=== PATIENT | male | born 1940 | race Caucasian/White ===

== ENCOUNTER 2024-09-25 10:48 | Emergency (ER) | payer OTHER, SELFPAY ==
--- NOTE | ~2024-09-25 | XR_ITS ---
CHEST RADIOGRAPH CLINICAL HISTORY: cough, CONGESTION, BODY ACHY . COMPARISON: None available TECHNIQUE: Single portable view of the chest. FINDINGS The cardiomediastinal silhouette is unremarkable. Coarse interstitial lung markings are identified bilaterally, suggesting interstitial lung disease. The lungs are otherwise clear. IMPRESSION: Findings suggesting interstitial lung disease, without focal infiltrate or effusion. Reviewed, dictated and finalized at location A. URE CAPITALIST IMPRESSION: Findings suggesting interstitial lung disease, without focal infiltrate or effu lianna.
[2024-09-25 10:55] VITALS: BP 132/76; PULSE 81; RESP 18; TEMP 37.3; O2SAT 97
--- NOTE | 2024-09-25 11:36 | ED.GENADULT ---
HPI - General Adult General Chief complaint: Upper Respiratory Infection Stated complaint: congestion Time Seen by Provider: 09/25/24 10:50 History of Present Illness HPI narrative: [age] year old male presenting to the emergency department for evaluation for cough and congestion. this been ongoing for the approximately last 3-4 days. Patient denies any current complaint is not appear to be any significant distress. Patient denies any sick contacts. Patient does have a history of smoking but quit many years ago. Patient denies any fevers. Related Data Allergies Allergy/AdvReac Type Severity Reaction Status Date / Time No Known Allergies Allergy Verified 09/25/24 10:58 Review of Systems Review of Systems: All systems reviewed & are unremarkable except as noted in HPI and below PMFSH Family History Family History (Updated 09/18/15 @ 14:00 by DOCTOR UNKNOWN) Mother Family history of heart disease in male family member before age 55 Patient's mother is Father Patient's father is Social History Social History Smoking status: Former smoker Alcohol intake: current Exam Narrative: APPEARANCE: Well appearing, no pain, no distress, well-nourished. HEAD: normocephalic, atraumatic. EYES: PERRLA/EOMI, conjunctivae clear. NOSE: Normal no drainage EARS:TMS clear with good light reflex. THROAT: Pharynx clear, no exudate. NECK: Supple. No adenopathy, no masses. RESPIRATORY: Airway patent, respirations nonlabored. Clear to auscultation bilaterally, no rales, rhonchi, wheezing. CARDIOVASCULAR: Regular rate and rhythm without murmurs rubs or gallops. ABDOMINAL: Soft, nontender, nondistended, normal bowel sounds MUSCULOSKELETAL: Moves all extremities. Strength/ROM intact, No edema, No calf tenderness. NEURO: Alert. Cranial nerves II through XII intact. Grossly intact SKIN: Warm, dry. Normal Color Course Vital Signs Vital signs: Vital Signs Temperature 99.2 F 09/25/24 10:55 Pulse Rate 81 09/25/24 10:55 Respiratory Rate 18 09/25/24 10:55 Blood Pressure 132/76 09/25/24 10:55 Pulse Oximetry 97 09/25/24 10:55 Oxygen Delivery Room Air 09/25/24 10:55 Temperature 98 F 09/25/24 12:22 Pulse Rate 71 09/25/24 12:22 Respiratory Rate 18 09/25/24 12:22 Blood Pressure 142/67 H 09/25/24 12:22 Pulse Oximetry 92 09/25/24 12:22 Oxygen Delivery Room Air 09/25/24 11:03 Medical Decision Making MDM Narrative Medical decision making narrative: [age] old male presenting to the emergency department for evaluation for cough and congestion over the last to 3 days. Patient had a chest x-ray showing no acute cardiopulmonary abnormality. Patient was negative for influenza and RSV but did test positive for COVID. Patient was provided albuterol inhaler and Tessalon Perles for symptom control. Patient was updated results of the workup was encouraged close follow-up with primary care physician. Patient family were also educated on reasons to return to the emergency department. Differential Diagnosis Differential Diagnosis: Influenza, COVID, RSV, pneumonia, ACS Vital Signs Vital Signs: Vital Signs Temperature 99.2 F 09/25/24 10:55 Pulse Rate 81 09/25/24 10:55 Respiratory Rate 18 09/25/24 10:55 Blood Pressure 132/76 09/25/24 10:55 Pulse Oximetry 97 09/25/24 10:55 Oxygen Delivery Room Air 09/25/24 10:55 Temperature 98 F 09/25/24 12:22 Pulse Rate 71 09/25/24 12:22 Respiratory Rate 18 09/25/24 12:22 Blood Pressure 142/67 H 09/25/24 12:22 Pulse Oximetry 92 09/25/24 12:22 Oxygen Delivery Room Air 09/25/24 11:03 Lab Data Lab results reviewed: Yes I reviewed the patient's lab results. Labs: Lab Results 09/25/24 Range/Units 11:04 Influenza A (RT-PCR) Negative (Negative) Influenza B (RT-PCR) Negative (Negative) RSV (RT-PCR) Negative (Negative) SARS-CoV-2 RNA (RT-PCR) Positive A (Negative) Imaging Data Radiologist's impression: Impressions Chest X-Ray 09/25/24 11:30 IMPRESSION: Findings suggesting interstitial lung disease, without focal infiltrate or effusion. Discharge Plan Discharge Clinical Impression: COVID Patient Disposition: Home, Self-Care Condition: Stable Instructions: Antibiotic Form, COVID-19 (Coronavirus Disease 2019) (ED) Additional Instructions: You did test positive for COVID. Albuterol inhaler for cough and shortness of breath. Tessalon Perles for cough. Have close follow-up with your primary care physician. Patient Language: Hungarian Prescriptions: New albuterol sulfate 90 mcg/actuation HFA aerosol inhaler 1 inh inhalation Q4H PRN (Reason: shortness of breath or wheezing) Qty: 6.7 0RF benzonatate 100 mg capsule 100 mg PO TID PRN (Reason: cough) Qty: 14 0RF Follow-up/Referrals: Abner,Cali Gonzales MD [Primary Care Provider] -
[2024-09-25 11:46] LABS: Influenza A QL RT-PCR Negative (Negative); Influenza B QL RT-PCR Negative (Negative); RSV RNA, RT-PCR Negative (Negative); SARS-CoV-2 RNA PCR Positive (Negative)
[2024-09-25 12:22] VITALS: BP 142/67; PULSE 71; RESP 18; TEMP 36.6; O2SAT 92
--- OUTSIDE RECORDS SUMMARY | 2024-10-02 05:30 | XMS_ITS | Encounter Summary ---
Author Name [facility] [facility] [place] [facility] [place] [facility] [place] Address [address] [place] [address] Care Team Providers Care Lumber Trimmer Name Role Phone KALINA RAHMAN Primary Care Provider Unavailabl e Insurance Providers: All historical and current Section Date Range: From patient's date of to the date document was created. This section includes the names of all active insurance providers for the patient. Insurance Provider Type of Coverage Plan Name Start of Policy Coverage End of Policy Coverage Group Number Member ID Insurance Provider's Telephone Number Policy Gonsalez's Name Patient's Relationship to Policy Gonsalez MEDICARE (WNR) MEDICARE (M) PART B Apr 01, 2008 PART B [id number] SHARRI TORRES PATIENT MEDICARE (WNR) MEDICARE (M) PART A Apr 01, 2005 PART A [id number] SHARRI TORRES PATIENT Selected Encounter This section includes the information on record at [place] for the Encounter. Date/Time Encounter Type Encounter Description Reason Pro vider Source Jan 11, 2024 03:29 PM Outpatient Encounter TELEPHONE/ANCILLARY IHE Encounter Template Text not used by [place] Plan of Treatment: Future Appointments (+ 6 months) and Future Tests (+/- 45 days) The Plan of Treatment section includes future care activities for the patient from all [place] [facility]. This section includes future appointments and future orders which are active, pending or scheduled. Future Appointments This section includes appointments that were scheduled to occur 6 months from the date of the Encounter, up to a maximum of 20 appointments. The data comes from all [facility] facilities. Appointment Date/Time Appointment Type Appointme nt Facility Name February 09, 2024 10:30 AM AMBULATORY - MEDICINE [facility] May 13, 2024 09:00 AM AMBULATORY - MEDICINE [facility] Social History: Smoking Status (Most current) and Tobacco Use (All prior to encounter date) This section includes the most current, and the historical, smoking and tobacco- related health factors from the [place] facility where the Encounter took place. Current Smoking Status This section includes the most current smoking, or tobacco-related health factor, from the [place] facility where the Encounter took place. Date/Time Current Smoking Status Comment Domingo brannon Jul 27, 2009 11:32 AM QUIT TOBACCO >7 YEARS AGO [facility] Tobacco Use History This section includes a history of the smoking, or tobacco-related health factors, that were collected on or before the date of the Encounter. The data comes from the [place] facility where the Encounter took place. Date/Time Smoking Status/Tobacco Use Comment Lesley pierce Oct 18, 2006 01:13 PM QUIT TOBACCO >12 M O & <7 YRS AGO [facility] Jul 12, 2006 01:22 PM CURRENT NON-TOBACC O USER-HX OF USE [facility] Jul 12, 2006 01:22 PM TOBACCO TERMINATION STAGE [facility] Dec 21, 2005 01:25 PM CURRENT NON-TOBACC O USER-HX OF USE [facility] Dec 21, 2005 01:25 PM TOBACCO TERMINATION STAGE [facility] Jun 14, 2005 10:36 AM CURRENT NON-TOBACC O USER-HX OF USE [facility] Jun 14, 2005 10:36 AM TOBACCO TERMINATION STAGE [facility] Jan 21, 2005 08:41 AM CURRENT NON-TOBACC O USER-HX OF USE [facility] Jan 21, 2005 08:41 AM LIFETIME NON-TOBACCO USER [facility] Jan 21, 2005 08:41 AM TOBACCO TERMINATION STAGE [facility] Advance Directives: All historical and current Section Date Range: From patient's date of to the date document was created. This section includes ALL of a patient's completed or amended [place] Advance and Rescinded Directives. The entries below indicate that a directive exists for the patient, but an actual copy is not included with this document. The data comes from all [place] facilities. Date Advance Directives Provider Source Nov 25, 2022 ADVANCE DIRECTIVE CELINE GOINS [facility] Encounter Notes: All associated encounter notes This section contains the clinical notes associated to the Encounter. Date/Time Encounter Note(s) Provider Source Jan 11, 2024 03:29 PM CAREGIVER CERTIFIC ATE: LOCAL TITLE: CSP TELEPHONE NOTE STANDARD TITLE: CAREGIVER CERTIFICATE DATE OF NOTE: JAN 11, 2024@15:29 ENTRY DATE: JAN 11, 2024@15:29:22 AUTHOR: MERLIN MCNEAL EXP COSIGNER: URGENCY: STATUS: COMPLETED CSP SW attempted to reach the 's CG (Varsha, ) by phone after she requested a call back through the [facility] office. Call went to [employer], general message with [facility] contact information provided. [facility] SW will attempt to reach out again at a later time. /tashia/ MCKAYLA Menon, ABRASIVE WHEEL MOLDER Clinical Record Center Coordinator Signed: 01/11/2024 15:30 MERLIN MCNEAL [facility]
--- OUTSIDE RECORDS SUMMARY | 2024-10-02 05:30 | XMS_ITS | Encounter Summary ---
Author Name [facility] [place] [facility] [place] [facility] [place] Address [address] [place] [address] Care Team Providers Care Laboratory Monitor Name Role Phone KALINA RAHMAN Primary Care [...] PART B Apr 01, 2008 PART B [id number] 91A SHARRI TORRES PATIENT MEDICARE (WNR) MEDICARE (M) PART A Apr 01, 2005 PART A [id number] 91A SHARRI TORRES PATIENT Selected Encounter This section includes the information on record at [place] for the Encounter. Date/Time Encounter Type Encounter Description Reason Provider Source Sep 27, 2023 11:50 AM HC PRO PHONE CALL 5-10 MIN TELEPHONE/ERROL ENCARNACION ICD-10-CM G30.9 Alzheimer's disease, unspecified MERLIN MCNEAL [facility] Encounter Template Text not used by [place] Assessments - Encounter Diagnoses This section includes the primary and secondary diagnoses documented for the Encounter. Date/Time Primary/Secondary Diagnosis Diagnosis Name Provider Source Sep 27, 2023 11:50 AM PRIMARY Alzheimer's disease, unspecified MERLIN MCNEAL [facility] Sep 27, 2023 11:50 AM SECONDARY Dem in oth dis classd elswhr,unsp sev,w/o beh/psych/mood/an x MERLIN MCNEAL [facility] Plan of Treatment: Future Appointments (+ 6 months) and Future Tests (+/- 45 days) The Plan of Treatment section includes future care activities for the patient from all [place] [facility]. This section includes future appointments and future orders which are active, pending or scheduled. Future Appointments This section includes appointments that were scheduled to occur 6 months from the date of the Encounter, up to a maximum of 20 appointments. The data comes from all [place] treatment facilities. Appointment Date/Time Appointment Type Appointme nt Facility Name February 09, 2024 10:30 AM AMBULATORY - MEDICINE [facility] Social History: Smoking Status (Most current) and Tobacco Use (All prior to encounter date) This section includes the most current, and the historical, smoking and tobacco- related health factors from the [place] facility where the Encounter took place. Current Smoking Status This section includes the most current smoking, or tobacco-related health factor, from the [place] facility where the Encounter took place. Date/Time Current Smoking Status Comment Domingo brannon Jul 27, 2009 11:32 AM QUIT TOBACCO >7 YEARS AGO [facility] Tobacco Use History This section includes a history of the smoking, or tobacco-related health factors, that were collected on or before the date of the Encounter. The data comes from the [place] facility where the Encounter took place. Date/Time Smoking Status/Tobacco Use Comment Lesley pierce Oct 18, 2006 01:13 PM QUIT TOBACCO >12 M O & <7 YRS AGO [facility] Jul 12, 2006 01:22 PM CURRENT NON-TOBACC O USER-HX OF USE [facility] Jul 12, 2006 01:22 PM TOBACCO TERMINATION STAGE [facility] Dec 21, 2005 01:25 PM CURRENT NON-TOBACC O USER-HX OF USE [facility] Dec 21, 2005 01:25 PM TOBACCO TERMINATION STAGE [facility] Jun 14, 2005 10:36 AM CURRENT NON-TOBACC O USER-HX OF USE [facility] Jun 14, 2005 10:36 AM TOBACCO TERMINATION STAGE [facility] Jan 21, 2005 08:41 AM CURRENT NON-TOBACC O USER-HX OF USE [facility] Jan 21, 2005 08:41 AM LIFETIME NON-TOBACCO USER [facility] Jan 21, 2005 08:41 AM TOBACCO TERMINATION STAGE [facility] Advance Directives: All historical and current Section Date Range: From patient's date of to the date document was created. This section includes ALL of a patient's completed or amended [place] Advance and Rescinded Directives. The entries below indicate that a directive exists for the patient, but an actual copy is not included with this document. The data comes from all [place] facilities. Date Advance Directives Provider Source Nov 25, 2022 ADVANCE DIRECTIVE CELINE GOINS [facility] Encounter Notes: All associated encounter notes This section contains the clinical notes associated to the Encounter. Date/Time Encounter Note(s) Provider Source Sep 27, 2023 11:50 AM CONSULT: LOCAL TITLE: CAREGIVER SUPPORT CONSULT STANDARD TITLE: CONSULT DATE OF NOTE: SEP 27, 2023@11:50 ENTRY DATE: SEP 27, 2023@12:44:38 AUTHOR: MERLIN MCNEAL COSIGNER: URGENCY: STATUS: COMPLETED Name of Caregiver: Varsha Relationship of Caregiver to the : The caregiver is the 's spouse. Caregiver Contact number: Time spent on phone: 9 mins Total time spent: 20 mins Reason(s) for Referral: Caregiver assistance with navigating VA services Caregiver community resources Services/Education Offered: Navigating [place] healthcare and services Information provided [facility] Program of General Caregiver Support Services Information provided Assessment and Plan: GISSEL RENEE called the CG per consult. She was agreeable to the call, denied any immediate needs, and endorsed having a short time to speak. GISSEL RENEE provided a brief overview of local and national CSP resources for caregivers. Provided information and education related to resources available for caregivers of enrolled veterans through the [facility] and offered to send [facility] fact sheet, menu of services, and monthly newsletter for review by mail or e-mail. At this time the CG is interested in receiving the information and speaking with GISSEL RENEE the following week. She reports that she is trying to contact PACT or needed providers to discuss opting out of 's sleep study. GISSEL RENEE provided her with assistance navigating VA contacts and also provided information regarding [employer] and its messaging tool. CG expressed graditude. CG prefers e-mail and resources were sent to [email or web address]. GISSEL RENEE will remain available for CG support as needed. GISSEL RENEE addressed all questions and CG's stated needs during this call. CG was invited to call back with additional questions, support, or assistance navigating the [place] health care system. /tashia/ MCKAYLA Menon, GAME ROOM ATTENDANT Clinical Teacher Assistant Signed: 09/27/2023 12:49 MERLIN MCNEAL [facility]
--- OUTSIDE RECORDS SUMMARY | 2024-10-02 05:30 | XMS_ITS | Encounter Summary ---
Author Name [facility] [place] [facility] [place] [facility] [place] Address [address] [place] [address] Care Team Providers Care Hotel Or Motel Receptionist Name Role Phone KALINA RAHMAN Primary Care [...] PART B Apr 01, 2008 PART B [id number] [phone] SHARRI TORRES PATIENT MEDICARE (WNR) MEDICARE (M) PART A Apr 01, 2005 PART A [id number] SHARRI TORRES PATIENT Selected Encounter This section includes the information on record at [place] for the Encounter. Date/Time Encounter Type Encounter Description Reason Pro vider Source Nov 02, 2023 12:02 PM Outpatient Encounter TELEPHONE/ANCILLARY IHE Encounter Template Text not used by [place] Plan of Treatment: Future Appointments (+ 6 months) and Future Tests (+/- 45 days) The Plan of Treatment section includes future care activities for the patient from all [place] [facility]. This section includes future appointments and future orders which are active, pending or scheduled. Future Appointments This section includes appointments that were scheduled to occur 6 months from the date of the Encounter, up to a maximum of 20 appointments. The data comes from all [place] treatment facilities. Appointment Date/Time Appointment Type Appointme nt Facility Name February 09, 2024 10:30 AM AMBULATORY - MEDICINE [facility] Social History: Smoking Status (Most current) and Tobacco Use (All prior to encounter date) This section includes the most current, and the historical, smoking and tobacco- related health factors from the [place] facility where the Encounter took place. Current Smoking Status This section includes the most current smoking, or tobacco-related health factor, from the [place] facility where the Encounter took place. Date/Time Current Smoking Status Comment Domingo brannon Jul 27, 2009 11:32 AM QUIT TOBACCO >7 YEARS AGO [facility] Tobacco Use History This section includes a history of the smoking, or tobacco-related health factors, that were collected on or before the date of the Encounter. The data comes from the [place] facility where the Encounter took place. Date/Time Smoking Status/Tobacco Use Comment Lesley pierce Oct 18, 2006 01:13 PM QUIT TOBACCO >12 M O & <7 YRS AGO [facility] Jul 12, 2006 01:22 PM CURRENT NON-TOBACC O USER-HX OF USE [facility] Jul 12, 2006 01:22 PM TOBACCO TERMINATION STAGE [facility] Dec 21, 2005 01:25 PM CURRENT NON-TOBACC O USER-HX OF USE [facility] Dec 21, 2005 01:25 PM TOBACCO TERMINATION STAGE [facility] Jun 14, 2005 10:36 AM CURRENT NON-TOBACC O USER-HX OF USE [facility] Jun 14, 2005 10:36 AM TOBACCO TERMINATION STAGE [facility] Jan 21, 2005 08:41 AM CURRENT NON-TOBACC O USER-HX OF USE [facility] Jan 21, 2005 08:41 AM LIFETIME NON-TOBACCO USER [facility] Jan 21, 2005 08:41 AM TOBACCO TERMINATION STAGE [facility] Advance Directives: All historical and current Section Date Range: From patient's date of to the date document was created. This section includes ALL of a patient's completed or amended [place] Advance and Rescinded Directives. The entries below indicate that a directive exists for the patient, but an actual copy is not included with this document. The data comes from all [place] facilities. Date Advance Directives Provider Source Nov 25, 2022 ADVANCE DIRECTIVE CELINE GOINS [facility] Encounter Notes: All associated encounter notes This section contains the clinical notes associated to the Encounter. Date/Time Encounter Note(s) Provider Source Nov 02, 2023 12:02 PM CAREGIVER CERTIFIC ATE: LOCAL TITLE: CSP TELEPHONE NOTE STANDARD TITLE: CAREGIVER CERTIFICATE DATE OF NOTE: NOV 02, 2023@12:02 ENTRY DATE: NOV 02, 2023@12:02:58 AUTHOR: MERLIN MCNEAL EXP COSIGNER: URGENCY: STATUS: COMPLETED CSP SW attempted to reach the [place] CG (Varsha) by phone for scheduled enrollment to [facility]. CG answered and reports that her grandson made a surprise visit to the house and she is open to contact next week. CSP SW in agreement and wished her a happy visit with family. GISSEL SW will attempt to reach out again at a later time. /tashia/ MCKAYLA Menon, CUSTOMER LOGISTICS MANAGER Clinical Rn Icu Signed: 11/02/2023 12:04 MERLIN MCNEAL [facility]
--- OUTSIDE RECORDS SUMMARY | 2024-10-02 05:30 | XMS_ITS | Encounter Summary ---
Author Name [facility] [facility] [place] [facility] [place] Address [address] [place] [address] Care Team Providers Care Windows Security Analyst Name Role Phone KALINA RAHMAN Primary Care [...] PART B Apr 01, 2008 PART B [id number] SHARRI TORRES PATIENT MEDICARE (WNR) MEDICARE (M) PART A Apr 01, 2005 PART A [id number] SHARRI TORRES PATIENT Selected Encounter This section includes the information on record at [place] for the Encounter. Date/Time Encounter Type Encounter Description Reason Pro vider Source Nov 29, 2023 03:28 PM Outpatient Encounter TELEPHONE/ANCILLARY IHE Encounter Template Text not used by [place] Plan of Treatment: Future Appointments (+ 6 months) and Future Tests (+/- 45 days) The Plan of Treatment section includes future care activities for the [facility] [place] [facility] This section includes future appointments and future orders which are active, pending or scheduled. Future Appointments This section includes appointments that were scheduled to occur 6 months from the date of the Encounter, up to a maximum of 20 appointments. The data comes from all [place] treatment facilities. Appointment Date/Time Appointment Type Appointme nt Facility Name February 09, 2024 10:30 AM AMBULATORY - MEDICINE [facility] May 13, 2024 09:00 AM AMBULATORY - MEDICINE [facility] Social History: Smoking Status (Most current) and Tobacco Use (All prior to encounter date) This section includes the most current, and the historical, smoking and tobacco- related health factors from the [place] facility where the Encounter took place. Current Smoking Status This section includes the most current smoking, or tobacco-related health factor, from the [place] facility where the Encounter took place. Date/Time Current Smoking Status Comment Domingo brannon Jul 27, 2009 11:32 AM QUIT TOBACCO >7 YEARS AGO [facility] Tobacco Use History This section includes a history of the smoking, or tobacco-related health factors, that were collected on or before the date of the Encounter. The data comes from the [place] facility where the Encounter took place. Date/Time Smoking Status/Tobacco Use Comment Lesley pierce Oct 18, 2006 01:13 PM QUIT TOBACCO >12 M O & <7 YRS AGO [facility] Jul 12, 2006 01:22 PM CURRENT NON-TOBACC O USER-HX OF USE [facility] Jul 12, 2006 01:22 PM TOBACCO TERMINATION STAGE [facility] Dec 21, 2005 01:25 PM CURRENT NON-TOBACC O USER-HX OF USE [facility] Dec 21, 2005 01:25 PM TOBACCO TERMINATION STAGE [facility] Jun 14, 2005 10:36 AM CURRENT NON-TOBACC O USER-HX OF USE [facility] Jun 14, 2005 10:36 AM TOBACCO TERMINATION STAGE [facility] Jan 21, 2005 08:41 AM CURRENT NON-TOBACC O USER-HX OF USE [facility] Jan 21, 2005 08:41 AM LIFETIME NON-TOBACCO USER [facility] Jan 21, 2005 08:41 AM TOBACCO TERMINATION STAGE [facility] Advance Directives: All historical and current Section Date Range: From patient's date of to the date document was created. This section includes ALL of a patient's completed or amended [place] Advance and Rescinded Directives. The entries below indicate that a directive exists for the patient, but an actual copy is not included with this document. The data comes from all [place] facilities. Date Advance Directives Provider Source Nov 25, [address] [facility] Encounter Notes: All associated encounter notes This section contains the clinical notes associated to the Encounter. Date/Time Encounter Note(s) Provider Source Nov 29, 2023 03:28 PM CAREGIVER CERTIFIC ATE: LOCAL TITLE: CSP TELEPHONE NOTE STANDARD TITLE: CAREGIVER CERTIFICATE DATE OF NOTE: NOV 29, 2023@15:28 ENTRY DATE: NOV 29, 2023@15:29:02 AUTHOR: MERLIN MCNEAL EXP COSIGNER: URGENCY: STATUS: COMPLETED CSP SW attempted to reach the 's CG (Varsha, ) by phone, call went to [facility], general message with CSP contact information provided. CSP SW will await a call from the CG at her discretion. /tashia/ MCKAYLA Menon, DIRECTOR INFORMATICS Clinical Director Clinical Information Services Signed: 11/29/2023 15:30 MERLIN MCNEAL [facility]
--- OUTSIDE RECORDS SUMMARY | 2024-10-02 05:30 | XMS_ITS | Encounter Summary ---
Author Name [facility] [place] [facility] [place] Address [address] [place] [address] Care Team Providers Care Fitness Professional Name Role Phone KALINA RAHMAN Primary Care [...] PART B Apr 01, 2008 PART B [id number] SHARRI TORRES PATIENT MEDICARE (WNR) MEDICARE (M) PART A Apr 01, 2005 PART A [id number] [phone] SHARRI TORRES PATIENT Selected Encounter This section includes the information on record at [place] for the Encounter. Date/Time Encounter Type Encounter Description Reason Provider Source Oct 13, 2023 10:50 AM HC PRO PHONE CALL 21-30 MIN TELEPHONE/ERROL ENCARNACION ICD-10-CM G30.9 Alzheimer's disease, unspecified MERLIN MCNEAL [facility] Encounter Template Text not used by [place] Assessments - Encounter Diagnoses This section includes the primary and secondary diagnoses documented for the Encounter. Date/Time Primary/Secondary Diagnosis Diagnosis Name Provider Source Oct 13, 2023 10:50 AM PRIMARY Alzheimer's disease, unspecified JEANINE MCNEALIA Naveen [facility] Oct 13, 2023 10:50 AM SECONDARY Dem in oth dis classd elswhr,unsp sev,w/o beh/psych/mood/an x ELIZABETMERLIN M [facility] Oct 13, 2023 10:50 AM SECONDARY Dem in other dis classd elswhr, mild, w/o beh/psych/mood/an x [facility] Plan of Treatment: Future Appointments (+ 6 months) and Future Tests (+/- 45 days) The Plan of Treatment section includes future care activities for the patient from all [place] treatmentfacilities. This section includes future appointments and future orders which are active, pending or scheduled. Future Appointments This section includes appointments that were scheduled to occur 6 months from the date of the Encounter, up to a maximum of 20 appointments. The data comes from all [place] treatment facilities. Appointment Date/Time Appointment Type Appointme nt Facility Name February 09, 2024 10:30 AM AMBULATORY - MEDICINE [facility] Social History: Smoking Status (Most current) and Tobacco Use (All prior to encounter date) This section includes the most current, and the historical, smoking and tobacco- related health factors from the [place] facility where the Encounter took place. Current Smoking Status This section includes the most current smoking, or tobacco-related health factor, from the [place] facility where the Encounter took place. Date/Time Current Smoking Status Comment Domingo brannon Jul 27, 2009 11:32 AM QUIT TOBACCO >7 YEARS AGO [facility] Tobacco Use History This section includes a history of the smoking, or tobacco-related health factors, that were collected on or before the date of the Encounter. The data comes from the [place] facility where the Encounter took place. Date/Time Smoking Status/Tobacco Use Comment Lesley acelisa Oct 18, 2006 01:13 PM QUIT TOBACCO >12 M O & <7 YRS AGO [facility] Jul 12, 2006 01:22 PM CURRENT NON-TOBACC O USER-HX OF USE [facility] Jul 12, 2006 01:22 PM TOBACCO TERMINATION STAGE [facility] Dec 21, 2005 01:25 PM CURRENT NON-TOBACC O USER-HX OF USE [facility] Dec 21, 2005 01:25 PM TOBACCO TERMINATION STAGE [facility] Jun 14, 2005 10:36 AM CURRENT NON-TOBACC O USER-HX OF USE [facility] Jun 14, 2005 10:36 AM TOBACCO TERMINATION STAGE [facility] Jan 21, 2005 08:41 AM CURRENT NON-TOBACC O USER-HX OF USE [facility] Jan 21, 2005 08:41 AM LIFETIME NON-TOBACCO USER [facility] Jan 21, 2005 08:41 AM TOBACCO TERMINATION STAGE [facility] Advance Directives: All historical and current Section Date Range: From patient's date of to the date document was created. This section includes ALL of a patient's completed or amended [place] Advance and Rescinded Directives. The entries below indicate that a directive exists for the patient, but an actual copy is not included with this document. The data comes from all [place] facilities. Date Advance Directives Provider Source Nov 25, 2022 ADVANCE DIRECTIVE CELINE GOINS [facility] Encounter Notes: All associated encounter notes This section contains the clinical notes associated to the Encounter. Date/Time Encounter Note(s) Provider Source Oct 13, 2023 10:50 AM CAREGIVER CERTIFIC ATE: LOCAL TITLE: [facility] TELEPHONE NOTE STANDARD TITLE: CAREGIVER CERTIFICATE DATE OF NOTE: OCT 13, 2023@10:50 ENTRY DATE: OCT 13, 2023@11:40:36 AUTHOR: MERLIN MCNEAL COSIGNER: URGENCY: STATUS: COMPLETED CAREGIVER SUPPORT TELEPHONE NOTE DATE OF TELEPHONE CONTACT: 10/13/2023 Time spent on phone: 51 min Total time spent: 65 min PURPOSE OF CONTACT: CG called back to the [facility] office DIAGNOSIS: See medical record CAREGIVER INVOLVED IN CARE: YES, per cg report. No PHI shared with CG during this call. CALL OUTCOME: completed with CG/DPOA RESOURCES PROVIDED: Caregiver Support resources discussed and provided via call and e-mail Barriers to Care identified by CG: No barriers identified AD/DPOAHC: On file, spouse designated as DPOA Concern related to Abuse, Neglect, or Exploitation? None reported SUMMARY: CG called back to CSP office following an outreach call and VM. CG denied any immdiate needs at this time and was grateful for the outreach. She reports that currently she is trying to learn more about sleeping habits for those with dementia. She reports that the slept more than her prior to his diagnosis and that in the past months she has noted that he has slept more than his usual. CG is seeking resources to help educate her about Sxs of dementia, including peer support groups. GISSEL RENEE and CG discussed both dementia support group through local [facility] as well as Alzheimer's Association. CG also spoke about difficulty of planning for care needs ahead. The CG reports that she is uncertain about moving to be closer to her daughter and is being thoughtful about the 's socialization so as to prevent isolation. GISSEL RENEE first provided active listening to the CG's preferences, concerns, and hopes. GISSEL RENEE later worked with the CG to discuss strategies such as problem solving through making a list as well as incoporating her children in the discussion as they have voiced willingness to help. CG and GISSEL RENEE reveiewed some scenrios for speaking with her children as well as discussed some of the initial pros and cons that she will write on her list. CG expressed graditude for the call. Due to timing, it did not seem appropriate for GISSEL RENEE to enroll her at this time to [facility]. CG is interested in enrolling in the weeks to come and also requests to be included in the invitation to [facility]'s dementia support group. GISSEL RENEE to call CG next week to schedule an enrollment date/time and add her to the support group list. FOLLOW UP PLAN: GISSEL RENEE will remain available for CG support as needed. GISSEL RENEE addressed all questions and CG's stated needs during this call. CG was invited to call back with additional questions, support, or assistance navigating the [place] health care system. /tashia/ MCKAYLA Menon, SAMMI Clinical Jacker Signed: 10/13/2023 15:09 MERLIN MCNEAL [facility]
--- OUTSIDE RECORDS SUMMARY | 2024-10-02 05:30 | XMS_ITS | Encounter Summary ---
Author Name [facility] [place] Address [address] [place] [address] Care Team Providers Care Floor Scrubber Name Role Phone KALINA RAHMAN Primary Care [...] PART B Apr 01, 2008 PART B [id number] [phone] SHARRI TORRES PATIENT MEDICARE (WNR) MEDICARE (M) PART A Apr 01, 2005 PART A [id number] SHARRI TORRES PATIENT Selected Encounter This section includes the information on record at [place] for the Encounter. Date/Time Encounter Type Encounter Description Reason Provider Source Oct 24, 2023 02:15 PM HC PRO PHONE CALL 5-10 MIN TELEPHONE/ERROL ENCARNACION ICD-10-CM G30.9 Alzheimer's disease, unspecified MERLIN MCNEAL [facility] Encounter Template Text not used by [place] Assessments - Encounter Diagnoses This section includes the primary and secondary diagnoses documented for the Encounter. Date/Time Primary/Secondary Diagnosis Diagnosis Name Provider Source Oct 24, 2023 02:15 PM PRIMARY Alzheimer's disease, unspecified MERLIN MCNEAL [facility] Oct 24, 2023 02:15 PM SECONDARY Dem in oth dis classd elswhr,unsp sev,w/o beh/psych/mood/an x MERLIN MCNEAL [facility] Plan of Treatment: Future Appointments (+ 6 months) and Future Tests (+/- 45 days) The Plan of Treatment section includes future care activities for the [facility] This section includes future appointments and future orders which are active, pending or scheduled. Future Appointments This section includes appointments that were scheduled to occur 6 months from the date of the Encounter, up to a maximum of 20 appointments. The data comes from all [place] treatment facilities. Appointment Date/Time Appointment Type Appointme nt Facility Name February 09, 2024 10:30 AM AMBULATORY - MEDICINE [facility] Social History: Smoking Status (Most current) and Tobacco Use (All prior to encounter date) This section includes the most current, and the historical, smoking and tobacco- related health factors from the [place] facility where the Encounter took place. Current Smoking Status This section includes the most current smoking, or tobacco-related health factor, from the [place] facility where the Encounter took place. Date/Time Current Smoking Status Comment Domingo brannon Jul 27, 2009 11:32 AM QUIT TOBACCO >7 YEARS AGO [facility] Tobacco Use History This section includes a history of the smoking, or tobacco-related health factors, that were collected on or before the date of the Encounter. The data comes from the [place] facility where the Encounter took place. Date/Time Smoking Status/Tobacco Use Comment Lesley pierce Oct 18, 2006 01:13 PM QUIT TOBACCO >12 M O & <7 YRS AGO [facility] Jul 12, 2006 01:22 PM CURRENT NON-TOBACC O USER-HX OF USE [facility] Jul 12, 2006 01:22 PM TOBACCO TERMINATION STAGE [facility] Dec 21, 2005 01:25 PM CURRENT NON-TOBACC O USER-HX OF USE [facility] Dec 21, 2005 01:25 PM TOBACCO TERMINATION STAGE [facility] Jun 14, 2005 10:36 AM CURRENT NON-TOBACC O USER-HX OF USE [facility] Jun 14, 2005 10:36 AM TOBACCO TERMINATION STAGE [facility] Jan 21, 2005 08:41 AM CURRENT NON-TOBACC O USER-HX OF USE [facility] Jan 21, 2005 08:41 AM LIFETIME NON-TOBACCO USER [facility] Jan 21, 2005 08:41 AM TOBACCO TERMINATION STAGE [facility] Advance Directives: All historical and current Section Date Range: From patient's date of to the date document was created. This section includes ALL of a patient's completed or amended [place] Advance and Rescinded Directives. The entries below indicate that a directive exists for the patient, but an actual copy is not included with this document. The data comes from all [place] facilities. Date Advance Directives Provider Source Nov 25, 2022 ADVANCE DIRECTIVE CELINE GOINS [facility] Encounter Notes: All associated encounter notes This section contains the clinical notes associated to the Encounter. Date/Time Encounter Note(s) Provider Source Oct 24, 2023 02:15 PM CAREGIVER CERTIFIC ATE: LOCAL TITLE: CSP TELEPHONE NOTE STANDARD TITLE: CAREGIVER CERTIFICATE DATE OF NOTE: OCT 24, 2023@14:15 ENTRY DATE: OCT 24, 2023@14:29:30 AUTHOR: MERLIN MCNEAL COSIGNER: URGENCY: STATUS: COMPLETED CAREGIVER SUPPORT TELEPHONE NOTE DATE OF TELEPHONE CONTACT: 10/24/2023 Time spent on phone: 7 min Total time spent: 15 min PURPOSE OF CONTACT: [facility] called CG for follow up DIAGNOSIS: See medical record CAREGIVER INVOLVED IN CARE: YES, per cg report. No PHI shared with CG during this call. CALL OUTCOME: completed with CG/DPOA (Varsha Nelson, ) RESOURCES PROVIDED: Caregiver Support resources discussed and provided via call Barriers to Care identified by CG: No barriers identified AD/DPOAHC: On file, spouse designated as DPOA Concern related to Abuse, Neglect, or Exploitation? None reported SUMMARY: GISSEL RENEE called the CG for follow up and to offer time to schedule enrollment. CG was agreeable to the call and reports that things have been mostly unchanged in past two weeks. CG's daughter to visit on 11/03. CG wants to participate in full assessment for [employer] enrollment and scheduled for phone enrollment with GISSEL RENEE on 11/02/23 at 12pm. FOLLOW UP PLAN: GISSEL RENEE will remain available for CG support as needed. CSP SW addressed all questions and CG's stated needs during this call. CG was invited to call back with additional questions, support, or assistance navigating the [place] health care system. /tashia/ MCKAYLA Menon, PRE SALES SYSTEMS ENGINEER Clinical Card Placer Signed: 10/24/2023 14:40 MERLIN MCNEAL [facility]
--- OUTSIDE RECORDS SUMMARY | 2024-10-02 05:30 | XMS_ITS | Continuity of Care Document ---
Author Name [facility] Organization [facility] Care Team Providers Care Commercial Drafter Name Role Phone [facility] Unavailable Unavailable Problems Combined list of problems from Department of Defense and [facility] Affairs facilities. It does not include entries that were removed or entered in error. Problem Status Onset Date Problem Type Date of Resolution Comments Source Alcohol abuse Active Condition [facility] Alzheimer's disease Active Condition [facility] Dementia Active Condition [facility] Gastroesophageal reflux disease without esophagitis Active Condition [facility] Gastroesophageal Reflux Disorder * (ICD-9-CM 530.81) Active Condition [facility] Hearing Loss, Sensorineural, Unspecified Active Condition [facility] HTN * (ICD-9-CM 401.9) Active Condition [facility] Hypercholesterolemia * (ICD-9-CM 272.0) Active Condition [facility] Hyperlipidemia Active Condition [facility] Hypertension Active Condition [facility] Impacted cerumen of bilateral ears Active Condition [facility] Impaired FASTING Glucose (ICD-9-CM 790.21) Active Condition [facility] Inguinal hernia Active Condition [facility] URI (ICD-9-CM 465.9) Active Condition [facility] Diagnosis: ICD-10-CM G30.9 Alzheimer's disease, unspecified Active Diagnosis [facility] Diagnosis: ICD-10-CM Z71.9 Counseling, unspecified Active Diagnosis [facility] Diagnosis: ICD-10-CM G47.30 Sleep apnea, unspecified Active Diagnosis [facility] Diagnosis: ICD-10-CM F02.A0 Dem in other dis classd elswhr, mild, w/o beh/psych/mood/anx Active Diagnosis [facility] Diagnosis: ICD-10-CM G30.1 Alzheimer's disease with late onset Active Diagnosis [facility] Diagnosis: ICD-10-CM R41.9 Unsp symptoms and signs w cognitive functions and awareness Active Diagnosis [facility] Diagnosis: ICD-10-CM R53.83 Other fatigue Active Diagnosis [facility] Diagnosis: ICD-10-CM I10 Essential (primary) hypertension Active Diagnosis [facility] Diagnosis: ICD-10-CM Z60.0 Problems of adjustment to life-cycle transitions Active Diagnosis [facility] Medications Combined list of outpatient medications from Department of Defense and Veterans Affairs facilities.Medications provided include 1) outpatient medications from the last 15 months, and 2) patient-reported medications. Medication Details Route Status Patient Instructions Prescription Expires Prescription Number Last Dispense Date Ordering Provider Order Date Order Qty Source DONEPEZIL HCL 10MG TAB TAKE ONE TABLET BY MOUTH AT BEDTIME ORAL ACTIVE RAHMAN,BRADEN AM M 2022 [facility] ERAN Bhardwaj LISINOPRIL 20MG TAB TAKE 1.5 TABLETS BY MOUTH ONCE A DAY ORAL ACTIVE Slick CARCAMO 2021 [facility] ERAN Bhardwaj MEMANTINE HCL 10MG TAB TAKE ONE TABLET BY MOUTH TWICE A DAY ORAL ACTIVE RAHMAN,BRADEN AM M 2022 [facility] ERAN Bhardwaj MULTIVITAMI NS CAP/TAB TAKE ONE TABLET BY MOUTH ONCE A DAY ORAL ACTIVE Slick CARCAMO 2021 [facility] ERAN Bhardwaj SIMVASTATIN 40MG TAB TAKE ONE-HALF TABLET BY MOUTH EVERY EVENING ORAL ACTIVE Slick CARCAMO 2021 [facility] ERAN Bhardwaj Immunizations Combined list of available immunizations from the Department of Defense and Veterans Affairs facilities. Immunization Series Date Given Administered By Site Reaction Lot Number CVX Code Drug Blueprint Trimmer Status Comments Source INFLUENZA, UNSPECIFIED FORMULATION 2022 88 complet ed [facility] GOLDISIO N RSV, BIVALENT, PROTEIN SUBUNIT RSVPREF, DILUENT RECONSTITUTED , 0.5 ML, PF 2022 305 complet ed [facility] DIVISIO N TDAP 2022 АЛЕКСАНДР MARTINEZ EN LEFT DELTO ID [id number] [address] [facility] DIVISIO N COVID-19 (MODERNA), MRNA, LNP-S, BIVALENT, PF, 50 MCG/0.5 ML OR 25MCG/0.25 ML DOSE 1 2022 229 complet ed [facility] DIVISIO N INFLUENZA, UNSPECIFIED FORMULATION 2021 [facility] MRNA, LNP-S, PF, 30 MCG/0.3 ML DOSE 3 2020 208 complet ed [facility] DIVISIO N INFLUENZA, HIGH-DOSE, QUADRIVALENT 1 2020 197 complet ed [facility] DIVISIO N COVID-19 (PFIZER), MRNA, LNP-S, PF, 30 MCG/0.3 ML DOSE 2 2020 208 complet ed PFR; [id number]; 1 [facility] DIVISIO N COVID-19 (PFIZER), MRNA, LNP-S, PF, 30 MCG/0.3 ML DOSE 1 2020 208 complet ed PFR; [id number]; 1 [facility] DIVISIO N INFLUENZA, RECOMBINANT, QUADRIVALENT, INJECTABLE, PRESERVATIVE FREE 2019 185 complet ed [facility] DIVISIO N ZOSTER RECOMBINANT 1 2018 187 complet ed [facility] DIVISIO N ZOSTER RECOMBINANT 1 2017 187 complet ed [facility] DIVISIO N INFLUENZA, INJECTABLE, QUADRIVALENT, PRESERVATIVE FREE 2016 150 complet ed [facility] DIVISIO N PNEUMOCOCCAL CONJUGATE PCV 13 2014 133 complet ed [facility] DIVISIO N INFLUENZA, UNSPECIFIED FORMULATION 2014 88 complet ed [facility] DIVISIO N TDAP 2013 115 complet ed [facility] DIVISIO N ZOSTER LIVE 2012 121 complet ed [facility] DIVISIO N INFLUENZA, UNSPECIFIED FORMULATION 2012 88 complet ed [facility] DIVISIO N INFLUENZA, UNSPECIFIED FORMULATION 2011 88 complet ed [facility] DIVISIO N INFLUENZA, UNSPECIFIED FORMULATION 2010 88 complet ed [facility] DIVISIO N INFLUENZA, UNSPECIFIED FORMULATION 2009 88 complet ed [facility] DIVISIO N INFLUENZA, UNSPECIFIED FORMULATION 2008 88 complet ed [facility] DIVISIO N INFLUENZA, UNSPECIFIED FORMULATION 2007 88 complet ed [facility] DIVISIO N INFLUENZA, UNSPECIFIED FORMULATION 2006 88 complet ed per VM [facility] DIVISIO N INFLUENZA, UNSPECIFIED FORMULATION 2006 88 complet ed [facility] DIVISIO N INFLUENZA, UNSPECIFIED FORMULATION 2004 88 complet ed [facility] DIVISIO N PNEUMOCOCCAL, UNSPECIFIED FORMULATION 2004 109 complet ed [facility] DIV[facility]IO N TD(ADULT) UNSPECIFIED FORMULATION 2004 139 complet ed [facility] DIVISIO N Results Combined list of recent chemistry, hematology and other laboratory results from Department of Defense and Veterans Affairs, ranging from 15 months to all on record, depending upon the facility. Order Name Results Value Reference Range Date Interpretation Specimen Comments Source TSH (MA-PB) THYROTROPIN [UNITS/VOLU ME] IN SERUM OR PLASMA 3.281 u[IU]/ mL 0.470 - 5.000 05/13 Specimen Type: SERUM No comment entered. Ordering Provider: MARISA RAHMAN Report Released Date/Time: May 10, 2024 07:20 PM Reporting Lab: [facility] [id number] Performing Lab: [facility] [id number] DIVISION HGA1C HEMOGLOBIN A1C/HEMOGLO BIN.TOTAL IN BLOOD 5.8 4.0 - 6.0 05/13 Specimen Type: BLOOD No comment entered. Ordering Provider: MARISA RAHMAN Report Released Date/Time: May 10, 2024 07:20 PM Reporting Lab: [facility] [place] [address] Performing Lab: [facility] DIVISION B12 COBALAMIN (VITAMIN B12) [MASS/VOLUM E] IN SERUM OR PLASMA 474 pg/mL 213 - 816 05/13 Specimen Type: SERUM No comment entered. Ordering Provider: MARISA RAHMAN Report Released Date/Time: May 10, 2024 07:20 PM Reporting Lab: [facility] [place] [address] Performing Lab: [facility] DIVISION COMPREHENS [place] METABOLIC PANEL CREATININE [MASS/VOLUM E] IN SERUM OR PLASMA 1.20 mg/dL 0.70 - 1.30 05/13 Specimen Type: PLASMA Comment: No hemolysis noted. Ordering Provider: MARISA RAHMAN Report Released Date/Time: May 10, 2024 07:20 PM Reporting Lab: [facility] [place] [address] Performing Lab: [facility] DIVISION COMPREHENS [place] METABOLIC PANEL UREA NITROGEN [MASS/VOLUM E] IN SERUM OR PLASMA 13.7 mg/dL 9.0 - 25.0 05/13 Specimen Type: PLASMA Comment: No hemolysis noted. Ordering Provider: MARISA RAHMAN Report Released Date/Time: May 10, 2024 07:20 PM Reporting Lab: [facility] [place] [phone] Performing Lab: [facility] DIVISION COMPREHENS [place] METABOLIC PANEL GLUCOSE [MASS/VOLUM E] IN SERUM OR PLASMA 102 mg/dL 72 - 99 05/13 H Specimen Type: PLASMA Comment: No hemolysis noted. Ordering Provider: MARISA RAHMAN Report Released Date/Time: May 10, 2024 07:20 PM Reporting Lab: [facility] [place] [address] Performing Lab: [facility] DIVISION COMPREHENS [place] METABOLIC PANEL SODIUM [MOLES/VOLU ME] IN SERUM OR PLASMA 142 meq/L 136 - 145 05/13 Specimen Type: PLASMA Comment: No hemolysis noted. Ordering Provider: MARISA RAHMAN Report Released Date/Time: May 10, 2024 07:20 PM Reporting Lab: [facility] [place] [address] Performing Lab: [facility] DIVISION COMPREHENS [place] METABOLIC PANEL POTASSIUM [MOLES/VOLU ME] IN SERUM OR PLASMA 4.2 meq/L 3.5 - 5.0 05/13 Specimen Type: PLASMA Comment: No hemolysis noted. Ordering Provider: MARISA RAHMAN Report Released Date/Time: May 10, 2024 07:20 PM Reporting Lab: [facility] [place] [address] Performing Lab: [facility] DIVISION COMPREHENS [place] METABOLIC PANEL CHLORIDE [MOLES/VOLU ME] IN SERUM OR PLASMA 110 meq/L 98 - 107 05/13 H Specimen Type: PLASMA Comment: No hemolysis noted. Ordering Provider: MARISA RAHMAN Report Released Date/Time: May 10, 2024 07:20 PM Reporting Lab: [facility] [place] [address] Performing Lab: [facility] DIVISION COMPREHENS [place] METABOLIC PANEL CARBON DIOXIDE, TOTAL [MOLES/VOLU ME] IN SERUM OR PLASMA 22 meq/L 22 - 31 05/13 Specimen Type: PLASMA Comment: No hemolysis noted. Ordering Provider: MARISA RAHMAN Report Released Date/Time: May 10, 2024 07:20 PM Reporting Lab: [facility] [place] [address] Performing Lab: [facility] DIVISION COMPREHENS [place] METABOLIC PANEL CALCIUM [MASS/VOLUM E] IN SERUM OR PLASMA 9.1 mg/dL 8.4 - 10.4 05/13 Specimen Type: PLASMA Comment: No hemolysis noted. Ordering Provider: MARISA RAHMAN Report Released Date/Time: May 10, 2024 07:20 PM Reporting Lab: [facility] [place] [address] Performing Lab: [facility] DIVISION COMPREHENS [place] METABOLIC PANEL PROTEIN [MASS/VOLUM E] IN SERUM OR PLASMA 6.8 g/dL 6.0 - 8.6 05/13 Specimen Type: PLASMA Comment: No hemolysis noted. Ordering Provider: MARISA RAHMAN Report Released Date/Time: May 10, 2024 07:20 PM Reporting Lab: [facility] [place] [address] Performing Lab: [facility] DIVISION COMPREHENS [place] METABOLIC PANEL ALBUMIN [MASS/VOLUM E] IN SERUM OR PLASMA 4.0 g/dL 3.4 - 5.0 05/13 Specimen Type: PLASMA Comment: No hemolysis noted. Ordering Provider: MARISA RAHMAN Report Released Date/Time: May 10, 2024 07:20 PM Reporting Lab: [facility] [place] [address] Performing Lab: [facility] DIVISION COMPREHENS [place] METABOLIC PANEL BILIRUBIN.T OTAL [MASS/VOLUM E] IN SERUM OR PLASMA 0.9 mg/dL 0.2 - 1.2 05/13 Specimen Type: PLASMA Comment: No hemolysis noted. Ordering Provider: MARISA RAHMAN Report Released Date/Time: May 10, 2024 07:20 PM Reporting Lab: [facility] [place] [address] Performing Lab: [facility] DIVISION COMPREHENS [place] METABOLIC PANEL ALKALINE PHOSPHATASE [ENZYMATIC ACTIVITY/VO LUME] IN SERUM OR PLASMA 56 U/L 40 - 150 05/13 Specimen Type: PLASMA Comment: No hemolysis noted. Ordering Provider: MARISA RAHMAN Report Released Date/Time: May 10, 2024 07:20 PM Reporting Lab: [facility] [place] [address] Performing Lab: [facility] DIVISION COMPREHENS [place] METABOLIC PANEL ASPARTATE AMINOTRANSF ERASE [ENZYMATIC ACTIVITY/VO LUME] IN SERUM OR PLASMA 37 U/L 5 - 34 05/13 H Specimen Type: PLASMA Comment: No hemolysis noted. Ordering Provider: MARISA RAHMAN Report Released Date/Time: May 10, 2024 07:20 PM Reporting Lab: [facility] [place] [address] Performing Lab: [facility] DIVISION COMPREHENS [place] METABOLIC PANEL ALANINE AMINOTRANSF ERASE [ENZYMATIC ACTIVITY/VO LUME] IN SERUM OR PLASMA 33 U/L 8 - 40 05/13 Specimen Type: PLASMA Comment: No hemolysis noted. Ordering Provider: MARISA RAHMAN Report Released Date/Time: May 10, 2024 07:20 PM Reporting Lab: [facility] [place] [address] Performing Lab: [facility] COMPREHENS [place] METABOLIC PANEL GLOMERULAR FILTRATION RATE/1.73 SQ M.PREDICTED [VOLUME RATE/AREA] IN SERUM, PLASMA OR BLOOD BY CREATININE- BASED FORMULA (CKD-EPI 2020) 59.63 60 05/13 Specimen Type: PLASMA Comment: No hemolysis noted. Ordering Provider: MARISA RAHMAN Report Released Date/Time: May 10, 2024 07:20 PM Reporting Lab: [facility] [place] [address] Performing Lab: [facility] LIPID PANEL (STL) CHOLESTEROL [MASS/VOLUM E] IN SERUM OR PLASMA 156 mg/dL 0 - 200 05/13 Specimen Type: PLASMA Comment: No hemolysis noted. Ordering Provider: MARISA RAHMAN Report Released Date/Time: May 10, 2024 07:20 PM Reporting Lab: [facility] [place] [address] Performing Lab: [facility] LIPID PANEL (STL) TRIGLYCERID E [MASS/VOLUM E] IN SERUM OR PLASMA 112 mg/dL 0 - 150 05/13 Specimen Type: PLASMA Comment: No hemolysis noted. Ordering Provider: MARISA RAHMAN Report Released Date/Time: May 10, 2024 07:20 PM Reporting Lab: [facility] [place] [address] Performing Lab: [facility] DIVISION LIPID PANEL (STL) CHOLESTEROL IN LDL [MASS/VOLUM E] IN SERUM OR PLASMA BY CALCULATION 91 mg/dL 05/13 Specimen Type: PLASMA Comment: No hemolysis noted. Ordering Provider: MARISA RAHMAN Report Released Date/Time: May 10, 2024 07:20 PM Reporting Lab: [facility] [place] [address] Performing Lab: [facility] LIPID PANEL (STL) CHOLESTEROL IN HDL [MASS/VOLUM E] IN SERUM OR PLASMA 43 mg/dL 40 05/13 Specimen Type: PLASMA Comment: No hemolysis noted. Ordering Provider: MARISA RAHMAN Report Released Date/Time: May 10, 2024 07:20 PM Reporting Lab: [facility] [place] [address] Performing Lab: [facility] DIVISION VITAMIN D, 25-HYDROXY 25-HYDROXYV ITAMIN D3 [MASS/VOLUM E] IN SERUM OR PLASMA 31.1 ng/mL 30 - 96 05/13 Specimen Type: SERUM No comment entered. Ordering Provider: MARISA RAHMAN Report Released Date/Time: May 10, 2024 07:20 PM Reporting Lab: [facility] [place] [address] Performing Lab: [facility] DIVISION CBC LEUKOCYTES [#/VOLUME] IN BLOOD BY AUTOMATED COUNT 6.3 10*3/u L 3.6 - 11.2 05/13 Specimen Type: BLOOD No comment entered. Ordering Provider: MARISA RAHMAN Report Released Date/Time: May 10, 2024 07:20 PM Reporting Lab: [facility] [place] [address] Performing Lab: [facility] CBC ERYTHROCYTE S [#/VOLUME] IN BLOOD BY AUTOMATED COUNT 4.72 10*6/u L 4.10 - 5.70 05/13 Specimen Type: BLOOD No comment entered. Ordering Provider: MARISA RAHMAN Report Released Date/Time: May 10, 2024 07:20 PM Reporting Lab: [facility] [place] [address] Performing Lab: [facility] CBC HEMOGLOBIN [MASS/VOLUM E] IN BLOOD 15.5 g/dL 13.1 - 16.8 05/13 Specimen Type: BLOOD No comment entered. Ordering Provider: MARISA RAHMAN Report Released Date/Time: May 10, 2024 07:20 PM Reporting Lab: [facility] [place] [address] Performing Lab: [facility] DIVISION CBC HEMATOCRIT [VOLUME FRACTION] OF BLOOD 44.8 38.2 - 48.4 05/13 Specimen Type: BLOOD No comment entered. Ordering Provider: MARISA RAHMAN Report Released Date/Time: May 10, 2024 07:20 PM Reporting Lab: [facility] [place] [address] Performing Lab: [facility] CBC MCV [ENTITIC VOLUME] BY AUTOMATED COUNT 94.9 fL 80.0 - 100.0 05/13 Specimen Type: BLOOD No comment entered. Ordering Provider: MARISA RAHMAN Report Released Date/Time: May 10, 2024 07:20 PM Reporting Lab: [facility] [place] [address] Performing Lab: [facility] DIVISION CBC MCH [ENTITIC MASS] BY AUTOMATED COUNT 32.8 pg 27.0 - 34.0 05/13 Specimen Type: BLOOD No comment entered. Ordering Provider: MARISA RAHMAN Report Released Date/Time: May 10, 2024 07:20 PM Reporting Lab: [facility] [place] [address] Performing Lab: [facility] DIVISION CBC MCHC [MASS/VOLUM E] BY AUTOMATED COUNT 34.6 g/dL 33.0 - 36.0 05/13 Specimen Type: BLOOD No comment entered. Ordering Provider: MARISA RAHMAN Report Released Date/Time: May 10, 2024 07:20 PM Reporting Lab: [facility] [place] [address] Performing Lab: [facility] DIVISION CBC PLATELETS [#/VOLUME] IN BLOOD BY AUTOMATED COUNT 146 10*3/u L 150 - 400 05/13 L Specimen Type: BLOOD No comment entered. Ordering Provider: MARISA RAHMAN Report Released Date/Time: May 10, 2024 07:20 PM Reporting Lab: [facility] [place] [address] Performing Lab: [facility] DIVISION CBC PLATELET MEAN VOLUME [ENTITIC VOLUME] IN BLOOD BY AUTOMATED COUNT 10.2 fL 7.5 - 11.2 05/13 Specimen Type: BLOOD No comment entered. Ordering Provider: MARISA RAHMAN Report Released Date/Time: May 10, 2024 07:20 PM Reporting Lab: [facility] [place] [address] Performing Lab: [facility] DIVISION CBC ERYTHROCYTE DISTRIBUTIO N WIDTH [RATIO] BY AUTOMATED COUNT 12.9 11.8 - 15.1 05/13 Specimen Type: BLOOD No comment entered. Ordering Provider: MARISA RAHMAN Report Released Date/Time: May 10, 2024 07:20 PM Reporting Lab: [facility] [place] [address] Performing Lab: [facility] DIVISION CBC LYMPHOCYTES /100 LEUKOCYTES IN BLOOD BY AUTOMATED COUNT 21 05/13 Specimen Type: BLOOD No comment entered. Ordering Provider: MARISA RAHMAN Report Released Date/Time: May 10, 2024 07:20 PM Reporting Lab: [facility] [place] [address] Performing Lab: [facility] DIVISION CBC MONOCYTES/1 00 LEUKOCYTES IN BLOOD BY AUTOMATED COUNT 9 05/13 Specimen Type: BLOOD No comment entered. Ordering Provider: MARISA RAHMAN Report Released Date/Time: May 10, 2024 07:20 PM Reporting Lab: [facility] [place] [address] Performing Lab: [facility] DIVISION CBC NEUTROPHILS /100 LEUKOCYTES IN BLOOD BY AUTOMATED COUNT 64 05/13 Specimen Type: BLOOD No comment entered. Ordering Provider: MARISA RAHMAN Report Released Date/Time: May 10, 2024 07:20 PM Reporting Lab: [facility] [place] [address] Performing Lab: [facility] DIVISION CBC EOSINOPHILS /100 LEUKOCYTES IN BLOOD BY AUTOMATED COUNT 5 05/13 Specimen Type: BLOOD No comment entered. Ordering Provider: MARISA RAHMAN Report Released Date/Time: May 10, 2024 07:20 PM Reporting Lab: [facility] [place] [address] Performing Lab: [facility] DIVISION CBC BASOPHILS/1 00 LEUKOCYTES IN BLOOD BY AUTOMATED COUNT 1 05/13 Specimen Type: BLOOD No comment entered. Ordering Provider: MARISA RAHMAN Report Released Date/Time: May 10, 2024 07:20 PM Reporting Lab: [facility] [place] [address] Performing Lab: [facility] DIVISION CBC LYMPHOCYTES [#/VOLUME] IN BLOOD BY AUTOMATED COUNT 1.30 10*3/u L 0.77 - 4.50 05/13 Specimen Type: BLOOD No comment entered. Ordering Provider: MARISA RAHMAN Report Released Date/Time: May 10, 2024 07:20 PM Reporting Lab: [facility] [place] [address] Performing Lab: [facility] DIVISION CBC MONOCYTES [#/VOLUME] IN BLOOD BY AUTOMATED COUNT 0.56 10*3/u L 0.19 - 0.80 05/13 Specimen Type: BLOOD No comment entered. Ordering Provider: MARISA RAHMAN Report Released Date/Time: May 10, 2024 07:20 PM Reporting Lab: [facility] [place] [address] Performing Lab: [facility] DIVISION CBC NEUTROPHILS [#/VOLUME] IN BLOOD BY AUTOMATED COUNT 4.07 10*3/u L 2.10 - 8.00 05/13 Specimen Type: BLOOD No comment entered. Ordering Provider: MARISA RAHMAN Report Released Date/Time: May 10, 2024 07:20 PM Reporting Lab: [facility] [place] [address] Performing Lab: [facility] DIVISION CBC EOSINOPHILS [#/VOLUME] IN BLOOD BY AUTOMATED COUNT 0.34 10*3/u L 0.00 - 0.60 05/13 Specimen Type: BLOOD No comment entered. Ordering Provider: MARISA RAHMAN Report Released Date/Time: May 10, 2024 07:20 PM Reporting Lab: [facility] [place] [address] Performing Lab: [facility] DIVISION CBC BASOPHILS [#/VOLUME] IN BLOOD BY AUTOMATED COUNT 0.04 10*3/u L 0.00 - 0.20 05/13 Specimen Type: BLOOD No comment entered. Ordering Provider: MARISA RAHMAN Report Released Date/Time: May 10, 2024 07:20 PM Reporting Lab: [facility] [place] [address] Performing Lab: [facility] [address] DIVISION FOLATE (STL-MA) FOLATE [MASS/VOLUM E] IN SERUM OR PLASMA 18.6 ng/mL 7 - 20 06/23 Specimen Type: SERUM No comment entered. Ordering Provider: MARISA RAHMAN Report Released Date/Time: Jun 23, 2023 08:32 AM Reporting Lab: [facility] [place] [address] Performing Lab: [facility] LIPID PANEL (STL) CHOLESTEROL [MASS/VOLUM E] IN SERUM OR PLASMA 193 mg/dL 0 - 200 06/23 Specimen Type: PLASMA Comment: No hemolysis noted. Ordering Provider: MARISA RAHMAN Report Released Date/Time: Jun 23, 2023 08:32 AM Reporting Lab: [facility] [place] [address] Performing Lab: [facility] LIPID PANEL (STL) TRIGLYCERID E [MASS/VOLUM E] IN SERUM OR PLASMA 116 mg/dL 0 - 150 06/23 Specimen Type: PLASMA Comment: No hemolysis noted. Ordering Provider: MARISA RAHMAN Report Released Date/Time: Jun 23, 2023 08:32 AM Reporting Lab: [facility] [place] [id number] Performing Lab: [facility] LIPID PANEL (STL) CHOLESTEROL IN LDL [MASS/VOLUM E] IN SERUM OR PLASMA BY CALCULATION 127 mg/dL 06/23 Specimen Type: PLASMA Comment: No hemolysis noted. Ordering Provider: MARISA RAHMAN Report Released Date/Time: Jun 23, 2023 08:32 AM Reporting Lab: [facility] [place] [address] Performing Lab: [facility] [id number] DIVISION LIPID PANEL (STL) CHOLESTEROL IN HDL [MASS/VOLUM E] IN SERUM OR PLASMA 43 mg/dL 40 06/23 Specimen Type: PLASMA Comment: No hemolysis noted. Ordering Provider: MARISA RAHMAN Report Released Date/Time: Jun 23, 2023 08:32 AM Reporting Lab: [facility] [place] [address] Performing Lab: [facility] DIVISION COMPREHENS [place] METABOLIC PANEL CREATININE [MASS/VOLUM E] IN SERUM OR PLASMA 1.23 mg/dL 0.70 - 1.30 06/23 Specimen Type: PLASMA Comment: No hemolysis noted. Ordering Provider: MARISA RAHMAN Report Released Date/Time: Jun 23, 2023 08:32 AM Reporting Lab: [facility] [place] [address] Performing Lab: [facility] COMPREHENS [place] METABOLIC PANEL UREA NITROGEN [MASS/VOLUM E] IN SERUM OR PLASMA 12.4 mg/dL 9.0 - 25.0 06/23 Specimen Type: PLASMA Comment: No hemolysis noted. Ordering Provider: MARISA RAHMAN Report Released Date/Time: Jun 23, 2023 08:32 AM Reporting Lab: [facility] [place] [address] Performing Lab: [facility] DIVISION COMPREHENS [place] METABOLIC PANEL GLUCOSE [MASS/VOLUM E] IN SERUM OR PLASMA 96 mg/dL 72 - 99 06/23 Specimen Type: PLASMA Comment: No hemolysis noted. Ordering Provider: MARISA RAHMAN Report Released Date/Time: Jun 23, 2023 08:32 AM Reporting Lab: [facility] [address] Performing Lab: [facility] [id number] DIVISION COMPREHENS [place] METABOLIC PANEL SODIUM [MOLES/VOLU ME] IN SERUM OR PLASMA 143 meq/L 136 - 145 06/23 Specimen Type: PLASMA Comment: No hemolysis noted. Ordering Provider: MARISA RAHMAN Report Released Date/Time: Jun 23, 2023 08:32 AM Reporting Lab: [facility] [place] [address] Performing Lab: [facility] DIVISION COMPREHENS [place] METABOLIC PANEL POTASSIUM [MOLES/VOLU ME] IN SERUM OR PLASMA 4.8 meq/L 3.5 - 5.0 06/23 Specimen Type: PLASMA Comment: No hemolysis noted. Ordering Provider: MARISA RAHMAN Report Released Date/Time: Jun 23, 2023 08:32 AM Reporting Lab: [facility] [place] [address] Performing Lab: [facility] [id number] DIVISION COMPREHENS [place] METABOLIC PANEL CHLORIDE [MOLES/VOLU ME] IN SERUM OR PLASMA 106 meq/L 98 - 107 06/23 Specimen Type: PLASMA Comment: No hemolysis noted. Ordering Provider: MARISA RAHMAN Report Released Date/Time: Jun 23, 2023 08:32 AM Reporting Lab: [facility] [place] [address] Performing Lab: [facility] [id number] DIVISION COMPREHENS [place] METABOLIC PANEL CARBON DIOXIDE, TOTAL [MOLES/VOLU ME] IN SERUM OR PLASMA 25 meq/L 22 - 31 06/23 Specimen Type: PLASMA Comment: No hemolysis noted. Ordering Provider: MARISA RAHMAN Report Released Date/Time: Jun 23, 2023 08:32 AM Reporting Lab: [facility] [place] [address] Performing Lab: [facility] DIVISION COMPREHENS [place] METABOLIC PANEL CALCIUM [MASS/VOLUM E] IN SERUM OR PLASMA 9.5 mg/dL 8.4 - 10.4 06/23 Specimen Type: PLASMA Comment: No hemolysis noted. Ordering Provider: MARISA RAHMAN Report Released Date/Time: Jun 23, 2023 08:32 AM Reporting Lab: [facility] [place] [address] Performing Lab: [facility] DIVISION COMPREHENS [place] METABOLIC PANEL PROTEIN [MASS/VOLUM E] IN SERUM OR PLASMA 7.0 g/dL 6.0 - 8.6 06/23 Specimen Type: PLASMA Comment: No hemolysis noted. Ordering Provider: MARISA RAHMAN Report Released Date/Time: Jun 23, 2023 08:32 AM Reporting Lab: [facility] [place] [address] Performing Lab: [facility] DIVISION COMPREHENS [place] METABOLIC PANEL ALBUMIN [MASS/VOLUM E] IN SERUM OR PLASMA 4.1 g/dL 3.4 - 5.0 06/23 Specimen Type: PLASMA Comment: No hemolysis noted. Ordering Provider: MARISA RAHMAN Report Released Date/Time: Jun 23, 2023 08:32 AM Reporting Lab: [facility] [place] [address] Performing Lab: [facility] DIVISION COMPREHENS [place] METABOLIC PANEL BILIRUBIN.T OTAL [MASS/VOLUM E] IN SERUM OR PLASMA 0.9 mg/dL 0.2 - 1.2 06/23 Specimen Type: PLASMA Comment: No hemolysis noted. Ordering Provider: MARISA RAHMAN Report Released Date/Time: Jun 23, 2023 08:32 AM Reporting Lab: [facility] [place] [address] Performing Lab: [facility] DIVISION COMPREHENS [place] METABOLIC PANEL ALKALINE PHOSPHATASE [ENZYMATIC ACTIVITY/VO LUME] IN SERUM OR PLASMA 63 U/L 40 - 150 06/23 Specimen Type: PLASMA Comment: No hemolysis noted. Ordering Provider: MARISA RAHMAN Report Released Date/Time: Jun 23, 2023 08:32 AM Reporting Lab: [facility] [place] [address] Performing Lab: [facility] DIVISION COMPREHENS [place] METABOLIC PANEL ASPARTATE AMINOTRANSF ERASE [ENZYMATIC ACTIVITY/VO LUME] IN SERUM OR PLASMA 29 U/L 5 - 34 06/23 Specimen Type: PLASMA Comment: No hemolysis noted. Ordering Provider: MARISA RAHMAN Report Released Date/Time: Jun 23, 2023 08:32 AM Reporting Lab: [facility] [place] [address] Performing Lab: [facility] DIVISION COMPREHENS [place] METABOLIC PANEL ALANINE AMINOTRANSF ERASE [ENZYMATIC ACTIVITY/VO LUME] IN SERUM OR PLASMA 30 U/L 8 - 40 06/23 Specimen Type: PLASMA Comment: No hemolysis noted. Ordering Provider: MARISA RAHMAN Report Released Date/Time: Jun 23, 2023 08:32 AM Reporting Lab: [facility] [phone] Performing Lab: [facility] [phone] [facility] COMPREHENS [place] METABOLIC PANEL GLOMERULAR FILTRATION RATE/1.73 SQ M.PREDICTED [VOLUME RATE/AREA] IN SERUM, PLASMA OR BLOOD BY CREATININE- BASED FORMULA (CKD-EPI 2020) 58.25 60 06/23 Specimen Type: PLASMA Comment: No hemolysis noted. Ordering Provider: MARISA RAHMAN Report Released Date/Time: Jun 23, 2023 08:32 AM Reporting Lab: [facility] [address] Performing Lab: [facility] [id number] [place] [address] Vital Signs Combined list of inpatient and outpatient Vital Signs from Department of Defense and Veterans Affairs, ranging from 12 months to all on record, depending upon the facility. Vital Sign Value Date Comments Source SYSTOLIC BLOOD PRESSURE 131 05/13/2024 09:18:44 [facility] DIASTOLIC BLOOD PRESSURE 78 05/13/2024 09:18:44 [facility] PULSE OXIMETRY 98 05/13/2024 09:18:44 [facility] WEIGHT 166.9 05/13/2024 09:18:44 [facility] BMI 26kg/m2 05/13/2024 09:18:44 [facility] PAIN 0 05/13/2024 09:18:44 [facility] HEIGHT 67 05/13/2024 09:18:44 [facility] TEMPERATURE 98 05/13/2024 09:18:44 [facility] PULSE 54 05/13/2024 09:18:[address] [facility] RESPIRATION 18 05/13/2024 09:18:44 [facility] Encounters Combined list of: 1) Encounters from Department of Veterans Affairs facilities going back up to thelast 18 months. 2) Encounters from the Department of Defense facilities going back up to 280 months. Location Location Details Encounter Type Encounter Number Reason For Visit Attending Provider ADM Date DC Date Status Disposition Source [facility] Outpatient Encounter [id number] 04/[address] 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
SALONI REID 05/24 [facility] OFFICE O/P EST MOD 30-39 MIN [id number] Diagnos is: ICD-10- CM I10 Essenti al (primar y) hyperte nsion<b r/> PAU SLADE 05/24 [facility] Outpatient Encounter [id number] 05/[address] [facility] Outpatient Encounter [id number] Aaron MARTINEZ 06/21 [facility] OFF/OP CONSLTJ NEW/EST HI 55 [id number] Diagnos is: ICD-10- CM F02.A0 Dem in other dis classd elswhr, mild, w/o beh/psy ch/mood /anx
MARISA RAHMAN 06/23 [facility] Outpatient Encounter [id number] 06/26 [facility] N [facility] Outpatient Encounter [id number] Taylor HULL A 06/26 [facility] N [facility] Outpatient Encounter [id number] 08/02 [facility] N [facility] Outpatient Encounter [id number] 08/02 [facility] Outpatient Encounter [id number] Taylor VILLELA M 08/07 [facility] Outpatient Encounter [id number] 08/[address] [facility] Outpatient Encounter [id number] Diagnos is: ICD-10- CM R53.83 Other fatigue
Taylor PATTERSON ONSTANCE D 08/07 [facility] PSYTX W PT 30 MINUTES [id number] Diagnos is: ICD-10- CM R41.9 Unsp symptom s and signs w cogniti ve functio ns and awarene ss
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
MARISA RAHMAN Naveen 09/04 [facility] Outpatient Encounter [id number] Diagnos is: ICD-10- CM G47.30 Sleep apnea, unspeci fied
GERALDO NICK M 09/[address] [facility] HC PRO PHONE CALL 5-10 MIN [id number] Diagnos is: ICD-10- CM G30.9 Alzheim er's disease , unspeci fied
QUYNH MCNEAL M 09/[address] [facility] Outpatient Encounter [id number] 10/[address] [facility] HC PRO PHONE CALL 21-30 MIN [id number] Diagnos is: ICD-10- CM G30.9 Alzheim er's disease , unspeci fied
QUYNH MCNEAL M 10/[address] [facility] HC PRO PHONE CALL 5-10 MIN [id number] Diagnos is: ICD-10- CM G30.9 Alzheim er's disease , unspeci fied
ELIZABETQUYNH TREVINO M 10/24 [facility] Outpatient Encounter [id number] 11/02 [facility] Out[facility] Encounter [id number] 11/[address] [facility] Outpatient Encounter [id number] 01/[address] [facility] HC PRO PHONE CALL 11-20 MIN [id number] Diagnos is: ICD-10- CM G30.9 Alzheim er's disease , unspeci fied
ELIZABET,QUYNH Hodge 01/[address] [facility] Outpatient Encounter [id number] 01/[address] [facility] HC PRO PHONE CALL 21-30 MIN [id number] Diagnos is: ICD-10- CM G30.9 Alzheim er's disease , unspeci fied
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
Demar GOINS 02/08 [facility] Outpatient Encounter [id number] Aaron MARTINEZ 05/07 [facility] OFFICE O/P EST MOD 30 MIN [id number] Diagnos is: ICD-10- CM G30.9 Alzheim er's disease , unspeci fied
MARISA RAHMAN 05/13 [facility] Social History Combined list of available smoking, tobacco, and other social history from Department of Defense and Veterans Affairs facilities. Social History Type Response Date Comment Sour e Tobacco smoking status NHIS VA-TOBACCO FORMER USER 05/07/2024 [facility] History of tobacco use VA-TOBACCO QUIT 1 5 YRS OR MORE 05/07/2024 [facility] History of tobacco use VA-TOBACCO FORMER USER 11/25/2022 [facility] History of tobacco use VA-TOBACCO FORMER USER 10/14/2020 [facility] History of tobacco use VA-TOBACCO QUIT 1 5 YRS OR MORE 04/29/2019 [facility] History of tobacco use QUIT TOBACCO >7 Y EARS AGO 05/01/2018 [facility] History of tobacco use QUIT TOBACCO >7 Y EARS AGO 08/07/2017 [facility] History of tobacco use QUIT TOBACCO >7 Y EARS AGO 01/10/2017 [facility] History of tobacco use QUIT TOBACCO >7 Y EARS AGO 09/07/2015 [facility] History of tobacco use QUIT TOBACCO >7 Y EARS AGO 07/28/2014 [facility] History of tobacco use QUIT TOBACCO >7 Y EARS AGO 07/16/2013 [facility] History of tobacco use QUIT TOBACCO >7 Y EARS AGO 07/27/2009 [facility] History of tobacco use QUIT TOBACCO >12 MO and <7 YRS AGO 10/18/2006 [facility] History of tobacco use CURRENT NON-TOBAC CO USER-HX OF USE 07/12/2006 [facility] History of tobacco use CURRENT NON-TOBAC CO USER-HX OF USE 12/21/2005 [facility] History of tobacco use CURRENT NON-TOBAC CO USER-HX OF USE 06/14/2005 [facility] 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 Additional future care activities may be listed in the Assessment and Plan section. Date/Time Care Activity Care Activity Detail Facili ty 11/13/2024 AMBULATORY - MEDICINE AMBULATORY - MEDICI [facility] Advance Directives List of completed, amended, or rescinded Advance Directives on record at Department of [facility] Affairs facilities. An actual copy of the Directive is not included. Date Advance Directive Provider Source 11/25/2022 ADVANCE DIRECTIVE CELINE GOINS [facility]
--- OUTSIDE RECORDS SUMMARY | 2024-10-02 05:30 | XMS_ITS | Encounter Summary ---
Author Name [facility] [place] [facility] [place] Address [address] [place] [address] Care Team Providers Care Photography Teacher Name Role Phone KALINA RAHMAN Primary Care [...] PART B Apr 01, 2008 PART B [id number] SHARRI TORRES PATIENT MEDICARE (WNR) MEDICARE (M) PART A Apr 01, 2005 PART A [id number] [id number] SHARRI TORRES PATIENT Selected Encounter This section includes the information on record at [place] for the Encounter. Date/Time Encounter Type Encounter Description Reason Pro vider Source Oct 13, 2023 10:15 AM Outpatient Encounter TELEPHONE/ANCILLARY IHE Encounter Template Text not used by [place] Plan of Treatment: Future Appointments (+ 6 months) and Future Tests (+/- 45 days) The Plan of Treatment section includes future care activities for the patient from all [place] [facility] This section includes future appointments and future orders which are active, pending or scheduled. Future Appointments This section includes appointments that were scheduled to occur 6 months from the date of the Encounter, up to a maximum of 20 appointments. The data comes from all [place] treatment facilities. Appointment Date/Time Appointment Type Appointme nt Facility Name February 09, 2024 10:30 AM AMBULATORY - MEDICINE [facility] Social History: Smoking Status (Most current) and Tobacco Use (All prior to encounter date) This section includes the most current, and the historical, smoking and tobacco- related health factors from the [place] facility where the Encounter took place. Current Smoking Status This section includes the most current smoking, or tobacco-related health factor, from the [place] facility where the Encounter took place. Date/Time Current Smoking Status Comment Domingo brannon Jul 27, 2009 11:32 AM QUIT TOBACCO >7 YEARS AGO [facility] Tobacco Use History This section includes a history of the smoking, or tobacco-related health factors, that were collected on or before the date of the Encounter. The data comes from the [place] facility where the Encounter took place. Date/Time Smoking Status/Tobacco Use Comment Lesley pierce Oct 18, 2006 01:13 PM QUIT TOBACCO >12 M O & <7 YRS AGO [facility] Jul 12, 2006 01:22 PM CURRENT NON-TOBACC O USER-HX OF USE [facility] Jul 12, 2006 01:22 PM TOBACCO TERMINATION STAGE [facility] Dec 21, 2005 01:25 PM CURRENT NON-TOBACC O USER-HX OF USE [facility] Dec 21, 2005 01:25 PM TOBACCO TERMINATION STAGE [facility] Jun 14, 2005 10:36 AM CURRENT NON-TOBACC O USER-HX OF USE [facility] Jun 14, 2005 10:36 AM TOBACCO TERMINATION STAGE [facility] Jan 21, 2005 08:41 AM CURRENT NON-TOBACC O USER-HX OF USE [facility] Jan 21, 2005 08:41 AM LIFETIME NON-TOBACCO USER [facility] Jan 21, 2005 08:41 AM TOBACCO TERMINATION STAGE [facility] Advance Directives: All historical and current Section Date Range: From patient's date of to the date document was created. This section includes ALL of a patient's completed or amended [place] Advance and Rescinded Directives. The entries below indicate that a directive exists for the patient, but an actual copy is not included with this document. The data comes from all [place] facilities. Date Advance Directives Provider Source Nov 25, 2022 ADVANCE DIRECTIVE CELINE GOINS [facility] Encounter Notes: All associated encounter notes This section contains the clinical notes associated to the Encounter. Date/Time Encounter Note(s) Provider Source Oct 13, 2023 10:15 AM CAREGIVER CERTIFIC ATE: LOCAL TITLE: CSP TELEPHONE NOTE STANDARD TITLE: CAREGIVER CERTIFICATE DATE OF NOTE: OCT 13, 2023@10:15 ENTRY DATE: OCT 13, 2023@10:15:58 AUTHOR: MERLIN MCNEAL EXP COSIGNER: URGENCY: STATUS: COMPLETED CSP SW attempted to reach the [place]'s CG (Varsha, spouse, ) by phone, call went to [employer] message with CSP contact information provided. CSP SW will remain available for CG support as needed. CG was invited via to call back with additional questions, support, or assistance navigating the [place] health care system. /tashia/ MCKAYLA Menon, WORM FARMER Clinical Belting And Webbing Inspector Signed: 10/13/2023 10:17 MERLIN MCNEAL [facility]
--- OUTSIDE RECORDS SUMMARY | 2024-10-02 05:31 | XMS_ITS | Encounter Summary ---
Author Organization [facility] Healthcare Address [address] [place] [address] Care Team Providers Care Promotional Demonstrator Name Role Phone Cali Levine MD Primary Care Provider Reason for Visit * Reason Onset Date Comments Medical Question/Miscellaneous 04/29/2024 Encounter Details Date Type Department Care Team (Late st Contact Info) Description 04/29/2024 Telephone [facility] Family Medicine at [address] [place] [address] Cali Levine MD [facility] [address] [address] Medical Question/Miscellaneous Social History Tobacco Use Types Packs/Day Years Used Date Smoking Tobacco: Never Smokeless Tobacco: Never Alcohol Use Standard Drinks/Week Comments Yes 0 (1 standard drink = 0.6 oz pur e alcohol) AUDIT-C Answer Date Recorded Q1: How often do you have a drink containing alc ohol? 2-3 times a week 11/26/2020 Q2: How many drinks containi ng alcohol do you have on a typical day when you are drinking? 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 Varsha notified. * Telephone Encounter - Odette Chow MA - 05/02/2024 10:15 AM CDT Call Back Caller???s Concern: Patient's will be in [place] today and would like to filler picker the letter. She stressed the importance and time sensitivity. Please call Varsha when the letter is completed. Does message need to be routed? Yes-Action Needed * Telephone Encounter - Maki Mello - 04/29/2024 10:52 AM CDT Medical Question/Miscellaneous Caller???s Concern: Patient had an apt on 04/22/24 and they spoke to provider about a letter needingto [facility]. (This is mentioned in provider office notes). Patient's spouse Varsha was calling in for an update on that letter and to see when it will be ready for her to pick it up. Does message need to be routed? Yes-Action Needed documented in this encounter Plan of Treatment Not on file documented as of this encounter Visit Diagnoses Not on filedocumented in this encounter Care Teams Promotional Demonstrator Relationship Specialty Start Date End Date Cali Levine MD PCP - General Family Medicine 08/24/22 documented as of this encounter
--- OUTSIDE RECORDS SUMMARY | 2024-10-02 05:31 | XMS_ITS | Encounter Summary ---
Author Organization [facility] Healthcare Address [address] [place] [address] Care Team Providers Care Senior Cost Accountant Name Role Phone Cali Levine MD Primary Care Provider [phone] Reason for Visit * Reason Comments Hyperlipidemia 6 mo f/u Encounter Details Date Type Department Care Team (Late st Contact Info) Description 04/22/2024 3:30 PM CDT Office Visit [facility] Family Medicine at [address] [place] [address] Cali Levine MD [address] [place] [id number] Essential hypertension (Primary Dx); Mixed hyperlipidemia; Dementia without behavioral disturbance (HCC); Abnormal TSH Social History Tobacco Use Types Packs/Day Years Used Date Smoking Tobacco: Never Smokeless Tobacco: Never Tobacco Cessation:Counseling Given: Not Answered Alcohol Use Standard Drinks/Week Comments Yes 0 [...] on file 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 Gender Identity Not on file Sexual Orientation Not on file documented as of this encounter Last Filed Vital Signs Vital Sign Reading Time Taken Comments Blood Pressure 122/66 04/22/2024 3:44 PM CDT Pulse 56 04/22/2024 3:44 PM CDT Temperature 36.8 ??C (98.3 ??F) 04/22/2024 3:44 PM CD T Respiratory Rate - - Oxygen Saturation 97% 04/22/2024 3:44 PM CDT Inhaled Oxygen Concentration - - Weight 76.4 kg (168 lb 8 oz) 04/22/2024 3:44 PM CDT Height 170.2 cm (5' 7 ) 04/22/2024 3:44 PM CDT Body Mass Index 26.39 04/22/2024 3:44 PM CDT documented in this encounter Progress Notes * aCli Levine MD - 04/22/2024 3:30 PM CDT Images from the original note were not included. Subjective/Objective Patient ID: Morgan Philippe is a 84 y.o. male. Chief Complaint Hyperlipidemia (6 mo f/u) 84-year-old male. He is taking his meds. His weight is stable. A memory not the best. His meds. Good appetite though. Hyperlipidemia Pertinent negatives include no chest pain or shortness of breath. Review of Systems Constitutional: Positive for fatigue. Negative for fever. Respiratory: Negative for cough and shortness of breath. Cardiovascular: Negative for chest pain and leg swelling. Gastrointestinal: Negative for abdominal pain and nausea. Musculoskeletal: Positive for arthralgias and back pain. Negative for neck pain. Neurological: Negative for seizures and headaches. Psychiatric/Behavioral: Negative for confusion. The patient is not nervous/anxious. No results found for this or any previous visit (from the past 336 hour(s)). Vitals BP 122/66 (BP Location: Left arm, Patient Position: Sitting) Pulse 56 Temp 36.8 ??C (98.3 ??F) (Oral) Ht 170.2 cm (5' 7 ) Wt 76.4 kg (168 lb 8 oz) SpO2 97% BMI 26.39 kg/m?? Physical Exam Constitutional: Appearance: He is well-developed. Cardiovascular: Rate and Rhythm: Normal rate and regular rhythm. Heart sounds: Normal heart sounds. Pulmonary: Effort: Pulmonary effort is normal. Breath sounds: Normal breath sounds. Abdominal: General: Bowel sounds are normal. Palpations: Abdomen is soft. Skin: General: Skin is warm and dry. Neurological: Mental Status: He is alert and oriented to person, place, and time. Psychiatric: Speech: Speech normal. Assessment/Plan Diagnoses and all orders for this visit: Essential hypertension (I10) (Primary) - labs up-to-date. Blood pressure controlled. Mixed hyperlipidemia (E78.2) - currently on a statin. CBC Chem 12 lipid profile. Dementia without behavioral disturbance - TSH was slightly off. Repeat TSH. MRI in . B12 was normal. - on meds continue present management. Slowly progressing but is otherwise stable - he is awake alert returns 3. Answers questions appropriately Patient and want a letter possible Agent orange exposure and hypertension. [facility] Blood pressure diagnosed at a younger age. With a regular diet and normal weight Return in about 6 months (around 10/23/2024), or if symptoms worsen or fail to improve. Cali Levine MD Orders Placed This Encounter CBC with auto differential Standing Status: Future Number of Occurrences: 1 Standing Expiration Date: 04/22/2025 Comprehensive metabolic panel Standing Status: Future Number of Occurrences: 1 Standing Expiration Date: 04/22/2025 Lipid panel Standing Status: Future Number of Occurrences: 1 Standing Expiration Date: 04/22/2025 Order Specific Question: Has the patient been fasting for 8 hours or more? Answer: Yes Thyroid Function [place] Standing Status: Future Number of Occurrences: 1 Standing Expiration Date: 04/22/2025 documented in this encounter Plan of Treatment Not on file documented as of this encounter Procedures Procedure Name Priority Date/Time Associated Diagnosis Comments THYROXINE (T4) FREE, DIRECT, S Routine 05/10/2024 10:25 AM CDT THYROID PEROXIDASE (TPO) AB Routine 05/10/2024 10:25 AM CDT THYROID FUNCTION CASCADE Routine 05/10/2024 10:25 AM CDT Abnormal TSH CBC WITH AUTO DIFFERENTIAL Routine 05/10/2024 10:25 AM CDT Essential hypertension LIPID PANEL Routine 05/10/2024 10:25 AM CDT Essential hypertension Mixed hyperlipidemia COMPREHENSIVE METABOLIC PANEL Routine 05/10/2024 10:25 AM CDT Essential hypertension documented in this encounter Results * Thyroid Peroxidase (TPO) Ab (05/10/2024 10:25 AM CDT) Thyroperoxidase ab <9 0 - 34 IU/mL [facility] - 01 Thyroid peroxidase (TPO) Ab, comment Comment [facility] - 01 Comment: An elevation of TSH and a normal FT4 in the absence of anti-thyroid peroxidase antibody are suggestive of Subclinical Hypothyroidism. Similar values have also been associated with Non-Thyroidal Illness in severely ill patients. 05/10/2024 10:2 5 AM CDT 05/10/2024 Narrative [facility] - 05/11/2024 3:35 AM CDT Performed at: ??[address] [facility] ??[id number] Heel Slicker: Colt Nath PhD, Phone: ??[phone] us Cali Levine MD LAB BLOOD ORDERABLES Final Re sult [facility] - 01 * Thyroxine (T4) Free, Direct, S (05/10/2024 10:25 AM CDT) Pathologist [facility] Free T4 1.05 0.82 - 1.77 ng/dL [facility] - 01 05/10/2024 10:2 5 AM CDT 05/10/2024 Narrative [facility] - 05/11/2024 3:35 AM CDT Performed at: ??[address] [place] ??[id number] Heel Slicker: Colt Nath PhD, Phone: ??[phone] Cali Levine MD LAB BLOOD ORDERABLES Final Re sult Performing Organization Address [facility] de Phone Number [facility] - 01 * (ABNORMAL) Thyroid Function [place] (05/10/2024 10:25 AM CDT) TSH 4.870(H) 0.450 - 4.500 uIU/mL [facility] - 01 Blood 05/10/2024 10:2 5 AM CDT 05/10/2024 Narrative [facility] - 05/11/2024 3:35 AM CDT Performed at: ??01 - [facility] ??[id number] Heel Slicker: Colt Nath PhD, Phone: ??[phone] us Cali Levine MD LAB BLOOD ORDERABLES Final Re sult Performing Organization Address [facility] Phone Number [facility] - 01 * Lipid panel (05/10/2024 10:25 AM CDT) Cholesterol 150 100 - 199 mg/dL [facility] - 01 Triglycerides 119 0 - 149 mg/dL [facility] - 01 HDL Cholesterol 45 >39 mg/dL [facility] - 01 VLDL 21 5 - 40 mg/dL [facility] - 01 LDL, calculated 84 0 - 99 mg/dL [facility] - 01 Blood 05/10/2024 10:2 5 AM CDT 05/10/2024 Narrative [facility] - 05/11/2024 1:07 AM CDT Performed at: ??01 - [facility] ??[id number] Heel Slicker: Colt Nath PhD, Phone: ??[phone] Cali Levine MD LAB BLOOD ORDERABLES Final Re sult Performing Organization Address [facility]/State/ZIP Co de Phone Number [facility] - * (ABNORMAL) Comprehensive metabolic panel (05/10/2024 10:25 AM CDT) Glucose 93 70 - 99 mg/dL [facility] - 01 BUN 14 8 - 27 mg/dL [facility] - 01 Creatinine, Serum 1.21 0.76 - 1.27 mg/dL [facility] - 01 eGFR 59(L) >59 mL/min/1.73 [facility] - 01 BUN/creat ratio 12 10 - 24 [facility] - 01 Sodium 140 134 - 144 mmol/L [facility] - 01 Potassium, sr 4.3 3.5 - 5.2 mmol/L [facility] - 01 Chloride 105 96 - 106 mmol/L [facility] - 01 CO2 22 20 - 29 mmol/L [facility] - 01 Calcium 8.7 8.6 - 10.2 mg/dL [facility] - 01 Protein, sr 6.3 6.0 - 8.5 g/dL [facility] - 01 Albumin 3.9 3.7 - 4.7 g/dL [facility] - 01 Globulin, Total 2.4 1.5 - 4.5 g/dL [facility] - 01 Bilirubin, Total 1.0 0.0 - 1.2 mg/dL [facility] - 01 Alk phos 64 44 - 121 IU/L [facility] - 01 AST 39 0 - 40 IU/L [facility] - 01 ALT 33 0 - 44 IU/L [facility] - 01 Blood 05/10/2024 10:2 5 AM CDT 05/10/2024 Narrative [facility] - 05/11/2024 1:07 AM CDT Performed at: ??01 - [facility] [address] ??[id number] Heel Slicker: Colt Nath PhD, Phone: ??[phone] us Cali Levine MD LAB BLOOD ORDERABLES Final Re sult [facility] - * (ABNORMAL) CBC with auto differential (05/10/2024 10:25 AM CDT) WBC 6.5 3.4 - 10.8 x10E3/uL [facility] - 01 RBC 4.56 4.14 - 5.80 x10E6/uL [facility] - 01 Hgb 15.2 13.0 - 17.7 g/dL [facility] - 01 Hct 45.1 37.5 - 51.0 % [facility] - 01 MCV 99(H) 79 - 97 fL [facility] - 01 MCH 33.3(H) 26.6 - 33.0 pg [facility] - 01 MCHC 33.7 31.5 - 35.7 g/dL [facility] - 01 Rdw 12.6 11.6 - 15.4 % [facility] - 01 Platelets 144(L) 150 - 450 x10E3/uL [facility] - 01 Neutrophils pct 71 Not Estab. % [facility] - 01 Lymphs pct 16 Not Estab. % [facility] - 01 Monocytes pct 8 Not Estab. % [facility] - 01 Eosinophils pct 4 Not Estab. % [facility] - 01 Basophil pct 1 Not Estab. % [facility] - 01 Neutrophil abs 4.6 1.4 - 7.0 x10E3/uL [facility] - 01 Lymphs (Absolute) 1.0 0.7 - 3.1 x10E3/uL [facility] - 01 Monocyte abs 0.5 0.1 - 0.9 x10E3/uL [facility] - 01 Eosinophils, abs 0.3 0.0 - 0.4 x10E3/uL [facility] - 01 Basophils, abs 0.0 0.0 - 0.2 x10E3/uL [facility] - 01 Immature Granulocytes 0 Not Estab. % [facility] - 01 Immature Grans (Abs) 0.0 0.0 - 0.1 x10E3/uL [facility] - 01 Blood 05/10/2024 10:2 5 AM CDT 05/10/2024 Narrative [facility] - 05/11/2024 12:07 AM CDT Performed at: ??01 - [facility] [address] ??[id number] Heel Slicker: Colt Nath PhD, Phone: ??[phone] us Cali Levine MD LAB BLOOD ORDERABLES Final Re sult [facility] - 01 documented in this encounter Visit Diagnoses Diagnosis Essential hypertension- Primary Unspecified essential hypertension Mixed hyperlipidemia Dementia without behavioral disturbance (HCC) Abnormal TSH documented in this encounter Care Teams Senior Cost Accountant Relationship Specialty Start Date End Date Cali Levine MD PCP - General Family Medicine 08/24/22 documented as of this encounter
--- OUTSIDE RECORDS SUMMARY | 2024-10-02 05:31 | XMS_ITS | Encounter Summary ---
Author Name [facility] Organization [facility] [place] Address [address] [place] [address] Care Team Providers Care Poker Machine Attendant Name Role Phone KALINA RAHMAN Primary Care [...] PART B Apr 01, 2008 PART B [id number] [phone] SHARRI TORRES PATIENT MEDICARE (WNR) MEDICARE (M) PART A Apr 01, 2005 PART A [id number] [phone] SHARRI TORRES PATIENT Selected Encounter This section includes the information on record at [place] for the Encounter. Date/Time Encounter Type Encounter Description Reason Provider Source February 09, 2024 10:30 AM HC PRO PHONE CALL 5-10 MIN TELEPHONE PRIMARY CARE ICD-10-CM Z71.9 Counseling, unspecified CELINE GOINS [facility] Encounter Template Text not used by [place] Assessments - Encounter Diagnoses This section includes the primary and secondary diagnoses documented for the Encounter. Date/Time Primary/Secondary Diagnosis Diagnosis Name Provider Source February 09, 2024 10:30 AM PRIMARY Counseling, unspecified CELINE GOINS [facility] Plan of Treatment: Future Appointments (+ 6 months) and Future Tests (+/- 45 days) The Plan of Treatment section includes future care activities for the patient [facility] [place] [facility] This section includes future appointments and future orders which are active, pending or scheduled. Future Appointments This section includes appointments that were scheduled to occur 6 months from the date of the Encounter, up to a maximum of 20 appointments. The data comes from all [place] treatment facilities. Appointment Date/Time Appointment Type Appointme nt Facility Name May 13, 2024 09:00 AM AMBULATORY - MEDICINE [facility] Social History: Smoking Status (Most current) and Tobacco Use (All prior to encounter date) This section includes the most current, and the historical, smoking and tobacco- related health factors from the [place] facility where the Encounter took place. Current Smoking Status This section includes the most current smoking, or tobacco-related health factor, from the [place] facility where the Encounter took place. Date/Time Current Smoking Status Comment Domingo brannon Nov 25, 2022 11:30 AM VA-TOBACCO FORMER USER [facility] Tobacco Use History This section includes a history of the smoking, or tobacco-related health factors, that were collected on or before the date of the Encounter. The data comes from the [place] facility where the Encounter took place. Date/Time Smoking Status/Tobacco Use Comment Lesley pierce Nov 25, 2022 11:30 AM VA-TOBACCO QUIT 15 YRS OR MORE [facility] Oct 14, 2020 01:00 PM VA-TOBACCO FORMER USER [facility] Oct 14, 2020 01:00 PM VA-TOBACCO QUIT 15 YRS OR MORE [facility] Apr 29, 2019 10:11 AM VA-TOBACCO FORMER USER [facility] Apr 29, 2019 10:11 AM VA-TOBACCO QUIT 15 YRS OR MORE [facility] May 01, 2018 11:23 AM QUIT TOBACCO >7 YEARS AGO [facility] Aug 07, 2017 10:42 AM QUIT TOBACCO >7 YEARS AGO [facility] Jan 10, 2017 02:02 PM QUIT TOBACCO >7 YEARS AGO [facility] Sep 07, 2015 10:07 AM QUIT TOBACCO >7 YEARS AGO [facility] Jul 28, 2014 02:56 PM QUIT TOBACCO >7 YEARS AGO [facility] Jul 16, 2013 01:32 PM QUIT TOBACCO >7 YEARS AGO [facility] Advance Directives: All historical and current Section Date Range: From patient's date of to the date document was created. This section includes ALL of a patient's completed or amended [place] Advance and Rescinded Directives. The entries below indicate that a directive exists for the patient, but an actual copy is not included with this document. The data comes from all [place] facilities. Date Advance Directives Provider Source Nov 25, 2022 ADVANCE DIRECTIVE CELINE GOINS [facility] Encounter Notes: All associated encounter notes This section contains the clinical notes associated to the Encounter. Date/Time Encounter Note(s) Provider Source February 09, 2024 02:31 PM SOCIAL WORK TELEPH ONE ENCOUNTER NOTE: LOCAL TITLE: TELEPHONE CONTACT [facility] STANDARD TITLE: SOCIAL WORK TELEPHONE ENCOUNTER NOTE DATE OF NOTE: FEBRUARY 09, 2024@14:31 ENTRY DATE: FEBRUARY 09, 2024@14:31:57 AUTHOR: CELINE GOINS EXP COSIGNER: URGENCY: STATUS: COMPLETED SHARRI NELSON Problem: VÍCTOR received call from and his Varsha who are inquiring about 's DD214. reports she needs a copy of the form and during a move, they have misplaced it. Intervention: VÍCTOR sent TEAMS message to Pension Agent who reviewed [place] files and confirmed we do not have a DD214 on file. [place] has been advised to contact the [employer] either online or by calling . [place]'s reports a new form to request the DD214 has been mailed to her and she will send in request that way. Neither or voice any other needs or questions at this time. Resolution: SW will remain available to assist as needed. Phone Duration: 8 minutes /tashia/ Celine Goins LCSW LCSW FAST FOOD SALES ASSISTANT Environmental Programs Specialist Signed: 02/09/2024 14:39 CELINE GOINS [facility]
--- OUTSIDE RECORDS SUMMARY | 2024-10-02 05:31 | XMS_ITS | Clinical Summary ---
Author Organization [facility] Address [address] [place] [address] Care Team Providers Care Stem Shaper Name Role Phone Cali Levine MD Primary Care Provider [phone] Allergies No known active allergies Medications multivitamin capsule Take 1 capsule by mouth daily Active lisinopriL (PRINIVIL,ZESTRI L) 30 mg tablet TAKE 1 TABLET BY MOUTH EVERY DAY 100 tablet 1 04/29/2024 Active donepeziL (ARICEPT) 10 mg tablet TAKE 1 TABLET BY MOUTH EVERY DAY AT NIGHT 100 tablet 1 04/29/2024 Active simvastatin (ZOCOR) 20 mg tablet TAKE 1 TABLET BY MOUTH EVERY DAY AT NIGHT 90 tablet 1 05/27/2024 Active memantine (NAMENDA) 10 mg tabletIndication s:Alzheimer's disease, unspecified (HCC) TAKE 1 TABLET BY MOUTH TWICE A DAY 180 tablet 08/26/2024 Active Active Problems Problem Noted Date Diagnosed Date Alzheimer's disease with late onset (CODE) 07/06 Medicare annual wellness visit, subsequent 11/26 Essential hypertension 11/12/2020 Gastroesophageal reflux disease without esophagi tis 11/12/2020 Mixed hyperlipidemia 11/12/2020 Non-recurrent unilateral ing uinal hernia without obstruction or gangrene 11/12/2020 Resolved Problems Problem Noted Date Diagnosed Date Resolved Date Cough 09/01/2021 11/08/2023 Memory loss 08/04/2021 11/08/2023 Family history of Alzheimer's disease 08/04/2021 11/08/2023 Encounters Date Type Department Care Team Description 09/25/2024 Orders Only [facility] Health Information Management [address] [place] [phone] Cali Levine MD from Last 3 Months Immunizations Name Administration Dates Next Due Influenza, Quadrivalent, Hig h Dose, Preservative Free, Intrr 07/06/2022,08/04/2021 Influenza, Quadrivalent, Rec ombinant, Egg Free, Preservative Free, Intramuscular 07/14/2020 Influenza, Quadrivalent, Spl it, Preservative Free, Intramuscular 08/07/2017 Influenza, Trivalent, High D ose, Split, Preservative Free, Intramuscular 08/28/2016,09/14/2015 Influenza, Unspecified 08/02/2023,2021,09/01/2015,07/08,07/17/2012,08/02/2011,09/28/2010 ,07/27/2009,07/02/2008,07/02/2007,10/02,08/17/2005 Moderna Sars-cov-2 Bivalent Vaccine 50 Mcg/0.5 mL (12+ YRS)-Blue/Cole 11/30/2022 Pfizer SARS-CoV-2 Monovalent Vaccination (12+ Yrs) PURPLE 09/01/2021,11/09/2020,10/19/2020 Pneumococcal Conjugate PCV 13 08/28/2016, 015 Pneumococcal, Unspecified 06/14/2005 RSV, Bivalent, Protein Subun it Rsvpref, Diluent (Abrysvo) 08/02/2023 Td, Unspecified 01/21/2005 Tdap 06/23/2023,10/02/2013 ZOSTER LIVE 08/14/2013 ZOSTER Recombinant 04/30/2019,05/04/2018 Family History Relation Name Status Comments Father Mother Social History Tobacco Use Types Packs/Day Years [...] Frequency of Binge Drinking Not on file 02/2 01/2021 PHQ-2 Answer Date Recorded PHQ-2 Total Score (If total score is 3 or more points, staff should administer the PHQ-9) 0 11/08/2023 Personal Safety Answer Date Recorded Getting School Help Needed Not on file 09/29 Sex and Gender Information Value Date Recorded Sex Assigned at Not on file 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 Gender Identity Not on file Sexual Orientation Not on file Obstetrics History Last Filed Vital Signs Vital Sign Reading Time Taken Comments Blood Pressure 122/66 04/22/2024 3:44 PM CDT Pulse 56 04/22/2024 3:44 PM CDT Temperature 36.8 ??C (98.3 ??F) 04/22/2024 3:44 PM CD T Respiratory Rate 16 01/05/2023 12:58 PM CDT Oxygen Saturation 97% 04/22/2024 3:44 PM CDT Inhaled Oxygen Concentration - - Weight 76.4 kg (168 lb 8 oz) 04/22/2024 3:44 PM CDT Height 170.2 cm (5' 7 ) 04/22/2024 3:44 PM CDT Body Mass Index 26.39 04/22/2024 3:44 PM CDT Plan of Treatment Health Maintenance Due Date Last Done Comments Hepatitis B Screening 1958 Pneumococcal vaccine 65+ (2 of 2 - PPSV23 or PCV20) 08/28/2017 08/28/2016, 09/07/2015, 06/14/2005 Covid-19 Vaccine ( - 2023-2 5 season) 2024 11/30/2022, 09/01/2021, 11/09/2020, Additional history exists Influenza Vaccine (#1) 2024 , 07/06/2022, 07/02/2022, Additional history exists Depression Screening 11/08/2024 11/08/2023, 01/05/2023, 07/06/2022, Additional history exists Fall Risk Assessment 11/08/2024 11/08/2023, 07/06/2022, 02/24/2022, Additional history exists Well Visit 65+ 11/08/2024 11/08/2023, 01/05/2023 DTaP/Tdap/Td Vaccine (3 - Td or Tdap) 06/23/2033 06/23/2023, 10/02/2013, 01/21/2005 Zoster Vaccine Completed 04/30/2019, 11/2017, 08/14/2013 Procedures Procedure Name Priority Date/Time Associated Diagnosis Comments SCAN - RADIOLOGY/IMAGING 09/25/2024 from Last 3 Months Results * SCAN - RADIOLOGY/IMAGING (09/25/2024) Anatomical Region Laterality Modality Other us Cali Levine MD Final Result from Last 3 Months Insurance [facility] Member Subscriber Plan / Payer (Ef fective 2011-Present) Name:Morgan Philippe Relation to Subscriber:Self Name:Morgan Philippe Payer ID:[id number] (NAIC) Type:MEDICARE RISK OTHER Address: [place] [id number] Care Teams Stem Shaper Relationship Specialty Start Date End Date Cali Levine MD PCP - General Family Medicine 08/24/22
--- OUTSIDE RECORDS SUMMARY | 2024-10-02 05:31 | XMS_ITS | Encounter Summary ---
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 Gender Identity Not on file Sexual Orientation Not on file documented as of this encounter Plan of Treatment Not on file documented as of this encounter Procedures Procedure Name Priority Date/Time Associated Diagnosis Comments SCAN - LABS 11/23/2023 documented in this encounter Results * SCAN - LABS (11/23/2023) us Cali Levine MD Final Result documented in this encounter Visit Diagnoses Not on filedocumented in this encounter Care Teams Splicing Machine Operator Automatic Relationship Specialty Start Date End Date Cali Levine MD PCP - General Family Medicine 08/24/22 documented as of this encounter
--- OUTSIDE RECORDS SUMMARY | 2024-10-02 05:31 | XMS_ITS | Encounter Summary ---
Author Name [facility] Address [address] [place] [address] Care Team Providers Care Field Aide Name Role Phone KALINA RAHMAN Primary Care [...] PART B Apr 01, 2008 PART B [id number] SHARRI TORRES PATIENT MEDICARE (WNR) MEDICARE (M) PART A Apr 01, 2005 PART A [id number] [phone] [id number] SHARRI TORRES PATIENT Selected Encounter This section includes the information on record at [place] for the Encounter. Date/Time Encounter Type Encounter Description Reason Pro vider Source Jan 12, 2024 10:25 AM Outpatient Encounter TELEPHONE/ANCILLARY IHE Encounter Template Text not used by [place] Plan of Treatment: Future Appointments (+ 6 months) and Future Tests (+/- 45 days) The Plan of Treatment section includes future care activities for the patient from all [place] [facility] This section includes future appointments and future orders which are active, pending or scheduled. Future Appointments This section includes appointments that were scheduled to occur 6 months from the date of the Encounter, up to a maximum of 20 appointments. The data comes from all [facility] facilities. Appointment Date/Time Appointment Type Appointme nt Facility Name February 09, 2024 10:30 AM AMBULATORY - MEDICINE [facility] May 13, 2024 09:00 AM AMBULATORY - MEDICINE [facility] Social History: Smoking Status (Most current) and [...] 11:32 AM QUIT TOBACCO >7 YEARS AGO [facility] Tobacco Use History This section includes a history of the smoking, or tobacco-related health factors, that were collected on or before the date of the Encounter. The data comes from the [place] facility where the Encounter took place. Date/Time Smoking Status/Tobacco Use Comment Lesley pierce Oct 18, 2006 01:13 PM QUIT TOBACCO >12 M O & <7 YRS AGO [facility] Jul 12, 2006 01:22 PM CURRENT NON-TOBACC O USER-HX OF USE [facility] Jul 12, 2006 01:22 PM TOBACCO TERMINATION STAGE [facility] Dec 21, 2005 01:25 PM CURRENT NON-TOBACC O USER-HX OF USE [facility] Dec 21, 2005 01:25 PM TOBACCO TERMINATION STAGE [facility] Jun 14, 2005 10:36 AM CURRENT NON-TOBACC O USER-HX OF USE [facility] Jun 14, 2005 10:36 AM TOBACCO TERMINATION STAGE [facility] Jan 21, 2005 08:41 AM CURRENT NON-TOBACC O USER-HX OF USE [facility] Jan 21, 2005 08:41 AM LIFETIME NON-TOBACCO USER [facility] Jan 21, 2005 08:41 AM TOBACCO TERMINATION STAGE [facility] Advance Directives: All historical and current [...] Nov 25, 2022 ADVANCE DIRECTIVE CELINE GOINS [facility] Encounter Notes: All associated encounter notes This section contains the clinical notes associated to the Encounter. Date/Time Encounter Note(s) Provider Source Jan 12, 2024 10:25 AM CAREGIVER CERTIFIC ATE: LOCAL TITLE: CSP TELEPHONE NOTE STANDARD TITLE: CAREGIVER CERTIFICATE DATE OF NOTE: JAN 12, 2024@10:25 ENTRY DATE: JAN 24, 2024@13:20:52 AUTHOR: MERLIN MCNEAL COSIGNER: URGENCY: STATUS: COMPLETED CAREGIVER SUPPORT TELEPHONE NOTE DATE OF TELEPHONE CONTACT: 01/12/2024 Time spent on phone: 19 min Total time spent: 30 min PURPOSE OF CONTACT: CG called back to [facility] DIAGNOSIS: See medical record CAREGIVER INVOLVED IN CARE: YES, per cg report. No PHI shared with CG during this call. CALL OUTCOME: completed with CG (Varsha, spouse, ) RESOURCES PROVIDED: Caregiver Support resources discussed and provided via call Barriers to Care identified by CG: No barriers identified AD/DPOAHC: On file (Ana) Concern related to Abuse, Neglect, or Exploitation? None reported SUMMARY: CG called [facility] for further assistance navigating how to obtain records for the in order that they may access benefits. CG had previously attempted to obtain them and called necessary parties, but it unable to access the website to submit the request. GISSEL RENEE was able to put the request in online without any PHI with the CG. Per webchristopher, they will be emailing her next steps and contacting her directly for information specific to the so as to fulfill the request. FOLLOW UP PLAN: GISSEL RENEE will remain available for CG support as needed. CSP SW addressed all questions and CG's stated needs during this call. CG was invited to call back with additional questions, support, or assistance navigating the [place] health care system. /tashia/ MCKAYLA Menon, CREAM BUYER Clinical Squilgeer Signed: 01/24/2024 13:24 MERLIN MCNEAL [facility]
--- OUTSIDE RECORDS SUMMARY | 2024-10-02 05:31 | XMS_ITS | Referral Summary ---
Author Organization [facility] Address [address] [place] [address] Care Team Providers Care Backhoe Operator Name Role Phone Cali Levine MD Primary Care Provider Encounters Date Type Department Care Team Description 09/25/2024 Orders Only [facility] Health Information Management [address] [place] [id number] Cali Levine MD from Last 3 Months Allergies No known active allergies Medications multivitamin [...] Family history of Alzheimer's disease 08/04/2021 11/08/2023 Immunizations Name Administration Dates Next Due Influenza, [...] 06/23/2023,10/02/2013 ZOSTER LIVE 08/14/2013 ZOSTER Recombinant 04/30/2019,05/04/2018 Social History Tobacco Use Types Packs/Day Years [...] on file 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 Gender Identity Not on file Sexual Orientation Not on file Last Filed Vital Signs Vital Sign Reading [...] 04/22/2024 3:44 PM CDT Plan of Treatment Not on file Procedures Procedure Name Priority Date/Time Associated Diagnosis Comments SCAN - RADIOLOGY/IMAGING 09/25/2024 from Last 3 Months Results * SCAN - RADIOLOGY/IMAGING (09/25/2024) Anatomical Region Laterality Modality Other Cali Levine MD Final Result from Last 3 Months Insurance [facility] Member Subscriber Plan / Payer (Ef fective 2011-Present) Name:Morgan Philippe Relation to Subscriber:Self Name:Morgan Philippe Payer ID:[id number] (NAIC) Type:MEDICARE RISK OTHER Address: [place] [id number] [facility] Care Teams Backhoe Operator Relationship Specialty Start Date End Date Cali Levine MD PCP - General Family Medicine 08/24/22
--- OUTSIDE RECORDS SUMMARY | 2024-10-02 05:31 | XMS_ITS | Encounter Summary ---
Author Name [facility] Organization [facility] Address [address] [place] [address] Care Team Providers Care Engagement Engineer Name Role Phone KALINA RAHMAN Primary Care [...] PART B Apr 01, 2008 PART B [id number] [phone] SHARRI TORRES PATIENT MEDICARE (WNR) MEDICARE (M) PART A Apr 01, 2005 PART A [id number] SHARRI TORRES PATIENT Selected Encounter This section includes the information on record at [place] for the Encounter. Date/Time Encounter Type Encounter Description Reason Provider Source May 13, 2024 09:00 AM OFFICE O/P EST MOD 30 MIN GERIPACT ICD-10-CM G30.9 Alzheimer's disease, unspecified KALINA RAHMAN IHE Encounter Template Text not used by [place] Assessments - Encounter Diagnoses This section includes the primary and secondary diagnoses documented for the Encounter. Date/Time Primary/Secondary Diagnosis Diagnosis Name Provider Source May 13, 2024 12:51 PM PRIMARY Alzheimer's disease, unspecified LACEYKALINA M [facility] May 13, 2024 12:51 PM SECONDARY Dem in oth dis classd elswhr,unsp sev,w/o beh/psych/mood/anx RAHMANKALINA WRIGHT [facility] May 13, 2024 12:51 PM SECONDARY Essential (primary) hypertension KALINA RAHMAN [facility] May 13, 2024 12:51 PM SECONDARY Gastro-esophageal reflux disease without esophagitis KALINA RAHMAN Naveen [facility] May 13, 2024 12:51 PM SECONDARY Mixed hyperlipidemia KALINA RAHMAN [facility] Plan of Treatment: Future Appointments (+ 6 months) and Future Tests (+/- 45 days) The Plan of Treatment section includes future care activities for the patient [facility] This section includes future appointments and future orders which are active, pending or scheduled. Future Appointments This section includes appointments that were scheduled to occur 6 months from the date of the Encounter, up to a maximum of 20 appointments. The data comes from all [place] treatment facilities. Appointment Date/Time Appointment Type Appointme nt Facility Name Nov 13, 2024 09:00 AM AMBULATORY - MEDICINE [facility] Lab Results: +/- 30 days of the encounter This section includes the Chemistry and Hematology Lab Results on record with [place] for the patient. Radiology Reports and Pathology Reports are provided separately, in subsequent sections. Lab Results This section contains the Chemistry/Hematology Results that were resulted 30 days before or 30 daysafter the date of the Encounter. Date/Time Source Result Type Result - Unit Interpretation Reference Range Comment May 13, 2024 10:57 AM [facility] HGA1C Specimen Type: BLOOD No comment entered. Ordering Provider: KALINA RAHMAN Report Released Date/Time: May 10, 2024 07:20 PM Reporting Lab: [facility] [id number] Performing Lab: [facility] [address] HGA1C 5.8 4.0-6.0 May 13, 2024 10:57 AM [facility] TSH (MA-PB) Specimen Type: SERUM No comment entered. Ordering Provider: KALINA RAHMAN Report Released Date/Time: May 10, 2024 07:20 PM Reporting Lab: [facility] [address] Performing Lab: [facility] [place] [phone] TSH 3.281 u[IU]/mL 0.470-5.000 May 13, 2024 10:57 AM [facility] B12 Specimen Type: SERUM No comment entered. Ordering Provider: KALINA RAHMAN Report Released Date/Time: May 10, 2024 07:20 PM Reporting Lab: [facility] [address] Performing Lab: [facility] [place] [phone] B12 474 pg/mL 213-816 May 13, 2024 10:57 AM [facility] COMPREHENSIVE METABOLIC PANEL Specimen Type: PLASMA Comment: No hemolysis noted. Ordering Provider: KALINA RAHMAN Report Released Date/Time: May 10, 2024 07:20 PM Reporting Lab: [facility] [address] Performing Lab: [facility] [address] CREATININE 1.20 mg/dL 0.70-1.30 UREA NITROGEN 13.7 mg/dL 9.0-25.0 GLUCOSE 102 mg/dL H 72-99 SODIUM 142 meq/L 136-145 POTASSIUM 4.2 meq/L 3.5-5.0 CHLORIDE 110 meq/L H 98-107 CARBON DIOXIDE 22 meq/L 22-31 CALCIUM 9.1 mg/dL 8.4-10.4 PROTEIN 6.8 g/dL 6.0-8.6 ALBUMIN 4.0 g/dL 3.4-5.0 TOTAL BILIRUBIN 0.9 mg/dL 0.2-1.2 ALKALINE PHOSPHATASE 56 U/L 40-150 AST/SGOT 37 U/L H 5-34 ALT/SGPT 33 U/L 8-40 EGFR (CKD-EPI 2020) 59.63 >60 May 13, 2024 10:57 AM [facility] LIPID PANEL (STL) Specimen Type: PLASMA Comment: No hemolysis noted. Ordering Provider: KALINA RAHMAN Report Released Date/Time: May 10, 2024 07:20 PM Reporting Lab: [facility] [place] [address] Performing Lab: [facility] [place] [address] CHOLESTEROL 156 mg/dL 0-200 TRIGLYCERIDE 112 mg/dL 0-150 CALCULATED LDL 91 mg/dL See Interp HDL(New) 43 mg/dL > 40 May 13, 2024 10:57 AM [facility] VITAMIN D, 25-HYDROXY Specimen Type: SERUM No comment entered. Ordering Provider: KALINA RAHMAN Report Released Date/Time: May 10, 2024 07:20 PM Reporting Lab: [facility] [place] [address] Performing Lab: [facility] [place] [address] VITAMIN D, 25-HYDROXY 31.1 ng/mL 30-96 May 13, 2024 10:57 AM [facility] CBC Specimen Type: BLOOD No comment entered. Ordering Provider: KALINA RAHMAN Report Released Date/Time: May 10, 2024 07:20 PM Reporting Lab: [facility] [place] [address] Performing Lab: [facility] [place] [address] WBC 6.3 10*3/uL 3.6-11.2 RBC 4.72 10*6/uL 4.10-5.70 HGB 15.5 g/dL 13.1-16.8 HCT 44.8 38.2-48.4 MCV 94.9 fL 80.0-100.0 MCH 32.8 pg 27.0-34.0 MCHC 34.6 g/dL 33.0-36.0 PLT 146 10*3/uL L 150-400 MPV 10.2 fL 7.5-11.2 RDW 12.9 11.8-15.1 LYMPHOCYTES, AUTO % 21 MONOCYTES, AUTO % 9 NEUTROPHILS, AUTO % 64 EOSINOPHILS, AUTO % 5 BASOPHILS, AUTO % 1 LYMPHOCYTES, ABSOLUTE 1.30 10*3/uL 0.77-4.50 MONOCYTES, ABSOLUTE 0.56 10*3/uL 0.19-0.80 NEUTROPHILS, ABSOLUTE 4.07 10*3/uL 2.10-8.00 EOSINOPHILS, ABSOLUTE 0.34 10*3/uL 0.00-0.60 BASOPHILS, ABSOLUTE 0.04 10*3/uL 0.00-0.20 Vital Signs: All taken on the encounter date This section contains inpatient and outpatient Vital Signs collected on the date of the Encounter. Date/Time Temperature Pulse Blood Pressure Respiratory Rate SP02 Pain Height Weight Body Mass Index Source May 13, 2024 09:18 AM 129/76 [facility] May 13, 2024 09:18 AM 98 54 131/78 18 98 0 67 166.9 26 [facility] Social History: Smoking Status (Most current) and Tobacco Use (All prior to encounter date) This section includes the most current, and the historical, smoking and tobacco- related health factors from the [place] facility where the Encounter took place. Current Smoking Status This section includes the most current smoking, or tobacco-related health factor, from the [place] facility where the Encounter took place. Date/Time Current Smoking Status Comment Domingo brannon Nov 25, 2022 11:30 AM VA-TOBACCO FORMER USER [facility] Tobacco Use History This section includes a history of the smoking, or tobacco-related health factors, that were collected on or before the date of the Encounter. The data comes from the [place] facility where the Encounter took place. Date/Time Smoking Status/Tobacco Use Comment F acility Nov 25, 2022 11:30 AM VA-TOBACCO QUIT 15 YRS OR MORE [facility] Oct 14, 2020 01:00 PM VA-TOBACCO FORMER USER [facility] Oct 14, 2020 01:00 PM VA-TOBACCO QUIT 15 YRS OR MORE [facility] Apr 29, 2019 10:11 AM VA-TOBACCO FORMER USER [facility] Apr 29, 2019 10:11 AM VA-TOBACCO QUIT 15 YRS OR MORE [facility] May 01, 2018 11:23 AM QUIT TOBACCO >7 YEARS AGO [facility] Aug 07, 2017 10:42 AM QUIT TOBACCO >7 YEARS AGO [facility] Jan 10, 2017 02:02 PM QUIT TOBACCO >7 YEARS AGO [facility] Sep 07, 2015 10:07 AM QUIT TOBACCO >7 YEARS AGO [facility] Jul 28, 2014 02:56 PM QUIT TOBACCO >7 YEARS AGO [facility] Jul 16, 2013 01:32 PM QUIT TOBACCO >7 YEARS AGO [facility] Advance Directives: All historical and current Section Date Range: From patient's date of to the date document was created. This section includes ALL of a patient's completed or amended [place] Advance and Rescinded Directives. The entries below indicate that a directive exists for the patient, but an actual copy is not included with this document. The data comes from all [place] facilities. Date Advance Directives Provider Source Nov 25, 2022 ADVANCE DIRECTIVE BRISEIDACELINE ADAMS [facility] Encounter Notes: All associated encounter notes This section contains the clinical notes associated to the Encounter. Date/Time Encounter Note(s) Provider Source May 13, 2024 02:45 PM LETTERS: LOCAL TITLE: TEST RESULT GERIATRIC LETTER [facility] STANDARD TITLE: LETTERS DATE OF NOTE: MAY 13, 2024@14:45 ENTRY DATE: MAY 13, 2024@14:45:39 AUTHOR: KALINA RAHMAN COSIGNER: URGENCY: STATUS: COMPLETED [facility] [address] [place] [address] MAY 13, 2024 SHARRI NELSON [address] [place], [place] [address] Dear Brandie Sharri Gravesbrenda, I would like to update you on your recent test results from your last geriatric clinic visit. LIPID PROFILE - High cholesterol and triglycerides (lipids) are risk factors for heart disease. Your cholesterol should fall between 140 and 200, and your triglycerides levels should be less than or equal to 150. HDL is the good cholesterol and should ideally be greater than 40. LDL is the bad cholesterol and optimal levels should be less than 100 (near optimal is between 100 and 129). TRIGLYCERIDE 112 mg/dL 05/13/2024 10:57 CHOLESTEROL 156 mg/dL 05/13/2024 10:57 HDL(New) 43 mg/dL 05/13/2024 10:57 CALCULATED LDL 91 mg/dL 05/13/2024 10:57 These readings are within normal limits. HEMOGLOBIN A1C - Gives us information about your diabetes (sugar or glucose) control over the past 3 months. Your target is to keep your A1C below 6 %. HGA1C 5.8 % 05/13/2024 10:57 These readings are within normal limits. CBC - A complete blood count (CBC) gives important information about the kinds and numbers of cells in the blood, especially red blood cells, white blood cells, and platelets. HGB 15.5 g/dL 05/13/2024 10:57 HEMATOCRIT 44.8 % (05/13/24 10:57) PLT 146 L 10*3/uL 05/13/2024 10:57 WHITE BLOOD COUNT 6.3 10*3/uL (05/13/24 10:57) These readings are within normal limits. B12 - Helps maintain healthy nerve cells, red blood cells, and is also needed to make DNA. B12 474 pg/mL 05/13/2024 10:57 These readings are within normal limits. CHEM 7 - This is important information about the current status of your kidneys, liver, and electrolyte and acid/base balance as well as of your blood sugar and blood proteins. SODIUM 142 mEq/L 05/13/2024 10:57 POTASSIUM 4.2 mEq/L 05/13/2024 10:57 CHLORIDE 110 H mEq/L 05/13/2024 10:57 UREA NITROGEN 13.7 mg/dL 05/13/2024 10:57 CREATININE 1.20 mg/dL 05/13/2024 10:57 CALCIUM 9.1 mg/dL 05/13/2024 10:57 CARBON DIOXIDE 22 mEq/L 05/13/2024 10:57 GLUCOSE 102 H mg/dL 05/13/2024 10:57 EGFR (CKD-EPI 2020) 59.63 05/13/2024 10:57 The results are similar to previous values and not a clinical concern. LIVER FUNCTION PANEL - These are tests for liver function: PROTEIN 6.8 g/dL 05/13/2024 10:57 ALBUMIN 4.0 g/dL 05/13/2024 10:57 TOTAL BILIRUBIN 0.9 mg/dL 05/13/2024 10:57 ALKALINE PHOSPHATASE 56 U/L 05/13/2024 10:57 AST/SGOT 37 H U/L 05/13/2024 10:57 ALT/SGPT 33 U/L 05/13/2024 10:57 The results are similar to previous values and not a clinical concern. TSH - Thyroid-stimulating hormone (also known as TSH or thyrotropin) is a peptide hormone synthesized and secreted by thyrotrope cells in the anterior pituitary gland, which regulates the endocrine function of the thyroid gland. TSH 3.281 uIU/mL 05/13/2024 10:57 These readings are within normal limits. VITAMIN D - Helps promote the proper utilization of calcium and phosphorus, thereby producing proper bone maintenance. VITAMIN D, 25-HYDROXY 31.1 ng/mL 05/13/2024 10:57 These readings are within normal limits. PLAN Please continue your treatment as we discussed during your visit. If you have any questions please call your showcase trimmer. I look forward to seeing you at your next clinic appointment. Thank you for choosing the [facility] for your healthcare. FUTURE APPOINTMENTS: 11/13/2024 09:00 [facility] TM 13 PCP Sincerely, KALINA RAHMAN MD CHIEF GERIATRICS, PRIMARY CARE SHARRI NELSON KALINA RAHMAN [facility] May 13, 2024 09:36 AM GERIATRIC MEDICINE NOTE: LOCAL TITLE: GERIATRIC PACT CLINIC [facility] STANDARD TITLE: GERIATRIC MEDICINE NOTE DATE OF NOTE: MAY 13, 2024@09:36 ENTRY DATE: MAY 13, 2024@09:36:13 AUTHOR: KALINA RAHMAN EXP COSIGNER: URGENCY: STATUS: COMPLETED Type of Evaluation: Geriatric Follow-up Date of Visit: 05/13/24 09:00 Patient's SSN:[id number] SHARRI NELSON is a 84 year old WHITE MALE. : Apr 84 y.o. with hx of HTN, HLD, hearing loss, GERD, alcohol abuse and cognitive impairement who was last seen on 09/04/24 presents with for follow up. Majority of the information was obtained from the . Pt. was referred to [facility] for sleep study. states that his sleeping is not a problem and he does not snore so she asked for the consult to be cancelled. Per pt's memory is getting worse. She thinks that memory medications have helped though. He forgets recent conversations, will ask same question again and again. Sometimes pt. gets angry if tries to help with things like medications. She does manage his medications. states that he picks his own clothes to wear but wishes that he would let her because he does not pick the right clothes. She states that his pants do not fit and are falling down because he has lost weight. He has loose bowels, goes 2-3 x day. He sometimes has incontinence, last week was last episode. He has trouble with remote. states that pt. continues to drive short distances like to [email or web address] but never drives alone. She is always with him. does not think that he can safetly drive alone however also does not want him to go through regional driver's rehab evaluation and states he does not need to drive, he can stop driving if you think he should stop. Pt. often falls asleep during the day and sleep st from 11:30pm to 7-8 am in the morning. Pt. states that he gupta not have a problem sleeping. is wondering if he should start taking boost to help gain more energy because he often says he does not feel like he has the energy to do things around the house. states that she tries to play games with him to keep him occupied. He does not socialize much since close frind passed. Pt. denies low mood or depression and states that life is good. There have been no recentED visits hospitalizations or falls. would like to speak with GeriPACT SW regarding resources to help Ord. PHQ2: negative AD8: 05/09 Frail Elderly: MOMIN: BRONWYN:02/06 No falls +occasional fecal incontinence. No urinary incontinence Adherence to Medications & Managed by: helps manage meds GERIATRIC REVIEW OF SYSTEMS: Change in weight:lost 3 lbs since September Appetite:good Dysphagia (specify with or without CVA):no Dentition:upper dentures, 4 fillings Sleep:7-8 hrs Vision:wears glasses, has appointment in Dec Hearing:poor, would like to see audiology Wounds/Ulcers:no Peripheral neuropathy (specify with or without DM):no Constipation:no Incontinence:yes, bowel occasionally Nocturia:no Fear of falling:no Assistive devices:no Recent Hospitalizations:no Recent ER Visits:no PMH: 1) HTN * (ICD-9-CM 401.9) 2) Hypercholesterolemia * (ICD-9-CM 272.0) 3) URI (ICD-9-CM 465.9) 4) Hearing Loss, Sensorineural, Unspecified 5) Gastroesophageal Reflux Disorder * (ICD-9-CM 530.81) 6) Impaired FASTING Glucose (ICD-9-CM 790.21) 7) Hypertension 8) Hyperlipidemia 9) Gastroesophageal reflux disease without esophagitis 10) Alcohol abuse 11) Impacted cerumen of bilateral ears 12) Inguinal hernia 13) Dementia 14) Alzheimer's disease OUTPATIENT MEDICATION RECONCILIATION: Review of the essential medication list for review at the time of this encounter included: Remote and local facility patient allergies, and active and pending prescriptions dispensed from this [place] (local) and dispensed from another VA or DoD facility (remote) as well as local inpatient and clinic medication, locally documented non-VA medications and local prescriptions that have or been discontinued in the past 90 days. With the exception of Allergies, if a category is not listed below, it means there were no relevant medications for the patient. The medication list was reviewed with the patient/caregiver: Yes Active Outpatient Medications (including Supplies): Active Non-VA Medications Status 1) Non-VA DONEPEZIL HCL 10MG TAB 10MG BY MOUTH AT ACTIVE BEDTIME 2) Non-VA FAMOTIDINE 40MG TAB 40MG BY MOUTH ONCE A DAY ACTIVE 3) Non-VA LISINOPRIL 20MG TAB 30MG BY MOUTH ONCE A DAY ACTIVE 4) Non-VA MEMANTINE HCL 10MG TAB 10MG BY MOUTH TWICE A ACTIVE DAY 5) Non-VA MULTIVITAMIN CAP/TAB 1 TABLET BY MOUTH ONCE A ACTIVE DAY 6) Non-VA OMEPRAZOLE 20MG EC CAP 20MG BY MOUTH EVERY ACTIVE MORNING BEFORE A MEAL 7) Non-VA SIMVASTATIN 40MG TAB 20MG BY MOUTH EVERY ACTIVE EVENING Medication List was provided to the patient/caregiver at the end of the visit. ALLERGIES/ADR: Patient has answered NKA VITALS: BP: 129/76 (05/13/2024 09:18) Pulse: 54 (05/13/2024 09:18) Temp: 98 F [36.7 C] (05/13/2024 09:18) RR: 18 (05/13/2024 09:18) Pain: 0 (05/13/2024 09:18) Weight: Measurement DT WEIGHT LB(KG)[BMI] 05/13/2024 09:18 166.9(75.70)[26] 09/04/2023 09:06 169.8(77.02)[27] 06/23/2023 11:31 168.2(76.29)[26] Height: 67 in [170.2 cm] (05/13/2024 09:18) GEN: Well appearing WM in NAD HEENT: NC, AT, wearing eye glasses PULM: CTAB, no crackles or wheezes CAR: RRR S1 S2, no murmur ABD: obese NT/ND EXT: no CCE NEURO: Alert & Ox2(not oriented to month), non-focal, no tremors Mobility/Gait: able to complete chair stand without assistance, steady gait with normal speed without an assistive device LABS: CREATININE 1.23 mg/dL 06/23/2023 14:03 GLUCOSE 96 mg/dL 06/23/2023 14:03 SODIUM 143 mEq/L 06/23/2023 14:03 POTASSIUM 4.8 mEq/L 06/23/2023 14:03 CHLORIDE 106 mEq/L (06/23/23 14:03) CARBON DIOXIDE 25 mEq/L 06/23/2023 14:03 CALCIUM 9.5 mg/dL (06/23/23 14:03) PROTEIN 7.0 g/dL 06/23/2023 14:03 ALBUMIN 4.1 g/dL 06/23/2023 14:03 TOTAL BILIRUBIN 0.9 mg/dL 06/23/2023 14:03 ALKALINE PHOSPHATASE 63 U/L 06/23/2023 14:03 AST/SGOT 29 U/L 06/23/2023 14:03 ALT/SGPT 30 U/L 06/23/2023 14:03 WBC 6.3 10*3/uL (06/23/23 14:03) RBC 4.44 10*6/uL (06/23/23 14:03) HCT 42.3 % (06/23/23 14:03) MCV 95.3 fL (06/23/23 14:03) HGB 14.7 g/dL 06/23/2023 14:03 Collection DT Specimen Test Name Result Units Ref Range 11/25/2022 13:43 BLOOD HGA1C 5.9 % 4.0 - 6.0 PLT 142 L 10*3/uL 06/23/2023 14:03 CHOLESTEROL 193 mg/dL 06/23/2023 14:03 HDL: 43 mg/dL (06/23/23 14:03) LDL: 127 mg/dL 06/23/2023 14:03 Trigs: 116 mg/dL (06/23/23 14:03) VITAMIN D, 25-HYDROXY 33.8 ng/mL 06/23/2023 14:03 B12 380 pg/mL 06/23/2023 14:03 FOLATE (STL-MA) 18.6 ng/mL 06/23/2023 14:03 TSH 3.748 uIU/mL 06/23/2023 14:03 ASSESSMENT AND PLAN: Alzheimer's Dementia: per memory is getting worse with forgetting recent conversations and asking the kayla questions again and again. - continue to abstain from alcohol(only occasionally drinks beer) - continue Donepezil and Memantine - connected with caregiver support program - recommended that pt. stop driving since does not feel that he is safe driving alone ( not interested in regional driver's rehab evaluation) - would like to speak with GeriPACT SW regarding resources such as [employer], GLUE LINE OPERATOR and respite care HTN: BP today 128/74 - continue lisinopril HLD: last LDL 127 06/23/23 - increase simvastatin to 40 mg daily GERD: denies reflux symptoms - no longer taking Famotidine 40 mg daily - no longer taking omperazole PRN PREVENTION & HEALTH MAINTENANCE: - is not sure if pt. should get COVID or flu vaccines - updated labs today - referral to GeriPACT SW regarding resources through [place] Age Friendly 4M's WHAT MATTERS:to stay independent, stay home, with an established goal of living as long as possible to spend time with spouse and family. What Matters was addressed at this visit. MEDICATION: reconciled. No longer taking omeprazole or famotidine Medications were addressed at this visit. MENTATION : PHQ 2 - negative Depression was addressed at this visit. MENTATION : known gradual decline in memory due to Alzheimer's Dementia was addressed at this visit. MOBILITY : see above -------- Mobility was addressed at this visit. Life Sustaining Treatment Orders RTC: 6 months /tashia/ KALINA RAHMAN MD CHIEF GERIATRICS, PRIMARY CARE Signed: 05/13/2024 12:51 Receipt Acknowledged By: 05/24/2024 19:22 /tashia/ NATANAEL VALDERRAMA, INSPECTOR PAPER PRODUCTS, CLOTH HANDLER Clinical Map Mounter, KALINA DAS [facility] May 13, 2024 09:20 AM NURSING NOTE: LOCAL TITLE: V15 PACT FACE TO FACE NOTE STL STANDARD TITLE: NURSING NOTE DATE OF NOTE: MAY 13, 2024@09:20 ENTRY DATE: MAY 13, 2024@09:20:28 AUTHOR: EVERARDO MARTINEZ COSIGNER: URGENCY: STATUS: COMPLETED Provider Visit:Dr Rahman Patient Identifiers : Full Name Date of Reason for visit: Established Follow-Up Mode of Arrival: Ambulatory Allergy Review: Patient has answered NKA Allergy list reviewed and remains current. Recent Vital Signs: Temperature: 98 F [36.7 C] (05/13/2024 09:18) Pulse: 54 (05/13/2024 09:18) Respiration: 18 (05/13/2024 09:18) B/P: 129/76 (05/13/2024 09:18) Pain: 0 (05/13/2024 09:18) Wt: 166.9 lb [75.70 kg] (05/13/2024 09:18) Ht: 67 in [170.2 cm] (05/13/2024 09:18) BMI: 26.2 POX: 98% (05/13/2024 09:18) Would you like to discuss any personal problem, family problem, alcohol use, drug use, or a mental or emotional illness? No Contact provided Primary Care phone number and encouraged to call if any questions or concerns. Review that after hours nurse line [phone] and emergency room are available 24/04 for patient use. Contact verbalized good understanding. Suicide Screen: C-SSRS Screening [place]-Suicide Severity Rating Scale (C-SSRS Screener) 1. Over the past month, have you wished you were or wished you could go to sleep and not wake up? No 2. Over the past month, have you had any actual thoughts of killing yourself? No 3. Over the past month, have you been thinking about how you might do this? Response not required due to responses to other questions. 4. Over the past month, have you had these thoughts and had some intention of acting on them? Response not required due to responses to other questions. 5. Over the past month, have you started to work out or worked out the details of how to kill yourself? Response not required due to responses to other questions. 6. If yes, at any time in the past month did you intend to carry out this plan? Response not required due to responses to other questions. 7. In your lifetime, have you ever done anything, started to do anything, or prepared to do anything to end your life (for example, collected pills, obtained a gun, gave away valuables, went to the roof but didn't jump)? No 8. If YES, was this within the past 3 months? Response not required due to responses to other questions. Depression Screening: Perform PHQ-2 A PHQ-2 screen was performed. The score was 0 which is a negative screen for depression. Over the past two weeks, how often have you been bothered by the following problems? 1. Little interest or pleasure in doing things Not at all 2. Feeling down, depressed, or hopeless Not at all Frail/Elderly Screen: ADL Screen - Momin Index of [place] in Activities of Daily Living Bathing: (2 Points) Receives assistance in bathing only one part of the body (such as back or leg) Dressing: (3 Points) Gets clothes and gets completely dressed without assistance. Toileting: (3 Points) Goes to toilet room , cleans self, and arranges clothes without assistance (may use object for support such as cane, walker, or wheelchair, and may manage own night bedpan or commode, emptying same next morning) Transferring: (3 Points) Moves in and out of bed and in and out of chair without assistance (may be using object for support, such as cane or walker) Continence: (2 Points) Has occasional accidents or urination or bowels Feeding: (3 Points) Feeds self without assistance Total Score: 16 Points 18 = High (patient independent) 6 = Low (patient very dependent) IADL Screen - [place] Instrumental Activities of Daily Living Scale Ability to use telephone: (1 point) Operates Telephone on own initiative; looks up and dials numbers. Shopping: (0 points) Needs to be accompanied on any shopping trip. Food preparation: (1 point) Plans, prepares, and serves adequate meals independently. Housekeeping: (1 point) Performs light daily tasks such as dishwashing, bed making. Laundry: (1 point) Launders small items, rinses socks, stockings, etc. Mode of transportation: (1 point) Travels on public transportation when assisted or accompanied by another. Responsibility for own medications: (0 points) Is not capable of dispensing own medication. Ability to handle finances: (0 points) Incapable of handling money. Total score: 5 points 8 = High function, independent 0 = Low function, dependent Falls Screen: No falls within the past 12 months. Incontinence Screen: No incontinence. /es/ JOSE Joseph Licensed Practical Nurse Signed: 05/13/2024 09:29 Receipt Acknowledged By: 05/13/2024 12:12 /tashia/ KALINA RAHMAN MD CHIEF GERIATRICS, PRIMARY CARE EVERARDO MARTINEZ [facility]
--- OUTSIDE RECORDS SUMMARY | 2024-10-02 05:31 | XMS_ITS | Encounter Summary ---
Author Name [facility] Organization [facility] [place] Address [address] [place] [address] Care Team Providers Care Sap Business Analyst Name Role Phone KALINA RAHMAN Primary [...] PART B Apr 01, 2008 PART B [id number] [phone] SHARRI TORRES PATIENT MEDICARE (WNR) MEDICARE (M) PART A Apr 01, 2005 PART A [id number] [phone] SHARRI TORRES PATIENT Selected Encounter This section includes the information on record at OR for the Encounter. Date/Time Encounter Type Encounter Description Reason Provider Source Jan 24, 2024 01:25 PM HC PRO PHONE CALL 21-30 MIN TELEPHONE/ERROL ENCARNACION ICD-10-CM G30.9 Alzheimer's disease, unspecified MERLIN MCNEAL [facility] Encounter Template Text not used by [place] Assessments - Encounter Diagnoses This section includes the primary and secondary diagnoses documented for the Encounter. Date/Time Primary/Secondary Diagnosis Diagnosis Name Provider Source Jan 24, 2024 01:25 PM PRIMARY Alzheimer's disease, unspecified MERLIN MCNEAL [facility] Jan 24, 2024 01:25 PM SECONDARY Dem in oth dis classd elswhr,unsp sev,w/o beh/psych/mood/an x MERLIN MCNEAL [facility] Plan of Treatment: Future Appointments (+ 6 months) and Future Tests (+/- 45 days) The Plan of Treatment section includes future care activities for the [facility] [place] [facility] This section includes future appointments and future orders which are active, pending or scheduled. Future Appointments This section includes appointments that were scheduled to occur 6 months from the date of the Encounter, up to a maximum of 20 appointments. The data comes from all [place] treatment facilities. Appointment Date/Time Appointment Type Appointme nt Facility Name February 09, 2024 10:30 AM AMBULATORY - MEDICINE [facility] May 13, 2024 09:00 AM AMBULATORY - MEDICINE [facility] Social History: Smoking Status (Most current) and Tobacco Use (All prior to encounter date) This section includes the most current, and the historical, smoking and tobacco- related health factors from the [place] facility where the Encounter took place. Current Smoking Status This section includes the most current smoking, or tobacco-related health factor, from the [place] facility where the Encounter took place. Date/Time Current Smoking Status Comment Domingo brannon Jul 27, 2009 11:32 AM QUIT TOBACCO >7 YEARS AGO [facility] Tobacco Use History This section includes a history of the smoking, or tobacco-related health factors, that were collected on or before the date of the Encounter. The data comes from the [place] facility where the Encounter took place. Date/Time Smoking Status/Tobacco Use Comment Lesley pierce Oct 18, 2006 01:13 PM QUIT TOBACCO >12 M O & <7 YRS AGO [facility] Jul 12, 2006 01:22 PM CURRENT NON-TOBACC O USER-HX OF USE [facility] Jul 12, 2006 01:22 PM TOBACCO TERMINATION STAGE [facility] Dec 21, 2005 01:25 PM CURRENT NON-TOBACC O USER-HX OF USE [facility] Dec 21, 2005 01:25 PM TOBACCO TERMINATION STAGE [facility] Jun 14, 2005 10:36 AM CURRENT NON-TOBACC O USER-HX OF USE [facility] Jun 14, 2005 10:36 AM TOBACCO TERMINATION STAGE [facility] Jan 21, 2005 08:41 AM CURRENT NON-TOBACC O USER-HX OF USE [facility] Jan 21, 2005 08:41 AM LIFETIME NON-TOBACCO USER [facility] Jan 21, 2005 08:41 AM TOBACCO TERMINATION STAGE [facility] Advance Directives: All historical and current Section Date Range: From patient's date of to the date document was created. This section includes ALL of a patient's completed or amended [place] Advance and Rescinded Directives. The entries below indicate that a directive exists for the patient, but an actual copy is not included with this document. The data comes from all [place] facilities. Date Advance Directives Provider Source Nov 25, 2022 ADVANCE DIRECTIVE CELINE GOINS [facility] Encounter Notes: All associated encounter notes This section contains the clinical notes associated to the Encounter. Date/Time Encounter Note(s) Provider Source Jan 24, 2024 01:25 PM CAREGIVER CERTIFIC ATE: LOCAL TITLE: CSP TELEPHONE NOTE STANDARD TITLE: CAREGIVER CERTIFICATE DATE OF NOTE: JAN 24, 2024@13:25 ENTRY DATE: JAN 24, 2024@13:47:57 AUTHOR: MERLIN MCNEAL COSIGNER: URGENCY: STATUS: COMPLETED CAREGIVER SUPPORT TELEPHONE NOTE DATE OF TELEPHONE CONTACT: 01/24/2024 Time spent on phone: 24 min Total time spent: 40 min PURPOSE OF CONTACT: [facility] called the CG for follow up and guage interest in further [facility] offerings DIAGNOSIS: See medical record CAREGIVER INVOLVED IN CARE: YES, per cg report. No PHI shared with CG during this call. CALL OUTCOME: completed with CG (Varsha, spouse, ) RESOURCES PROVIDED: Caregiver Support resources discussed and provided via call Barriers to Care identified by CG: No barriers identified AD/DPOAHC: On file (Varsha) Concern related to Abuse, Neglect, or Exploitation? None reported SUMMARY: GISSEL RENEE called the CG for follow up and to guage interest in further [employer] offerings. CG was agreeable to the call and denied any immediate needs. She requested assistance as she attempted to follow up on the electronic records request. GISSEL RENEE offered support and navigation assistance as CG attempted to open the records from her home computer. It appeared as if the records system could not find the request status and the CG voiced that she will call the customer service number listed. CG reports that things have gotten worse with the 's memory. She states that while he is physically able to complete some tasks he is not able to remember or attend to them as needed. She reports that she now showers with the so as to ensure he is clean and attending to needed hygiene. CG expressed wish to talk on a later call about her self-care. She wants to complete some tasks such as obtaining the records and then shift focus to her needs. GISSEL RENEE expressed GISSEL's willingness to support her through offered services and encouraged her to call as needed. CG is also open to a call from GISSEL for future enrollment. FOLLOW UP PLAN: GISSEL RENEE will remain available for CG support as needed. GISSEL RENEE addressed all questions and CG's stated needs during this call. CG was invited to call back with additional questions, support, or assistance navigating the [place] health care system. /tashia/ MCKAYLA Menon, MERCHANDISE DELIVERER Clinical Biofuels Operations Manager Signed: 01/24/2024 13:55 MERLIN MCNEAL [facility]
--- OUTSIDE RECORDS SUMMARY | 2024-10-02 05:31 | XMS_ITS | Encounter Summary ---
Author Name [facility] [place] Organization [facility] [place] Address [address] [place] [address] Care Team Providers Care Research Intern Name Role Phone KALINA RAHMAN Primary Care [...] PART B Apr 01, 2008 PART B [id number] [phone] SHARRI TORRES PATIENT MEDICARE (WNR) MEDICARE (M) PART A Apr 01, 2005 PART A [id number] [phone] SHARRI TORRES PATIENT Selected Encounter This section includes the information on record at [place] for the Encounter. Date/Time Encounter Type Encounter Description Reason Provider Source May 07, 2024 10:55 AM Outpatient Encounter TELEPHONE/GERIATRIC S MARTINEZ,EVERARDO IHE Encounter Template Text not used by [facility] Plan of Treatment: Future Appointments (+ 6 months) and Future Tests (+/- 45 days) The Plan of Treatment section includes future care activities for the patient [facility] [place] [facility]. This section includes future appointments and future orders which are active, pending or scheduled. Future Appointments This section includes appointments that were scheduled to occur 6 months from the date of the Encounter, up to a maximum of 20 appointments. The data comes from all [place] treatment facilities. Appointment Date/Time Appointment Type Appointme nt Facility Name May 13, 2024 09:00 AM AMBULATORY - MEDICINE [facility] Lab Results: +/- 30 days of the encounter This section includes the Chemistry and Hematology Lab Results on record with [place] for the patient. Radiology Reports and Pathology Reports are provided separately, in subsequent sections. Lab Results This section contains the Chemistry/Hematology Results that were resulted 30 days before or 30 daysafter the date of the Encounter. Date/Time Source Result Type Result - Unit Interpretation Reference Range Comment May 13, 2024 10:57 AM [facility] TSH (MA-PB) Specimen Type: SERUM No comment entered. Ordering Provider: KALINA RAHMAN Report Released Date/Time: May 10, 2024 07:20 PM Reporting Lab: [facility] [address] [place] [address] Performing Lab: [facility] [address] [place] [address] TSH 3.281 u[IU]/mL 0.470-5.000 May 13, 2024 10:57 AM [facility] HGA1C Specimen Type: BLOOD No comment entered. Ordering Provider: KALINA RAHMAN Report Released Date/Time: May 10, 2024 07:20 PM Reporting Lab: [facility] [address] [place] [address] Performing Lab: [facility] [address] [place] [address] HGA1C 5.8 4.0-6.0 May 13, 2024 10:57 AM [facility] B12 Specimen Type: SERUM No comment entered. Ordering Provider: KALINA RAHMAN Report Released Date/Time: May 10, 2024 07:20 PM Reporting Lab: [facility] [facility] [id number] Performing Lab: [facility] [address] [place] [phone] B12 474 pg/mL 213-816 May 13, 2024 10:57 AM [facility] COMPREHENSIVE METABOLIC PANEL Specimen Type: PLASMA Comment: No hemolysis noted. Ordering Provider: KALINA RAHMAN Report Released Date/Time: May 10, 2024 07:20 PM Reporting Lab: [facility] [address] Performing Lab: [facility] [address] [place] [phone] CREATININE 1.20 mg/dL 0.70-1.30 UREA NITROGEN 13.7 [...] 59.63 >60 May 13, 2024 10:57 AM [facility] LIPID PANEL (STL) Specimen Type: PLASMA Comment: No hemolysis noted. Ordering Provider: KALINA RAHMAN Report Released Date/Time: May 10, 2024 07:20 PM Reporting Lab: [facility] [phone] Performing Lab: [facility] [facility] [phone] CHOLESTEROL 156 mg/dL 0-200 TRIGLYCERIDE 112 mg/dL 0-150 CALCULATED LDL 91 mg/dL See Interp HDL(New) 43 mg/dL > 40 May 13, 2024 10:57 AM [facility] VITAMIN D, 25-HYDROXY Specimen Type: SERUM No comment entered. Ordering Provider: KALINA RAHMAN Report Released Date/Time: May 10, 2024 07:20 PM Reporting Lab: [facility] [phone] Performing Lab: [facility] [address] [facility] [address] VITAMIN D, 25-HYDROXY 31.1 ng/mL 30-96 May 13, 2024 10:57 AM [facility] CBC Specimen Type: BLOOD No comment entered. Ordering Provider: KALINA RAHMAN Report Released Date/Time: May 10, 2024 07:20 PM Reporting Lab: [facility] [phone] Performing Lab: [facility] [facility] [phone] WBC 6.3 10*3/uL 3.6-11.2 RBC 4.72 10*6/uL [...] 10*3/uL 0.00-0.60 BASOPHILS, ABSOLUTE 0.04 10*3/uL 0.00-0.20 Social History: Smoking Status (Most current) and Tobacco Use (All prior to encounter date) This section includes the most current, and the historical, smoking and tobacco- related health factors from the [place] facility where the Encounter took place. Current Smoking Status This section includes the most current smoking, or tobacco-related health factor, from the [place] facility where the Encounter took place. Date/Time Current Smoking Status Comment Domingo ity May 07, 2024 10:55 AM VA-TOBACCO FORMER USER [facility] Tobacco Use History This section includes a history of the smoking, or tobacco-related health factors, that were collected on or before the date of the Encounter. The data comes from the [place] facility where the Encounter took place. Date/Time Smoking Status/Tobacco Use Comment Lesley kari May 07, 2024 10:55 AM [place]-TOBACCO QUIT 15 YRS OR MORE [facility] Jul 27, 2009 11:32 AM QUIT TOBACCO >7 YEARS AGO [facility] Oct 18, 2006 01:13 PM QUIT TOBACCO >12 M O & <7 YRS AGO [facility] Jul 12, 2006 01:22 PM CURRENT NON-TOBACC O USER-HX OF USE [facility] Jul 12, 2006 01:22 PM TOBACCO TERMINATION STAGE [facility] Dec 21, 2005 01:25 PM CURRENT NON-TOBACC O USER-HX OF USE [facility] Dec 21, 2005 01:25 PM TOBACCO TERMINATION STAGE [facility] Jun 14, 2005 10:36 AM CURRENT NON-TOBACC O USER-HX OF USE [facility] Jun 14, 2005 10:36 AM TOBACCO TERMINATION STAGE [facility] Jan 21, 2005 08:41 AM CURRENT NON-TOBACC O USER-HX OF USE [facility] Jan 21, 2005 08:41 AM LIFETIME NON-TOBACCO USER [facility] Jan 21, 2005 08:41 AM TOBACCO TERMINATION STAGE [facility] Advance Directives: All historical and current Section Date Range: From patient's date of to the date document was created. This section includes ALL of a patient's completed or amended [place] Advance and Rescinded Directives. The entries below indicate that a directive exists for the patient, but an actual copy is not included with this document. The data comes from all [place] facilities. Date Advance Directives Provider Source Nov 25, 2022 ADVANCE DIRECTIVE CELINE GOINS [facility] Encounter Notes: All associated encounter notes This section contains the clinical notes associated to the Encounter. Date/Time Encounter Note(s) Provider Source May 07, 2024 10:55 AM NURSING NOTE: LOCAL TITLE: V15 PACT [facility]PH[facility] STAND[facility] TITLE: NURSING NOTE DATE OF NOTE: MAY 07, 2024@10:55 ENTRY DATE: MAY 07, 2024@10:55:39 AUTHOR: EVERARDO MARTINEZ COSIGNER: URGENCY: STATUS: COMPLETED Patient/Other contacted: Patient Patient Identifiers : Full Name Date of Appointment Reminder: Outbound call to patient to remind of upcoming: Provider in-person with DR RAHMAN Appointment is scheduled for: May@09:00 Appointment type: In-person, instructed to: Write down any questions you may have to discuss with your provider at your appointment. Bring any forms or non-VA records if needed. Arrive 15 mins early to check-in allowing time for traffic and parking. Clinical reminders: Applicable nurse reminders due at the time of this encounter will be completed at the end of note. Encouraged to contact PC Team with questions/concerns or if need to reschedule/cancel appointment. Provided/reviewed the nurse advice line (ext [phone]) for medical needs after hours. Contact understanding verified by teach back: Yes Total time spent on phone: 5 MIN Alcohol Use Screen (AUDIT-C): Alcohol Screen: SCREEN FOR ALCOHOL (AUDIT-C) An alcohol screening test (AUDIT-C) was negative (score=1). 1. How often did you have a drink containing alcohol in the past year? Consider a drink to be a 12 ounce can or bottle of regular beer, 8 ounces of malt liquor, a 5 ounce glass of table wine, or a 1.5 ounce shot of liquor (like scotch, gin, or vodka). Monthly or less 2. How many drinks containing alcohol did you have on a typical day when you were drinking in the past year? One or two drinks 3. How often did you have six or more drinks on one occasion in the past year? Never Homelessness/Food Insecurity Screen: In the past 2 months, have you been living in stable housing that you own, rent, or stay in as part of a household? Yes - Living in stable housing. Are you worried or concerned that in the next 2 months you may NOT have stable housing that you own, rent, or stay in as part of a household? No - Not worried about housing near future [facility] [place] reports the following: Within the past 12 months, you worried whether your food would run out before you got money to buy more. Never true Within the past 12 months, the food you bought just didn't last and you didn't have money to get more. Never true Tobacco Use Screening: The patient is a former tobacco user. The patient quit fifteen or more years ago. /es/ JOSE Joseph Licensed Practical Nurse Signed: 05/07/2024 11:04 EVERARDO MARTINEZ [facility]
--- OUTSIDE RECORDS SUMMARY | 2024-10-02 05:31 | XMS_ITS | Encounter Summary ---
Author Name [facility] Organization [facility] Address [address] [place] [address] Care Team Providers Care Hammer Setter Name Role Phone KALINA RAHMAN Primary Care [...] PART B Apr 01, 2008 PART B [id number] SHARRI TORRES PATIENT MEDICARE (WNR) MEDICARE (M) PART A Apr 01, 2005 PART A [id number] SHARRI TORRES PATIENT Selected Encounter This section includes the information on record at NH for the Encounter. Date/Time Encounter Type Encounter Description Reason Provider Source Jan 11, 2024 03:45 PM HC PRO PHONE CALL 11-20 MIN TELEPHONE/ERROL ENCARNACION ICD-10-CM G30.9 Alzheimer's disease, unspecified MERLIN MCNEAL [facility] Encounter Template Text not used by NH Assessments - Encounter Diagnoses This section includes the primary and secondary diagnoses documented for the Encounter. Date/Time Primary/Secondary Diagnosis Diagnosis Name Provider Source Jan 11, 2024 03:45 PM PRIMARY Alzheimer's disease, unspecified MERLIN MCNEAL [facility] Jan 11, 2024 03:45 PM SECONDARY Dem in oth dis classd elswhr,unsp sev,w/o beh/psych/mood/an x MERLIN MCNEAL [facility] Plan of Treatment: Future Appointments (+ 6 months) and Future Tests (+/- 45 days) The Plan of Treatment section includes [facility] the [facility] This section includes future appointments and future orders which are active, pending or scheduled. Future Appointments This section includes appointments that were scheduled to occur 6 months from the date of the Encounter, up to a maximum of 20 appointments. The data comes from all [place] treatment facilities. Appointment Date/Time Appointment Type Appointme nt Facility Name February 09, 2024 10:30 AM AMBULATORY - MEDICINE [facility] May 13, 2024 09:00 AM AMBULATORY - MEDICINE [facility] Social History: Smoking Status (Most current) and Tobacco Use (All prior to encounter date) This section includes the most current, and the historical, smoking and tobacco- related health factors from the [place] facility where the Encounter took place. Current Smoking Status This section includes the most current smoking, or tobacco-related health factor, from the [place] facility where the Encounter took place. Date/Time Current Smoking Status Comment Domingo brannon Jul 27, 2009 11:32 AM QUIT TOBACCO >7 YEARS AGO [facility] Tobacco Use History This section includes a history of the smoking, or tobacco-related health factors, that were collected on or before the date of the Encounter. The data comes from the [place] facility where the Encounter took place. Date/Time Smoking Status/Tobacco Use Comment Lesley pierce Oct 18, 2006 01:13 PM QUIT TOBACCO >12 M O & <7 YRS AGO [facility] Jul 12, 2006 01:22 PM CURRENT NON-TOBACC O USER-HX OF USE [facility] Jul 12, 2006 01:22 PM TOBACCO TERMINATION STAGE [facility] Dec 21, 2005 01:25 PM CURRENT NON-TOBACC O USER-HX OF USE [facility] Dec 21, 2005 01:25 PM TOBACCO TERMINATION STAGE [facility] Jun 14, 2005 10:36 AM CURRENT NON-TOBACC O USER-HX OF USE [facility] Jun 14, 2005 10:36 AM TOBACCO TERMINATION STAGE [facility] Jan 21, 2005 08:41 AM CURRENT NON-TOBACC O USER-HX OF USE [facility] Jan 21, 2005 08:41 AM LIFETIME NON-TOBACCO USER [facility] Jan 21, 2005 08:41 AM TOBACCO TERMINATION STAGE [facility] Advance Directives: All historical and current Section Date Range: From patient's date of to the date document was created. This section includes ALL of a patient's completed or amended [place] Advance and Rescinded Directives. The entries below indicate that a directive exists for the patient, but an actual copy is not included with this document. The data comes from all [place] facilities. Date Advance Directives Provider Source Nov 25, 2022 ADVANCE DIRECTIVE CELINE GOINS [facility] Encounter Notes: All associated encounter notes This section contains the clinical notes associated to the Encounter. Date/Time Encounter Note(s) Provider Source Jan 11, 2024 03:45 PM CAREGIVER CERTIFIC ATE: LOCAL TITLE: [facility] TELEPHONE NOTE STANDARD TITLE: CAREGIVER CERTIFICATE DATE OF NOTE: JAN 11, 2024@15:45 ENTRY DATE: JAN 11, 2024@16:04:23 AUTHOR: MERLIN MCNEAL COSIGNER: URGENCY: STATUS: COMPLETED CAREGIVER SUPPORT TELEPHONE NOTE DATE OF TELEPHONE CONTACT: 01/11/2024 Time spent on phone: 15 min Total time spent: 25 min PURPOSE OF CONTACT: CG (Varsha) called back to the [facility] DIAGNOSIS: See medical record CAREGIVER INVOLVED IN CARE: YES, per cg report. No PHI shared with CG during this call. CALL OUTCOME: completed with CG RESOURCES PROVIDED: Caregiver Support resources discussed and provided via call Barriers to Care identified by CG: No barriers identified AD/DPOAHC: On file Concern related to Abuse, Neglect, or Exploitation? None reported SUMMARY: GISSEL VÍCTOR received a call back from the CG. She denied any immediate needs at this time. She reports that she enjoyed time with her family this past month as her daughter is visiting the area more frequently. She states that she is also working to obtain benefits for the but needs record in order to do so. She is working with a VSO and has called to obtain the records. She endorsed need of support as she does not have access to a computer to complete the paperwork for the records. She requested assistance from the GISSEL RENEE. GISSEL RENEE and CG discussed options and resources for CG to complete paperwork. CG should be receiving an email with directions of submitting the request. CG to call GISSEL RENEE when email is received so GISSEL RENEE may help to direct her. At that time, GISSEL RENEE will assess for other needs and resources to assist the CG with records request. CG in agreement with the plan and to call GISSEL RENEE. FOLLOW UP PLAN: GISSEL RENEE will remain available for CG support as needed. GISSEL RENEE addressed all questions and CG's stated needs during this call. CG was invited to call back with additional questions, support, or assistance navigating the [place] health care system. /tashia/ MCKAYLA Menon, MILIEU MANAGER Clinical Automatic Riveting Machine Operator Signed: 01/12/2024 09:38 MERLIN MCNEAL [facility]
--- OUTSIDE RECORDS SUMMARY | 2024-10-02 05:32 | XMS_ITS | Encounter Summary ---
Author Organization [facility] Address [address] [facility] [address] [place] [address] Care Team Providers Care Blind Cleaner Name Role Phone Cali Levine MD Primary Care Provider [phone] Reason for Visit * Reason Onset Date Comments questions 03/02/2022 Encounter Details Date Type Department Care Team ([facility] st Contact Info) Description 03/02/2022 Telephone [facility] Primary Care at [address] [address] Cali Levine MD [facility] [address] questions Social History Tobacco Use Types Packs/Day Years [...] points, staff should administer the PHQ-9) 0 02/24/2022 Sex and Gender Information Value Date Recorded Sex Assigned at Not on file 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 * Telephone Encounter - Nanette Munson MA - 03/08/2022 5:20 PM CDT LMOM for pt to call office. * Telephone Encounter - Cali Levine MD - 03/07/2022 1:52 PM CDT Notes states namenda 10 BID * Telephone Encounter - Pepe Burdick - 03/07/2022 12:06 PM CDT Pt called back and has several different things she would like to talk about. There is a medication that he was supposed to be taking along with the donezepal. Insurance is telling her the cost of the medication would be $75.00. She is very confused on what this medication will cost as she hasbeen several different quotes. She wants a call back on this medication. She is stating the insurance company is rejecting the medication. Please call back at [phone] * Telephone Encounter - Cali Levine MD - 03/02/2022 6:51 PM CDT Find out what wants * Telephone Encounter - Pepe Burdick - 03/02/2022 11:44 AM CDT Pt Varsha called and has some questions. She iwould like for Dr. Levine to call her if possible. Thank you documented in this encounter Plan of Treatment Not on file documented as of this encounter Visit Diagnoses Not on filedocumented in this encounter Care Teams Blind Cleaner Relationship Specialty Start Date End Date Cali Levine MD PCP - General Family Medicine 08/02/21 08/23/22 documented as of this encounter
--- OUTSIDE RECORDS SUMMARY | 2024-10-02 05:32 | XMS_ITS | Encounter Summary ---
Author Organization [facility] Address [address] [address] Care Team Providers Care Dietary Director Name Role Phone Cali Levine MD Primary Care Provider [phone] Reason for Visit * Reason Comments 6 mo f/u Encounter Details Date Type Department Care Team (Late st Contact Info) Description 01/05/2023 1:00 PM CDT Office Visit [facility] Primary Care at [address] [address] Cali Levine MD [address] [facility] [address] [address] Other general medical examination for administrative purposes (Primary Dx); Essential hypertension; Gastroesophageal reflux disease without esophagitis; Mixed hyperlipidemia; Alzheimer's disease, unspecified (HCC); Urinary frequency; Fatigue, unspecified type Social History Tobacco Use Types Packs/Day Years [...] points, staff should administer the PHQ-9) 0 01/05/2023 Sex and Gender Information Value Date Recorded Sex Assigned at Not on file 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 Gender Identity Not on file Sexual Orientation Not on file documented as of this encounter Last Filed Vital Signs Vital Sign Reading Time Taken Comments Blood Pressure 138/80 01/05/2023 12:58 PM CDT Pulse 66 01/05/2023 12:58 PM CDT Temperature - - Respiratory Rate 16 01/05/2023 12:5 8 PM CDT Oxygen Saturation 97% 01/05/2023 12: 58 PM CDT Inhaled Oxygen Concentration - - Weight 79.8 kg (175 lb 14.4 oz) 023 12:58 PM CDT Height 170.2 cm (5' 7 ) 01/05/2023 12:5 8 PM CDT Body Mass Index 27.55 01/05/2023 12:58 PM CDT documented in this encounter Progress Notes * Cali Levine MD - 01/05/2023 1:00 PM CDT Images from the original note were not included. MEDICARE/[facility] ANNUAL WELLNESS VISIT Patient Name: Morgan Philippe Date Of : 1940 Date Of Service: @Metabar@ Medicare Health Risk Assessment HPI: 82-year-old male. [facility] well[facility] Otherwise active. Weight stable on meds. ROS Review of Systems Constitutional: Negative for chills and fever. Eyes: Negative for blurred vision and double vision. Respiratory: Negative for cough and shortness of breath. Cardiovascular: Negative for chest pain and leg swelling. Gastrointestinal: Negative for nausea and vomiting. Genitourinary: Negative for frequency and urgency. Musculoskeletal: Positive for joint pain. Negative for back pain. Neurological: Negative for weakness and headaches. Psychiatric/Behavioral: Negative for depression. The patient is not nervous/anxious. Problem List, Past Medical and Surgical History: Patient Active Problem List Diagnosis Essential hypertension Gastroesophageal reflux disease without esophagitis Mixed hyperlipidemia Non-recurrent unilateral inguinal hernia without obstruction or gangrene Medicare annual wellness visit, subsequent Memory loss Family history of Alzheimer's disease Cough Alzheimer's disease, unspecified (HCC) History reviewed. No pertinent past medical history. History reviewed. No pertinent surgical history. Family History: History reviewed. Pos for HTN Social History: Social History Socioeconomic History Marital status: Not on file Spouse name: Not on file Number of children: Not on file Years of education: Not on file Highest education level: Not on file Occupational History Not on file Tobacco Use Smoking status: Never Smoker Smokeless tobacco: Never Used Substance and Sexual Activity Alcohol use: Yes Drug use: Never Sexual activity: Not on file Other Topics Concern Not on file Social History Narrative Not on file Social Determinants of Health Financial Resource Strain: Difficulty of Paying Living Expenses: Food Insecurity: Worried About Running Out of Food in the Last Year: Ran Out of Food in the Last Year: Transportation Needs: Lack of Transportation (Medical): Lack of Transportation (Non-Medical): Physical Activity: Days of Exercise per Week: Minutes of Exercise per Session: Stress: Feeling of Stress : Social Connections: Frequency of Communication with Friends and Family: Frequency of Social Gatherings with Friends and Family: Attends Christian Services: Active Member of Clubs or Organizations: Attends Club or Organization Meetings: Marital Status: Intimate Partner Violence: Fear of Current or Ex-Partner: Emotionally Abused: Physically Abused: Sexually Abused: Allergies: No Known Allergies Medications: Current Outpatient Medications: donepeziL (ARICEPT) 10 mg tablet, Take 1 tablet (10 mg total) by mouth nightly, Disp: 90 tablet, Rfl: 4 lisinopriL (PRINIVIL,ZESTRIL) 30 mg tablet, TAKE 1 TABLET BY MOUTH EVERY DAY, Disp: 90 tablet, Rfl:1 memantine (NAMENDA TITRATION PACK) tablet pack, USE DIRECTED FOR FIRST MONTH., Disp: 49 each, Rfl: 0 memantine (NAMENDA) 10 mg tablet, Take 1 tablet (10 mg total) by mouth 2 (two) times a day, Disp: 180 tablet, Rfl: 4 multivitamin capsule, Take 1 capsule by mouth daily, Disp: , Rfl: omeprazole (PriLOSEC) 20 mg capsule, TAKE 1 CAPSULE BY MOUTH EVERY DAY, Disp: 90 capsule, Rfl: 1 simvastatin (ZOCOR) 40 mg tablet, TAKE 1/2 TABLET BY MOUTH NIGHTLY, Disp: 45 tablet, Rfl: 5 Depression Screen: PHQ Screening Over the last 2 weeks, how often have you been bothered by any of the following problems? Little Interest or Pleasure in Doing Things: Not at all Feeling Down, Depressed, or Hopeless: Not at all PHQ-2 Total Score (If total score is 3 or more points, staff should administer the PHQ-9): 0 Over the past 2 weeks, how often have you been bothered by any of the following problems? Little Interest or Pleasure in Doing Things: Not at all Feeling Down, Depressed, or Hopeless: Not at all PHQ-2 Total Score (If total score is 3 or more points, staff should administer the PHQ-9): 0 Vitals: Vitals BP 138/80 (BP Location: Right arm, Patient Position: Sitting) Pulse 66 Resp 16 Ht 170.2 cm (5' 7 ) Wt 79.8 kg (175 lb 14.4 oz) SpO2 97% BMI 27.55 kg/m?? Body mass index is 27.55 kg/m??. Hearing and Vision Screening: Age-related hearing changes. Sees the eye doctor. Exam: Physical Exam Constitutional: Appearance: He is well-developed. [...] place, and time. Psychiatric: Speech: Speech normal. Care Team Providers: Patient Care Team: Cali Levine MD as PCP - General (Family Medicine) Primary Pharmacy/DME suppliers: [facility] [place] [address] [address] [facility] [id number] Detection of Cognitive Impairment: The patient does not have cognitive impairment based on direct observation, discussion with patientor family, or review of medical records. Health Maintenance: Health Maintenance Topics with due status: Overdue Topic Date Due DTaP/Tdap/Td Vaccine Never done Zoster Vaccines Never done Pneumococcal vaccine 65+ 08/28/2017 Covid-19 Vaccine 10/27/2021 Health Maintenance Topics with due status: Not Due Topic Last Completion Date Fall Risk Assessment 07/06/2022 Depression Screening-PHQ 01/05/2023 Well Visit 65+ 01/05/2023 Health Maintenance Topics with due status: Completed Topic Last Completion Date Influenza Vaccine 07/06/2022 Counseling and Referral of Preventative Services: Lifestyle Recommendations Increase Physical Activity, Stop Using Tobacco, Reduce Weight and ImproveDiet Advanced Directive Durable Power of Graphics Artist: Discussed Today Living Will: Discussed Today Assessment and Plan: Diagnoses and all orders for this visit: Medicare annual wellness visit Colonoscopy UTD Labs done 2022 PSA/ no more Habits neg Mood fine Essential hypertension Low salt diet CPM Gastroesophageal reflux disease without esophagitis Cont PPI Mixed hyperlipidemia CPM, labs [facility] Frequency/ Fatigue - see orders Alzheimers disease - cont meds Patient here for annual Medicare wellness visit and for review of complete medical problem list. All the elements of the plan were completed as outlined by CMS. A copy of the prevention plan was given to the patient. I reviewed Medicare Wellness Questionnaire (other physicians involved in care, depression screen, advanced directives), cognitive/memory, and functional assessment. I reviewed and updated the complete problem list, medication list, family history, and immunization records with the patient. I provided preventive counseling and early detection interventions to the patient through summary of today's office visit. Cali Levine MD Orders Placed This Encounter Urinalysis reflex to microscopic and culture Urine, clean voided Standing Status: Future Standing Expiration Date: 01/06/2024 TSH reflex to free T4 Standing Status: Future Standing Expiration Date: 01/06/2024 Vitamin B12 Standing Status: Future Standing Expiration Date: 01/06/2024 documented in this encounter Miscellaneous Notes * Addendum Note - Alissa Warren - 01/05/2023 1:00 PM CDTAddended by: ALISSA WARREN on: 01/05/2023 02:03 PM Modules accepted: Orders documented in this encounter Plan of Treatment Not on file documented as of this encounter Results * Urinalysis reflex to microscopic and culture Urine, clean voided (01/05/2023 1:39 PM CDT) Color, ur Yellow Yellow [facility] Clarity, ur Clear Clear [facility] Specific gravity, ur 1.012 1.003 - 1.030 [facility] pH, urine 6.0 [facility] Protein, ur ql Negative Negative [facility] Glucose, ur ql Negative Negative [facility] Ketones, ur Negative Negative [facility] Bilirubin, ur Negative Negative [facility] Blood, ur Negative Negative [facility] Urobilinogen, ur <2.0 <2.0 mg/dL [facility] Nitrite, ur Negative Negative [facility] Leukocyte esterase, ur Negative Negative [facility] UA reflex comment Reflex conditions for microscopic UA and culture not met. [facility] Urine, clean voided 01/05/2023 1:39 PM CDT 01/05/2023 7:57 PM CDT Narrative CERNER CH - 01/05/2023 8:16 PM CDT ?? Urine pH is affected by diet, medications, systemic acid-base disturbances, and renal tubular function. ??pH may affect urinary stone formation. ??For example, urine pH below 6.0 may help reduce the tendency for calcium phosphate stones and pH greater than 6.0 may reduce the tendency for uric acid stone formation. Source: [facility] [employer]. Last revised 10-12-2017 Cali Levine MD LAB MICROBIOLOGY - GENERAL OR DERABLES Final Result Performing Organization Address [facility] Co de Phone Number CLEMENTE BRADY [address] [place] [address] * (ABNORMAL) TSH reflex to free T4 (01/05/2023 1:39 PM CDT) Pathologist [facility] TSH 5.85(H) 0.30 - 4.20 mcIUnit/mL [facility] Blood 01/05/2023 1:39 PM CDT 01/05/2023 7:57 PM CDT Cali Levine MD LAB BLOOD ORDERABLES Final Re sult Performing Organization Address [facility] Co de Phone Number CLEMENTE BRADY [address] Department [place] [address] * Vitamin B12 (01/05/2023 1:39 PM CDT) Vitamin B12 444 230 - 1,250 pg/mL [facility] Blood 01/05/2023 1:39 PM CDT 01/05/2023 7:57 PM CDT us Cali Levine MD LAB BLOOD ORDERABLES Final Re sult CLEMENTE BRADY [address] Department [place] [address] documented in this encounter Visit Diagnoses Diagnosis Other general medical examination for administrative purposes- Primary Essential hypertension Unspecified essential hypertension Gastroesophageal reflux disease without esophagitis Esophageal reflux Mixed hyperlipidemia Alzheimer's disease, unspecified (HCC) Urinary frequency Fatigue, unspecified type Urinary frequency Fatigue, unspecified type documented in this encounter Care Teams Dietary Director Relationship Specialty Start Date End Date Cali Levine MD PCP - General Family Medicine 08/24/22 documented as of this encounter
--- OUTSIDE RECORDS SUMMARY | 2024-10-02 05:32 | XMS_ITS | Encounter Summary ---
Author Organization [facility] Address [address] [facility] [address] [place] [address] Care Team Providers Care Assistant Secretary Name Role Phone Cali Levine MD Primary Care Provider [phone] Reason for Visit * Reason Onset Date Comments Referral Request 04/24/2023 Encounter Details Date Type Department Care Team (Late st Contact Info) Description 04/24/2023 Telephone [facility] Family Medicine [address] [facility] [address] [place] [address] Cali Levine MD [address] [place] [address] Referral Request Social History Tobacco Use Types Packs/Day Years [...] on file 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 That is something the patient has to do on their own. Patient understood. * Telephone Encounter - Valeria Crockett - 04/24/2023 3:14 PM CDT Referral Provider Name (if patient is seeing a nurse practitioner or physician teachers assistant, list the CHIP UNLOADER/PA, but also their collaborating doctor): Dr Lexie Echevarria MD Specialty: Family Medicine Address: [address] [place] [address], Zip: [place] [address] Diagnosis Code/Symptom/Reason Patient is being seen: Establish Care Date of Appointment: 04/27 NPI#: [id number] Tax ID#: Is insurance in chart up to date? Yes Caller???s Callback #: Catina burch/Silvana @ [phone] Additional Comments: Caller w.Patient on the 3-way calling to request a Referral to establish care with a new provider. Referral needed because patient new PCP will not take effect until May 02 so patient needs a referral from current PCP Does message need to be routed? Yes-Action Needed documented in this encounter Plan of Treatment Not on file documented as of this encounter Visit Diagnoses Not on filedocumented in this encounter Care Teams Assistant Secretary Relationship Specialty Start Date End Date Cali Levine MD PCP - General Family Medicine 08/24/22 documented as of this encounter
--- OUTSIDE RECORDS SUMMARY | 2024-10-02 05:32 | XMS_ITS | Encounter Summary ---
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 Gender Identity Not on file Sexual Orientation Not on file documented as of this encounter Plan of Treatment Not on file documented as of this encounter Procedures Procedure Name Priority Date/Time Associated Diagnosis Comments EGFR Routine 08/06/2021 9:40 AM CDT Essential hypertension Mixed hyperlipidemia DIFFERENTIAL AUTO Routine 08/06/2021 9:4 0 AM CDT Essential hypertension Mixed hyperlipidemia CBC WITH AUTO DIFFERENTIAL Routine 08/06/2021 9:40 AM CDT Essential hypertension Mixed hyperlipidemia LIPID PANEL Routine 08/06/2021 9:40 AM CDT Essential hypertension Mixed hyperlipidemia COMPREHENSIVE METABOLIC PANEL Routine 08/06/2021 9:40 AM CDT Essential hypertension Mixed hyperlipidemia documented in this encounter Results * eGFR (08/06/2021 9:40 AM CDT) [facility] Signature eGFR 68 mL/min/1.7 3 m2 [facility] Comment: Interpretive Data Reference Interval Normal ?>/= 90 mL/min/1.73m2 Mildly decreased* ? 60 - 89 mL/min/1.73m2 Mildly to moderately decreased ?45 - 59 mL/min/1.73m2 Moderately to severely decreased ??30 - 44 mL/min/1.73m2 Severely decreased ?15 - 29 mL/min/1.73m2 Kidney Failure ?< 15 ??mL/min/1.73m2 *Relative to young adult level Estimated glomerular filtration rate is determined by the CKD-EPI equation recommended by the National Kidney Foundation (KDIGO 2012 Clinical Practice Guideline for the Evaluation and Management of Chronic Kidney Disease. Kidney Intnl Suppl Oct 2012;3:1). The CKD-EPI equation should not be used for patients with unstable renal function and has not been validated in children and those over 70. Current interpretive data was last reviewed 2020 Blood 08/06/2021 9:40 AM CDT 08/06/2021 2:36 PM CDT us Cali Levine MD LAB BLOOD ORDERABLES Final Re sult [facility] [address] [place] [address] * Differential, auto (08/06/2021 9:40 AM CDT) Neutrophil abs 4.4 1.7 - 6.5 K/cumm [facility] Imm gran abs 0.0 0.0 - 0.1 K/cumm [facility] Lymphocyte abs 0.9 0.8 - 3.3 K/cumm [facility] Monocyte abs 0.7 0.2 - 0.8 K/cumm [facility] Eosinophil abs 0.3 0.0 - 0.5 K/cumm [facility] Basophil abs 0.0 0.0 - 0.1 K/cumm [facility] Neutrophil pct 70.1 % [facility] Comment: Interpretive Data Percent cell count reference ranges are not reported, since discordance with absolute values may lead to misinterpretation of CBC data. Current Interpretive Data was last revised on 2018. Imm gran pct 0.3 % [facility] Comment: Interpretive Data Percent cell count reference ranges are not reported, since discordance with absolute values may lead to misinterpretation of CBC data. Current Interpretive Data was last revised on 2018. Lymphocyte pct 14.5 % [facility] Comment: Interpretive Data Percent cell count reference ranges are not reported, since discordance with absolute values may lead to misinterpretation of CBC data. Current Interpretive Data was last revised on 2018. Monocyte pct 10.7 % [facility] Comment: Interpretive Data Percent cell count reference ranges are not reported, since discordance with absolute values may lead to misinterpretation of CBC data. Current Interpretive Data was last revised on 2018. Eosinophil pct 4.1 % [facility] Comment: Interpretive Data Percent cell count reference ranges are not reported, since discordance with absolute values may lead to misinterpretation of CBC data. Current Interpretive Data was last revised on 2018. Basophil pct 0.3 % [facility] Comment: Interpretive Data Percent cell count reference ranges are not reported, since discordance with absolute values may lead to misinterpretation of CBC data. Current Interpretive Data was last revised on 2018. Blood 08/06/2021 9:40 AM CDT 08/06/2021 2:25 PM CDT Cali Levine MD LAB BLOOD ORDERABLES Final Re sult Performing Organization Address City/[facility] Co de Phone Number [facility] [address] Department of [employer] [place], [place] [id number] * CBC with auto differential (08/06/2021 9:40 AM CDT) WBC 6.3 3.8 - 9.9 K/cumm [facility] Hgb 15.6 13.0 - 17.5 g/dL [facility] Hct 45.4 38.9 - 50.3 % [facility] Plt 167 150 - 400 K/cumm [facility] MPV 10.6 9.1 - 12.3 fL [facility] RBC 4.71 4.30 - 5.80 M/cumm [facility] MCV 96.4 81.3 - 96.4 fL [facility] MCH 33.1 27.1 - 33.3 pg [facility] MCHC 34.4 32.3 - 35.7 g/dL [facility] RDW CV 12.6 11.1 - 14.9 % [facility] RDW SD 45.1 35.7 - 48.1 fL [facility] NRBC abs 0.00 0.00 - 0.01 K/cumm [facility] Blood 08/06/2021 9:40 AM CDT 08/06/2021 2:25 PM CDT Cali Levine MD LAB BLOOD ORDERABLES Final Re sult Performing Organization Address City/[facility]/ZIP Co de Phone Number [facility] [address] Department [place] [address] * Comprehensive metabolic panel (08/06/2021 9:40 AM CDT) Sodium 138 135 - 145 mmol/L [facility] Potassium, pl 4.6 3.3 - 4.9 mmol/L [facility] Chloride 102 97 - 110 mmol/L [facility] CO2 25 22 - 32 mmol/L [facility] Anion gap 11 2 - 15 mmol/L [facility] BUN 12 8 - 25 mg/dL [facility] Creatinine 1.03 0.80 - 1.30 mg/dL [facility] Glucose 123 70 - 199 mg/dL [facility] Comment: Interpretive Data Fasting glucose >/= 126 mg/dl is diagnostic for diabetes. ?? Fasting is defined as no caloric intake for at least 8 hours. Fasting glucose between 100 mg/dl to 125 mg/dl is diagnostic of prediabetes. In a patient with classic symptoms of hyperglycemia or hyperglycemic crisis, a random glucose >/= 200 mg/dl is diagnostic for diabetes. In the absence of unequivocal hyperglycemia, results should be confirmed by repeat testing. The classification and Diagnosis of Diabetes Diabetes Care 2017;40 (Suppl. 1):S11. Current interpretive data was last revised 2017. Calcium 9.4 8.5 - 10.3 mg/dL [facility] Bilirubin, total 0.9 0.1 - 1.2 mg/dL [facility] Protein, pl 7.0 6.5 - 8.5 g/dL [facility] Albumin 4.3 3.5 - 5.0 g/dL [facility] Alk phos 58 40 - 130 Units/L [facility] ALT 34 7 - 55 Units/L [facility] AST 36 10 - 50 Units/L [facility] Blood 08/06/2021 9:40 AM CDT 08/06/2021 2:25 PM CDT us Cali Levine MD LAB BLOOD ORDERABLES Final Re sult [facility] [address] Department [place] [address] * Lipid panel (08/06/2021 9:40 AM CDT) [facility] Cholesterol 180 30 - 199 mg/dL [facility] Comment: Interpretive Data Ages < or = 19 years ??Acceptable: ? <170 mg/dL ??Borderline high: ??170-199 mg/dL ??High: ? >or= 200 mg/dL Ages > or = 20 years ??Desirable: ?<200 mg/dL ??Borderline high: ??200-239 mg/dL ??High: ? >or= 240 mg/dL Literature References: 1. Expert Panel on Integrated Guidelines for Cardiovascular Health and Risk Reduction in Children and Adolescents. Pediatrics 2011;128:S213 2. NCEP Expert Panel. Circulation 2004;110:227 Current Interpretive Data was last revised on 2018. Triglycerides 102 <=149 mg/dL [facility] Comment: Interpretive Data Ages < or = 9 years ??Acceptable: ? <75 mg/dL ??Borderline high: ??75-99 mg/dL ??High: ? >or= 100 mg/dL Ages 10 to 20 years ??Acceptable: ? <90 mg/dL ??Borderline high: ??90-129 mg/dL ??High: ? >or= 130 mg/dL Ages > or = 20 years ??Desirable: ?<150 mg/dL ??Borderline high: ??150-199 mg/dL ??High: ? 200-499 mg/dL ?Very high: ?? >or= 499 mg/dL Literature References: 1. Expert Panel on Integrated Guidelines for Cardiovascular Health and Risk Reduction in Children and Adolescents. Pediatrics 2011;128:S213 2. NCEP Expert Panel. Circulation 2004;110:227 Current Interpretive Data was last revised on 2018. HDL 55 >=40 mg/dL [facility] Comment: Interpretive Data Ages < or = 19 years ??Acceptable: ? >45 mg/dL ??Borderline low: ?? 40-45 mg/dL ??Low: ? <40 mg/dL Ages > or = 20 years ??Desirable: ?>or= 60 mg/dL ??Low: ? <40 mg/dL Literature References: 1. Expert Panel on Integrated Guidelines for Cardiovascular Health and Risk Reduction in Children and Adolescents. Pediatrics 2011;128:S213 2. NCEP Expert Panel. Circulation 2004;110:227 Current Interpretive Data was last revised on 2018. LDL, calculated 105 <=129 mg/dL [facility] Comment: Interpretive Data Ages < or = 19 years ??Acceptable: ? <110 mg/dL ??Borderline high: ??110-129 mg/dL ??High: ?>or= 130 mg/dL Ages > or = 20 years ??Optimal: ? <100 mg/dL ??Near optimal: ?100-129 mg/dL ??Borderline high: ?? 130-159 mg/dL ??High: ?>160 mg/dL Literature References: 1. Expert Panel on Integrated Guidelines for Cardiovascular Health and Risk Reduction in Children and Adolescents. Pediatrics 2011;128:S213 2. NCEP Expert Panel. Circulation 2004;110:227 Current Interpretive Data was last revised on 2018. Non-HDL Cholesterol 125 mg/dL [facility] Comment: Interpretive Data Ages < or = 19 years ??Acceptable: ?<120 mg/dL ??Borderline high: ??120-144 mg/dL ??High: ?>145 mg/dL Ages > or = 20 years ??When triglycerides are >200 mg/dL, Non-HDL cholesterol is a secondary target of ? therapy with treatment goals that are 30 mg/dL greater than the LDL cholesterol target. ? Literature References: 1. Expert Panel on Integrated Guidelines for Cardiovascular Health and Risk Reduction in Children and Adolescents. Pediatrics 2011;128:S213 2. NCEP Expert Panel. Circulation 2004;110:227 Current Interpretive Data was last revised on 2018. Chol/HDL ratio 3 [facility] Blood 08/06/2021 9:40 AM CDT 08/06/2021 2:25 PM CDT us Cali Levine MD LAB BLOOD ORDERABLES Final Re sult [facility] [address] Department [place] [address] documented in this encounter Visit Diagnoses Diagnosis Essential hypertension Unspecified essential hypertension Mixed hyperlipidemia documented in this encounter Care Teams Advertising Job Titles Relationship Specialty Start Date End Date Cali Levine MD PCP - General Family Medicine 08/02/21 08/23/22 documented as of this encounter
--- OUTSIDE RECORDS SUMMARY | 2024-10-02 05:32 | XMS_ITS | Encounter Summary ---
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
--- OUTSIDE RECORDS SUMMARY | 2024-10-02 05:32 | XMS_ITS | Encounter Summary ---
Author Organization [facility] Address [address] [place] [address] Care Team Providers Care Belt Sander Name Role Phone Cali Levine MD Primary Care Provider [phone] Encounter Details Date Type Department Care Team (Late st Contact Info) Description 09/13/2019 Telephone [facility] Accountable Care Organization [address] [place] [address] Vilma Hinojosa, RN [address] [facility] [address] [address] Social History Tobacco Use Types Packs/Day Years Used Date Smoking Tobacco: Never Assessed Sex and Gender Information Value Date Recorded Sex Assigned at Not on file 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 LONNIE Cornell; Cali Levine MD; Jacque Alvarenga MA; Yesenia Perez; Vilma Hinojosa RN 18 minutes ago (11:07 AM) Please send new pt package as needed to pt- thank you- Vilma Hinojosa RN, BSN [facility] Patient Relations Representative for High Risk [phone] Routing comment TION ECONOMIST * Telephone Encounter - Vilma Hinojosa RN - 09/13/2019 11:04 AM TAXATION ECONOMIST [facility] - pt called me and has never established care- I had called him- states gets care at [facility]- denies any issues except BP med and Chol med- will see Dr. Levine 10/03/2019- verified address- lives w/- Vilma Hinojosa RN, BSN [facility] Patient Relations Representative for High Risk [phone] TION ECONOMIST documented in this encounter Plan of Treatment Not on file documented as of this encounter Visit Diagnoses Not on filedocumented in this encounter Care Teams Belt Sander Relationship Specialty Start Date End Date Cali Levine MD PCP - General Family Medicine 08/07/19 04/11/21 documented as of this encounter
--- OUTSIDE RECORDS SUMMARY | 2024-10-02 05:32 | XMS_ITS | Encounter Summary ---
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 49 each 04/05/2022 10/30/2023 memantine (NAMENDA) 10 mg tabletIndication s:Moderate to Severe Alzheimer's Type Dementia Take 1 tablet (10 mg total) by mouth 2 (two) times a day 180 tablet 4 04/25/2022 07/26/2023 omeprazole (PriLOSEC) 20 mg capsule TAKE 1 CAPSULE BY MOUTH EVERY DAY 90 capsule 1 10/03/2022 04/05/2023 simvastatin (ZOCOR) 40 mg tablet TAKE 1/2 TABLET BY MOUTH NIGHTLY 45 tablet 5 08/10/2022 11/27/2023 documented as of this encounter Discharge Disposition Disposition Code Departure Means Destination Discharge to home or self care documented in this encounter Plan of Treatment Not on file documented as of this encounter Procedures Procedure Name Priority Date/Time Associated Diagnosis Comments THYROID FUNCTION CASCADE Routine 01/05/2023 1:39 PM CDT Fatigue, unspecified type URINALYSIS AND REFLEX TO MICROSCOPIC AND CULTURE Routine 01/05/2023 1:39 PM CDT Urinary frequency T4, FREE Routine 01/05/2023 1:39 PM CDT Fatigue, unspecified type VITAMIN B12 Routine 01/05/2023 1:39 PM CDT Fatigue, unspecified type documented in this encounter Results * T4, free (01/05/2023 1:39 PM CDT) Free T4 1.06 0.90 - 1.70 ng/dL [facility] Blood 01/05/2023 1:39 PM CDT 01/05/2023 8:05 PM CDT us Cali Levine MD LAB BLOOD ORDERABLES Final Re sult [facility] [address] [facility] [employer] [place] [address] * Vitamin B12 (01/05/2023 1:39 PM CDT) Pathologist [facility] Vitamin B12 444 230 - 1,250 pg/mL [facility] Blood 01/05/2023 1:39 PM CDT 01/05/2023 7:57 PM CDT Cali Levine MD LAB BLOOD ORDERABLES Final Re sult Performing Organization Address [facility] de Phone Number [facility] [address] [place] [address] * (ABNORMAL) TSH reflex to free T4 (01/05/2023 1:39 PM CDT) Pathologist [facility] TSH 5.85(H) 0.30 - 4.20 mcIUnit/mL [facility] Blood 01/05/2023 1:39 PM CDT 01/05/2023 7:57 PM CDT Cali Levine MD LAB BLOOD ORDERABLES Final Re sult Performing Organization Address [facility] de Phone Number [facility] [address] [facility] [place] [address] * Urinalysis reflex to microscopic and culture Urine, clean voided (01/05/2023 1:39 PM CDT) Pathologist [facility] Color, ur Yellow Yellow [facility] Clarity, [...] microscopic UA and culture not met. [facility] Urine, clean voided 01/05/2023 1:39 PM CDT 01/05/2023 7:57 PM CDT Narrative [facility] - 01/05/2023 8:16 PM CDT ?? Urine pH is affected by diet, medications, systemic acid-base disturbances, and renal tubular function. ??pH may affect urinary stone formation. ??For example, urine pH below 6.0 may help reduce the tendency for calcium phosphate stones and pH greater than 6.0 may reduce the tendency for uric acid stone formation. Source: [employer]. Last revised 10-12-2017 us Cali Levine MD LAB MICROBIOLOGY - GENERAL OR DERABLES Final Result [facility] [address] Department [place] [address] documented in this encounter Visit Diagnoses Diagnosis Urinary frequency Fatigue, unspecified type documented in this encounter Care Teams Car Escort Relationship Specialty Start Date End Date Cali Levine MD PCP - General Family Medicine 08/24/22 documented as of this encounter
--- OUTSIDE RECORDS SUMMARY | 2024-10-02 05:32 | XMS_ITS | Encounter Summary ---
Author Organization [facility] Address [address] [facility] [address] [place] [address] Care Team Providers Care Shovel Operator Name Role Phone Cali Levine MD Primary Care Provider [phone] Reason for Referral * MRI/CAT/PET Scan (Routine) - Closed Specialty Diagnoses / Procedures Referred By Contac t Referred To Contact Radiology Diagnoses Memory loss Family history of Alzheimer's disease Procedures MRI Brain WO Contrast Cali Levine MD Phone: tel: fax: [address] [address] Referral ID Status Reason Start Date Expiration Date Visits Re quested Visits Authorized [id number] Closed 08/09/2021 11/07/2021 1 1 Reason for Visit * Reason Comments Follow-up pt is here for a isrrael ck up for med refill. Memory Loss Pt is c/o issus with memory Encounter Details Date Type Department Care Team (Late st Contact Info) Description 08/04/2021 3:15 PM CDT Office Visit [facility] Primary Care at [address] [address] Cali Levine MD [facility] [address] [place] [id number] Essential hypertension (Primary Dx); Mixed hyperlipidemia; Gastroesophageal reflux disease without esophagitis; Memory loss; Family history of Alzheimer's disease Social History Tobacco Use Types Packs/Day Years [...] on file 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 Gender Identity Not on file Sexual Orientation Not on file documented as of this encounter Last Filed Vital Signs Vital Sign Reading Time Taken Comments Blood Pressure 132/72 08/04/2021 3:27 PM CDT Pulse 69 08/04/2021 3:27 PM CDT Temperature 36.9 ??C (98.4 ??F) 08/04/2021 3:27 PM CD T Respiratory Rate - - Oxygen Saturation 98% 08/04/2021 3:27 PM CDT Inhaled Oxygen Concentration - - Weight 79.5 kg (175 lb 4.8 oz) 08/04/2021 3:27 P M CDT Height 170.2 cm (5' 7 ) 08/04/2021 3:27 PM CDT Body Mass Index 27.46 08/04/2021 3:27 PM CDT documented in this encounter Ordered Prescriptions Prescription Sig Dispense Quantity Refills Last Filled Start Date End Date donepeziL (ARICEPT) 5 mg tablet Take 1 tablet (5 mg total) by mouth nightly 30 tablet 5 08/04/2021 documented in this encounter Progress Notes * Cali Levine MD - 08/04/2021 3:15 PM CDT Images from the original note were not included. Subjective/Objective Patient ID: Morgan Philippe is a 81 y.o. male. Chief Complaint Follow-up (pt is here for a check up for med refill. ) and Memory Loss (Pt is c/o issus with memory) 71 YO male Dad with alzheimers Having some memory issues. Repeating of conversations, worsening Loosing stuff Weight stable Current Outpatient Medications Medication Sig Dispense Refill ??? lansoprazole (PREVACID) 30 mg capsule Take 30 mg by mouth daily ??? lisinopriL (PRINIVIL,ZESTRIL) 30 mg tablet Take 1 tablet (30 mg total) by mouth daily 90 tablet1 ??? multivitamin capsule Take 1 capsule by mouth daily ??? omeprazole (PriLOSEC) 20 mg capsule TAKE 1 CAPSULE BY MOUTH EVERY DAY 90 capsule 0 ??? simvastatin (ZOCOR) 40 mg tablet TAKE 1/2 TABLET BY MOUTH NIGHTLY 15 tablet 0 No current facility-administered medications for this visit. Review of Systems Constitutional: Positive for fatigue. Negative for fever. Respiratory: Negative for cough and shortness of breath. Cardiovascular: Negative for chest pain and leg swelling. Gastrointestinal: Negative for abdominal pain and nausea. Musculoskeletal: Negative for back pain and neck pain. Neurological: Negative for seizures and headaches. Psychiatric/Behavioral: Positive for decreased concentration. Negative for confusion. The patient is not nervous/anxious. No results found for this or any previous visit (from the past 336 hour(s)). Vitals BP 132/72 (BP Location: Right arm, Patient Position: Sitting) Pulse 69 Temp 36.9 ??C (98.4 ??F) (Oral) Ht 170.2 cm (5' 7 ) Wt 79.5 kg (175 lb 4.8 oz) SpO2 98% BMI 27.46 kg/m?? Physical Exam Constitutional: Appearance: He is [...] this visit: Essential hypertension (I10) (Primary) - Lipid panel; Future - Comprehensive metabolic panel; Future - CBC with auto differential; Future - he is due for screening labs. Refill in meds Mixed hyperlipidemia (E78.2) - Lipid panel; Future - Comprehensive metabolic panel; Future - CBC with auto differential; Future - statin - labs , see orders Gastroesophageal reflux disease without esophagitis (K21.9) - cont PPI Memory loss (R41.3) - MRI head - Aricept 5 daily the 10 daily - MMSE 27 Family history of Alzheimer's disease (Z82.0) - see above I spent a total of 40 Face to Face minutes of which more than 50% of the time was spent in counseling and coordination of care. This time included: as above Other orders - Flu Vaccine Quad High Dose PF 65Y+ IM - Fluzone High Dose Quad Cali Levine MD Orders Placed This Encounter ??? MRI Brain WO Contrast Standing Status: Future Standing Expiration Date: 08/04/2022 Order Specific Question: Is patient claustrophobic? Answer: No Order Specific Question: Is patient able to lie flat for at least one hour? Answer: Yes Order Specific Question: Where should this order be performed? Answer: [facility] [[id number]] Order Specific Question: Does the patient have a programmable shunt? Answer: No ??? Flu Vaccine Quad High Dose PF 65Y+ IM - Fluzone High Dose Quad ??? Lipid panel Standing Status: Future Standing Expiration Date: 08/04/2022 ??? Comprehensive metabolic panel Standing Status: Future Standing Expiration Date: 08/04/2022 ??? CBC with auto differential Standing Status: Future Standing Expiration Date: 08/04/2022 ??? Vitamin B12 Standing Status: Future Standing Expiration Date: 08/04/2022 ??? TSH reflex to free T4 Standing Status: Future Standing Expiration Date: 08/04/2022 documented in this encounter Miscellaneous Notes * Addendum Note - Mitchell Munson MA - 08/04/2021 3:15 PM CDTAddended by: MITCHELL MUNSON on: 08/04/2021 04:25 PM Modules accepted: Orders documented in this encounter Plan of Treatment Not on file documented as of this encounter Results * MRI Brain WO Contrast (08/20/2021 12:06 PM DRY CELL BATTERY ASSEMBLER) Anatomical Region Laterality Modality Head and Neck N/A Magnetic Resonan ce 08/20/2021 12:5 1 PM DRY CELL BATTERY ASSEMBLER Narrative 08/20/2021 1:03 PM DRY CELL BATTERY ASSEMBLER EXAM DESCRIPTION: ?? MRI BRAIN WO CONTRAST REASON FOR STUDY: ?? Memory Loss ?? Short term memory loss x 1 year, gradually worsening ?? TECHNIQUE: Multiplanar imaging includes non-contrasted T1, T2, FLAIR, and diffusion with ADC map sequences. Additional sequence(s) sensitive to blood products. Images stored on PACS. ? COMPARISON: ?? None available. FINDINGS: No diffusion restriction to suggest acute/recent infarction. There is no parenchymal susceptibility signal to indicate blood degradation products. Diffuse prominence of the ventricles and sulci in keeping with parenchymal volume loss. ??No hydrocephalus. ??The basilar cisterns are maintained. ?? Partially empty configuration to the sella. The subcortical and periventricular white matter T2/FLAIR hyperintense foci in the bilateral cerebral hemispheres are nonspecific but compatible with mild chronic microvascular ischemic type change in a patient of this age. ??Similar signal alteration is seen in the vonnie. Bilateral globes are symmetric. ??Imaged paranasal sinuses are predominantly clear. ??Trace T2 hyperintense fluid signal in the mastoid air cells. IMPRESSION: ?? 1. ?? No acute/recent infarction, intracranial hemorrhage or midline shift. 2. ?? Parenchymal volume loss, chronic microvascular ischemic type white-matter changes and additional findings as described. THIS IS AN ELECTRONICALLY VERIFIED FINAL REPORT 08/20/2021 1:03 PM - Electronically signed by ??Owen MONTEZ D: ??08/20/2021 1:03 PM T: Report ID: [id number] Reading Location: ??[id number] Procedure Note Owen Mckinney, DO - 08/20/2021 EXAM DESCRIPTION: MRI BRAIN WO CONTRAST REASON FOR STUDY: Memory Loss Short term memory loss x 1 year, gradually worsening TECHNIQUE: Multiplanar imaging includes non-contrasted T1, T2, FLAIR, and diffusion with ADC map sequences. Additional sequence(s) sensitive toblood products. Images stored on PACS. COMPARISON: None available. FINDINGS: No diffusion restriction to suggest acute/recent infarction. There is no parenchymal susceptibility signal to indicate blooddegradation products. Diffuse prominence of the ventricles and sulci in keeping with parenchymal volume loss. No hydrocephalus. The basilar cisterns are maintained. Partially empty configuration to the sella. The subcortical and periventricular white matter T2/FLAIR hyperintensefoci in the bilateral cerebral hemispheres are nonspecific but compatible withmild chronic microvascular ischemic type change in a patient of this age.Similar signal alteration is seen in the vonnie. Bilateral globes are symmetric. Imaged paranasal sinuses arepredominantly clear. Trace T2 hyperintense fluid signal in the mastoid air cells. IMPRESSION: 1. No acute/recent infarction, intracranial hemorrhage or midline shift. 2. Parenchymal volume loss, chronic microvascular ischemic typewhite-matter changes and additional findings as described. THIS IS AN ELECTRONICALLY VERIFIED FINAL REPORT 08/20/2021 1:03 PM - Electronically signed by Owen MONTEZ T: Report ID: [id number] Reading Location: [place] [address] [place] Cali Levine MD IMG MRI PROCEDURES Final Resu lt * CBC with auto differential (08/06/2021 9:40 [...] LAB BLOOD ORDERABLES Final Re sult [facility] [address] [address] Department [place] [address] * Comprehensive metabolic panel (08/06/2021 9:40 AM CDT) Pathologist [facility] Sodium 138 135 - 145 mmol/L CERNER [...] LAB BLOOD ORDERABLES Final Re sult [facility] [address] [facility] Department [place] [address] * Lipid panel (08/06/2021 9:40 AM CDT) Cholesterol 180 30 - 199 mg/dL [facility] BRADY Comment: Interpretive Data Ages [...] revised on 2018. Chol/HDL ratio 3 [facility] CAITLYN Blood 08/06/2021 9:40 AM CDT 08/06/2021 2:25 PM CDT us Cali Levine MD LAB BLOOD ORDERABLES Final Re sult [facility] [address] [address] Department [place] [address] documented in this encounter Visit Diagnoses Diagnosis Essential hypertension- Primary Unspecified essential hypertension Mixed hyperlipidemia Gastroesophageal reflux disease without esophagitis Esophageal reflux Memory loss Family history of Alzheimer's disease Family history of other condition Memory loss Family history of Alzheimer's disease Family history of other condition documented in this encounter Historical Medications * This list may reflect changes made after this encounter. lansoprazole (PREVACID) 30 mg capsule Take 30 mg by mouth daily 08/09/2021 added in this encounter Orders Immunization/Injection Count Last Ordered Date First Ordered Date FLU VACCINE HIGH DOSE QUAD P F 65Y+ IM - FLUZONE HIGH DOS 1 08/04/2021 documented in this encounter Care Teams Shovel Operator Relationship Specialty Start Date End Date Cali Levine MD PCP - General Family Medicine 08/02/21 08/23/22 documented as of this encounter
--- OUTSIDE RECORDS SUMMARY | 2024-10-02 05:32 | XMS_ITS | Encounter Summary ---
Author Organization [facility] Address [address] [facility] [address] [place] [address] Care Team Providers Care Traveling Operator Name Role Phone Cali Levine MD Primary Care Provider [phone] Reason for Visit * Reason Onset Date Comments lisinopril dosage 12/08/2020 Encounter Details Date Type Department Care Team (Late st Contact Info) Description 12/08/[address] 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 Does pt takes 1 or 1.5 tablets daily. Left message for patient to call office. GHT MANAGER documented in this encounter Plan of Treatment Not on file documented as of this encounter Visit Diagnoses Not on filedocumented in this encounter Care Teams Traveling Operator Relationship Specialty Start Date End Date Cali Levine MD PCP - General Family Medicine 08/07/19 04/11/21 documented as of this encounter
--- OUTSIDE RECORDS SUMMARY | 2024-10-02 05:32 | XMS_ITS | Encounter Summary ---
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 Only providers have access. * Telephone Encounter - Lilly Washington MA - 02/04/2022 11:30 AM CDT I have no Idea what to do with this, can you help me :) * Telephone Encounter - Cali Levine MD - 02/01/2022 4:47 PM CDT Yesw needs antibodies and molnupiravir * Telephone Encounter - Lilly Washington MA - 02/01/2022 12:41 PM CDT Please advise * Telephone Encounter - Kendra Floyd - 02/01/2022 9:35 AM CDT Pt's called in states pt is having a cough, fatigue, body aches. Pt took 2 at home tests and tested positive on both of them. Pt's wants to know if he is eligible for the infusion. Please call patient back at [phone] or [phone].. Thank You. documented in this encounter Plan of Treatment Not on file documented as of this encounter Visit Diagnoses Not on filedocumented in this encounter Care Teams Wood Miller Relationship Specialty Start Date End Date Cali Levine MD PCP - General Family Medicine 08/02/21 08/23/22 documented as of this encounter
--- OUTSIDE RECORDS SUMMARY | 2024-10-02 05:32 | XMS_ITS | Encounter Summary ---
Author Organization [facility] Address [address] [facility] [address] [place] [address] Care Team Providers Care Irrigation System Operator Name Role Phone Cali Levine MD Primary Care Provider [phone] Reason for Visit * Reason Onset Date Comments Test Results 08/10/2021 labs Encounter Details Date Type Department Care Team ([facility] st Contact Info) Description 08/10/2021 Telephone [facility] Primary Care at [address] [address] Cali Levine MD [address] [facility] [address] [address] Test Results (labs) Social History Tobacco Use Types Packs/Day Years [...] on file 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 LATION THERAPY TEACHER * Telephone Encounter - Cali Levine MD - 08/14/2021 8:04 PM CST Should have had a TSH RPR sed rate and vitamin-D LATION THERAPY TEACHER * Telephone Encounter - Nanette Munson MA - 08/13/2021 3:17 PM CST I called pt's . She said when pt was in they thought you said you were going to order blood work for his memory loss and an MRI. He is schedule for his MRI for Monday. He had the CMP, CBC, lipid done. Were these just for routine labs or were these for his memory loss? Is there any labs you would like him to have done specifically for his memory loss? LATION THERAPY TEACHER * Telephone Encounter - Pepe Burdick - 08/13/2021 11:34 AM CST Patient Varsha called and would like a call back to discuss lab work and the other test that is being done. Please call her at [phone] LATION THERAPY TEACHER * Telephone Encounter - Nanette Munson MA - 08/10/2021 5:06 PM CST Pt notified LATION THERAPY TEACHER * Telephone Encounter - Nanette Munson MA - 08/10/2021 5:06 PM CST ----- Message from Cali Levine MD sent at 08/09/2021 5:48 PM INHALATION THERAPY TEACHER ----- Labs look great continue present management LATION THERAPY TEACHER documented in this encounter Plan of Treatment Not on file documented as of this encounter Visit Diagnoses Not on filedocumented in this encounter Care Teams Irrigation System Operator Relationship Specialty Start Date End Date Cali Levine MD PCP - General Family Medicine 08/02/21 08/23/22 documented as of this encounter
--- OUTSIDE RECORDS SUMMARY | 2024-10-02 05:32 | XMS_ITS | Encounter Summary ---
Author Organization [facility] Address [address] [place] [address] Care Team Providers Care Homogenizer Operator Name Role Phone Cali Levine MD Primary Care Provider [phone] Reason for Referral * MRI/CAT/PET Scan (Routine) - Closed Specialty Diagnoses / Procedures Referred By Chitra kendall Referred To Contact Radiology Diagnoses Memory loss Family history of Alzheimer's disease Procedures MRI Brain WO Contrast Cali Levine MD Phone: tel: fax: [address] [address] Referral ID Status Reason Start Date Expiration Date Visits Re quested Visits Authorized [id number] Closed 08/09/2021 11/07/2021 1 1 GE OVER Reason for Visit * MRI/CAT/PET Scan (Routine) - Closed Specialty Diagnoses / Procedures Referred By Chitra kendall Referred To Contact Radiology Diagnoses Memory loss Family history of Alzheimer's disease Procedures MRI Brain WO Contrast Cali Levine MD Phone: tel: fax: [address] [address] Referral ID Status Reason Start Date Expiration Date Visits Re quested Visits Authorized [id number] Closed 08/09/2021 11/07/2021 1 1 Encounter Details Date Type Department Care Team (Latest Contact Info) Description 08/20/2021 11:10 AM CHANGE OVER - 08/20/2021 11:59 PM CHANGE OVER Hospital Encounter [facility] MRI [address] [place] [address] Memory loss; Family history of Alzheimer's disease Discharge Disposition: Discharge to home or self [...] on file Legal Sex Male 9:23 AM CHANGE OVER Gender Identity Not on file Sexual Orientation Not on file documented as of this encounter Medications at Time of Discharge multivitamin capsule Take 1 capsule by mouth daily donepeziL (ARICEPT) 5 mg tablet Take 1 tablet (5 mg total) by mouth nightly 30 tablet 5 08/04/2021 09/01/2021 lisinopriL (PRINIVIL,ZESTRIL ) 30 mg tablet TAKE 1 TABLET BY MOUTH EVERY DAY 90 tablet 08/05/2021 12/09/2021 omeprazole (PriLOSEC) 20 mg capsule TAKE 1 CAPSULE BY MOUTH EVERY DAY 90 capsule 1 08/09/2021 01/14/2022 simvastatin (ZOCOR) 40 mg tablet TAKE 1/2 TABLET BY MOUTH NIGHTLY 15 tablet 5 08/09/2021 02/08/2022 documented as of this encounter Discharge Disposition Disposition Code Departure Means Destination Discharge to home or self care documented in this encounter Plan of Treatment Not on file documented as of this encounter Procedures Procedure Name Priority Date/Time Associated Diagnosis Comments MRI BRAIN WO CONTRAST Schedule Routine, Read Routine (OP Routine) 08/20/2021 12:06 PM CHANGE OVER Memory loss Family history of Alzheimer's disease documented in this encounter Results * MRI Brain WO Contrast (08/20/2021 12:06 PM CHANGE OVER) Anatomical Region Laterality Modality Head and Neck N/A Magnetic Resonan ce 08/20/2021 12:5 1 PM CHANGE OVER Narrative 08/20/2021 1:03 PM CHANGE OVER EXAM DESCRIPTION: ?? MRI BRAIN WO CONTRAST [...] D: ??08/20/2021 1:03 PM T: Report ID: [id number] Reading Location: ??[id number] Procedure Note Owen Mckinney, DO - 08/20/2021 [...] signed by Owen MONTEZ T: Report ID: [id number] Reading Location: [id number] [place] Cali Levine MD IMG MRI PROCEDURES Final Resu lt documented in this encounter Visit Diagnoses Diagnosis Memory loss Family history of Alzheimer's disease Family history of other condition documented in this encounter Care Teams Homogenizer Operator Relationship Specialty Start Date End Date Cali Levine MD PCP - General Family Medicine 08/02/21 08/23/22 documented as of this encounter
--- OUTSIDE RECORDS SUMMARY | 2024-10-02 05:32 | XMS_ITS | Encounter Summary ---
Author Organization [facility] Address [address] [facility] [address] [place] [address] Care Team Providers Care Cash Grain Grower Name Role Phone Cali Levine MD Primary Care Provider Encounter Details Date Type Department Care Team (Late st Contact Info) Description 10/27/2021 Telephone [facility] Primary Care at [address] [address] Cali Levine MD [address] [facility] [address] [phone] Social History Tobacco Use Types Packs/Day Years [...] points, staff should administer the PHQ-9) 0 09/01/2021 Sex and Gender Information Value Date Recorded Sex Assigned at Not on file Legal Sex Male 9:23 AM RNP Gender Identity Not on file Sexual Orientation Not on file documented as of this encounter Ordered Prescriptions Prescription Sig Dispense Quantity Refills Last Filled Start Date End Date donepeziL (ARICEPT) 5 mg tablet Take 1 tablet (5 mg total) by mouth nightly 30 tablet 2 10/27/2021 documented in this encounter Miscellaneous Notes * Telephone Encounter - Mitchell Munson MA - 10/28/2021 10:49 AM CST Called pt & notified script sent to [facility] yesterday * Addendum Note - Mitchell Munson MA - 10/27/2021 5:23 PM CSTAddended by: MITCHELL MUNSON on: 10/27/2021 05:23 PM Modules accepted: Orders * Telephone Encounter - Chrissy Rosario - 10/27/2021 10:21 AM CST Patient's Ivy called stating that patient was placed on Donepezil 5mg and then immediately placed on 10mg without taking the 5mg. Ivy states that the patient started the Donepezil 10 mg and was having nightmares. She reports the patient stopped the 10 mg and went to the 5mg and has had no problems. He also is seeing benefit from the 5mg. She would a new script sent to [facility] [place]. documented in this encounter Plan of Treatment Not on file documented as of this encounter Visit Diagnoses Not on filedocumented in this encounter Discontinued Medications Medication Sig Discontinue Reason Start Date End Da te donepeziL (ARICEPT) 10 mg tablet Take 1 tablet (10 mg total) by mouth nightly 09/01/2021 10/27/2021 donepeziL (ARICEPT) 5 mg tablet Take 1 tablet (5 mg total) by mouth nightly 09/01/2021 10/27/2021 documented as of this encounter Care Teams Cash Grain Grower Relationship Specialty Start Date End Date Cali Levine MD PCP - General Family Medicine 08/02/21 08/23/22 documented as of this encounter
--- OUTSIDE RECORDS SUMMARY | 2024-10-02 05:32 | XMS_ITS | Encounter Summary ---
Author Organization [facility] Address [address] [facility] [address] [place] [address] Care Team Providers Care A/C Tech Name Role Phone Cali Levine MD Primary Care Provider Reason for Visit * Reason Onset Date Comments Prior Auth 02/25/2022 Memantine titrat ion pack Encounter Details Date Type Department Care Team ([facility] st Contact Info) Description 02/25/2022 Telephone [facility] Primary Care at [address] [phone] Cali Levine MD [address] [facility] [address] [address] Prior Auth (Memantine titration pack) Social History Tobacco Use Types Packs/Day Years [...] on file 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 I told her the PA has been approved and medication should be called in. * Telephone Encounter - Nanette Munson MA - 03/04/2022 4:10 PM CDT Received approval for PA. Info scanned in to media. * Telephone Encounter - Nanette Munson MA - 02/25/2022 11:39 AM CDT Received pa requet for pt's memantine titration pack. Submitted request via covermymeds. Waiting for response. documented in this encounter Plan of Treatment Not on file documented as of this encounter Visit Diagnoses Not on filedocumented in this encounter Care Teams A/C Tech Relationship Specialty Start Date End Date Cali Levine MD PCP - General Family Medicine 08/02/21 08/23/22 documented as of this encounter
--- OUTSIDE RECORDS SUMMARY | 2024-10-02 05:32 | XMS_ITS | Encounter Summary ---
Author Organization [facility] Address [address] [place] [address] Care Team Providers Care Superintendent Meter Tests Name Role Phone Cali Levine MD Primary Care Provider [phone] Reason for Visit * Reason Comments Medicare Wellness Fatigue Encounter Details Date Type Department Care Team (Late st Contact Info) Description 11/08/2023 1:45 PM ROUTER OPERATOR Office Visit 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); Fatigue, unspecified type Social History Tobacco Use [...] on file Legal Sex Male 9:23 AM ROUTER OPERATOR Gender Identity Not on file Sexual Orientation Not on file documented as of this encounter Last Filed Vital Signs Vital Sign Reading Time Taken Comments Blood Pressure 136/72 11/08/2023 1:55 PM ROUTER OPERATOR Pulse 55 11/08/2023 1:55 PM ROUTER OPERATOR Temperature 36.3 ??C (97.3 ??F) 11/08/2023 1:55 PM CS T Respiratory Rate - - Oxygen Saturation 94% 11/08/2023 1:55 PM ROUTER OPERATOR Inhaled Oxygen Concentration - - Weight 77.7 kg (171 lb 3.2 oz) 11/08/2023 1:55 P M ROUTER OPERATOR Height 170.2 cm (5' 7 ) 11/08/2023 1:55 PM ROUTER OPERATOR Body Mass Index 26.81 11/08/2023 1:55 PM ROUTER OPERATOR documented in this encounter Progress Notes * Cali Levine MD - 11/08/2023 1:45 PM CST Images from the original note were not included. Morgan Philippe is a 83 y.o. year old White Non- male here an for Annual Wellness Visit. Medicare Health Risk Assessment Basic Information In general, would you say your health is: Good Do you have an advance directive, such as a living will or durable power of united [place] attorney?: Yes Do you have to strain or struggle to hear/understand conversations?: No Over the last 2 weeks, how often have you been bothered by any of the following problems? Little Interest or Pleasure in Doing Things: Not at all Feeling Down, Depressed, or Hopeless: Not at all PHQ-2 Total Score (If total score is 3 or more points, staff should administer the PHQ-9): 0 In the past year, patient experienced: One or more falls in the last year: No Do you feel unsteady when standing or walking?: Yes Do you worry about falling?: No Safety Do you have a working smoke detector in your home?: Yes Does your home have throw rugs, poor lighting, or a slippery bath tub/shower?: No Do you always fasten your seatbelt when you are in a vehicle?: Yes What is your typical mode of transportation: Car Physical Activity How many days a week do you usually exercise?: 1-3 days per week How intense is your typical exercise?: Light (like stretching or slow walking) Nutrition How would you rate your appetite?: Good How would you describe the condition of your mouth and teeth/dentures?: Fair On a typical day, how many servings of fruits and vegetables do you eat?: 3 On a typical day, how many servings of high fiber/whole-grain foods do you eat?: 3 On a typical day, how many servings of high fat/fried foods do you eat?: 0 Have you experienced any of the following problems currently or recently? Eating: No Grooming: No Bathing: No Walking: No Using the toilet: No Memory problems: (!) Yes Difficulty speaking: No Dressing: No Balance: No Pain: No Sexual Health: No Fatigue: (!) Yes Have you experienced any of the following problems currently or recently? Laundry and/or housekeeping: No Handling money: No Shopping: No Using the Phone: No Food preparation: No Transportation: No Taking and/or getting your own medications: No Do you use prescription drugs that are not prescribed for you?: No Do you struggle with any of the following: depression, stress, anger, loneliness or social isolation?: No Based on my observation of the patient, review of Health Risk Assessment (HRA) and other records, this is my assessment and recommendation regarding fall risk, hearing impairment, home safety, ADLs, or any other issues identified in the HRA: Problem List, Past Medical and Surgical History: Patient Active Problem List Diagnosis Essential hypertension Gastroesophageal reflux disease without esophagitis Mixed hyperlipidemia Non-recurrent unilateral inguinal hernia without obstruction or gangrene Medicare annual wellness visit, subsequent 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 No pertinent past medical history. History reviewed. No pertinent surgical history. Family History: History reviewed. No pertinent family history. Social History: Social History Tobacco Use Smoking status: Never Smokeless tobacco: Never Substance and Sexual Activity Drug use: Never Sexual activity: None Alcohol Use: Unknown (11/26/2020) AUDIT-C Frequency of Alcohol Consumption: 2-3 times a week Average Number of Drinks: 1 or 2 Frequency of Binge Drinking: Not on file Allergies: No Known Allergies Medications: Current Outpatient Medications: donepeziL (ARICEPT) 10 mg tablet, Take 1 tablet (10 mg total) by mouth nightly, Disp: 90 tablet, Rfl: 0 lisinopriL (PRINIVIL,ZESTRIL) 30 mg tablet, Take 1 tablet (30 mg total) by mouth daily, Disp: 90 tablet, Rfl: 0 memantine (NAMENDA) 10 mg tablet, TAKE 1 TABLET BY MOUTH TWICE A DAY, Disp: 60 tablet, Rfl: 0 multivitamin capsule, Take 1 capsule by mouth daily, Disp: , Rfl: simvastatin (ZOCOR) 40 mg tablet, TAKE 1/2 TABLET BY MOUTH NIGHTLY (Patient taking differently: Take 1 tablet (40 mg total) by mouth nightly), Disp: 45 tablet, Rfl: 5 Depression Screen: PHQ Screening Over the past 2 weeks, how often have you been bothered by any of the following problems? Little Interest or Pleasure in Doing Things: Not at all Feeling Down, Depressed, or Hopeless: Not at all PHQ-2 Total Score (If total score is 3 or more points, staff should administer the PHQ-9): 0 Vitals: Vitals BP 136/72 (BP Location: Left arm, Patient Position: Sitting) Pulse 55 Temp 36.3 ??C (97.3 ??F) (Temporal) Ht 170.2 cm (5' 7 ) Wt 77.7 kg (171 lb 3.2 oz) SpO2 94% BMI 26.81 kg/m?? Body mass index is 26.81 kg/m??. Exam: Physical Exam Care Team Providers: Patient Care Team: Cali Levine MD as PCP - General (Family Medicine) Primary Pharmacy/DME suppliers: [facility]/pharmacy #[id number] [place] [address] - [address] [place] [address] [address] [facility] [id number] Detection of Cognitive Impairment: The patient does have cognitive impairment based on direct observation, discussion with patient or family, or review of medical records. Health Maintenance: Health Maintenance Topics with due status: Overdue Topic Date Due Pneumococcal vaccine 65+ 08/28/2017 Covid-19 Vaccine 06/02/2023 Health Maintenance Topics with due status: Not Due Topic Last Completion Date Well Visit 65+ 01/05/2023 DTaP/Tdap/Td Vaccine 06/23/2023 Fall Risk Assessment 11/08/2023 Depression Screening-PHQ 11/08/2023 Health Maintenance Topics with due status: Completed Topic Last Completion Date Zoster Vaccine 04/30/2019 Influenza Vaccine 08/02/2023 Counseling and Referral of Preventative Services: Lifestyle Recommendations Increase Physical Activity and Improve Diet Advanced Directive Durable Power of Electric Tripper Machine Operator: Discussed Today: Living Will: Discussed Today: Assessment and Plan: Diagnoses and all orders for this visit: Medicare annual wellness visit, subsequent (Primary) - completed Essential hypertension - cont meds Gastroesophageal reflux disease without esophagitis - cont meds Mixed hyperlipidemia - cont meds 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 He is currently on Aricept and Namenda. [facility] Had [facility] memory test showing about 17. They discussed the IV meds. Some concern with risk of swelling and bleeding Dietary changes to include no white food bread pasta potatoes rice. No obvious sweets. No fructose corn syrup. No aspartame so. No box food canned food processed food fried food fast food restaurant foods junk food. To no beef or pork and no dairy Orders Placed This Encounter CBC with auto differential Standing Status: Future Number of Occurrences: 1 Standing Expiration Date: 11/08/2024 Comprehensive metabolic panel Standing Status: Future Number of Occurrences: 1 Standing Expiration Date: 11/08/2024 Lipid panel Standing Status: Future Number of Occurrences: 1 Standing Expiration Date: 11/08/2024 Thyroid Function [place] Standing Status: Future Number of Occurrences: 1 Standing Expiration Date: 11/08/2024 Vitamin B12 Standing Status: Future Number of Occurrences: 1 Standing Expiration Date: 11/08/2024 Patient here for annual Medicare wellness visit [...] early detection interventions to the patient through health maintenance update and summary of today's office visit. Cali Levine MD ER OPERATOR documented in this encounter Plan of Treatment Not on file documented as of this encounter Procedures Procedure Name Priority Date/Time Associated Diagnosis Comments THYROXINE (T4) FREE, DIRECT, S Routine 11/23/2023 8:40 AM ROUTER OPERATOR THYROID PEROXIDASE (TPO) AB Routine 11/23/2023 8:40 AM ROUTER OPERATOR THYROID FUNCTION CASCADE Routine 11/23/2023 8:40 AM ROUTER OPERATOR Fatigue, unspecified type CBC WITH AUTO DIFFERENTIAL Routine 11/23/2023 8:40 AM ROUTER OPERATOR Essential hypertension VITAMIN B12 Routine 11/23/2023 8:40 AM ROUTER OPERATOR Fatigue, unspecified type LIPID PANEL Routine 11/23/2023 8:40 AM ROUTER OPERATOR Mixed hyperlipidemia COMPREHENSIVE METABOLIC PANEL Routine 11/23/2023 8:40 AM ROUTER OPERATOR Essential hypertension documented in this encounter Results * Thyroid Peroxidase (TPO) Ab (11/23/2023 8:40 AM ROUTER OPERATOR) Thyroperoxidase ab 14 0 - 34 IU/mL [facility] - 01 Thyroid peroxidase (TPO) Ab, comment Comment [facility] - 01 Comment: An elevation of TSH and a normal FT4 in the absence of anti-thyroid peroxidase antibody are suggestive of Subclinical Hypothyroidism. Similar values have also been associated with Non-Thyroidal Illness in severely ill patients. 11/23/2023 8:40 AM ROUTER OPERATOR 11/23/2023 Narrative [facility] - 11/25/2023 7:36 AM ROUTER OPERATOR Performed at: ??01 - [facility] [address], [place], [place] ??[id number] Recovery Agent: Colt Nath PhD, Phone: ??[phone] us Cali Levine MD LAB BLOOD ORDERABLES Final Re sult [facility] - 01 * Thyroxine (T4) Free, Direct, S (11/23/2023 8:40 AM ROUTER OPERATOR) Free T4 1.02 0.82 - 1.77 ng/dL [facility] - 01 11/23/2023 8:40 AM ROUTER OPERATOR 11/23/2023 Narrative [facility] - 11/25/2023 7:36 AM ROUTER OPERATOR Performed at: ??01 - [facility] ??[id number] Recovery Agent: Colt Nath PhD, Phone: ??[phone] us Cali Levine MD LAB BLOOD ORDERABLES Final Re sult Performing Organization Address [facility] Co de Phone Number [facility] - * Vitamin B12 (11/23/2023 8:40 AM ROUTER OPERATOR) Pathologist [facility] Vitamin B12 418 232 - 1,245 pg/mL [facility] - 01 Blood 11/23/2023 8:40 AM ROUTER OPERATOR 11/23/2023 Narrative [facility] - 11/25/2023 7:36 AM ROUTER OPERATOR Performed at: ??01 - [facility] ??[id number] Recovery Agent: Colt Nath PhD, Phone: ??[phone] us Cali Levine MD LAB BLOOD ORDERABLES Final Re sult Performing Organization Address [facility] Co de Phone Number [facility] - * (ABNORMAL) Thyroid Function [place] (11/23/2023 8:40 AM ROUTER OPERATOR) TSH 5.060(H) 0.450 - 4.500 uIU/mL [facility] - 01 Blood 11/23/2023 8:40 AM ROUTER OPERATOR 11/23/2023 Narrative [facility] - 11/25/2023 7:36 AM ROUTER OPERATOR Performed at: ??01 - [facility] ??[id number] Recovery Agent: Colt Nath PhD, Phone: ??[phone] us Cali Levine MD LAB BLOOD ORDERABLES Final Re sult Performing Organization Address [facility] de Phone Number [facility] * Lipid panel (11/23/2023 8:40 AM ROUTER OPERATOR) Cholesterol 147 100 - 199 mg/dL [facility] - 01 Triglycerides 107 0 - 149 mg/dL [facility] - 01 HDL Cholesterol 46 >39 mg/dL [facility] - 01 VLDL 20 5 - 40 mg/dL [facility] - 01 LDL, calculated 81 0 - 99 mg/dL [facility] - 01 Blood 11/23/2023 8:40 AM ROUTER OPERATOR 11/23/2023 Narrative [facility] - 11/25/2023 7:36 AM ROUTER OPERATOR Performed at: ??01 - [facility] ??[id number] Recovery Agent: Colt Nath PhD, Phone: ??[phone] us Cali Levine MD LAB BLOOD ORDERABLES Final Re sult Performing Organization Address [facility] de Phone Number [facility] * (ABNORMAL) Comprehensive metabolic panel (11/23/2023 8:40 AM ROUTER OPERATOR) Glucose 101(H) 70 - 99 mg/dL [facility] - 01 BUN 18 8 - 27 mg/dL [facility] - 01 Comment:Verified by repeat analysis Creatinine, Serum 1.24 0.76 - 1.27 mg/dL [facility] - 01 eGFR 58(L) >59 mL/min/1.7 3 [facility] - 01 BUN/creat ratio 15 10 - 24 [facility] - 01 Sodium 142 134 - 144 mmol/L [facility] - 01 Potassium, sr 4.2 3.5 - 5.2 mmol/L [facility] - 01 Chloride 107(H) 96 - 106 mmol/L [facility] - 01 CO2 21 20 - 29 mmol/L [facility] - 01 Calcium 9.0 8.6 - 10.2 mg/dL [facility] - 01 Protein, sr 6.7 6.0 - 8.5 g/dL [facility] - 01 Albumin 4.3 3.7 - 4.7 g/dL [facility] - 01 Globulin, Total 2.4 1.5 - 4.5 g/dL [facility] - 01 A/G Ratio 1.8 1.2 - 2.2 [facility] - 01 Bilirubin, Total 0.7 0.0 - 1.2 mg/dL [facility] - 01 Alk phos 70 44 - 121 IU/L [facility] - 01 AST 34 0 - 40 IU/L [facility] - 01 ALT 35 0 - 44 IU/L [facility] - 01 Blood 11/23/2023 8:40 AM ROUTER OPERATOR 11/23/2023 Narrative [facility] - 11/25/2023 7:36 AM ROUTER OPERATOR Performed at: ?? - [facility] [address] ??[id number] Recovery Agent: Colt Nath PhD, Phone: ??[phone] us Cali Levine MD LAB BLOOD ORDERABLES Final Re sult [facility] - 01 * CBC with auto differential (11/23/2023 8:40 AM ROUTER OPERATOR) WBC 6.1 3.4 - 10.8 x10E3/uL [facility] - 01 RBC 4.82 4.14 - 5.80 x10E6/uL [facility] - 01 Hgb 15.5 13.0 - 17.7 g/dL [facility] - 01 Hct 46.3 37.5 - 51.0 % [facility] - 01 MCV 96 79 - 97 fL [facility] - 01 MCH 32.2 26.6 - 33.0 pg [facility] - 01 MCHC 33.5 31.5 - 35.7 g/dL [facility] - 01 Rdw 12.4 11.6 - 15.4 % [facility] - 01 Platelets 164 150 - 450 x10E3/uL [facility] - 01 Neutrophils pct 58 Not Estab. % [facility] - 01 Lymphs pct 28 Not Estab. % [facility] - 01 Monocytes pct 9 Not Estab. % [facility] - 01 Eosinophils pct 4 Not Estab. % [facility] - 01 Basophil pct 1 Not Estab. % [facility] - 01 Neutrophil abs 3.5 1.4 - 7.0 x10E3/uL [facility] - 01 Lymphs (Absolute) 1.7 0.7 - 3.1 x10E3/uL [facility] - 01 Monocyte abs 0.5 0.1 - 0.9 x10E3/uL [facility] - 01 Eosinophils, abs 0.2 0.0 - 0.4 x10E3/uL [facility] - 01 Basophils, abs 0.1 0.0 - 0.2 x10E3/uL [facility] - 01 Immature Granulocytes 0 Not Estab. % [facility] - 01 Immature Grans (Abs) 0.0 0.0 - 0.1 x10E3/uL [facility] - 01 Blood 11/23/2023 8:40 AM ROUTER OPERATOR 11/23/2023 Narrative [facility] - 11/24/2023 4:12 PM ROUTER OPERATOR Performed at: ??01 - [facility] [address] ??[id number] Recovery Agent: Colt Nath PhD, Phone: ??[phone] us Cali Levine MD LAB BLOOD ORDERABLES Final Re sult [facility] - 01 documented in this encounter Visit Diagnoses Diagnosis Medicare annual wellness visit, subsequent- Primary Essential hypertension Unspecified essential hypertension Gastroesophageal reflux disease without esophagitis Esophageal reflux Mixed hyperlipidemia 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
--- OUTSIDE RECORDS SUMMARY | 2024-10-02 05:32 | XMS_ITS | Encounter Summary ---
Author Organization [facility] Address [address] [facility] [address] [place] [address] Care Team Providers [employer] Lawyer Name Role Phone Cali Levine MD Primary Care Provider [phone] Reason for Visit * Reason Comments Follow-up pt is here to f/u on labs and MRI. Encounter Details Date Type Department Care Team (Late st Contact Info) Description 09/01/2021 11:15 AM SET UP INSPECTOR Office Visit [facility] Primary Care at [address] [phone] Cali Levine MD [address] [facility] [address] [address] Memory loss (Primary Dx); Family history of Alzheimer's disease; Cough Social History Tobacco Use Types Packs/Day Years [...] on file Legal Sex Male 9:23 AM SET UP INSPECTOR Gender Identity Not on file Sexual Orientation Not on file documented as of this encounter Last Filed Vital Signs Vital Sign Reading Time Taken Comments Blood Pressure 124/74 09/01/2021 11:29 AM SET UP INSPECTOR Pulse 78 09/01/2021 11:29 AM SET UP INSPECTOR Temperature 37 ??C (98.6 ??F) 09/01/2021 11:29 AM SET UP INSPECTOR Respiratory Rate - - Oxygen Saturation 98% 09/01/2021 11:29 AM SET UP INSPECTOR Inhaled Oxygen Concentration - - Weight 80.9 kg (178 lb 6.4 oz) 09/01/2021 11:29 AM SET UP INSPECTOR Height 170.2 cm (5' 7 ) 09/01/2021 11:29 AM SET UP INSPECTOR Body Mass Index 27.94 09/01/2021 11:29 AM SET UP INSPECTOR documented in this encounter Ordered Prescriptions Prescription Sig Dispense Quantity Refills Last Filled Start Date End Date methylPREDNISolone (MEDROL DOSEPACK) 4 mg Dosepack Take as directed on package. 21 tablet 09/01/2021 1 donepeziL (ARICEPT) 10 mg tablet Take 1 tablet (10 mg total) by mouth nightly 30 tablet 5 09/01/2021 2 donepeziL (ARICEPT) 5 mg tablet Take 1 tablet (5 mg total) by mouth nightly 30 tablet 09/01/2021 2 documented in this encounter Progress Notes * Cali Levine MD - 09/01/2021 11:15 AM CST Images from the original note were not included. Subjective/Objective Patient ID: Morgan Philippe is a 81 y.o. male. Chief Complaint Follow-up (pt is here to f/u on labs and MRI. ) Memory loss, short term Labs neg, MRI neg URI/ cough/ 5 days/ no fever/ good po Current Outpatient Medications Medication Sig Dispense Refill ??? lisinopriL (PRINIVIL,ZESTRIL) 30 mg tablet TAKE 1 TABLET BY MOUTH EVERY DAY 90 tablet 0 ??? multivitamin capsule Take 1 capsule by mouth daily ??? omeprazole (PriLOSEC) 20 mg capsule TAKE 1 CAPSULE BY MOUTH EVERY DAY 90 capsule 1 ??? simvastatin (ZOCOR) 40 mg tablet TAKE 1/2 TABLET BY MOUTH NIGHTLY 15 tablet 5 ??? donepeziL (ARICEPT) 10 mg tablet Take 1 tablet (10 mg total) by mouth nightly 30 tablet 5 ??? donepeziL (ARICEPT) 5 mg tablet Take 1 tablet (5 mg total) by mouth nightly 30 tablet 0 ??? methylPREDNISolone (MEDROL DOSEPACK) 4 mg Dosepack Take as directed on package. 21 tablet 0 No current facility-administered medications for this visit. Review of Systems Constitutional: Negative for fatigue and fever. HENT: Positive for postnasal drip, sinus pressure and sinus pain. Respiratory: Positive for cough. Negative for shortness of breath. Cardiovascular: Negative for chest pain and leg swelling. Gastrointestinal: Negative for abdominal pain and nausea. Musculoskeletal: Negative for back pain and neck pain. Neurological: Negative for seizures and headaches. Psychiatric/Behavioral: Negative for confusion. The patient is not nervous/anxious. No results found for this or any previous visit (from the past 336 hour(s)). Vitals BP 124/74 (BP Location: Left arm, Patient Position: Sitting) Pulse 78 Temp 37 ??C (98.6 ??F) (Oral) Ht 170.2 cm (5' 7 ) Wt 80.9 kg (178 lb 6.4 oz) SpO2 98% BMI 27.94 kg/m?? Physical Exam Constitutional: Appearance: He is [...] Diagnoses and all orders for this visit: Memory loss (R41.3) (Primary) - MRI negative. Some volume loss. 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 Labsunremarkable. Including CBC Chem 12 and lipid profile - Aricept 5 mg daily for 30 days then 10 mg daily Family history of Alzheimer's disease (Z82.0) - meds as stated above Cough (R05.9) - probable viral. Medrol Dosepak. - vaccinated - no other sx Other orders - donepeziL (ARICEPT) 5 mg tablet; Take 1 tablet (5 mg total) by mouth nightly - donepeziL (ARICEPT) 10 mg tablet; Take 1 tablet (10 mg total) by mouth nightly Cali Levine MD Orders Placed This Encounter ??? donepeziL (ARICEPT) 5 mg tablet Sig: Take 1 tablet (5 mg total) by mouth nightly Dispense: 30 tablet Refill: 0 ??? donepeziL (ARICEPT) 10 mg tablet Sig: Take 1 tablet (10 mg total) by mouth nightly Dispense: 30 tablet Refill: 5 ??? methylPREDNISolone (MEDROL DOSEPACK) 4 mg Dosepack Sig: Take as directed on package. Dispense: 21 tablet Refill: 0 UP INSPECTOR documented in this encounter Plan of Treatment Not on file documented as of this encounter Visit Diagnoses Diagnosis Memory loss- Primary Family history of Alzheimer's disease Family history of other condition Cough documented in this encounter Discontinued Medications Medication Sig Discontinue Reason Start Date End Da te donepeziL (ARICEPT) 5 mg tablet Take 1 tablet (5 mg total) by mouth nightly Reorder 08/04/2021 09/01/2021 documented as of this encounter Care Teams Corporation Lawyer Relationship Specialty Start Date End Date Cali Levine MD PCP - General Family Medicine 08/02/21 08/23/22 documented as of this encounter
--- OUTSIDE RECORDS SUMMARY | 2024-10-02 05:32 | XMS_ITS | Encounter Summary ---
Author Organization [facility] Address [address] [facility] [address] [place] [address] Care Team Providers Care Fly Frame Tender Name Role Phone Cali Levine MD Primary Care Provider Cali Levine MD Primary Care Provider [phone] Encounter Details Date Type Department Care Team (Late st Contact Info) Description 08/13/2021 Telephone [facility] Primary Care at [address] [address] Lilly Pantoja Social History Tobacco Use Types Packs/Day Years [...] points, staff should administer the PHQ-9) 0 07/06/2022 Sex and Gender Information Value Date Recorded Sex Assigned at Not on file Legal Sex Male 9:23 AM ECHO TECHNICIAN Gender Identity Not on file Sexual Orientation Not on file documented as of this encounter Miscellaneous Notes * Telephone Encounter - Lilly Pantoja - 08/13/2021 1:48 PM CST TECHNICIAN documented in this encounter Plan of Treatment Not on file documented as of this encounter Visit Diagnoses Not on filedocumented in this encounter Care Teams Fly Frame Tender Relationship Specialty Start Date End Date Cali Levine MD PCP - General Family Medicine 08/02/21 08/23/22 Cali Levine MD PCP - General Family Medicine 08/24/22 documented as of this encounter
--- OUTSIDE RECORDS SUMMARY | 2024-10-02 05:32 | XMS_ITS | Encounter Summary ---
Author Organization [facility] Address [address] [facility] [address] [place] [address] Care Team Providers Care Production Superintendent Name Role Phone Cali Levine MD Primary Care Provider [phone] Encounter Details Date Type Department Care Team (Late st Contact Info) Description 08/06/2021 10:[address] [facility] Outpatient Lab at [address] [address] Essential hypertension; Family history of Alzheimer's disease; Gastroesophageal reflux disease without esophagitis; Memory loss; Mixed hyperlipidemia Social History Tobacco Use Types [...] on file Legal Sex Male 9:23 AM ZIPPER LINING FOLDER Gender Identity Not on file Sexual Orientation Not on file documented as of this encounter Plan of Treatment Not on file documented as of this encounter Visit Diagnoses Diagnosis Essential hypertension Unspecified essential hypertension Family history of Alzheimer's disease Family history of other condition Gastroesophageal reflux disease without esophagitis Esophageal reflux Memory loss Mixed hyperlipidemia documented in this encounter Care Teams Production Superintendent Relationship Specialty Start Date End Date Cali Levine MD PCP - General Family Medicine 08/02/21 08/23/22 documented as of this encounter
--- OUTSIDE RECORDS SUMMARY | 2024-10-02 05:32 | XMS_ITS | Encounter Summary ---
Author Organization [facility] Address [address] [facility] [address] [place] [address] Care Team Providers Care Wood Casket Maker Name Role Phone Cali Levine MD Primary Care Provider Reason for Visit * Reason Comments Establish Care Hernia nodule in left side of groin Encounter Details Date Type Department Care Team (Late st Contact Info) Description 11/12/2020 10:45 AM INTAKE CLINICIAN Office Visit [facility] [address] [facility] [address] [place] [address] Cali Levine MD [address] [place] [address] [address] [place] [address] Essential hypertension (Primary Dx); Gastroesophageal reflux disease without esophagitis; Mixed hyperlipidemia; Non-recurrent unilateral inguinal hernia without obstruction or gangrene Social History Tobacco Use Types Packs/Day Years Used Date Smoking Tobacco: Never Smokeless Tobacco: Never Alcohol Use Standard Drinks/Week Comments Yes 0 (1 standard drink = 0.6 oz pur e alcohol) PHQ-2 Answer Date Recorded PHQ-2 Total Score (If total score is 3 or more points, staff should administer the PHQ-9) 0 11/12/2020 Sex and Gender Information Value Date Recorded Sex Assigned at Not on file Legal Sex Male 9:23 AM INTAKE CLINICIAN Gender Identity Not on file Sexual Orientation Not on file documented as of this encounter Last Filed Vital Signs Vital Sign Reading Time Taken Comments Blood Pressure 132/78 11/12/2020 11:14 AM INTAKE CLINICIAN Pulse 73 11/12/2020 11:14 AM INTAKE CLINICIAN Temperature 36.5 ??C (97.7 ??F) 11/12/2020 11:[address] Respiratory Rate 18 11/12/2020 11:14 AM INTAKE CLINICIAN Oxygen Saturation 98% 11/12/2020 11:14 AM INTAKE CLINICIAN Inhaled Oxygen Concentration - - Weight 79.1 kg (174 lb 6.4 oz) 11/12/2020 11:14 AM INTAKE CLINICIAN Height 170.2 cm (5' 7 ) 11/12/2020 11:14 AM INTAKE CLINICIAN Body Mass Index 27.31 11/12/2020 11:14 AM INTAKE CLINICIAN documented in this encounter Progress Notes * Cali Levine MD - 11/12/2020 10:45 AM CST Images from the original note were not included. Subjective/Objective Patient ID: Morgan Philippe is a 80 y.o. male. Chief Complaint Establish Care and Hernia (nodule in left side of groin) 80-year-old male. Currently [facility] well[facility] His hypertension is been controlled takes this is DEJA-inhibitor. Has hyperlipidemia as well. Takes statin. Does labs yearly for that. Otherwiseactive weight stable. Does not smoke Has seen GI. Has had an EGD and colonoscopy PSA yearly Allergies as of 11/12/2020 ??? (No Known Allergies) Outpatient Encounter Medications as of 11/12/2020 Medication Sig Dispense Refill ??? lisinopriL (PRINIVIL,ZESTRIL) 20 mg tablet Take 20 mg by mouth daily Take 1.5 tablets daily ??? multivitamin capsule Take 1 capsule by mouth daily ??? omeprazole (PriLOSEC) 20 mg capsule Take 20 mg by mouth daily ??? simvastatin (ZOCOR) 40 mg tablet Take 20 mg by mouth nightly No facility-administered encounter medications on file as of 11/12/2020. History reviewed. No pertinent past medical history. History reviewed. No pertinent surgical history. History reviewed. No pertinent family history. Social History Socioeconomic History ??? Marital status: None Spouse name: None ??? Number of children: None ??? Years of education: None ??? Highest education level: None Occupational History ??? None Social Needs ??? Financial resource strain: None ??? Food insecurity Worry: None Inability: None ??? Transportation needs Medical: None Non-medical: None Tobacco Use ??? Smoking status: Never Smoker ??? Smokeless tobacco: Never Used Substance and Sexual Activity ??? Alcohol use: Yes ??? Drug use: Never ??? Sexual activity: None Lifestyle ??? Physical activity Days per week: None Minutes per session: None ??? Stress: None Relationships ??? Social connections Talks on phone: None Gets together: None Attends church service: None Active member of club or organization: None Attends meetings of clubs or organizations: None Relationship status: None ??? Intimate partner violence Fear of current or ex partner: None Emotionally abused: None Physically abused: None Forced sexual activity: None Other Topics Concern ??? None Social History Narrative ??? None Review of Systems Constitutional: Negative for fatigue and fever. Respiratory: Negative for cough and shortness of breath. Cardiovascular: Negative for chest pain and leg swelling. Gastrointestinal: Negative for abdominal pain and nausea. Musculoskeletal: Negative for back pain and neck pain. Neurological: Negative for seizures and headaches. Psychiatric/Behavioral: Negative for confusion. The patient is not nervous/anxious. Vitals: 11/12/20 1114 BP: 132/78 BP Location: Right arm Patient Position: Sitting Pulse: 73 Resp: 18 Temp: 36.5 ??C (97.7 ??F) TempSrc: Transdermal SpO2: 98% Weight: 79.1 kg (174 lb 6.4 oz) Height: 170.2 cm (5' 7 ) Physical Exam Constitutional: Appearance: He is well-developed. [...] place, and time. Psychiatric: Speech: Speech normal. Exam performed clothed ing hernia left, small PHQ Screening Over the last 2 weeks, [...] Down, Depressed, or Hopeless: Not at all No exam data present Assessment/Plan Diagnoses and all orders for this visit: Essential hypertension (Primary) Comments: cont Lisinopril 20 mg diet exercise Gastroesophageal reflux disease without esophagitis Comments: diet exercise, Omepraziole 20 mg Mixed hyperlipidemia Comments: cont statins/ simvastatin 40 mg CPM, labs yearly Non-recurrent unilateral inguinal hernia without obstruction or gangrene Comments: follow to Gen surg / referral No orders of the defined types were placed in this encounter. Specific topics reviewed: drugs, ETOH, and tobacco, importance of regular dental care, importance of regular exercise, importance of varied diet, limit TV, media violence, minimize junk food and seatbelts. Cali Levine MD KE CLINICIAN documented in this encounter Plan of Treatment Not on file documented as of this encounter Visit Diagnoses Diagnosis Essential hypertension- Primary Unspecified essential hypertension Gastroesophageal reflux disease without esophagitis Esophageal reflux Mixed hyperlipidemia Non-recurrent unilateral inguinal hernia without obstruction or gangrene documented in this encounter Historical Medications * This list may reflect changes made after this encounter. multivitamin capsule Take 1 capsule by mouth daily lisinopriL (PRINIVIL,ZESTRIL ) 20 mg tablet Take 20 mg by mouth daily Take 1.5 tablets daily 12/04/2020 omeprazole (PriLOSEC) 20 mg capsule Take 20 mg by mouth daily 12/04/2020 simvastatin (ZOCOR) 40 mg tablet Take 20 mg by mouth nightly 12/04/2020 added in this encounter Care Teams Wood Casket Maker Relationship Specialty Start Date End Date Cali Levine MD PCP - General Family Medicine 08/07/19 04/11/21 documented as of this encounter
--- OUTSIDE RECORDS SUMMARY | 2024-10-02 05:32 | XMS_ITS | Encounter Summary ---
Author Organization [facility] Address [address] [facility] [address] [place] [address] Care Team Providers Care Plating Technician Name Role Phone Cali Levine MD Primary Care Provider [phone] Cali Levine MD Primary Care Provider [phone] Encounter Details Date Type Department Care Team (Late st Contact Info) Description 08/02/[address] [facility] Primary Care at [address] [address] Lilly Pantoja Social History Tobacco [...] on file Legal Sex Male 9:23 AM PCMH SPECIALIST Gender Identity Not on file Sexual Orientation Not on file documented as of this encounter Plan of Treatment Not on file documented as of this encounter Visit Diagnoses Not on filedocumented in this encounter Care Teams Plating Technician Relationship Specialty Start Date End Date Cali Levine MD PCP - General Family Medicine 08/02/21 08/23/22 Cali Levine MD PCP - General Family Medicine 08/24/22 documented as of this encounter
--- OUTSIDE RECORDS SUMMARY | 2024-10-02 05:32 | XMS_ITS | Encounter Summary ---
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
--- OUTSIDE RECORDS SUMMARY | 2024-10-02 05:32 | XMS_ITS | Encounter Summary ---
Author Organization [facility] Address [address] [facility] [address] [place] [address] Care Team Providers Care Show Host Or Hostess Name Role Phone Cali Levine MD Primary Care Provider [phone] Reason for Visit * Reason Comments Follow-up FU no concerns today Encounter Details Date Type Department Care Team (Late st Contact Info) Description 07/06/2022 1:15 PM CDT Office Visit [facility] Primary Care at [address] [address] Cali Levine MD [address] 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 Gender Identity Not on file Sexual Orientation Not on file documented as of this encounter Last Filed Vital Signs Vital Sign Reading Time Taken Comments Blood Pressure 124/70 07/06/2022 1:19 PM CDT Pulse 69 07/06/2022 1:19 PM CDT Temperature 36.6 ??C (97.9 ??F) 07/06/2022 1:19 PM CD T Respiratory Rate 18 07/06/2022 1:19 PM CDT Oxygen Saturation 99% 07/06/2022 1:19 PM CDT Inhaled Oxygen Concentration - - Weight 79.8 kg (176 lb) 07/06/2022 1:19 PM CDT Height 170.2 cm (5' 7 ) 07/06/2022 1:19 PM CDT Body Mass Index 27.57 07/06/2022 1:19 PM CDT documented in this encounter Ordered Prescriptions Prescription Sig Dispense Quantity Refills Last Filled Start Date End Date donepeziL (ARICEPT) 10 mg tablet Take 1 tablet (10 mg total) by mouth nightly 90 tablet 4 07/06/2022 4 documented in this encounter Progress Notes * Cali Levine MD - 07/06/2022 1:15 PM CDT Images from the original note were not included. Subjective/Objective Patient ID: Morgan Philippe is a 82 y.o. male. Chief Complaint Follow-up (FU no concerns today) 82-year-old male. He doing pretty good. He is active. Good appetite. Weight stable. Does not smoke.Memory is possibly worse. On Namenda and Aricept Current Outpatient Medications Medication Sig Dispense Refill donepeziL (ARICEPT) 5 mg tablet TAKE 1 TABLET BY MOUTH EVERY DAY AT NIGHT 90 tablet 0 lisinopriL (PRINIVIL,ZESTRIL) 30 mg tablet TAKE 1 TABLET BY MOUTH EVERY DAY 90 tablet 0 memantine (NAMENDA TITRATION PACK) tablet pack USE DIRECTED FOR FIRST MONTH. 49 each 0 multivitamin capsule Take 1 capsule by mouth daily omeprazole (PriLOSEC) 20 mg capsule TAKE 1 CAPSULE BY MOUTH EVERY DAY 90 capsule 0 simvastatin (ZOCOR) 40 mg tablet TAKE 1/2 TABLET BY MOUTH NIGHTLY 45 tablet 1 memantine (NAMENDA) 10 mg tablet Take 1 tablet (10 mg total) by mouth 2 (two) times a day 180 tablet 4 No current facility-administered medications for this visit. [...] (from the past 336 hour(s)). Vitals BP 124/70 (BP Location: Left arm, Patient Position: Sitting) Pulse 69 Temp 36.6 ??C (97.9 ??F) Resp 18 Ht 170.2 cm (5' 7 ) Wt 79.8 kg (176 lb) SpO2 99% BMI 27.57 kg/m?? Physical Exam Constitutional: Appearance: He is [...] Diagnoses and all orders for this visit: Mixed hyperlipidemia (E78.2) (Primary) - Lipid panel; Future - Comprehensive metabolic panel; Future - CBC with auto differential; Future - his last cholesterol done in August of 2021. LDL 105. Repeat CBC Chem 12 lipid profile . Essential hypertension (I10) - Lipid panel; Future - Comprehensive metabolic panel; Future - CBC with auto differential; Future - blood pressure controlled. Labs as stated above. Continue present management Gastroesophageal reflux disease without esophagitis (K21.9) - PPI diet, exercise Memory loss (R41.3) ALzheimers - namenda - aricept - CPM Other orders - Flu Vaccine Quad High Dose PF 65Y+ IM - Fluzone High Dose Quad Cali Levine MD Orders Placed This Encounter Flu Vaccine Quad High Dose PF 65Y+ IM - Fluzone High Dose Quad documented in this encounter Plan of Treatment Not on file documented as of this encounter Visit Diagnoses Diagnosis Mixed hyperlipidemia- Primary Essential hypertension Unspecified essential hypertension Gastroesophageal reflux disease without esophagitis Esophageal reflux Memory loss Alzheimer's disease, unspecified (HCC) documented in this encounter Discontinued Medications Medication Sig Discontinue Reason Start Date End Da te donepeziL (ARICEPT) 5 mg tablet TAKE 1 TABLET BY MOUTH EVERY DAY AT NIGHT Alternate therapy 04/18/2022 07/06/2022 documented as of this encounter Orders Immunization/Injection Count Last Ordered Date First Ordered Date FLU VACCINE HIGH DOSE QUAD P F 65Y+ IM - FLUZONE HIGH DOS 1 07/06/2022 documented in this encounter Care Teams Show Host Or Hostess Relationship Specialty Start Date End Date Cali Levine MD PCP - General Family Medicine 08/02/21 08/23/22 documented as of this encounter
--- OUTSIDE RECORDS SUMMARY | 2024-10-02 05:32 | XMS_ITS | Encounter Summary ---
Author Organization [facility] Address [address] [facility] [address] [place] [address] Care Team Providers Care Tractor Drill Operator Name Role Phone Cali Levine MD Primary Care Provider [phone] Reason for Visit * Reason Comments Follow-up Pt is here for a 3 m o check up. 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 AUDITOR Gender Identity Not on file Sexual Orientation Not on file documented as of this encounter Last Filed Vital Signs Vital Sign Reading Time Taken Comments Blood Pressure 126/80 02/24/2022 11:24 AM CDT Pulse 69 02/24/2022 11:24 AM CDT Temperature 36.8 ??C (98.3 ??F) 02/24/2022 11:24 AM C DT Respiratory Rate - - Oxygen Saturation 98% 02/24/2022 11:24 AM CDT Inhaled Oxygen Concentration - - Weight 79.1 kg (174 lb 4.8 oz) 02/24/2022 11:24 AM CDT Height 170.2 cm (5' 7 ) 02/24/2022 11:24 AM CDT Body Mass Index 27.3 02/24/2022 11:24 AM CDT documented in this encounter Ordered Prescriptions Prescription Sig Dispense Quantity Refills Last Filled Start Date End Date memantine (NAMENDA TITRATION PACK) tablet pack Use as directed for first month. 49 tablet 02/24/2022 documented in this encounter Progress Notes * Cali Levine MD - 02/24/2022 11:00 AM CDT Images from the original note were not included. Subjective/Objective Patient ID: Morgan Philippe is a 81 y.o. male. Chief Complaint Follow-up (Pt is here for a 3 mo check up. ) 81-year-old male. He did Aricept 10. Possible some side effect. Is on Aricept at 5. Thought had did help his memory. Current Outpatient Medications Medication Sig Dispense Refill ??? donepeziL (ARICEPT) 5 mg tablet TAKE 1 TABLET BY MOUTH EVERY DAY AT NIGHT 90 tablet 0 ??? lisinopriL (PRINIVIL,ZESTRIL) 30 mg tablet TAKE 1 TABLET BY MOUTH EVERY DAY 90 tablet 0 ??? multivitamin capsule Take 1 capsule by mouth daily ??? omeprazole (PriLOSEC) 20 mg capsule TAKE 1 CAPSULE BY MOUTH EVERY DAY 90 capsule 0 ??? simvastatin (ZOCOR) 40 mg tablet TAKE 1/2 TABLET BY MOUTH NIGHTLY 45 tablet 1 ??? memantine (NAMENDA TITRATION PACK) tablet pack Use as directed for first month. 49 tablet 0 No current facility-administered medications for this visit. Review of Systems Constitutional: Negative for fatigue and fever. Respiratory: Negative for cough and shortness of breath. Cardiovascular: Negative for chest pain and leg swelling. Gastrointestinal: Negative for abdominal pain and nausea. Musculoskeletal: Negative for back pain and neck pain. Neurological: Negative for seizures and headaches. Psychiatric/Behavioral: Positive for confusion. The patient is not nervous/anxious. No results found for this or any previous visit (from the past 336 hour(s)). Vitals BP 126/80 (BP Location: Right arm, Patient Position: Sitting) Pulse 69 Temp 36.8 ??C (98.3 ??F) (Oral) Ht 170.2 cm (5' 7 ) Wt 79.1 kg (174 lb 4.8 oz) SpO2 98% BMI 27.30 kg/m?? Physical Exam Constitutional: Appearance: He is [...] - CBC with auto differential; Future - CPM Mixed hyperlipidemia (E78.2) - Lipid panel; Future - Comprehensive metabolic panel; Future - CBC with auto differential; Future - CPM Memory loss (R41.3) - Aricept 5 mg daily. And add Namenda 10 mg b.i.d.. - follow - se reviewed - labs reviewed Chronic problem , not at goal, drug treatment Other orders - TSH reflex to free T4; Future Cali Levine MD Orders Placed This Encounter ??? memantine (NAMENDA TITRATION PACK) tablet pack Sig: Use as directed for first month. Dispense: 49 tablet Refill: 0 documented in this encounter Plan of Treatment Not on file documented as of this encounter Visit Diagnoses Diagnosis Essential hypertension- Primary Unspecified essential hypertension Mixed hyperlipidemia Memory loss documented in this encounter Care Teams Tractor Drill Operator Relationship Specialty Start Date End Date Cali Levine MD PCP - General Family Medicine 08/02/21 08/23/22 documented as of this encounter
--- OUTSIDE RECORDS SUMMARY | 2024-10-02 06:04 | XMS_ITS | Continuity of Care Document ---
Author Name [facility] Organization [facility] Care Team Providers Care Keg Inspector Name Role Phone [facility] Unavailable Unavailable Problems Combined list of problems from Department of Defense and [facility] Affairs facilities. It does not include entries that were removed or entered in error. Problem Status Onset Date Problem Type Date of Resolution Comments Source Alcohol abuse Active Condition [facility] Alzheimer's disease Active Condition [facility] Dementia Active Condition [facility] Gastroesophageal reflux disease without esophagitis Active Condition [facility] Gastroesophageal Reflux Disorder * (ICD-9-CM 530.81) Active Condition [facility] Hearing Loss, Sensorineural, Unspecified Active Condition [facility] HTN * (ICD-9-CM 401.9) Active Condition [facility] Hypercholesterolemia * (ICD-9-CM 272.0) Active Condition [facility] Hyperlipidemia Active Condition [facility] Hypertension Active Condition [facility] Impacted cerumen of bilateral ears Active Condition [facility] Impaired FASTING Glucose (ICD-9-CM 790.21) Active Condition [facility] Inguinal hernia Active Condition [facility] URI (ICD-9-CM 465.9) Active Condition [facility] Diagnosis: ICD-10-CM G30.9 Alzheimer's disease, unspecified Active Diagnosis [facility] Diagnosis: ICD-10-CM Z71.9 Counseling, unspecified Active Diagnosis [facility] Diagnosis: ICD-10-CM G47.30 Sleep apnea, unspecified Active Diagnosis [facility] Diagnosis: ICD-10-CM F02.A0 Dem in other dis classd elswhr, mild, w/o beh/psych/mood/anx Active Diagnosis [facility] Diagnosis: ICD-10-CM G30.1 Alzheimer's disease with late onset Active Diagnosis [facility] Diagnosis: ICD-10-CM R41.9 Unsp symptoms and signs w cognitive functions and awareness Active Diagnosis [facility] Diagnosis: ICD-10-CM R53.83 Other fatigue Active Diagnosis [facility] Diagnosis: ICD-10-CM I10 Essential (primary) hypertension Active Diagnosis [facility] Diagnosis: ICD-10-CM Z60.0 Problems of adjustment to life-cycle transitions Active Diagnosis [facility] Medications Combined list of outpatient medications from [...] BEDTIME ORAL ACTIVE RAHMAN,BRADEN AM M 2022 [facility] LISINOPRIL 20MG TAB TAKE 1.5 TABLETS BY MOUTH ONCE A DAY ORAL ACTIVE Slick CARCAMO 2021 [facility] B[facility] MEMANTINE HCL 10MG TAB TAKE ONE TABLET BY MOUTH TWICE A DAY ORAL ACTIVE RAHMAN,BRADEN AM M 2022 [facility] MULTIVITAMI NS CAP/TAB TAKE ONE TABLET BY MOUTH ONCE A DAY ORAL ACTIVE Slick CARCAMO 2021 [facility] Bahrdwaj SIMVASTATIN 40MG TAB TAKE ONE-HALF TABLET BY MOUTH EVERY EVENING ORAL ACTIVE Slick CARCAMO 2021 [facility] Immunizations Combined list of available immunizations from the Department of Defense and Veterans Affairs facilities. Immunization Series Date Given Administered By Site Reaction Lot Number CVX Code Drug Mechanical Design Technician Status Comments Source INFLUENZA, UNSPECIFIED FORMULATION 2022 88 complet ed [facility] GOLDISIO N RSV, BIVALENT, PROTEIN SUBUNIT RSVPREF, DILUENT RECONSTITUTED , 0.5 ML, PF 2022 305 complet ed [facility] DIV[facility] N TDAP 2022 АЛЕКСАНДР MARTINEZ EN LEFT DELTO ID [id number] 115 complet [facility] N COVID-19 (MODERNA), MRNA, LNP-S, BIVALENT, PF, 50 MCG/0.5 ML OR 25MCG/0.25 ML DOSE 1 2022 229 complet ed [facility] N INFLUENZA, UNSPECIFIED FORMULATION 2021 88 [facility] ([facility]), MRNA, LNP-S, PF, 30 MCG/0.3 ML DOSE 3 2020 208 complet ed [facility] INFLUENZA, HIGH-DOSE, QUADRIVALENT 1 2020 197 complet ed [facility] COVID-19 (PFIZER), MRNA, LNP-S, PF, 30 MCG/0.3 ML DOSE 2 2020 208 complet ed PFR; [id number]; 1 [facility] COVID-19 (PFIZER), MRNA, LNP-S, PF, 30 MCG/0.3 ML DOSE 1 2020 208 complet ed PFR; [id number]; 1 [facility] INFLUENZA, RECOMBINANT, QUADRIVALENT, INJECTABLE, PRESERVATIVE FREE 2019 185 complet ed [facility] DIV[facility]IO N ZOSTER RECOMBINANT 1 2018 187 complet ed [facility] N ZOSTER RECOMBINANT 1 2017 187 complet ed [facility] INFLUENZA, INJECTABLE, QUADRIVALENT, PRESERVATIVE FREE 2016 150 complet ed [facility] PNEUMOCOCCAL CONJUGATE PCV 13 2014 133 complet ed [facility] INFLUENZA, UNSPECIFIED FORMULATION 2014 88 complet ed [facility] N TDAP 2013 115 complet ed [facility] DIV[facility] N ZOSTER LIVE 2012 121 complet ed [facility] N INFLUENZA, UNSPECIFIED FORMULATION 2012 88 complet ed [facility] N INFLUENZA, UNSPECIFIED FORMULATION 2011 88 complet ed [facility] INFLUENZA, UNSPECIFIED FORMULATION 2010 88 complet ed [facility] INFLUENZA, UNSPECIFIED FORMULATION 2009 88 complet ed [facility] INFLUENZA, UNSPECIFIED FORMULATION 2008 88 complet ed [facility] N INFLUENZA, UNSPECIFIED FORMULATION 2007 88 complet ed [facility] INFLUENZA, UNSPECIFIED FORMULATION 2006 88 complet ed per VM [facility] INFLUENZA, UNSPECIFIED FORMULATION 2006 88 complet ed [facility] N INFLUENZA, UNSPECIFIED FORMULATION 2004 88 complet ed [facility] PNEUMOCOCCAL, UNSPECIFIED FORMULATION 2004 109 complet ed [facility] TD(ADULT) UNSPECIFIED FORMULATION 2004 139 complet ed [facility] Results Combined list of recent chemistry, hematology and other laboratory results from Department of Defense and Veterans Affairs, ranging from 15 months to all on record, depending upon the facility. Order Name Results Value Reference Range Date Interpretation Specimen Comments Source B12 COBALAMIN (VITAMIN B12) [MASS/VOLUM E] IN SERUM OR PLASMA 474 pg/mL 213 - 816 05/13 Specimen Type: SERUM No comment entered. Ordering Provider: MARISA RAHMAN Report Released Date/Time: May 10, 2024 07:20 PM Reporting Lab: [facility] [address] Performing Lab: [facility] [id number] CBC LEUKOCYTES [#/VOLUME] IN BLOOD BY AUTOMATED COUNT 6.3 10*3/u L 3.6 - 11.2 05/13 Specimen Type: BLOOD No comment entered. Ordering Provider: MARISA RAHMAN Report Released Date/Time: May 10, 2024 07:20 PM Reporting Lab: [facility] [place] [address] Performing Lab: [facility] CBC ERYTHROCYTE S [#/VOLUME] IN BLOOD BY AUTOMATED COUNT 4.72 10*6/u L 4.10 - 5.70 05/13 Specimen Type: BLOOD No comment entered. Ordering Provider: MARISA RAHMAN Report Released Date/Time: May 10, 2024 07:20 PM Reporting Lab: [facility] [place] [address] Performing Lab: [facility] CBC HEMOGLOBIN [MASS/VOLUM E] IN BLOOD 15.5 g/dL 13.1 - 16.8 05/13 Specimen Type: BLOOD No comment entered. Ordering Provider: MARISA RAHMAN Report Released Date/Time: May 10, 2024 07:20 PM Reporting Lab: [facility] [place] [address] Performing Lab: [facility] DIVISION CBC HEMATOCRIT [VOLUME FRACTION] OF BLOOD 44.8 38.2 - 48.4 05/13 Specimen Type: BLOOD No comment entered. Ordering Provider: MARISA RAHMAN Report Released Date/Time: May 10, 2024 07:20 PM Reporting Lab: [facility] [place] [address] Performing Lab: [facility] [address] [facility] CBC MCV [ENTITIC VOLUME] BY AUTOMATED COUNT 94.9 fL 80.0 - 100.0 05/13 Specimen Type: BLOOD No comment entered. Ordering Provider: MARISA RAHMAN Report Released Date/Time: May 10, 2024 07:20 PM Reporting Lab: [facility] [place] [address] Performing Lab: [facility] DIVISION CBC MCH [ENTITIC MASS] BY AUTOMATED COUNT 32.8 pg 27.0 - 34.0 05/13 Specimen Type: BLOOD No comment entered. Ordering Provider: MARISA RAHMAN Report Released Date/Time: May 10, 2024 07:20 PM Reporting Lab: [facility] [place] [address] Performing Lab: [facility] DIVISION CBC MCHC [MASS/VOLUM E] BY AUTOMATED COUNT 34.6 g/dL 33.0 - 36.0 05/13 Specimen Type: BLOOD No comment entered. Ordering Provider: MARISA RAHMAN Report Released Date/Time: May 10, 2024 07:20 PM Reporting Lab: [facility] [place] [address] Performing Lab: [facility] DIVISION CBC PLATELETS [#/VOLUME] IN BLOOD BY AUTOMATED COUNT 146 10*3/u L 150 - 400 05/13 L Specimen Type: BLOOD No comment entered. Ordering Provider: MARISA RAHMAN Report Released Date/Time: May 10, 2024 07:20 PM Reporting Lab: [facility] [place] [address] Performing Lab: [facility] [address] [facility] CBC PLATELET MEAN VOLUME [ENTITIC VOLUME] IN BLOOD BY AUTOMATED COUNT 10.2 fL 7.5 - 11.2 05/13 Specimen Type: BLOOD No comment entered. Ordering Provider: MARISA RAHMAN Report Released Date/Time: May 10, 2024 07:20 PM Reporting Lab: [facility] [address] Performing Lab: [facility] [phone] DIVISION CBC ERYTHROCYTE DISTRIBUTIO N WIDTH [RATIO] BY AUTOMATED COUNT 12.9 11.8 - 15.1 05/13 Specimen Type: BLOOD No comment entered. Ordering Provider: MARISA RAHMAN Report Released Date/Time: May 10, 2024 07:20 PM Reporting Lab: [facility] [address] Performing Lab: [facility] [phone] DIVISION CBC LYMPHOCYTES /100 LEUKOCYTES IN BLOOD BY AUTOMATED COUNT 21 05/13 Specimen Type: BLOOD No comment entered. Ordering Provider: MARISA RAHMAN Report Released Date/Time: May 10, 2024 07:20 PM Reporting Lab: [facility] [address] Performing Lab: [facility] [phone] [place] [address] DIVISION CBC MONOCYTES/1 00 LEUKOCYTES IN BLOOD BY AUTOMATED COUNT 9 05/13 Specimen Type: BLOOD No comment entered. Ordering Provider: MARISA RAHMAN Report Released Date/Time: May 10, 2024 07:20 PM Reporting Lab: [facility] [address] Performing Lab: [facility] [phone] DIVISION CBC NEUTROPHILS /100 LEUKOCYTES IN BLOOD BY AUTOMATED COUNT 64 05/13 Specimen Type: BLOOD No comment entered. Ordering Provider: MARISA RAHMAN Report Released Date/Time: May 10, 2024 07:20 PM Reporting Lab: [facility] [place] [address] Performing Lab: [facility] DIVISION CBC EOSINOPHILS /100 LEUKOCYTES IN BLOOD BY AUTOMATED COUNT 5 05/13 Specimen Type: BLOOD No comment entered. Ordering Provider: MARISA RAHMAN Report Released Date/Time: May 10, 2024 07:20 PM Reporting Lab: [facility] [place] [address] Performing Lab: [facility] DIVISION CBC BASOPHILS/1 00 LEUKOCYTES IN BLOOD BY AUTOMATED COUNT 1 05/13 Specimen Type: BLOOD No comment entered. Ordering Provider: MARISA RAHMAN Report Released Date/Time: May 10, 2024 07:20 PM Reporting Lab: [facility] [place] [address] Performing Lab: [facility] DIVISION CBC LYMPHOCYTES [#/VOLUME] IN BLOOD BY AUTOMATED COUNT 1.30 10*3/u L 0.77 - 4.50 05/13 Specimen Type: BLOOD No comment entered. Ordering Provider: MARISA RAHMAN Report Released Date/Time: May 10, 2024 07:20 PM Reporting Lab: [facility] [place] [address] Performing Lab: [facility] DIVISION CBC MONOCYTES [#/VOLUME] IN BLOOD BY AUTOMATED COUNT 0.56 10*3/u L 0.19 - 0.80 05/13 Specimen Type: BLOOD No comment entered. Ordering Provider: MARISA RAHMAN Report Released Date/Time: May 10, 2024 07:20 PM Reporting Lab: [facility] [place] [address] Performing Lab: [facility] DIVISION CBC NEUTROPHILS [#/VOLUME] IN BLOOD BY AUTOMATED COUNT 4.07 10*3/u L 2.10 - 8.00 05/13 Specimen Type: BLOOD No comment entered. Ordering Provider: MARISA RAHMAN Report Released Date/Time: May 10, 2024 07:20 PM Reporting Lab: [facility] [place] [address] Performing Lab: [facility] DIVISION CBC EOSINOPHILS [#/VOLUME] IN BLOOD BY AUTOMATED COUNT 0.34 10*3/u L 0.00 - 0.60 05/13 Specimen Type: BLOOD No comment entered. Ordering Provider: MARISA RAHMAN Report Released Date/Time: May 10, 2024 07:20 PM Reporting Lab: [facility] [place] [address] Performing Lab: [facility] DIVISION CBC BASOPHILS [#/VOLUME] IN BLOOD BY AUTOMATED COUNT 0.04 10*3/u L 0.00 - 0.20 05/13 Specimen Type: BLOOD No comment entered. Ordering Provider: MARISA RAHMAN Report Released Date/Time: May 10, 2024 07:20 PM Reporting Lab: [facility] [place] [address] Performing Lab: [facility] [phone] DIVISION COMPREHENS KALYAN METABOLIC PANEL CREATININE [MASS/VOLUM E] IN SERUM OR PLASMA 1.20 mg/dL 0.70 - 1.30 05/13 Specimen Type: PLASMA Comment: No hemolysis noted. Ordering Provider: MARISA RAHMAN Report Released Date/Time: May 10, 2024 07:20 PM Reporting Lab: [facility] [place] [address] Performing Lab: [facility] COMPREHENS [place] METABOLIC PANEL UREA NITROGEN [MASS/VOLUM E] IN SERUM OR PLASMA 13.7 mg/dL 9.0 - 25.0 05/13 Specimen Type: PLASMA Comment: No hemolysis noted. Ordering Provider: MARISA RAHMAN Report Released Date/Time: May 10, 2024 07:20 PM Reporting Lab: [facility] [place] [address] Performing Lab: [facility] COMPREHENS [place] METABOLIC PANEL GLUCOSE [MASS/VOLUM E] IN SERUM OR PLASMA 102 mg/dL 72 - 99 05/13 H Specimen Type: PLASMA Comment: No hemolysis noted. Ordering Provider: MARISA RAHMAN Report Released Date/Time: May 10, 2024 07:20 PM Reporting Lab: [facility] [place] [address] Performing Lab: [facility] DIVISION COMPREHENS [place] METABOLIC PANEL SODIUM [MOLES/VOLU ME] IN SERUM OR PLASMA 142 meq/L 136 - 145 05/13 Specimen Type: PLASMA Comment: No hemolysis noted. Ordering Provider: MARISA RAHMAN Report Released Date/Time: May 10, 2024 07:20 PM Reporting Lab: [facility] [place] [address] Performing Lab: [facility] DIVISION COMPREHENS [place] METABOLIC PANEL POTASSIUM [MOLES/VOLU ME] IN SERUM OR PLASMA 4.2 meq/L 3.5 - 5.0 05/13 Specimen Type: PLASMA Comment: No hemolysis noted. Ordering Provider: MARISA RAHMAN Report Released Date/Time: May 10, 2024 07:20 PM Reporting Lab: [facility] [place] [address] Performing Lab: [facility] DIVISION COMPREHENS [place] METABOLIC PANEL CHLORIDE [MOLES/VOLU ME] IN SERUM OR PLASMA 110 meq/L 98 - 107 05/13 H Specimen Type: PLASMA Comment: No hemolysis noted. Ordering Provider: MARISA RAHMAN Report Released Date/Time: May 10, 2024 07:20 PM Reporting Lab: [facility] [place] [address] Performing Lab: [facility] DIVISION COMPREHENS [place] METABOLIC PANEL CARBON DIOXIDE, TOTAL [MOLES/VOLU ME] IN SERUM OR PLASMA 22 meq/L 22 - 31 05/13 Specimen Type: PLASMA Comment: No hemolysis noted. Ordering Provider: MARISA RAHMAN Report Released Date/Time: May 10, 2024 07:20 PM Reporting Lab: [facility] [place] [address] Performing Lab: [facility] DIVISION COMPREHENS [place] METABOLIC PANEL CALCIUM [MASS/VOLUM E] IN SERUM OR PLASMA 9.1 mg/dL 8.4 - 10.4 05/13 Specimen Type: PLASMA Comment: No hemolysis noted. Ordering Provider: MARISA RAHMAN Report Released Date/Time: May 10, 2024 07:20 PM Reporting Lab: [facility] [place] [address] Performing Lab: [facility] DIVISION COMPREHENS [place] METABOLIC PANEL PROTEIN [MASS/VOLUM E] IN SERUM OR PLASMA 6.8 g/dL 6.0 - 8.6 05/13 Specimen Type: PLASMA Comment: No hemolysis noted. Ordering Provider: MARISA RAHMAN Report Released Date/Time: May 10, 2024 07:20 PM Reporting Lab: [facility] [place] [address] Performing Lab: [facility] DIVISION COMPREHENS [place] METABOLIC PANEL ALBUMIN [MASS/VOLUM E] IN SERUM OR PLASMA 4.0 g/dL 3.4 - 5.0 05/13 Specimen Type: PLASMA Comment: No hemolysis noted. Ordering Provider: MARISA RAHMAN Report Released Date/Time: May 10, 2024 07:20 PM Reporting Lab: [facility] [place] [address] Performing Lab: [facility] DIVISION COMPREHENS [place] METABOLIC PANEL BILIRUBIN.T OTAL [MASS/VOLUM E] IN SERUM OR PLASMA 0.9 mg/dL 0.2 - 1.2 05/13 Specimen Type: PLASMA Comment: No hemolysis noted. Ordering Provider: MARISA RAHMAN Report Released Date/Time: May 10, 2024 07:20 PM Reporting Lab: [facility] [place] [address] Performing Lab: [facility] [place] [phone] [facility] COMPREHENS KALYAN METABOLIC PANEL ALKALINE PHOSPHATASE [ENZYMATIC ACTIVITY/VO LUME] IN SERUM OR PLASMA 56 U/L 40 - 150 05/13 Specimen Type: PLASMA Comment: No hemolysis noted. Ordering Provider: MARISA RAHMAN Report Released Date/Time: May 10, 2024 07:20 PM Reporting Lab: [facility] [place] [address] Performing Lab: [facility] DIVISION COMPREHENS [place] METABOLIC PANEL ASPARTATE AMINOTRANSF ERASE [ENZYMATIC ACTIVITY/VO LUME] IN SERUM OR PLASMA 37 U/L 5 - 34 05/13 H Specimen Type: PLASMA Comment: No hemolysis noted. Ordering Provider: MARISA RAHMAN Report Released Date/Time: May 10, 2024 07:20 PM Reporting Lab: [facility] [place] [address] Performing Lab: [facility] DIVISION COMPREHENS [place] METABOLIC PANEL ALANINE AMINOTRANSF ERASE [ENZYMATIC ACTIVITY/VO LUME] IN SERUM OR PLASMA 33 U/L 8 - 40 05/13 Specimen Type: PLASMA Comment: No hemolysis noted. Ordering Provider: MARISA RAHMAN Report Released Date/Time: May 10, 2024 07:20 PM Reporting Lab: [facility] [place] [address] Performing Lab: [facility] COMPREHENS [place] METABOLIC PANEL GLOMERULAR FILTRATION RATE/1.73 SQ M.PREDICTED [VOLUME RATE/AREA] IN SERUM, PLASMA OR BLOOD BY CREATININE- BASED FORMULA (CKD-EPI 2020) 59.63 60 05/13 Specimen Type: PLASMA Comment: No hemolysis noted. Ordering Provider: MARISA RAHMAN Report Released Date/Time: May 10, 2024 07:20 PM Reporting Lab: [facility] [place] [address] Performing Lab: [facility] DIVISION HGA1C HEMOGLOBIN A1C/HEMOGLO BIN.TOTAL IN BLOOD 5.8 4.0 - 6.0 05/13 Specimen Type: BLOOD No comment entered. Ordering Provider: MARISA RAHMAN Report Released Date/Time: May 10, 2024 07:20 PM Reporting Lab: [facility] [place] [address] Performing Lab: [facility] DIVISION LIPID PANEL (STL) CHOLESTEROL [MASS/VOLUM E] IN SERUM OR PLASMA 156 mg/dL 0 - 200 05/13 Specimen Type: PLASMA Comment: No hemolysis noted. Ordering Provider: MARISA RAHMAN Report Released Date/Time: May 10, 2024 07:20 PM Reporting Lab: [facility] [place] [address] Performing Lab: [facility] DIVISION LIPID PANEL (STL) TRIGLYCERID E [MASS/VOLUM E] IN SERUM OR PLASMA 112 mg/dL 0 - 150 05/13 Specimen Type: PLASMA Comment: No hemolysis noted. Ordering Provider: MARISA RAHMAN Report Released Date/Time: May 10, 2024 07:20 PM Reporting Lab: [facility] [place] [address] Performing Lab: [facility] DIVISION LIPID PANEL (STL) CHOLESTEROL IN LDL [MASS/VOLUM E] IN SERUM OR PLASMA BY CALCULATION 91 mg/dL 08/12 /2024 Specimen Type: PLASMA Comment: No hemolysis noted. Ordering Provider: MARISA RAHMAN Report Released Date/Time: May 10, 2024 07:20 PM Reporting Lab: [facility] [place] [address] Performing Lab: [facility] DIVISION LIPID PANEL (STL) CHOLESTEROL IN HDL [MASS/VOLUM E] IN SERUM OR PLASMA 43 mg/dL 40 05/13 Specimen Type: PLASMA Comment: No hemolysis noted. Ordering Provider: MARISA RAHMAN Report Released Date/Time: May 10, 2024 07:20 PM Reporting Lab: [facility] [place] [address] Performing Lab: [facility] DIVISION TSH (MA-PB) THYROTROPIN [UNITS/VOLU ME] IN SERUM OR PLASMA 3.281 u[IU]/ mL 0.470 - 5.000 05/13 Specimen Type: SERUM No comment entered. Ordering Provider: MARISA RAHMAN Report Released Date/Time: May 10, 2024 07:20 PM Reporting Lab: [facility] [place] [address] Performing Lab: [facility] DIVISION VITAMIN D, 25-HYDROXY 25-HYDROXYV ITAMIN D3 [MASS/VOLUM E] IN SERUM OR PLASMA 31.1 ng/mL 30 - 96 05/13 Specimen Type: SERUM No comment entered. Ordering Provider: MARISA RAHMAN Report Released Date/Time: May 10, 2024 07:20 PM Reporting Lab: [facility] [place] [address] Performing Lab: [facility] [address] DIVISION COMPREHENS [place] METABOLIC PANEL CREATININE [MASS/VOLUM E] IN SERUM OR PLASMA 1.23 mg/dL 0.70 - 1.30 06/23 Specimen Type: PLASMA Comment: No hemolysis noted. Ordering Provider: MARISA RAHMAN Report Released Date/Time: Jun 23, 2023 08:32 AM Reporting Lab: [facility] [place] [address] Performing Lab: [facility] COMPREHENS [place] METABOLIC PANEL UREA NITROGEN [MASS/VOLUM E] IN SERUM OR PLASMA 12.4 mg/dL 9.0 - 25.0 06/23 Specimen Type: PLASMA Comment: No hemolysis noted. Ordering Provider: MARISA RAHMAN Report Released Date/Time: Jun 23, 2023 08:32 AM Reporting Lab: [facility] [place] [id number] Performing Lab: [facility] DIVISION COMPREHENS [place] METABOLIC PANEL GLUCOSE [MASS/VOLUM E] IN SERUM OR PLASMA 96 mg/dL 72 - 99 06/23 Specimen Type: PLASMA Comment: No hemolysis noted. Ordering Provider: MARISA RAHMAN Report Released Date/Time: Jun 23, 2023 08:32 AM Reporting Lab: [facility] [place] [id number] Performing Lab: [facility] DIVISION COMPREHENS [place] METABOLIC PANEL SODIUM [MOLES/VOLU ME] IN SERUM OR PLASMA 143 meq/L 136 - 145 06/23 Specimen Type: PLASMA Comment: No hemolysis noted. Ordering Provider: MARISA RAHMAN Report Released Date/Time: Jun 23, 2023 08:32 AM Reporting Lab: [facility] [place] [address] Performing Lab: [facility] DEPARTMENT OF [facility] [id number] [place] [address] DIVISION COMPREHENS KALYAN METABOLIC PANEL POTASSIUM [MOLES/VOLU ME] IN SERUM OR PLASMA 4.8 meq/L 3.5 - 5.0 06/23 Specimen Type: PLASMA Comment: No hemolysis noted. Ordering Provider: MARISA RAHMAN Report Released Date/Time: Jun 23, 2023 08:32 AM Reporting Lab: [facility] [place] [address] Performing Lab: [facility] [id number] DIVISION COMPREHENS [place] METABOLIC PANEL CHLORIDE [MOLES/VOLU ME] IN SERUM OR PLASMA 106 meq/L 98 - 107 06/23 Specimen Type: PLASMA Comment: No hemolysis noted. Ordering Provider: MARISA RAHMAN Report Released Date/Time: Jun 23, 2023 08:32 AM Reporting Lab: [facility] [place] [phone] Performing Lab: [facility] DIVISION COMPREHENS KALYAN METABOLIC PANEL CARBON DIOXIDE, TOTAL [MOLES/VOLU ME] IN SERUM OR PLASMA 25 meq/L 22 - 31 06/23 Specimen Type: PLASMA Comment: No hemolysis noted. Ordering Provider: MARISA RAHMAN Report Released Date/Time: Jun 23, 2023 08:32 AM Reporting Lab: [facility] [phone] Performing Lab: [facility] DIVISION COMPREHENS KALYAN METABOLIC PANEL CALCIUM [MASS/VOLUM E] IN SERUM OR PLASMA 9.5 mg/dL 8.4 - 10.4 06/23 Specimen Type: PLASMA Comment: No hemolysis noted. Ordering Provider: MARISA RAHMAN Report Released Date/Time: Jun 23, 2023 08:32 AM Reporting Lab: [facility] [place] [address] Performing Lab: [facility] DIVISION COMPREHENS KALYAN METABOLIC PANEL PROTEIN [MASS/VOLUM E] IN SERUM OR PLASMA 7.0 g/dL 6.0 - 8.6 06/23 Specimen Type: PLASMA Comment: No hemolysis noted. Ordering Provider: MARISA RAHMAN Report Released Date/Time: Jun 23, 2023 08:32 AM Reporting Lab: [facility] [place] [address] Performing Lab: [facility] DIVISION COMPREHENS K[place] METABOLIC PANEL ALBUMIN [MASS/VOLUM E] IN SERUM OR PLASMA 4.1 g/dL 3.4 - 5.0 06/23 Specimen Type: PLASMA Comment: No hemolysis noted. Ordering Provider: MARISA RAHMAN Report Released Date/Time: Jun 23, 2023 08:32 AM Reporting Lab: [facility] [place] [address] Performing Lab: [facility] DIVISION COMPREHENS K[place] METABOLIC PANEL BILIRUBIN.T OTAL [MASS/VOLUM E] IN SERUM OR PLASMA 0.9 mg/dL 0.2 - 1.2 06/23 Specimen Type: PLASMA Comment: No hemolysis noted. Ordering Provider: MARISA RAHMAN Report Released Date/Time: Jun 23, 2023 08:32 AM Reporting Lab: [facility] [place] [address] Performing Lab: [facility] DIVISION COMPREHENS KALYAN METABOLIC PANEL ALKALINE PHOSPHATASE [ENZYMATIC ACTIVITY/VO LUME] IN SERUM OR PLASMA 63 U/L 40 - 150 06/23 Specimen Type: PLASMA Comment: No hemolysis noted. Ordering Provider: MARISA RAHMAN Report Released Date/Time: Jun 23, 2023 08:32 AM Reporting Lab: [facility] [place] [address] Performing Lab: [facility] DIVISION COMPREHENS K[place] METABOLIC PANEL ASPARTATE AMINOTRANSF ERASE [ENZYMATIC ACTIVITY/VO LUME] IN SERUM OR PLASMA 29 U/L 5 - 34 06/23 Specimen Type: PLASMA Comment: No hemolysis noted. Ordering Provider: MARISA RAHMAN Report Released Date/Time: Jun 23, 2023 08:32 AM Reporting Lab: [facility] [place] [address] Performing Lab: [facility] DIVISION COMPREHENS KALYAN METABOLIC PANEL ALANINE AMINOTRANSF ERASE [ENZYMATIC ACTIVITY/VO LUME] IN SERUM OR PLASMA 30 U/L 8 - 40 06/23 Specimen Type: PLASMA Comment: No hemolysis noted. Ordering Provider: MARISA RAHMAN Report Released Date/Time: Jun 23, 2023 08:32 AM Reporting Lab: [facility] [place] [address] Performing Lab: [facility] DIVISION COMPREHENS KALYAN METABOLIC PANEL GLOMERULAR FILTRATION RATE/1.73 SQ M.PREDICTED [VOLUME RATE/AREA] IN SERUM, PLASMA OR BLOOD BY CREATININE- BASED FORMULA (CKD-EPI 2020) 58.25 60 06/23 Specimen Type: PLASMA Comment: No hemolysis noted. Ordering Provider: MARISA RAHMAN Report Released Date/Time: Jun 23, 2023 08:32 AM Reporting Lab: [facility] [place] [address] Performing Lab: [facility] [place] [id number] DIVISION FOLATE (STL-MA) FOLATE [MASS/VOLUM E] IN SERUM OR PLASMA 18.6 ng/mL 7 - 20 06/23 Specimen Type: SERUM No comment entered. Ordering Provider: MARISA RAHMAN Report Released Date/Time: Jun 23, 2023 08:32 AM Reporting Lab: [facility] [place] [address] Performing Lab: [facility] LIPID PANEL (STL) CHOLESTEROL [MASS/VOLUM E] IN SERUM OR PLASMA 193 mg/dL 0 - 200 06/23 Specimen Type: PLASMA Comment: No hemolysis noted. Ordering Provider: MARISA RAHMAN Report Released Date/Time: Jun 23, 2023 08:32 AM Reporting Lab: [facility] [place] [address] Performing Lab: [facility] LIPID PANEL (L) TRIGLYCERID E [MASS/VOLUM E] IN SERUM OR PLASMA 116 mg/dL 0 - 150 06/23 Specimen Type: PLASMA Comment: No hemolysis noted. Ordering Provider: MARISA RAHMAN Report Released Date/Time: Jun 23, 2023 08:32 AM Reporting Lab: [facility] [place] [address] Performing Lab: [facility] LIPID PANEL (STL) CHOLESTEROL IN LDL [MASS/VOLUM E] IN SERUM OR PLASMA BY CALCULATION 127 mg/dL 06/23 Specimen Type: PLASMA Comment: No hemolysis noted. Ordering Provider: MARISA RAHMAN Report Released Date/Time: Jun 23, 2023 08:32 AM Reporting Lab: [facility] [phone] Performing Lab: [facility] [phone] [facility] LIPID PANEL (STL) CHOLESTEROL IN HDL [MASS/VOLUM E] IN SERUM OR PLASMA 43 mg/dL 40 06/23 Specimen Type: PLASMA Comment: No hemolysis noted. Ordering Provider: MARISA RAHMAN Report Released Date/Time: Jun 23, 2023 08:32 AM Reporting Lab: [facility] [phone] Performing Lab: [facility] [phone] [facility] Vital Signs Combined list of inpatient and outpatient Vital Signs from Department of Defense and Veterans Affairs, ranging from 12 months to all on record, depending upon the facility. Vital Sign Value Date Comments Source SYSTOLIC BLOOD PRESSURE 131 05/13/2024 09:18:44 [facility] DIASTOLIC BLOOD PRESSURE 78 05/13/2024 09:18:44 [facility] PULSE OXIMETRY 98 05/13/2024 09:18:44 [facility] WEIGHT 166.9 05/13/2024 09:18:44 [facility] BMI 26kg/m2 05/13/2024 09:18:44 [facility] PAIN 0 05/13/2024 09:18:44 [facility] HEIGHT 67 05/13/2024 09:18:44 [facility] TEMPERATURE 98 05/13/2024 09:18:44 [facility] PULSE 54 05/13/2024 09:18:44 [facility] RESPIRATION 18 05/13/2024 09:18:44 [facility] Encounters Combined list of: 1) Encounters from Department of Veterans Affairs facilities going back up to thelast 18 months. 2) Encounters from the Department of Defense facilities going back up to 280 months. Location Location Details Encounter Type Encounter Number Reason For Visit Attending Provider ADM Date DC Date Status Disposition Source 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
MARISA RAHMAN 06/23 [facility] Outpatient Encounter [id number] 06/26 [facility] Outpatient Encounter [id number] Taylor HULL A 06/26 [facility] Outpatient Encounter [id number] 08/02 [facility] Outpatient Encounter [id number] 08/02 [facility] Outpatient Encounter [id number] Taylor VILLELA M 08/07 [facility] Outpatient Encounter [id number] 08/07 [facility] Outpatient Encounter [id number] Diagnos is: ICD-10- CM R53.83 Other fatigue
Taylor PATTERSON ONSTANCE D 08/07 [facility] PSYTX W PT 30 MINUTES [id number] Diagnos is: ICD-10- CM R41.9 Unsp symptom s and signs w cogniti ve functio ns and awarene ss
JONATHAN TIM NT 08/16 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
MARISA RAHMAN Naveen 09/04 [facility] Outpatient Encounter [id number] Diagnos is: ICD-10- CM G47.30 Sleep apnea, unspeci fied
GERALDO NICK M 09/04 [facility] HC PRO PHONE CALL 5-10 MIN [id number] Diagnos is: ICD-10- CM G30.9 Alzheim er's disease , unspeci fied
QUYNH MCNEAL M 09/27 [facility] Outpatient Encounter [id number] 10/13 [facility] HC PRO PHONE CALL 21-30 MIN [id number] Diagnos is: ICD-10- CM G30.9 Alzheim er's disease , unspeci fied
QUYNH MCNEAL M 10/13 [facility] HC PRO PHONE CALL 5-10 MIN [id number] Diagnos is: ICD-10- CM G30.9 Alzheim er's disease , unspeci fied
ELIZABETQUYNH TREVINO M 10/24 [facility] Outpatient Encounter [id number] 11/02 [facility] Outpatient Encounter [id number] 11/29 [facility] Outpatient Encounter [id number] 01/10 [facility] HC PRO PHONE CALL 11-20 MIN [id number] Diagnos is: ICD-10- CM G30.9 Alzheim er's disease , unspeci fied
ELIZABET,QUYNH Hodge 01/10 [facility] Outpatient Encounter [id number] 01/11 [facility] HC PRO PHONE CALL 21-30 MIN [id number] Diagnos is: ICD-10- CM G30.9 Alzheim er's disease , unspeci fied
QUYNH MCNEAL 01/23 [facility] HC PRO PHONE CALL 5-10 MIN [id number] Diagnos is: ICD-10- CM Z71.9 Edger Automatic ing, unspeci fied
Demar GOINS 02/08 [facility] Outpatient Encounter [id number] Aaron MARTINEZ 05/07 [facility] OFFICE O/P EST MOD 30 MIN [id number] Diagnos is: ICD-10- CM G30.9 Alzheim er's disease , unspeci fied
MARISA RAHMAN 05/13 [facility] Social History Combined list of available smoking, tobacco, and other social history from Department of Defense and Veterans Affairs facilities. Social History Type Response Date Comment Sour e Tobacco smoking status NHIS VA-TOBACCO FORMER USER 05/07/2024 [facility] History of tobacco use VA-TOBACCO QUIT 1 5 YRS OR MORE 05/07/2024 [facility] History of tobacco use VA-TOBACCO FORMER USER 11/25/2022 [facility] History of tobacco use VA-TOBACCO FORMER USER 10/14/2020 [facility] History of tobacco use VA-TOBACCO QUIT 1 5 YRS OR MORE 04/29/2019 [facility] History of tobacco use QUIT TOBACCO >7 Y EARS AGO 05/01/2018 [facility] History of tobacco use QUIT TOBACCO >7 Y EARS AGO 08/07/2017 [facility] History of tobacco use QUIT TOBACCO >7 Y EARS AGO 01/10/2017 [facility] History of tobacco use QUIT TOBACCO >7 Y EARS AGO 09/07/2015 [facility] History of tobacco use QUIT TOBACCO >7 Y EARS AGO 07/28/2014 [facility] History of tobacco use QUIT TOBACCO >7 Y EARS AGO 07/16/2013 [facility] History of tobacco use QUIT TOBACCO >7 Y EARS AGO 07/27/2009 [facility] History of tobacco use QUIT TOBACCO >12 MO and <7 YRS AGO 10/18/2006 [facility] History of tobacco use CURRENT NON-TOBAC CO USER-HX OF USE 07/12/2006 [facility] History of tobacco use CURRENT NON-TOBAC CO USER-HX OF USE 12/21/2005 [facility] History of tobacco use CURRENT NON-TOBAC CO USER-HX OF USE 06/14/2005 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 Plan of Care List of future care activities from Department of Veterans Affairs facilities. Additional future care activities may be listed in the Assessment and Plan section. Date/Time Care Activity Care Activity Detail Facili ty 11/13/2024 AMBULATORY - MEDICINE AMBULATORY - MEDICI [facility] Advance Directives List of completed, amended, or rescinded Advance Directives on record at Department of [facility] Affairs facilities. An actual copy of the Directive is not included. Date Advance Directive Provider Source 11/25/2022 ADVANCE DIRECTIVE CELINE GOINS [facility]
--- OUTSIDE RECORDS SUMMARY | 2024-10-02 06:05 | XMS_ITS | Encounter Summary ---
Author Organization [facility] Address [address] [place] [address] Care Team Providers Care Covered Button Maker Name Role Phone Cali Levine MD Primary Care Provider [phone] Reason for Visit * Reason Onset Date Comments questions 03/02/2022 Encounter Details Date Type Department Care Team ([facility] st Contact Info) Description 03/02/2022 Telephone [facility] Primary Care at [address] [address] Cali Levine MD [facility] [address] [address] questions Social History Tobacco Use [...] on file 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 Please call back at [phone] * Telephone Encounter - Cali Levine MD [...] on filedocumented in this encounter Care Teams Covered Button Maker Relationship Specialty Start Date End Date Cali Levine MD PCP - General Family Medicine 08/02/21 08/23/22 documented as of this encounter
--- OUTSIDE RECORDS SUMMARY | 2024-10-02 06:05 | XMS_ITS | Encounter Summary ---
Author Organization [facility] Address [address] [facility] [facility] [address] [place] [address] Care Team Providers Care Radiographer Cardiac Catheterization Name Role Phone Cali Levine MD Primary Care Provider [phone] Reason for Visit * Reason Onset Date Comments Referral Request 04/24/2023 Encounter Details Date Type Department Care Team (Late st Contact Info) Description 04/24/2023 Telephone [facility] [address] [facility] [address] [place] [address] Cali Levine MD [address] [place] [address] Referral Request Social History Tobacco Use [...] on file 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 Yes Caller???s Callback #: Catina burch/Silvana @ [phone] Additional Comments: Caller w.Patient on the 3-way [...] on filedocumented in this encounter Care Teams Radiographer Cardiac Catheterization Relationship Specialty Start Date End Date Cali Levine MD PCP - General Family Medicine 08/24/22 documented as of this encounter
--- OUTSIDE RECORDS SUMMARY | 2024-10-02 06:05 | XMS_ITS | Encounter Summary ---
Author Organization [facility] Healthcare Address [address] [place] [address] Care Team Providers Care Neuro Ophthalmologist Name Role Phone Cali Levine MD Primary Care Provider [phone] Reason for Visit * Reason Onset Date Comments Medical Question/Miscellaneous 04/29/2024 Encounter Details Date Type Department Care Team (Late st Contact Info) Description 04/29/2024 Telephone [facility] Family Medicine at [address] [place] [address] Cali Levine MD 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 Varsha notified. * Telephone Encounter - Odette Chow MA - 05/02/2024 10:15 AM CDT Call Back Caller???s Concern: Patient's will be in [place] today and would like to cotton picker operator the letter. She stressed the importance and [...] on filedocumented in this encounter Care Teams Neuro Ophthalmologist Relationship Specialty Start Date End Date Cali Levine MD PCP - General Family Medicine 08/24/22 documented as of this encounter
--- OUTSIDE RECORDS SUMMARY | 2024-10-02 06:05 | XMS_ITS | Encounter Summary ---
Author Organization [facility] Healthcare Address [address] [place] [address] Care Team Providers Care Hoop Riveting Machine Operator Name Role Phone Cali Levine MD Primary Care Provider [phone] Reason for Visit * Reason Comments Medicare Wellness Fatigue Encounter Details Date Type Department Care Team (Late st Contact Info) Description 11/08/2023 1:45 PM LUMBER CARRIER OPERATOR Office Visit [facility] Family Medicine [address] [place] [address] Cali Levine MD [address] [place] [address] Medicare annual wellness visit, subsequent (Primary [...] on file Legal Sex Male 9:23 AM LUMBER CARRIER OPERATOR Gender Identity Not on file Sexual Orientation Not on file documented as of this encounter Last Filed Vital Signs Vital Sign Reading Time Taken Comments Blood Pressure 136/72 11/08/2023 1:55 PM LUMBER CARRIER OPERATOR Pulse 55 11/08/2023 1:55 PM LUMBER CARRIER OPERATOR Temperature 36.3 ??C (97.3 ??F) 11/08/2023 1:55 PM CS T Respiratory Rate - - Oxygen Saturation 94% 11/08/2023 1:55 PM LUMBER CARRIER OPERATOR Inhaled Oxygen Concentration - - Weight 77.7 kg (171 lb 3.2 oz) 11/08/2023 1:55 P M LUMBER CARRIER OPERATOR Height 170.2 cm (5' 7 ) 11/08/2023 1:55 PM LUMBER CARRIER OPERATOR Body Mass Index 26.81 11/08/2023 1:55 PM LUMBER CARRIER OPERATOR documented in this encounter Progress Notes [...] a living will or durable power of personal injury attorney?: Yes Do you have to strain [...] - General (Family Medicine) Primary Pharmacy/DME suppliers: [facility]/pharmacy #[id number] [place] [address] - [address] [place] [address] [address] [facility] [address] Detection of Cognitive Impairment: The patient does [...] Improve Diet Advanced Directive Durable Power of Brush Loader And Handle Attacher: Discussed Today: Living Will: Discussed Today: Assessment [...] 1 Standing Expiration Date: 11/08/2024 Thyroid Function [place] Standing Status: Future Number of Occurrences: 1 [...] today's office visit. Cali Levine MD ER CARRIER OPERATOR documented in this encounter Plan of Treatment Not on file documented as of this encounter Procedures Procedure Name Priority Date/Time Associated Diagnosis Comments THYROXINE (T4) FREE, DIRECT, S Routine 11/23/2023 8:40 AM LUMBER CARRIER OPERATOR THYROID PEROXIDASE (TPO) AB Routine 11/23/2023 8:40 AM LUMBER CARRIER OPERATOR THYROID FUNCTION CASCADE Routine 11/23/2023 8:40 AM LUMBER CARRIER OPERATOR Fatigue, unspecified type CBC WITH AUTO DIFFERENTIAL Routine 11/23/2023 8:40 AM LUMBER CARRIER OPERATOR Essential hypertension VITAMIN B12 Routine 11/23/2023 8:40 AM LUMBER CARRIER OPERATOR Fatigue, unspecified type LIPID PANEL Routine 11/23/2023 8:40 AM LUMBER CARRIER OPERATOR Mixed hyperlipidemia COMPREHENSIVE METABOLIC PANEL Routine 11/23/2023 8:40 AM LUMBER CARRIER OPERATOR Essential hypertension documented in this encounter Results * Thyroid Peroxidase (TPO) Ab (11/23/2023 8:40 AM LUMBER CARRIER OPERATOR) Thyroperoxidase ab 14 0 - 34 IU/mL [facility] - 01 Thyroid peroxidase (TPO) Ab, comment Comment [facility] - 01 Comment: An elevation of TSH and a normal FT4 in the absence of anti-thyroid peroxidase antibody are suggestive of Subclinical Hypothyroidism. Similar values have also been associated with Non-Thyroidal Illness in severely ill patients. 11/23/2023 8:40 AM LUMBER CARRIER OPERATOR 11/23/2023 Narrative [facility] - 11/25/2023 7:36 AM LUMBER CARRIER OPERATOR Performed at: ??01 - [facility] [address], [place], [place] ??[id number] Anesthesiology Resident: Colt Nath PhD, Phone: ??[phone] us Cali Levine MD LAB BLOOD ORDERABLES Final Re sult [facility] - 01 * Thyroxine (T4) Free, Direct, S (11/23/2023 8:40 AM LUMBER CARRIER OPERATOR) Free T4 1.02 0.82 - 1.77 ng/dL [facility] - 01 11/23/2023 8:40 AM LUMBER CARRIER OPERATOR 11/23/2023 Narrative [facility] - 11/25/2023 7:36 AM LUMBER CARRIER OPERATOR Performed at: ??01 - [facility] ??[id number] Anesthesiology Resident: Colt Nath PhD, Phone: ??[phone] us Cali Levine MD LAB BLOOD ORDERABLES Final Re sult Performing Organization Address [facility] Co de Phone Number [facility] - * Vitamin B12 (11/23/2023 8:40 AM LUMBER CARRIER OPERATOR) Pathologist [facility] Vitamin B12 418 232 - 1,245 pg/mL [facility] - 01 Blood 11/23/2023 8:40 AM LUMBER CARRIER OPERATOR 11/23/2023 Narrative [facility] - 11/25/2023 7:36 AM LUMBER CARRIER OPERATOR Performed at: ??01 - [facility] ??[id number] Anesthesiology Resident: Colt Nath PhD, Phone: ??[phone] us Cali Levine MD LAB BLOOD ORDERABLES Final Re sult Performing Organization Address City/[facility] Co de Phone Number [facility] - * (ABNORMAL) Thyroid Function [place] (11/23/2023 8:40 AM LUMBER CARRIER OPERATOR) TSH 5.060(H) 0.450 - 4.500 uIU/mL [facility] - 01 Blood 11/23/2023 8:40 AM LUMBER CARRIER OPERATOR 11/23/2023 Narrative [facility] - 11/25/2023 7:36 AM LUMBER CARRIER OPERATOR Performed at: ??01 - [facility] ??[id number] Anesthesiology Resident: Colt Nath PhD, Phone: ??[phone] us Cali Levine MD LAB BLOOD ORDERABLES Final Re sult Performing Organization Address [facility] de Phone Number [facility] * Lipid panel (11/23/2023 8:40 AM LUMBER CARRIER OPERATOR) Cholesterol 147 100 - 199 mg/dL [facility] - 01 Triglycerides 107 0 - 149 mg/dL [facility] - 01 HDL Cholesterol 46 >39 mg/dL [facility] - 01 VLDL 20 5 - 40 mg/dL [facility] - 01 LDL, calculated 81 0 - 99 mg/dL [facility] - 01 Blood 11/23/2023 8:40 AM LUMBER CARRIER OPERATOR 11/23/2023 Narrative [facility] - 11/25/2023 7:36 AM LUMBER CARRIER OPERATOR Performed at: ??01 - [facility] ??[id number] Anesthesiology Resident: Colt Nath PhD, Phone: ??[phone] us Cali Levine MD LAB BLOOD ORDERABLES Final Re sult Performing Organization Address [facility] de Phone Number [facility] * (ABNORMAL) Comprehensive metabolic panel (11/23/2023 8:40 AM LUMBER CARRIER OPERATOR) Glucose 101(H) 70 - 99 mg/dL [...] [facility] - 01 Blood 11/23/2023 8:40 AM LUMBER CARRIER OPERATOR 11/23/2023 Narrative [facility] - 11/25/2023 7:36 AM LUMBER CARRIER OPERATOR Performed at: ?? - [facility] [address] ??[id number] Anesthesiology Resident: Colt Nath PhD, Phone: ??[phone] us Cali Levine MD LAB BLOOD ORDERABLES Final Re sult [facility] 01 * CBC with auto differential (11/23/2023 8:40 AM LUMBER CARRIER OPERATOR) WBC 6.1 3.4 - 10.8 x10E3/uL [...] [facility] - 01 Blood 11/23/2023 8:40 AM LUMBER CARRIER OPERATOR 11/23/2023 Narrative [facility] - 11/24/2023 4:12 PM LUMBER CARRIER OPERATOR Performed at: ??01 - [facility] [address] ??[id number] Anesthesiology Resident: Colt Nath PhD, Phone: ??[phone] us Cali Levine MD LAB BLOOD ORDERABLES [...] documented as of this encounter Care Teams Hoop Riveting Machine Operator Relationship Specialty Start Date End Date Cali Levine MD PCP - General Family Medicine 08/24/22 documented as of this encounter
--- OUTSIDE RECORDS SUMMARY | 2024-10-02 06:05 | XMS_ITS | Encounter Summary ---
Author Organization [facility] Medical Group Address [address] [facility] [address] [place] [address] Care Team Providers Care Feeder Loader Name Role Phone Cali Levine MD Primary Care Provider [phone] Encounter Details Date Type Department Care Team (Late st Contact Info) Description 10/27/2021 Telephone [facility] Medical Group Primary Care at [address] [address] Cali Levine MD [address] [facility] [address] [id number] Social History Tobacco Use Types Packs/Day Years [...] on file Legal 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 STORE MARKETING ASSOCIATE documented in this encounter Plan of Treatment [...] documented as of this encounter Care Teams Feeder Loader Relationship Specialty Start Date End Date Cali Levine MD PCP - General Family Medicine 08/02/21 08/23/22 documented as of this encounter
--- OUTSIDE RECORDS SUMMARY | 2024-10-02 06:05 | XMS_ITS | Encounter Summary ---
Author Organization [facility] Healthcare Address [address] [place] [address] Care Team Providers Care Magnetic Resonance Technologist Name Role Phone Cali Levine MD Primary Care Provider [phone] Reason for Visit * Reason Comments Hyperlipidemia 6 mo f/u Encounter Details Date Type Department Care Team (Late st Contact Info) Description 04/22/2024 3:30 PM CDT Office Visit [facility] Medical Group Family Medicine at [address] [place] [address] Cali Levine MD [address] [place] [address] Essential hypertension (Primary Dx); Mixed hyperlipidemia; Dementia [...] on file Legal 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 Answer: Yes Thyroid Function [place] Standing Status: Future Number of Occurrences: 1 [...] 05/11/2024 3:35 AM CDT Performed at: ??[address] [facility] ??[id number] Data Scientist: Colt Nath PhD, Phone: ??[phone] us Cali Levine MD LAB BLOOD ORDERABLES Final Re sult [facility] - 01 * Thyroxine (T4) Free, Direct, S (05/10/2024 10:25 AM CDT) Pathologist [facility] Free T4 1.05 0.82 - 1.77 ng/dL [facility] - 01 05/10/2024 10:2 5 AM CDT 05/10/2024 Narrative [facility] - 05/11/2024 3:35 AM CDT Performed at: ??01 [facility] [place] ??[id number] Data Scientist: Colt Nath PhD, Phone: ??[phone] Cali Levine MD LAB BLOOD ORDERABLES Final Re sult Performing Organization Address [facility] de Phone Number [facility] - 01 * (ABNORMAL) Thyroid Function [place] (05/10/2024 10:25 AM CDT) TSH 4.870(H) 0.450 - 4.500 uIU/mL [facility] - 01 Blood 05/10/2024 10:2 5 AM CDT 05/10/2024 Narrative [facility] - 05/11/2024 3:35 AM CDT Performed at: ??01 - [facility] ??[id number] Data Scientist: Colt Nath PhD, Phone: ??[phone] us Cali Levine MD LAB BLOOD ORDERABLES Final Re sult Performing Organization Address [facility] Phone Number [facility] - 01 * [...] 1:07 AM CDT Performed at: ??01 - [facility] ??[id number] Data Scientist: Colt Nath PhD, Phone: ??[phone] Cali Levine MD LAB BLOOD ORDERABLES Final Re sult Performing Organization Address [facility]/State/ZIP Co de Phone Number [facility] [...] AM CDT Performed at: ??01 - [facility] [address] ??[id number] Data Scientist: Colt Nath PhD, Phone: ??[phone] us Cali Levine MD LAB BLOOD ORDERABLES [...] AM CDT Performed at: ??01 - [facility] [address] ??[id number] Data Scientist: Colt Nath PhD, Phone: ??[phone] us Cali Levine MD LAB BLOOD ORDERABLES Final Re sult [facility] 01 documented in this encounter Visit Diagnoses Diagnosis Essential hypertension- Primary Unspecified essential hypertension Mixed hyperlipidemia Dementia without behavioral disturbance (HCC) Abnormal TSH documented in this encounter Care Teams Magnetic Resonance Technologist Relationship Specialty Start Date End Date Cali Levine MD PCP - General Family Medicine 08/24/22 documented as of this encounter
--- OUTSIDE RECORDS SUMMARY | 2024-10-02 06:05 | XMS_ITS | Encounter Summary ---
Author Organization [facility] Medical Group Address [address] [address] Care Team Providers Care Clinical Social Work Aide Name Role Phone Cali Levine MD Primary Care Provider [phone] Reason for Visit * Reason Comments 6 mo f/u Encounter Details Date Type Department Care Team (Late st Contact Info) Description 01/05/2023 1:00 PM CDT Office Visit [facility] Medical Group Primary Care at [address] [address] Cali Levine MD [address] [facility] [address] [address] Other general medical examination for [...] on file Legal Sex Male 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 MEDICARE/[facility] CARE ANNUAL WELLNESS VISIT Patient Name: Morgan Philippe Date Of : 1940 Date Of Service: @[employer]@ Medicare Health Risk Assessment HPI: 82-year-old male. [...] Social Gatherings with Friends and Family: Attends Islam Services: Active Member of Clubs or Organizations: [...] General (Family Medicine) Primary Pharmacy/DME suppliers: [facility] [place] [address] [facility] [address] Detection of Cognitive Impairment: The patient does [...] and ImproveDiet Advanced Directive Durable Power of Popcorn Vendor: Discussed Today Living Will: Discussed Today Assessment [...] tendency for uric acid stone formation. Source: [facility] [employer]. Last revised 10-12-2017 Cali Levine MD LAB MICROBIOLOGY - GENERAL OR DERABLES Final Result Performing Organization Address [facility] Co de Phone Number CLEMENTE BRADY [address] [place] [address] * (ABNORMAL) TSH reflex to free T4 (01/05/2023 1:39 PM CDT) Pathologist [facility] TSH 5.85(H) 0.30 - 4.20 mcIUnit/mL [facility] Blood 01/05/2023 1:39 PM CDT 01/05/2023 7:57 PM CDT Cali Levine MD LAB BLOOD ORDERABLES Final Re sult Performing Organization Address City/[facility] Co de Phone Number CLEMENTE BRADY [address] [address] [place] [address] * Vitamin B12 (01/05/2023 1:39 PM CDT) Vitamin B12 444 230 - 1,250 pg/mL [facility] Blood 01/05/2023 1:39 PM CDT 01/05/2023 7:57 PM CDT us Cali Levine MD LAB BLOOD ORDERABLES Final Re sult CLEMENTE BRADY [address] [address] Department [place] [address] documented in this encounter Visit Diagnoses Diagnosis Other general medical examination for administrative purposes- Primary Essential hypertension Unspecified essential hypertension Gastroesophageal reflux disease without esophagitis Esophageal reflux Mixed hyperlipidemia Alzheimer's disease, unspecified (HCC) Urinary frequency Fatigue, unspecified type Urinary frequency Fatigue, unspecified type documented in this encounter Care Teams Clinical Social Work Aide Relationship Specialty Start Date End Date Cali Levine MD PCP - General Family Medicine 08/24/22 documented as of this encounter
--- OUTSIDE RECORDS SUMMARY | 2024-10-02 06:05 | XMS_ITS | Encounter Summary ---
Author Organization [facility] Healthcare Address [address] [place] [address] Care Team Providers Care Welding Operator Name Role Phone Cali Levine MD Primary Care Provider [phone] Encounter Details Date Type Department Care Team (Late st Contact Info) Description 08/09/2023 Orders Only [facility] Medical Group Family Medicine [address] [address] Cali Levine MD [address] [place] [address] Nuclear sclerotic cataract of both eyes [...] on file Legal Sex Male 9:23 AM REPATCHER Gender Identity Not on file Sexual Orientation Not on file documented as of this encounter Progress Notes * Jennifer Camilo - 08/09/2023 10:06 AM CST Order created. 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
--- OUTSIDE RECORDS SUMMARY | 2024-10-02 06:05 | XMS_ITS | Clinical Summary ---
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
--- OUTSIDE RECORDS SUMMARY | 2024-10-02 06:05 | XMS_ITS | Encounter Summary ---
Author Organization [facility] Medical Group Address [address] [facility] [address] [place] [address] Care Team Providers Care Tax Expert Name Role Phone Cali Levine MD Primary Care Provider [phone] Reason for Visit * Reason Comments Follow-up FU no concerns today Encounter Details Date Type Department Care Team (Late st Contact Info) Description 07/06/2022 1:15 PM CDT Office Visit [facility] Medical Group Primary Care at [address] [address] Cali Levine MD [address] [facility] [address] [address] Mixed hyperlipidemia (Primary Dx); Essential hypertension; Gastroesophageal [...] on file Legal Sex Male 9:23 AM 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
--- OUTSIDE RECORDS SUMMARY | 2024-10-02 06:05 | XMS_ITS | Encounter Summary ---
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
--- OUTSIDE RECORDS SUMMARY | 2024-10-02 06:05 | XMS_ITS | Encounter Summary ---
Author Organization [facility] Medical Group Address [address] [facility] [address] [place] [address] Care Team Providers Care Linen Folder Name Role Phone Cali Levine MD Primary Care Provider [phone] Reason for Visit * Reason Comments Follow-up pt is here to f/u on labs and MRI. Encounter Details Date Type Department Care Team (Late st Contact Info) Description 09/01/2021 11:15 AM SENIOR JAVASCRIPT ENGINEER Office Visit [facility] Medical Group Primary Care at [address] [address] Cali Levine MD [address] [facility] [address] [address] Memory loss (Primary Dx); Family [...] on file Legal Sex Male 9:23 AM SENIOR JAVASCRIPT ENGINEER Gender Identity Not on file Sexual Orientation Not on file documented as of this encounter Last Filed Vital Signs Vital Sign Reading Time Taken Comments Blood Pressure 124/74 09/01/2021 11:29 AM SENIOR JAVASCRIPT ENGINEER Pulse 78 09/01/2021 11:29 AM SENIOR JAVASCRIPT ENGINEER Temperature 37 ??C (98.6 ??F) 09/01/2021 11:29 AM SENIOR JAVASCRIPT ENGINEER Respiratory Rate - - Oxygen Saturation 98% 09/01/2021 11:29 AM SENIOR JAVASCRIPT ENGINEER Inhaled Oxygen Concentration - - Weight 80.9 kg (178 lb 6.4 oz) 09/01/2021 11:29 AM SENIOR JAVASCRIPT ENGINEER Height 170.2 cm (5' 7 ) 09/01/2021 11:29 AM SENIOR JAVASCRIPT ENGINEER Body Mass Index 27.94 09/01/2021 11:29 AM SENIOR JAVASCRIPT ENGINEER documented in this encounter Ordered Prescriptions Prescription [...] on package. Dispense: 21 tablet Refill: 0 OR JAVASCRIPT ENGINEER documented in this encounter Plan of Treatment [...] documented as of this encounter Care Teams Linen Folder Relationship Specialty Start Date End Date Cali Levine MD PCP - General Family Medicine 08/02/21 08/23/22 documented as of this encounter
--- OUTSIDE RECORDS SUMMARY | 2024-10-02 06:05 | XMS_ITS | Encounter Summary ---
Author Organization [facility] Medical Group Address [address] [facility] [address] [place] [address] Care Team Providers Care Pet Groomer Name Role Phone Cali Levine MD Primary Care Provider [phone] Reason for Visit * Reason Comments Follow-up Pt is here for a 3 m o check up. Encounter Details Date Type Department Care Team (Late st Contact Info) Description 02/24/2022 11:00 AM CDT Office Visit [facility] Medical Group Primary Care at [address] [address] Cali Levine MD [address] [address] Essential hypertension (Primary Dx); Mixed [...] on file Legal Sex Male 9:23 AM OUTREACH COORDINATOR Gender Identity Not on file Sexual [...] loss documented in this encounter Care Teams Pet Groomer Relationship Specialty Start Date End Date Cali Levine MD PCP - General Family Medicine 08/02/21 08/23/22 documented as of this encounter
--- OUTSIDE RECORDS SUMMARY | 2024-10-02 06:05 | XMS_ITS | Encounter Summary ---
Author Organization [facility] Healthcare Address [address] [place] [address] Care Team Providers Care Barrel Ribs Solderer Name Role Phone Cali Levine MD Primary Care Provider [phone] Encounter Details Date Type Department Care Team (Latest Contact Info) Description 01/05/2023 1:39 PM CDT - 01/05/2023 11:59 PM CDT Hospital Encounter [address] [id number] Urinary frequency; Fatigue, unspecified type Discharge Disposition: [...] on file Legal Sex Male 9:23 AM MATERIAL RECLAIMER Gender Identity Not on file Sexual Orientation [...] LAB BLOOD ORDERABLES Final Re sult [facility]E [address] [address] [facility] [place] [address] * Vitamin B12 (01/05/2023 1:39 PM CDT) Pathologist [facility] [place] Vitamin B12 444 230 - 1,250 pg/mL CERNER CH Blood 01/05/2023 1:39 PM CDT 01/05/2023 7:57 PM CDT Cali Levine MD LAB BLOOD ORDERABLES Final Re sult Performing Organization Address [facility] de Phone Number [facility] [address] [place] [address] * (ABNORMAL) TSH reflex to free T4 (01/05/2023 1:39 PM CDT) Pathologist [facility] TSH 5.85(H) 0.30 - 4.20 mcIUnit/mL CERNER CH Blood 01/05/2023 1:39 PM CDT 01/05/2023 7:57 PM CDT Cali Levine MD LAB BLOOD ORDERABLES Final Re sult Performing Organization Address [facility] de Phone Number CLEMENTE [address] [address] [facility] [place] [address] * Urinalysis reflex to microscopic and culture Urine, clean voided (01/05/2023 1:39 PM CDT) Pathologist [facility] Color, ur Yellow Yellow CERNER CH Clarity, [...] tendency for uric acid stone formation. Source: [employer]. Last revised 10-12-2017 us Cali Levine MD LAB MICROBIOLOGY - GENERAL OR DERABLES Final Result CLEMENTE [address] [address] Department [place] [address] documented in this encounter Visit Diagnoses Diagnosis Urinary frequency Fatigue, unspecified type documented in this encounter Care Teams Barrel Ribs Solderer Relationship Specialty Start Date End Date Cali Levine MD PCP - General Family Medicine 08/24/22 documented as of this encounter
--- OUTSIDE RECORDS SUMMARY | 2024-10-02 06:05 | XMS_ITS | Encounter Summary ---
Author Organization [facility] Healthcare Address [address] [place] [address] Care Team Providers Care High Density Finishing Operator Name Role Phone Cali Levine MD Primary Care Provider [phone] Reason for Referral * MRI/CAT/PET Scan (Routine) - Closed Specialty Diagnoses / Procedures Referred By Chitra kendall Referred To Contact Radiology Diagnoses Memory loss Family history of Alzheimer's disease Procedures MRI Brain WO Contrast Cali Levine MD Phone: tel: fax: [address] [address] Referral ID Status Reason Start Date Expiration Date Visits Re quested Visits Authorized [id number] Closed 08/09/2021 11/07/2021 1 1 NG ROOM SERVER Reason for Visit * MRI/CAT/PET Scan (Routine) - Closed Specialty Diagnoses / Procedures Referred By Chitra kendall Referred To Contact Radiology Diagnoses Memory loss Family history of Alzheimer's disease Procedures MRI Brain WO Contrast Cali Levine MD Phone: tel: fax: [address] [address] Referral ID Status Reason Start Date Expiration Date Visits Re quested Visits Authorized [id number] Closed 08/09/2021 11/07/2021 1 1 Encounter Details Date Type Department Care Team (Latest Contact Info) Description 08/20/2021 11:10 AM DINING ROOM SERVER - 08/20/2021 11:59 PM DINING ROOM SERVER Hospital Encounter [facility] MRI [address] [place] [address] Memory loss; Family history of Alzheimer's disease [...] on file Legal Sex Male 9:23 AM DINING ROOM SERVER Gender Identity Not on file Sexual Orientation [...] Read Routine (OP Routine) 08/20/2021 12:06 PM DINING ROOM SERVER Memory loss Family history of Alzheimer's disease documented in this encounter Results * MRI Brain WO Contrast (08/20/2021 12:06 PM DINING ROOM SERVER) Anatomical Region Laterality Modality Head and Neck N/A Magnetic Resonan ce 08/20/2021 12:5 1 PM DINING ROOM SERVER Narrative 08/20/2021 1:03 PM DINING ROOM SERVER EXAM DESCRIPTION: ?? MRI BRAIN WO CONTRAST [...] D: ??08/20/2021 1:03 PM T: Report ID: [id number] Reading Location: ??[id number] Procedure Note Owen Mckinney, DO - 08/20/2021 [...] signed by Owen MONTEZ T: Report ID: [id number] Reading Location: [id number] Cali Levine MD IMG MRI PROCEDURES Final Resu lt documented in this encounter Visit Diagnoses Diagnosis Memory loss Family history of Alzheimer's disease Family history of other condition documented in this encounter Care Teams High Density Finishing Operator Relationship Specialty Start Date End Date Cali Levine MD PCP - General Family Medicine 08/02/21 08/23/22 documented as of this encounter
--- OUTSIDE RECORDS SUMMARY | 2024-10-02 06:05 | XMS_ITS | Encounter Summary ---
Author Organization [facility] Medical Group Address [address] [facility] [address] [place] [address] Care Team Providers Care Requisition Approver Name Role Phone Cali Levine MD Primary Care Provider [phone] Reason for Visit * Reason Onset Date Comments Prior Auth 02/25/2022 Memantine titrat ion pack Encounter Details Date Type Department Care Team ([facility] st Contact Info) Description 02/25/2022 Telephone [facility] Medical Group Primary Care at [address] [address] Cali Levine MD [address] [facility] [address] [address] Prior Auth (Memantine titration pack) Social History [...] file Legal Sex Male 9:23 AM 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
--- OUTSIDE RECORDS SUMMARY | 2024-10-02 06:05 | XMS_ITS | Encounter Summary ---
Author Organization [facility] Medical Group Address [address] [facility] [address] [place] [address] Care Team Providers Care Network Systems Integrator Name Role Phone Cali Levine MD Primary Care Provider [phone] Cali Levine MD Primary Care Provider [phone] Encounter Details Date Type Department Care Team (Late st Contact Info) Description 08/13/2021 Telephone [facility] Primary Care at [address] [address] Lilly Pantoja Social History Tobacco [...] on file Legal Sex Male 9:23 AM RECYCLING MANAGER Gender Identity Not on file Sexual Orientation Not on file documented as of this encounter Miscellaneous Notes * Telephone Encounter - Lilly Pantoja - 08/13/2021 1:48 PM CST CLING MANAGER documented in this encounter Plan of Treatment Not on file documented as of this encounter Visit Diagnoses Not on filedocumented in this encounter Care Teams Network Systems Integrator Relationship Specialty Start Date End Date Cali Levine MD PCP - General Family Medicine 08/02/21 08/23/22 Cali Levine MD PCP - General Family Medicine 08/24/22 documented as of this encounter
--- OUTSIDE RECORDS SUMMARY | 2024-10-02 06:05 | XMS_ITS | Encounter Summary ---
Author Organization [facility] Healthcare Address [address] [place] [address] Care Team Providers Care Deputy Editor In Chief Name Role Phone Cali Levine MD Primary Care Provider Encounter Details Date Type Department Care Team (Late st Contact Info) Description 11/23/2023 Orders Only [facility] Health Information Management [address] [place] [address] Cali Levine MD [address] [facility] [address] [id number] Social History Tobacco Use Types Packs/Day Years [...] on file Legal Sex Male 9:23 AM WOODEN FURNITURE POLISHER Gender Identity Not on file Sexual Orientation [...] on filedocumented in this encounter Care Teams Deputy Editor In Chief Relationship Specialty Start Date End Date Cali Levine MD PCP - General Family Medicine 08/24/22 documented as of this encounter
--- OUTSIDE RECORDS SUMMARY | 2024-10-02 06:05 | XMS_ITS | Encounter Summary ---
Author Organization [facility] Medical Group Address [address] [facility] [address] [place] [address] Care Team Providers Care Bicycle Taxi Driver Name Role Phone Cali Levine MD Primary Care Provider [phone] Encounter Details Date Type Department Care Team (Late st Contact Info) Description 02/01/[address] [facility] Medical Group Primary Care at [address] [address] Cali Levine MD [address] [facility] [address] [address] Social History Tobacco Use Types Packs/Day Years [...] on file Legal Sex Male 9:23 AM INSULATION PROFESSIONAL Gender Identity Not on file Sexual Orientation [...] the infusion. Please call patient back at [phone] or [phone].. Thank You. documented in this encounter Plan of Treatment Not on file documented as of this encounter Visit Diagnoses Not on filedocumented in this encounter Care Teams Bicycle Taxi Driver Relationship Specialty Start Date End Date Cali Levine MD PCP - General Family Medicine 08/02/21 08/23/22 documented as of this encounter
--- OUTSIDE RECORDS SUMMARY | 2024-10-02 06:05 | XMS_ITS | Referral Summary ---
Author Organization [facility] Address [address] [place] [address] Care Team Providers Care Lumber Cutter Name Role Phone Cali Levine MD Primary Care Provider [phone] Encounters Date Type Department Care Team Description 09/25/2024 Orders Only [facility] Health Information Management [address] [place] [address] Cali Levine MD from Last 3 Months [...] on file Legal Sex Male 9:23 AM REFRIGERATION TECH Gender Identity Not on file Sexual Orientation [...] Final Result from Last 3 Months Insurance [employer] Member Subscriber Plan / Payer (Ef fective 2011-Present) Name:Morgan Philippe Relation to Subscriber:Self Name:Morgan Philippe Payer ID:[id number] (NAIC) Type:MEDICARE RISK OTHER Address: [place] [id number] [employer] Care Teams Lumber Cutter Relationship Specialty Start Date End Date Cali Levine MD PCP - General Family Medicine 08/24/22
--- OUTSIDE RECORDS SUMMARY | 2024-10-02 06:06 | XMS_ITS | Encounter Summary ---
Author Organization [facility] Medical Group Address [address] [facility] [address] [place] [address] Care Team Providers Care Funeral Driver Name Role Phone Cali Levine MD Primary Care Provider [phone] Cali Levine MD Primary Care Provider [phone] Encounter Details Date Type Department Care Team (Late st Contact Info) Description 08/02/2021 Documentation [facility] Medical [facility] Primary Care at [address] [address] Lilly Pantoja Social History Tobacco [...] on filedocumented in this encounter Care Teams Funeral Driver Relationship Specialty Start Date End Date Cali Levine MD PCP - General Family Medicine 08/02/21 08/23/22 Cali Levine MD PCP - General Family Medicine 08/24/22 documented as of this encounter
--- OUTSIDE RECORDS SUMMARY | 2024-10-02 06:06 | XMS_ITS | Encounter Summary ---
Author Organization [facility] Medical Group Address [address] [facility] [address] [place] [address] Care Team Providers Care Counseling Services Director Name Role Phone Cali Levine MD Primary Care Provider [phone] Reason for Referral * MRI/CAT/PET Scan (Routine) - Closed Specialty Diagnoses / Procedures Referred By Contac t Referred To Contact Radiology Diagnoses Memory loss Family history of Alzheimer's disease Procedures MRI Brain WO Contrast Cali Levine MD Phone: tel: fax: [address] [address] Referral ID Status Reason Start Date Expiration Date Visits Re quested Visits Authorized [id number] Closed 08/09/2021 11/07/2021 1 1 Reason for Visit * Reason Comments Follow-up pt is here for a isrrael ck up for med refill. Memory Loss Pt is c/o issus with memory Encounter Details Date Type Department Care Team (Late st Contact Info) Description 08/04/2021 3:15 PM CDT Office Visit [facility] Medical Group Primary Care at [address] [address] Cali Levine MD [facility] [facility] [address] [place] [address] [place] [address] Essential hypertension (Primary Dx); Mixed hyperlipidemia; [...] on file Legal Sex Male 9:23 AM CFO Gender Identity Not on file Sexual Orientation [...] Where should this order be performed? Answer: [facility] [[id number]] Order Specific Question: Does the patient [...] MRI Brain WO Contrast (08/20/2021 12:06 PM CFO) Anatomical Region Laterality Modality Head and Neck N/A Magnetic Resonan ce 08/20/2021 12:5 1 PM CFO Narrative 08/20/2021 1:03 PM CFO EXAM DESCRIPTION: ?? MRI BRAIN WO CONTRAST [...] D: ??08/20/2021 1:03 PM T: Report ID: [id number] Reading Location: ??[id number] Procedure Note Owen Mckinney, DO - 08/20/2021 [...] signed by Owen MONTEZ T: Report ID: [id number] Reading Location: [place] [address] us Cali Levine MD IMG MRI PROCEDURES [...] LAB BLOOD ORDERABLES Final Re sult [facility] [address] [address] Department [place] [address] * Comprehensive metabolic panel (08/06/2021 9:40 AM CDT) Pathologist [facility] [place] Sodium 138 135 - 145 mmol/L CERNER [...] LAB BLOOD ORDERABLES Final Re sult CLE[facility]E [address] [facility] Department [place] [address] * Lipid panel (08/06/2021 9:40 [...] LAB BLOOD ORDERABLES Final Re sult [place] [address] [address] Department [place] [address] documented in this encounter Visit Diagnoses Diagnosis [...] 08/04/2021 documented in this encounter Care Teams Counseling Services Director Relationship Specialty Start Date End Date Cali Levine MD PCP - General Family Medicine 08/02/21 08/23/22 documented as of this encounter
--- OUTSIDE RECORDS SUMMARY | 2024-10-02 06:06 | XMS_ITS | Encounter Summary ---
Author Organization [facility] Medical Group Address [address] [facility] [address] [place] [address] Care Team Providers Care Forming Press Operator Name Role Phone Cali Levine MD Primary Care Provider [phone] Encounter Details Date Type Department Care Team (Late st Contact Info) Description 09/13/2019 Telephone [facility] Accountable Care Organization [address] [place] [address] Vilma Hinojosa, RN [address] [facility] [address] [address] Social History Tobacco Use Types Packs/Day Years Used Date Smoking Tobacco: Never Assessed Sex and Gender Information Value Date Recorded Sex Assigned at Not on file Legal Sex Male 9:23 AM SIGNAL WORKER HELPER Gender Identity Not on file Sexual Orientation Not on file documented as of this encounter Miscellaneous Notes * Telephone Encounter - Vilma Hinojosa RN - 10/16/2019 12:37 PM SIGNAL WORKER HELPER [facility]- appt 10/03/2019 new pt appt cancelled per pt as to busy [facility] Vilma Hinojosa RN, BSN [facility] [employer]boat [employer] for High Risk [phone] AL WORKER HELPER * Telephone Encounter - Nisreen Hunter RN - 09/13/2019 11:26 AM CST Images from the original note were not included. LONNIE Cornell; Cali Levine MD; Jacque Alvarenga MA; Yesenia Perez; Vilma Hinojosa RN 18 minutes ago (11:07 AM) Please send new pt package as needed to pt- thank you- Vilma Hinojosa RN, BSN [facility] [employer] [phone] Routing comment AL WORKER HELPER * Telephone Encounter - Vilma Hinojosa RN - 09/13/2019 11:04 AM SIGNAL WORKER HELPER Essence - pt called me and has never established care- I had called him- states [place]- denies any issues except BP med and Chol med- will see Dr. Levine 10/03/2019- verified address- lives w/- Vilma Hinojosa RN, BSN [facility] [employer] [phone] AL WORKER HELPER documented in this encounter Plan of Treatment Not on file documented as of this encounter Visit Diagnoses Not on filedocumented in this encounter Care Teams Forming Press Operator Relationship Specialty Start Date End Date Cali Levine MD PCP - General Family Medicine 08/07/19 04/11/21 documented as of this encounter
--- OUTSIDE RECORDS SUMMARY | 2024-10-02 06:06 | XMS_ITS | Encounter Summary ---
Author Organization [facility] Medical Group Address [address] [facility] [address] [place] [address] Care Team Providers Care Safety Belt Installer Name Role Phone Cali Levine MD Primary Care Provider [phone] Reason for Visit * Reason Comments Establish Care Hernia nodule in left side of groin Encounter Details Date Type Department Care Team (Late st Contact Info) Description 11/12/2020 10:45 AM CARD CHECKER Office Visit [facility] Medical [facility] [address] [facility] [address] [place] [address] Cali Levine MD [address] [place] [address] [address] [place] [address] Essential hypertension (Primary Dx); Gastroesophageal reflux disease [...] on file Legal Sex Male 9:23 AM CARD CHECKER Gender Identity Not on file Sexual Orientation Not on file documented as of this encounter Last Filed Vital Signs Vital Sign Reading Time Taken Comments Blood Pressure 132/78 11/12/2020 11:14 AM CARD CHECKER Pulse 73 11/12/2020 11:14 AM CARD CHECKER Temperature 36.5 ??C (97.7 ??F) 11/12/2020 11:[address] Respiratory Rate 18 11/12/2020 11:14 AM CARD CHECKER Oxygen Saturation 98% 11/12/2020 11:14 AM CARD CHECKER Inhaled Oxygen Concentration - - Weight 79.1 kg (174 lb 6.4 oz) 11/12/2020 11:14 AM CARD CHECKER Height 170.2 cm (5' 7 ) 11/12/2020 11:14 AM CARD CHECKER Body Mass Index 27.31 11/12/2020 11:14 AM CARD CHECKER documented in this encounter Progress Notes * [...] on phone: None Gets together: None Attends gnosticism service: None Active member of club or [...] junk food and seatbelts. Cali Levine MD CHECKER documented in this encounter Plan of Treatment [...] 12/04/2020 added in this encounter Care Teams Safety Belt Installer Relationship Specialty Start Date End Date Cali Levine MD PCP - General Family Medicine 08/07/19 04/11/21 documented as of this encounter
--- OUTSIDE RECORDS SUMMARY | 2024-10-02 06:06 | XMS_ITS | Encounter Summary ---
Author Organization [facility] Healthcare Address [address] [place] [address] Care Team Providers Care International Marketing Intern Name Role Phone Cali Levine MD Primary Care Provider Encounter Details Date Type Department Care Team (Late st Contact Info) Description 08/06/2021 2:10 PM CDT Lab [address] [address] Essential hypertension; Mixed hyperlipidemia Social History Tobacco [...] on file Legal Sex Male 9:23 AM HEALTHCARE MANAGEMENT Gender Identity Not on file Sexual Orientation [...] Results * eGFR (08/06/2021 9:40 AM CDT) [facility] Signature eGFR 68 mL/min/1.7 3 m2 CLEMENTE [...] BLOOD ORDERABLES Final Re sult CLEMENTE BRADY [address] Department [place] [address] * Differential, auto (08/06/2021 9:40 AM CDT) [...] ORDERABLES Final Re sult Performing Organization Address City/[facility] Co de Phone Number CLEMENTE BRADY [address] Department of [place], [place] [id number] * CBC with auto differential (08/06/2021 9:40 [...] ORDERABLES Final Re sult Performing Organization Address City/[facility]/ZIP Co de Phone Number CLEMENTE BRADY [address] [place] [address] * Comprehensive metabolic panel (08/06/2021 9:40 AM [...] MD LAB BLOOD ORDERABLES Final Re sult [facility] [address] Department [place] [address] * Lipid panel (08/06/2021 9:40 AM CDT) [facility] Cholesterol 180 30 - 199 mg/dL CERNER [...] LAB BLOOD ORDERABLES Final Re sult [facility]E [address] [address] Department [place] [address] documented in this encounter Visit Diagnoses Diagnosis Essential hypertension Unspecified essential hypertension Mixed hyperlipidemia documented in this encounter Care Teams International Marketing Intern Relationship Specialty Start Date End Date Cali Levine MD PCP - General Family Medicine 08/02/21 08/23/22 documented as of this encounter
--- OUTSIDE RECORDS SUMMARY | 2024-10-02 06:06 | XMS_ITS | Encounter Summary ---
Author Organization [facility] Medical Group Address [address] [facility] [address] [place] [address] Care Team Providers Care Parks And Recreation Worker Name Role Phone Cali Levine MD Primary Care Provider [phone] Reason for Visit * Reason Onset Date Comments lisinopril dosage 12/08/2020 Encounter Details Date Type Department Care Team (Late st Contact Info) Description 12/08/2020 Telephone [facility] Medical [facility] Family Medicine [address] [facility] [address] [place] [address] Cali Levine MD [address] [place] [phone] lisinopril dosage Social History Tobacco Use Types [...] on file Legal Sex Male 9:23 AM GEOPHYSICAL LABORATORY DIRECTOR Gender Identity Not on file Sexual Orientation Not on file documented as of this encounter Miscellaneous Notes * Telephone Encounter - aTtyana Adhikari MA - 12/08/2020 3:44 PM CST Received fax from pharmacy for clarification on lisinopril dosage. Does pt takes 1 or 1.5 tablets daily. Left message for patient to call office. HYSICAL LABORATORY DIRECTOR documented in this encounter Plan of Treatment Not on file documented as of this encounter Visit Diagnoses Not on filedocumented in this encounter Care Teams Parks And Recreation Worker Relationship Specialty Start Date End Date Cali Levine MD PCP - General Family Medicine 08/07/19 04/11/21 documented as of this encounter
--- OUTSIDE RECORDS SUMMARY | 2024-10-02 06:06 | XMS_ITS | Encounter Summary ---
Author Organization [facility] Address [address] [facility] [address] [place] [address] Care Team Providers Care Car Hiker Name Role Phone Cali Levine MD Primary Care Provider [phone] Reason for Visit * Reason Onset Date Comments Test Results 08/10/2021 labs Encounter Details Date Type Department Care Team ([facility] st Contact Info) Description 08/10/2021 Telephone [facility] Primary Care at [address] [address] Cali Levine MD [address] [facility] [address] [address] Test Results (labs) Social History [...] on file Legal Sex Male 9:23 AM HEAD OF ETHICS AND COMPLIANCE Gender Identity Not on file Sexual Orientation Not on file documented as of this encounter Miscellaneous Notes * Telephone Encounter - Nanette Munson MA - 08/18/2021 12:26 PM CST LMOM for pt/pt's to call office. OF ETHICS AND COMPLIANCE * Telephone Encounter - Cali Levine MD - 08/14/2021 8:04 PM CST Should have had a TSH RPR sed rate and vitamin-D OF ETHICS AND COMPLIANCE * Telephone Encounter - Nanette Munson MA [...] have done specifically for his memory loss? OF ETHICS AND COMPLIANCE * Telephone Encounter - Pepe Burdick - 08/13/2021 11:34 AM CST Patient Varsha called and would like a call back to discuss lab work and the other test that is being done. Please call her at [phone] OF ETHICS AND COMPLIANCE * Telephone Encounter - Nanette Munson MA - 08/10/2021 5:06 PM CST Pt notified OF ETHICS AND COMPLIANCE * Telephone Encounter - Nanette Munson MA - 08/10/2021 5:06 PM CST ----- Message from Cali Levine MD sent at 08/09/2021 5:48 PM HEAD OF ETHICS AND COMPLIANCE ----- Labs look great continue present management OF ETHICS AND COMPLIANCE documented in this encounter Plan of Treatment Not on file documented as of this encounter Visit Diagnoses Not on filedocumented in this encounter Care Teams Car Hiker Relationship Specialty Start Date End Date Cali Levine MD PCP - General Family Medicine 08/02/21 08/23/22 documented as of this encounter
--- OUTSIDE RECORDS SUMMARY | 2024-10-02 06:06 | XMS_ITS | Encounter Summary ---
Author Organization [facility] Address [address] [facility] [address] [place] [address] Care Team Providers Care Underwriting Clerks Supervisor Name Role Phone Cali Levine MD Primary Care Provider [phone] Encounter Details Date Type Department Care Team (Late st Contact Info) Description 08/06/2021 10:00 AM CDT Lab [facility] Outpatient Lab at [address] [address] Essential hypertension; Family history of [...] on file Legal Sex Male 9:23 AM FORGE OPERATOR Gender Identity Not on file Sexual Orientation Not on file documented as of this encounter Plan of Treatment Not on file documented as of this encounter Visit Diagnoses Diagnosis Essential hypertension Unspecified essential hypertension Family history of Alzheimer's disease Family history of other condition Gastroesophageal reflux disease without esophagitis Esophageal reflux Memory loss Mixed hyperlipidemia documented in this encounter Care Teams Underwriting Clerks Supervisor Relationship Specialty Start Date End Date Cali Levine MD PCP - General Family Medicine 08/02/21 08/23/22 documented as of this encounter
== END 2024-09-25 12:23 | disposition home or self-care (01) ==
PROVIDERS: Emergency Provider Emergency Medicine; PCP Family Medicine
DX: U07.1 COVID-19 (principal)
CPT/HCPCS: 71045; 87637; 99283

== ENCOUNTER 2024-12-07 07:23 | Inpatient (IN) | payer OTHER, SELFPAY ==
[2024-12-07] VITALS (11 sets, daily range): BP systolic 117–150; BP diastolic 63–82; PULSE 47–74; RESP 16–18; TEMP 36.6–36.7; O2SAT 96–99; BMI 26.4
--- NOTE | ~2024-12-07 | XR_ITS ---
EXAMINATION: XR chest 1V portable DATE: 12/07/2024 07:36 INDICATION: Syncope. TECHNIQUE: A single frontal view of the chest was obtained. COMPARISON: Chest single view 09/25/2024 FINDINGS: There is mild atelectasis versus scarring in left midlung zone. No pleural effusion or pneu mothorax. The heart size is normal. IMPRESSION: 1. Mild atelectasis versus scarring in left midlung zone. Reviewed, dictated and finalized at location A. PRESSURE
--- NOTE | ~2024-12-07 | CT_ITS ---
EXAMINATION: CT brain wo con DATE: 12/07/2024 08:19 INDICATION: Syncope. TECHNIQUE: Computed tomography (CT) of the head was performed without intravenous contrast. The mA wa s adjusted according to patient size. Iterative reconstruction technique was employed. The dose-lengt h product was 681.00 mGy-cm. COMPARISON: None FINDINGS: There are scattered areas of low attenuation in the cerebral white matter, which is within normal limits for the patient's age. There is no intracranial hemorrhage, acute infarction, or abnorm al intracranial mass lesion. The ventricles are normal in size. The orbits are normal. There is mild mucosal thickening in the paranasal sinuses. The mastoid air cells are normal. IMPRESSION: 1. Normal aging brain. Reviewed, dictated and finalized at location A. TS CLERK IMPRESSION: 1. Normal aging brain.
--- NOTE | ~2024-12-07 | XR_ITS ---
[id number] Ordering provider: Giana Reyna APRN History: . fall, left knee pain, 2 view . Comparison: None. FINDINGS: BONES: No acute fracture or dislocation. JOINT SPACES: Normal. SOFT TISSUES: Minimal fluid in the suprapatellar bursa. Atherosclerotic changes. IMPRESSION: No acute osseous abnormality left knee. Reviewed, dictated and finalized at location A. ING ASSOCIATE
--- NOTE | 2024-12-07 07:28 | ECG_ITS ---
Test Date: 2024-12-07 07:30:56 Measurements Intervals [place] Rate: 49 P: 35 WV: 154 QRS: 27 QRSD: 95 T: 39 QT: 473 QTc: 427 Interpretive Statements SINUS BRADYCARDIA LOW QRS VOLTAGE IN PRECORDIAL LEADS [QRS DEFLECTION < 1.0 mV IN CHEST LEADS] BORDERLINE ECG No previous ECG available for comparison Electronically Signed On 12-07-2024 15:54:37 SOFTWARE TEST AND VALIDATION ENGINEER by Ra Pascual M.D.
--- OUTSIDE RECORDS SUMMARY | 2024-12-07 07:49 | XMS_ITS | Referral Summary ---
Author Organization [facility] Address [address] [place] [address] Care Team Providers Care Special Agent In Charge Name Role Phone Cali Levine MD Primary Care Provider [phone] Encounters Date Type Department Care Team Description 09/25/2024 Orders Only [facility] Health Information Management [address] [place] [id number] Cali Levine MD from Last 3 Months Allergies No known active allergies Medications multivitamin capsule Take 1 capsule by mouth daily Active simvastatin (ZOCOR) 20 mg tablet TAKE 1 TABLET BY MOUTH EVERY DAY AT NIGHT 90 tablet 1 05/27/2024 Active memantine (NAMENDA) 10 mg tabletIndication s:Alzheimer's disease, unspecified (HCC) TAKE 1 TABLET BY MOUTH TWICE A DAY 180 tablet 08/26/2024 Active lisinopriL (PRINIVIL,ZESTRI L) 30 mg tablet TAKE 1 TABLET BY MOUTH EVERY DAY 90 tablet 2 10/22/2024 Active donepeziL (ARICEPT) 10 mg tablet TAKE 1 TABLET BY MOUTH EVERY DAY AT NIGHT 90 tablet 2 10/22/2024 Active Active Problems Problem Noted Date Diagnosed [...] history of Alzheimer's disease 08/04/2021 11/08/2023 Immunizations Immunization Administration Dates Next Due Influenza, Quadrivalent, Hig [...] on file Legal Sex Male 9:23 AM FIELD SERVICE COORDINATOR Gender Identity Not on file Sexual Orientation Not on file Last Filed Vital Signs Vital Sign Reading Time Taken Comments Blood Pressure 122/66 04/22/2024 3:44 PM CDT Pulse 56 04/22/2024 3:44 PM CDT Temperature 36.8 C (98.3 F) 04/22/2024 3:44 PM CDT Respiratory Rate 16 01/05/2023 12:58 PM CDT [...] Final Result from Last 3 Months Insurance [facility] Care Teams Special Agent In Charge Relationship Specialty Start Date End Date Cali Levine MD PCP - General Family Medicine 08/24/22
--- OUTSIDE RECORDS SUMMARY | 2024-12-07 07:49 | XMS_ITS | Clinical Summary ---
Author Organization [facility] Address [address] [place] [address] Care Team Providers Care Grease Monkey Name Role Phone Cali Levine MD Primary Care Provider [phone] Allergies No known active allergies Medications multivitamin [...] Department Care Team Description 09/25/2024 Orders Only [facility] Health Information Management [address] [place] [id number] Cali Levine MD from Last 3 Months Immunizations Immunization Administration Dates Next Due Influenza, [...] on file Legal Sex Male 9:23 AM TOOL POLISHER Gender Identity Not on file Sexual [...] Pneumococcal vaccine 65+ (2 of 2 - PPSV23) 08/28/2017 08/28/2016, 09/07/2015, 06/14/2005 Covid-19 Vaccine (2023-2 5 season) 2024 11/30/2022, 09/01/2021, 11/09/2020, Additional [...] Final Result from Last [address] [facility] Member Subscriber Plan / Payer ( fective 2011-Present) Name:Morgan Philippe Relation to Subscriber:Self Name:Morgan Philippe Payer ID:[id number] (NAIC) Type:MEDICARE RISK OTHER Address: [place] [id number] [facility] Care Teams Grease Monkey Relationship Specialty Start Date End Date Cali Levine MD PCP - General Family Medicine 08/24/22
--- OUTSIDE RECORDS SUMMARY | 2024-12-07 07:50 | XMS_ITS | Continuity of Care Document ---
Author Name [facility] Organization [facility] Care Team Providers Care Stamp Presser Name Role Phone [facility] Unavailable Unavailable Problems Combined list of problems from Department of Defense and [facility] Affairs facilities. It does not include entries that were removed or entered in error. Problem Status Onset Date Problem Type Date of Resolution Comments Source Alcohol abuse Active Condition [facility] Alzheimer's disease Active Condition [facility] Dementia Active Condition [facility] Gastroesophageal reflux disease without esophagitis Active Condition [facility] Gastroesophageal Reflux Disorder * (ICD-9-CM 530.81) Active Condition [facility] Hearing Loss, Sensorineural, Unspecified Active Condition [facility] HTN * (ICD-9-CM 401.9) Active Condition [facility] Hypercholesterolemia * (ICD-9-CM 272.0) Active Condition [facility] Hyperlipidemia Active Condition [facility] Hypertension Active Condition [facility] Impacted cerumen of bilateral ears Active Condition [facility] Impaired FASTING Glucose (ICD-9-CM 790.21) Active Condition [facility] Inguinal hernia Active Condition [facility] URI (ICD-9-CM 465.9) Active Condition [facility] Diagnosis: ICD-10-CM G30.9 Alzheimer's disease, unspecified Active Diagnosis [facility] Diagnosis: ICD-10-CM G30.1 Alzheimer's disease with late onset Active Diagnosis [facility] Diagnosis: ICD-10-CM Z71.9 Counseling, unspecified Active Diagnosis [facility] Diagnosis: ICD-10-CM G47.30 Sleep apnea, unspecified Active Diagnosis [facility] Diagnosis: ICD-10-CM F02.A0 Dem in other dis classd elswhr, mild, w/o beh/psych/mood/anx Active Diagnosis [facility] Diagnosis: ICD-10-CM R41.9 Unsp symptoms and signs w cognitive functions and awareness Active Diagnosis [facility] Diagnosis: ICD-10-CM R53.83 Other fatigue Active Diagnosis [facility] Medications Combined list of outpatient medications from Department of [facility] and [facility] Affairs facilities.Medications provided include 1) outpatient medications from the last 15 months, and 2) patient-reported medications. Medication Details Route Status Patient Instructions Prescription Expires Prescription Number Last Dispense Date Ordering Provider Order Date Order Qty Source DONEPEZIL HCL 10MG TAB TAKE ONE TABLET BY MOUTH AT BEDTIME ORAL ACTIVE RAHMAN,BRADEN AM M 2022 [facility] DIV[facility]NEY Bhardwaj LISINOPRIL 20MG TAB TAKE 1.5 TABLETS BY MOUTH ONCE A DAY ORAL ACTIVE Slick CARCAMO 2021 [facility] ERAN Bhardwaj MEMANTINE HCL 10MG TAB TAKE ONE TABLET BY MOUTH TWICE A DAY ORAL ACTIVE RAHMAN,BRADEN AM M 2022 [facility] ERAN Bhardwaj MULTIVITAMI NS CAP/TAB TAKE ONE TABLET BY MOUTH ONCE A DAY ORAL ACTIVE Slick CARCAMO 2021 [facility] ERAN Bhardwaj SIMVASTATIN 40MG TAB TAKE ONE-HALF TABLET BY MOUTH EVERY EVENING ORAL ACTIVE Slick CARCAMO 2021 [facility] DIVISFCO Bhardwaj Immunizations Combined list of available immunizations from the Department of [facility] and [facility] facilities. Immunization Series Date Given Administered By Site Reaction Lot Number CVX Code Drug Thread Spinner Status Comments Source INFLUENZA, UNSPECIFIED FORMULATION 2023 88 complet ed [facility] Lashae INFLUENZA, UNSPECIFIED FORMULATION 2022 88 complet ed [facility] N RSV, BIVALENT, PROTEIN SUBUNIT RSVPREF, DILUENT RECONSTITUTED , 0.5 ML, PF 2022 305 complet ed [facility] N TDAP 2022 MARTINEZАЛЕКСАНДР BARRIENTOS LEFT DELTO ID [id number] 115 complet ed [facility] N COVID-19 (MODERNA), MRNA, LNP-S, BIVALENT, PF, 50 MCG/0.5 ML OR 25MCG/0.25 ML DOSE 1 2022 229 complet ed [facility] N INFLUENZA, UNSPECIFIED FORMULATION 2021 88 complet ed [facility] N COVID-19 (PFIZER), MRNA, LNP-S, PF, 30 MCG/0.3 ML DOSE 3 2020 208 complet ed [facility] N INFLUENZA, HIGH-DOSE, QUADRIVALENT 1 2020 197 complet ed [facility] N COVID-19 (PFIZER), MRNA, LNP-S, PF, 30 MCG/0.3 ML DOSE 2 2020 208 complet ed PFR; [id number]; 1 [facility] N COVID-19 (PFIZER), MRNA, LNP-S, PF, 30 MCG/0.3 ML DOSE 1 2020 208 complet ed PFR; [id number]; 1 [facility] N INFLUENZA, RECOMBINANT, QUADRIVALENT, INJECTABLE, PRESERVATIVE FREE 2019 185 complet ed [facility] N ZOSTER RECOMBINANT 1 2018 187 complet ed [facility] N ZOSTER RECOMBINANT 1 2017 187 complet ed [facility] N INFLUENZA, INJECTABLE, QUADRIVALENT, PRESERVATIVE FREE 2016 150 complet [facility] PNEUMOCOCCAL CONJUGATE PCV 13 2014 133 complet ed [facility] N INFLUENZA, UNSPECIFIED FORMULATION 2014 88 complet ed [facility] N TDAP [address] [facility] ZOSTER LIVE 2012 121 complet ed [facility] N INFLUENZA, UNSPECIFIED FORMULATION 2012 88 complet ed [facility] INFLUENZA, UNSPECIFIED FORMULATION 2011 88 complet ed [facility] INFLUENZA, UNSPECIFIED FORMULATION 2010 88 complet ed [facility] INFLUENZA, UNSPECIFIED FORMULATION 2009 88 complet ed [facility] N INFLUENZA, UNSPECIFIED FORMULATION 2008 88 complet ed [facility] N INFLUENZA, UNSPECIFIED FORMULATION 2007 88 complet ed [facility] N INFLUENZA, UNSPECIFIED FORMULATION 2006 88 complet ed per [facility] N INFLUENZA, UNSPECIFIED FORMULATION 2006 88 complet ed [facility] N INFLUENZA, UNSPECIFIED FORMULATION 2004 88 complet ed [facility] N PNEUMOCOCCAL, UNSPECIFIED FORMULATION 2004 109 complet ed [facility] N TD(ADULT) UNSPECIFIED FORMULATION 2004 139 complet ed [facility] N Results Combined list of recent [...] May 10, 2024 07:20 PM Reporting Lab: [facility] [id number] Performing Lab: [facility] [phone] [facility] HGA1C HEMOGLOBIN A1C/HEMOGLO BIN.TOTAL IN BLOOD 5.8 4.0 - 6.0 05/13 Specimen Type: BLOOD No comment entered. Ordering Provider: MARISA RAHMAN Report Released Date/Time: May 10, 2024 07:20 PM Reporting Lab: [facility] [place] [address] Performing Lab: [facility] DIVISION B12 COBALAMIN (VITAMIN B12) [MASS/VOLUM E] IN SERUM OR PLASMA 474 pg/mL 213 - 816 05/13 Specimen Type: SERUM No comment entered. Ordering Provider: MARISA RAHMAN Report Released Date/Time: May 10, 2024 07:20 PM Reporting Lab: [facility] [place] [address] Performing Lab: [facility] DIVISION VITAMIN D, 25-HYDROXY 25-HYDROXYV ITAMIN D3 [MASS/VOLUM E] IN SERUM OR PLASMA 31.1 ng/mL 30 - 96 05/13 Specimen Type: SERUM No comment entered. Ordering Provider: MARISA RAHMAN Report Released Date/Time: May 10, 2024 07:20 PM Reporting Lab: [facility] [place] [address] Performing Lab: [facility] DIVISION LIPID PANEL (STL) CHOLESTEROL [MASS/VOLUM E] IN SERUM OR PLASMA 156 mg/dL 0 - 200 05/13 Specimen Type: PLASMA Comment: No hemolysis noted. Ordering Provider: MARISA RAHMAN Report Released Date/Time: May 10, 2024 07:20 PM Reporting Lab: [facility] [place] [address] Performing Lab: [facility] #[id number] LIPID PANEL (STL) TRIGLYCERID E [MASS/VOLUM E] IN SERUM OR PLASMA 112 mg/dL 0 - 150 05/13 Specimen Type: PLASMA Comment: No hemolysis noted. Ordering Provider: MARISA RAHMAN Report Released Date/Time: May 10, 2024 07:20 PM Reporting Lab: [facility] [place] [address] Performing Lab: [facility] LIPID PANEL (STL) CHOLESTEROL IN LDL [MASS/VOLUM E] IN SERUM OR PLASMA BY CALCULATION 91 mg/dL 05/13 Specimen Type: PLASMA Comment: No hemolysis noted. Ordering Provider: MARISA RAHMAN Report Released Date/Time: May 10, 2024 07:20 PM Reporting Lab: [facility] [place] [address] Performing Lab: [facility] DIVISION LIPID PANEL (STL) CHOLESTEROL IN HDL [MASS/VOLUM E] IN SERUM OR PLASMA 43 mg/dL 40 05/13 Specimen Type: PLASMA Comment: No hemolysis noted. Ordering Provider: MARISA RAHMAN Report Released Date/Time: May 10, 2024 07:20 PM Reporting Lab: [facility] [place] [address] Performing Lab: [facility] DIVISION COMPREHENS KALYAN METABOLIC PANEL CREATININE [MASS/VOLUM E] IN SERUM OR PLASMA 1.20 mg/dL 0.70 - 1.30 05/13 Specimen Type: PLASMA Comment: No hemolysis noted. Ordering Provider: MARISA RAHMAN Report Released Date/Time: May 10, 2024 07:20 PM Reporting Lab: [facility] [place] [address] Performing Lab: [facility] #1 [place] [id number] DIVISION COMPREHENS KALYAN METABOLIC PANEL UREA NITROGEN [MASS/VOLUM E] IN SERUM OR PLASMA 13.7 mg/dL 9.0 - 25.0 05/13 Specimen Type: PLASMA Comment: No hemolysis noted. Ordering Provider: MARISA RAHMAN Report Released Date/Time: May 10, 2024 07:20 PM Reporting Lab: [facility] [place] [address] Performing Lab: [facility] #[address] DIVISION COMPREHENS [place] METABOLIC PANEL GLUCOSE [MASS/VOLUM E] IN SERUM OR PLASMA 102 mg/dL 72 - 99 05/13 H Specimen Type: PLASMA Comment: No hemolysis noted. Ordering Provider: MARISA RAHMAN Report Released Date/Time: May 10, 2024 07:20 PM Reporting Lab: [facility] [place] [address] Performing Lab: [facility] #[address] DIVISION COMPREHENS [place] METABOLIC PANEL SODIUM [MOLES/VOLU ME] IN SERUM OR PLASMA 142 meq/L 136 - 145 05/13 Specimen Type: PLASMA Comment: No hemolysis noted. Ordering Provider: MARISA RAHMAN Report Released Date/Time: May 10, 2024 07:20 PM Reporting Lab: [facility] [place] [address] Performing Lab: [facility] DIVISION COMPREHENS [place] METABOLIC PANEL POTASSIUM [MOLES/VOLU ME] IN SERUM OR PLASMA 4.2 meq/L 3.5 - 5.0 05/13 Specimen Type: PLASMA Comment: No hemolysis noted. Ordering Provider: MARISA RAHMAN Report Released Date/Time: May 10, 2024 07:20 PM Reporting Lab: [facility] [place] [address] Performing Lab: [facility] DIVISION COMPREHENS [place] METABOLIC PANEL CHLORIDE [MOLES/VOLU ME] IN SERUM OR PLASMA 110 meq/L 98 - 107 05/13 H Specimen Type: PLASMA Comment: No hemolysis noted. Ordering Provider: MARISA RAHMAN Report Released Date/Time: May 10, 2024 07:20 PM Reporting Lab: [facility] [place] [address] Performing Lab: [facility] DIVISION COMPREHENS [place] METABOLIC PANEL CARBON DIOXIDE, TOTAL [MOLES/VOLU ME] IN SERUM OR PLASMA 22 meq/L 22 - 31 05/13 Specimen Type: PLASMA Comment: No hemolysis noted. Ordering Provider: MARISA RAHMAN Report Released Date/Time: May 10, 2024 07:20 PM Reporting Lab: [facility]1 [place] [address] Performing Lab: [facility] #[address] DIVISION COMPREHENS [place] METABOLIC PANEL CALCIUM [MASS/VOLUM E] IN SERUM OR PLASMA 9.1 mg/dL 8.4 - 10.4 05/13 Specimen Type: PLASMA Comment: No hemolysis noted. Ordering Provider: MARISA RAHMAN Report Released Date/Time: May 10, 2024 07:20 PM Reporting Lab: [facility] [place] [address] Performing Lab: [facility] #[address] DIVISION COMPREHENS K[place]AN METABOLIC PANEL PROTEIN [MASS/VOLUM E] IN SERUM OR PLASMA 6.8 g/dL 6.0 - 8.6 05/13 Specimen Type: PLASMA Comment: No hemolysis noted. Ordering Provider: MARISA RAHMAN Report Released Date/Time: May 10, 2024 07:20 PM Reporting Lab: [facility] [place] [address] Performing Lab: [facility] #[address] DIVISION COMPREHENS [place]AN METABOLIC PANEL ALBUMIN [MASS/VOLUM E] IN SERUM OR PLASMA 4.0 g/dL 3.4 - 5.0 05/13 Specimen Type: PLASMA Comment: No hemolysis noted. Ordering Provider: MARISA RAHMAN Report Released Date/Time: May 10, 2024 07:20 PM Reporting Lab: [facility] [place] [address] Performing Lab: [facility] #[address] DIVISION COMPREHENS [place] METABOLIC PANEL BILIRUBIN.T OTAL [MASS/VOLUM E] IN SERUM OR PLASMA 0.9 mg/dL 0.2 - 1.2 05/13 Specimen Type: PLASMA Comment: No hemolysis noted. Ordering Provider: MARISA RAHMAN Report Released Date/Time: May 10, 2024 07:20 PM Reporting Lab: [facility] [place] [address] Performing Lab: [facility] #[address] DIVISION COMPREHENS KALYAN METABOLIC PANEL ALKALINE PHOSPHATASE [ENZYMATIC ACTIVITY/VO LUME] IN SERUM OR PLASMA 56 U/L 40 - 150 05/13 Specimen Type: PLASMA Comment: No hemolysis noted. Ordering Provider: MARISA RAHMAN Report Released Date/Time: May 10, 2024 07:20 PM Reporting Lab: [facility]1 [place] [address] Performing Lab: [facility]1 [facility] [id number] [place] [address] DIVISION COMPREHENS KALYAN METABOLIC PANEL ASPARTATE AMINOTRANSF ERASE [ENZYMATIC ACTIVITY/VO LUME] IN SERUM OR PLASMA 37 U/L 5 - 34 05/13 H Specimen Type: PLASMA Comment: No hemolysis noted. Ordering Provider: MARISA RAHMAN Report Released Date/Time: May 10, 2024 07:20 PM Reporting Lab: [facility] [phone] Performing Lab: [facility] [phone] DIVISION COMPREHENS [place]AL[place]AN METABOLIC PANEL ALANINE AMINOTRANSF ERASE [ENZYMATIC ACTIVITY/VO LUME] IN SERUM OR PLASMA 33 U/L 8 - 40 05/13 Specimen Type: PLASMA Comment: No hemolysis noted. Ordering Provider: MARISA RAHMAN Report Released Date/Time: May 10, 2024 07:20 PM Reporting Lab: [facility] [address] Performing Lab: [facility] [phone] DIVISION COMPREHENS [place] METABOLIC PANEL GLOMERULAR FILTRATION RATE/1.73 SQ M.PREDICTED [VOLUME RATE/AREA] IN SERUM, PLASMA OR BLOOD BY CREATININE- BASED FORMULA (CKD-EPI 2020) 59.63 60 05/13 Specimen Type: PLASMA Comment: No hemolysis noted. Ordering Provider: MARISA RAHMAN Report Released Date/Time: May 10, 2024 07:20 PM Reporting Lab: [facility] [place] [address] Performing Lab: [facility] DIVISION CBC LEUKOCYTES [#/VOLUME] IN BLOOD BY AUTOMATED COUNT 6.3 10*3/u L 3.6 - 11.2 05/13 Specimen Type: BLOOD No comment entered. Ordering Provider: MARISA RAHMAN Report Released Date/Time: May 10, 2024 07:20 PM Reporting Lab: [facility] [place] [address] Performing Lab: [facility] DIVISION CBC ERYTHROCYTE S [#/VOLUME] IN BLOOD BY AUTOMATED COUNT 4.72 10*6/u L 4.10 - 5.70 05/13 Specimen Type: BLOOD No comment entered. Ordering Provider: MARISA RAHMAN Report Released Date/Time: May 10, 2024 07:20 PM Reporting Lab: [facility] [place] [address] Performing Lab: [facility] CBC HEMOGLOBIN [MASS/VOLUM E] IN BLOOD 15.5 g/dL 13.1 - 16.8 05/13 Specimen Type: BLOOD No comment entered. Ordering Provider: MARISA RAHMAN Report Released Date/Time: May 10, 2024 07:20 PM Reporting Lab: [facility]1 [place] [address] Performing Lab: [facility] CBC HEMATOCRIT [VOLUME FRACTION] OF BLOOD 44.8 38.2 - 48.4 05/13 Specimen Type: BLOOD No comment entered. Ordering Provider: MARISA RAHMAN Report Released Date/Time: May 10, 2024 07:20 PM Reporting Lab: [facility]1 [place] [address] Performing Lab: [facility] CBC MCV [ENTITIC VOLUME] BY AUTOMATED COUNT 94.9 fL 80.0 - 100.0 05/13 Specimen Type: BLOOD No comment entered. Ordering Provider: MARISA RAHMAN Report Released Date/Time: May 10, 2024 07:20 PM Reporting Lab: [facility]1 [place] [address] Performing Lab: [facility] DIVISION CBC MCH [ENTITIC MASS] BY AUTOMATED COUNT 32.8 pg 27.0 - 34.0 05/13 Specimen Type: BLOOD No comment entered. Ordering Provider: MARISA RAHMAN Report Released Date/Time: May 10, 2024 07:20 PM Reporting Lab: [facility]1 [place] [address] Performing Lab: [facility] DIVISION CBC MCHC [MASS/VOLUM E] BY AUTOMATED COUNT 34.6 g/dL 33.0 - 36.0 05/13 Specimen Type: BLOOD No comment entered. Ordering Provider: MARISA RAHMAN Report Released Date/Time: May 10, 2024 07:20 PM Reporting Lab: [facility]1 [place] [address] Performing Lab: [facility] DIVISION CBC PLATELETS [#/VOLUME] IN BLOOD BY AUTOMATED COUNT 146 10*3/u L 150 - 400 05/13 L Specimen Type: BLOOD No comment entered. Ordering Provider: MARISA RAHMAN Report Released Date/Time: May 10, 2024 07:20 PM Reporting Lab: [facility] [place] [address] Performing Lab: [facility] DIVISION CBC PLATELET MEAN VOLUME [ENTITIC VOLUME] IN BLOOD BY AUTOMATED COUNT 10.2 fL 7.5 - 11.2 05/13 Specimen Type: BLOOD No comment entered. Ordering Provider: MARISA RAHMAN Report Released Date/Time: May 10, 2024 07:20 PM Reporting Lab: [facility] [place] [address] Performing Lab: [facility] DIVISION CBC ERYTHROCYTE DISTRIBUTIO N WIDTH [RATIO] BY AUTOMATED COUNT 12.9 11.8 - 15.1 05/13 Specimen Type: BLOOD No comment entered. Ordering Provider: MARISA RAHMAN Report Released Date/Time: May 10, 2024 07:20 PM Reporting Lab: [facility] [place] [address] Performing Lab: [facility] DIVISION CBC LYMPHOCYTES /100 LEUKOCYTES IN BLOOD BY AUTOMATED COUNT 21 05/13 Specimen Type: BLOOD No comment entered. Ordering Provider: MARISA RAHMAN Report Released Date/Time: May 10, 2024 07:20 PM Reporting Lab: [facility] [place] [address] Performing Lab: [facility] DIVISION CBC MONOCYTES/1 00 LEUKOCYTES IN BLOOD BY AUTOMATED COUNT 9 05/13 Specimen Type: BLOOD No comment entered. Ordering Provider: MARISA RAHMAN Report Released Date/Time: May 10, 2024 07:20 PM Reporting Lab: [facility] [place] [address] Performing Lab: [facility] DIVISION CBC NEUTROPHILS /100 LEUKOCYTES IN BLOOD BY AUTOMATED COUNT 64 05/13 Specimen Type: BLOOD No comment entered. Ordering Provider: MARISA RAHMAN Report Released Date/Time: May 10, 2024 07:20 PM Reporting Lab: [facility]1 [place] [address] Performing Lab: [facility] DIVISION CBC EOSINOPHILS /100 LEUKOCYTES IN BLOOD BY AUTOMATED COUNT 5 05/13 Specimen Type: BLOOD No comment entered. Ordering Provider: MARISA RAHMAN Report Released Date/Time: May 10, 2024 07:20 PM Reporting Lab: [facility] [place] [address] Performing Lab: [facility] DIVISION CBC BASOPHILS/1 00 LEUKOCYTES IN BLOOD BY AUTOMATED COUNT 1 05/13 Specimen Type: BLOOD No comment entered. Ordering Provider: MARISA RAHMAN Report Released Date/Time: May 10, 2024 07:20 PM Reporting Lab: [facility] [place] [address] Performing Lab: [facility] DIVISION CBC LYMPHOCYTES [#/VOLUME] IN BLOOD BY AUTOMATED COUNT 1.30 10*3/u L 0.77 - 4.50 05/13 Specimen Type: BLOOD No comment entered. Ordering Provider: MARISA RAHMAN Report Released Date/Time: May 10, 2024 07:20 PM Reporting Lab: [facility] [place] [address] Performing Lab: [facility] DIVISION CBC MONOCYTES [#/VOLUME] IN BLOOD BY AUTOMATED COUNT 0.56 10*3/u L 0.19 - 0.80 05/13 Specimen Type: BLOOD No comment entered. Ordering Provider: MARISA RAHMAN Report Released Date/Time: May 10, 2024 07:20 PM Reporting Lab: [facility] [place] [address] Performing Lab: [facility] DIVISION CBC NEUTROPHILS [#/VOLUME] IN BLOOD BY AUTOMATED COUNT 4.07 10*3/u L 2.10 - 8.00 05/13 Specimen Type: BLOOD No comment entered. Ordering Provider: MARISA RAHMAN Report Released Date/Time: May 10, 2024 07:20 PM Reporting Lab: [facility] [place] [address] Performing Lab: [facility] DIVISION CBC EOSINOPHILS [#/VOLUME] IN BLOOD BY AUTOMATED COUNT 0.34 10*3/u L 0.00 - 0.60 05/13 Specimen Type: BLOOD No comment entered. Ordering Provider: MARISA RAHMAN Report Released Date/Time: May 10, 2024 07:20 PM Reporting Lab: [facility] DIV[facility] [place] [address] Performing Lab: [facility] DIVISION CBC BASOPHILS [#/VOLUME] IN BLOOD BY AUTOMATED COUNT 0.04 10*3/u L 0.00 - 0.20 05/13 Specimen Type: BLOOD No comment entered. Ordering Provider: MARISA RAHMAN Report Released Date/Time: May 10, 2024 07:20 PM Reporting Lab: [facility] [place] [address] Performing Lab: [facility] DIVISION FOLATE (STL-MA) FOLATE [MASS/VOLUM E] IN SERUM OR PLASMA 18.6 ng/mL 7 - 20 06/23 Specimen Type: SERUM No comment entered. Ordering Provider: MARISA RAHMAN Report Released Date/Time: Jun 23, 2023 08:32 AM Reporting Lab: [facility] [place] [address] Performing Lab: [facility] DIVISION LIPID PANEL (STL) CHOLESTEROL [MASS/VOLUM E] IN SERUM OR PLASMA 193 mg/dL 0 - 200 06/23 Specimen Type: PLASMA Comment: No hemolysis noted. Ordering Provider: MARISA RAHMAN Report Released Date/Time: Jun 23, 2023 08:32 AM Reporting Lab: [facility] [place] [address] Performing Lab: [facility] LIPID PANEL (STL) TRIGLYCERID E [MASS/VOLUM E] IN SERUM OR PLASMA 116 mg/dL 0 - 150 06/23 Specimen Type: PLASMA Comment: No hemolysis noted. Ordering Provider: MARISA RAHMAN Report Released Date/Time: Jun 23, 2023 08:32 AM Reporting Lab: [facility] [place] [address] Performing Lab: [facility] LIPID PANEL (STL) CHOLESTEROL IN LDL [MASS/VOLUM E] IN SERUM OR PLASMA BY CALCULATION 127 mg/dL 06/23 Specimen Type: PLASMA Comment: No hemolysis noted. Ordering Provider: MARISA RAHMAN Report Released Date/Time: Jun 23, 2023 08:32 AM Reporting Lab: [facility] [place] [address] Performing Lab: [facility] DIVISION LIPID PANEL (STL) CHOLESTEROL IN HDL [MASS/VOLUM E] IN SERUM OR PLASMA 43 mg/dL 40 06/23 Specimen Type: PLASMA Comment: No hemolysis noted. Ordering Provider: MARISA RAHMAN Report Released Date/Time: Jun 23, 2023 08:32 AM Reporting Lab: [facility] [place] [address] Performing Lab: [facility] DIVISION COMPREHENS KALYAN METABOLIC PANEL CREATININE [MASS/VOLUM E] IN SERUM OR PLASMA 1.23 mg/dL 0.70 - 1.30 06/23 Specimen Type: PLASMA Comment: No hemolysis noted. Ordering Provider: MARISA RAHMAN Report Released Date/Time: Jun 23, 2023 08:32 AM Reporting Lab: [facility] [place] [address] Performing Lab: [facility] DIVISION COMPREHENS KALYAN METABOLIC PANEL UREA NITROGEN [MASS/VOLUM E] IN SERUM OR PLASMA 12.4 mg/dL 9.0 - 25.0 06/23 Specimen Type: PLASMA Comment: No hemolysis noted. Ordering Provider: MARISA RAHMAN Report Released Date/Time: Jun 23, 2023 08:32 AM Reporting Lab: [facility] [place] [address] Performing Lab: [facility] DIVISION COMPREHENS KALYAN METABOLIC PANEL GLUCOSE [MASS/VOLUM E] IN SERUM OR PLASMA 96 mg/dL 72 - 99 06/23 Specimen Type: PLASMA Comment: No hemolysis noted. Ordering Provider: MARISA RAHMAN Report Released Date/Time: Jun 23, 2023 08:32 AM Reporting Lab: [facility] [place] [address] Performing Lab: [facility] DIV[facility]1 [facility] [id number] DIVISION COMPREHENS KALYAN METABOLIC PANEL SODIUM [MOLES/VOLU ME] IN SERUM OR PLASMA 143 meq/L 136 - 145 06/23 Specimen Type: PLASMA Comment: No hemolysis noted. Ordering Provider: MARISA RAHMAN Report Released Date/Time: Jun 23, 2023 08:32 AM Reporting Lab: [facility]1 [place] [address] Performing Lab: [facility] DIVISION COMPREHENS [place]ALYAN METABOLIC PANEL POTASSIUM [MOLES/VOLU ME] IN SERUM OR PLASMA 4.8 meq/L 3.5 - 5.0 06/23 Specimen Type: PLASMA Comment: No hemolysis noted. Ordering Provider: MARISA RAHMAN Report Released Date/Time: Jun 23, 2023 08:32 AM Reporting Lab: [facility]1 [place] [address] Performing Lab: [facility] DIVISION COMPREHENS KALYAN METABOLIC PANEL CHLORIDE [MOLES/VOLU ME] IN SERUM OR PLASMA 106 meq/L 98 - 107 06/23 Specimen Type: PLASMA Comment: No hemolysis noted. Ordering Provider: MARISA RAHMAN Report Released Date/Time: Jun 23, 2023 08:32 AM Reporting Lab: [facility] [place] [address] Performing Lab: [facility] DIVISION COMPREHENS [place] METABOLIC PANEL CARBON DIOXIDE, TOTAL [MOLES/VOLU ME] IN SERUM OR PLASMA 25 meq/L 22 - 31 06/23 Specimen Type: PLASMA Comment: No hemolysis noted. Ordering Provider: MARISA RAHMAN Report Released Date/Time: Jun 23, 2023 08:32 AM Reporting Lab: [facility] [place] [address] Performing Lab: [facility] DIVISION COMPREHENS KAL[place]AN METABOLIC PANEL CALCIUM [MASS/VOLUM E] IN SERUM OR PLASMA 9.5 mg/dL 8.4 - 10.4 06/23 Specimen Type: PLASMA Comment: No hemolysis noted. Ordering Provider: MARISA RAHMAN Report Released Date/Time: Jun 23, 2023 08:32 AM Reporting Lab: [facility] [place] [address] Performing Lab: [facility] DIVISION COMPREHENS KALYAN METABOLIC PANEL PROTEIN [MASS/VOLUM E] IN SERUM OR PLASMA 7.0 g/dL 6.0 - 8.6 06/23 Specimen Type: PLASMA Comment: No hemolysis noted. Ordering Provider: MARISA RAHMAN Report Released Date/Time: Jun 23, 2023 08:32 AM Reporting Lab: [facility] [place] [address] Performing Lab: [facility] DIVISION COMPREHENS KALYAN METABOLIC PANEL ALBUMIN [MASS/VOLUM E] IN SERUM OR PLASMA 4.1 g/dL 3.4 - 5.0 06/23 Specimen Type: PLASMA Comment: No hemolysis noted. Ordering Provider: MARISA RAHMAN Report Released Date/Time: Jun 23, 2023 08:32 AM Reporting Lab: [facility] [place] [address] Performing Lab: [facility] DIVISION COMPREHENS [place]AN METABOLIC PANEL BILIRUBIN.T OTAL [MASS/VOLUM E] IN SERUM OR PLASMA 0.9 mg/dL 0.2 - 1.2 06/23 Specimen Type: PLASMA Comment: No hemolysis noted. Ordering Provider: MARISA RAHMAN Report Released Date/Time: Jun 23, 2023 08:32 AM Reporting Lab: [facility] [place] [address] Performing Lab: [facility] DIVISION COMPREHENS KALYAN METABOLIC PANEL ALKALINE PHOSPHATASE [ENZYMATIC ACTIVITY/VO LUME] IN SERUM OR PLASMA 63 U/L 40 - 150 06/23 Specimen Type: PLASMA Comment: No hemolysis noted. Ordering Provider: MARISA RAHMAN Report Released Date/Time: Jun 23, 2023 08:32 AM Reporting Lab: [facility] [place] [address] Performing Lab: [facility] DIVISION COMPREHENS [place]ALYAN METABOLIC PANEL ASPARTATE AMINOTRANSF ERASE [ENZYMATIC ACTIVITY/VO LUME] IN SERUM OR PLASMA 29 U/L 5 - 34 06/23 Specimen Type: PLASMA Comment: No hemolysis noted. Ordering Provider: MARISA RAHMAN Report Released Date/Time: Jun 23, 2023 08:32 AM Reporting Lab: [facility]1 [place] [address] Performing Lab: [facility] DIV[facility] #[address] DIVISION COMPREHENS KALYAN METABOLIC PANEL ALANINE AMINOTRANSF ERASE [ENZYMATIC ACTIVITY/VO LUME] IN SERUM OR PLASMA 30 U/L 8 - 40 06/23 Specimen Type: PLASMA Comment: No hemolysis noted. Ordering Provider: MARISA RAHMAN Report Released Date/Time: Jun 23, 2023 08:32 AM Reporting Lab: [facility] [place] [address] Performing Lab: [facility]1 [facility] [address] [facility] DIVISION COMPREHENS KALYAN METABOLIC PANEL GLOMERULAR FILTRATION RATE/1.73 SQ M.PREDICTED [VOLUME RATE/AREA] IN SERUM, PLASMA OR BLOOD BY CREATININE- BASED FORMULA (CKD-EPI 2020) 58.25 60 06/23 Specimen Type: PLASMA Comment: No hemolysis noted. Ordering Provider: MARISA RAHMAN Report Released Date/Time: Jun 23, 2023 08:32 AM Reporting Lab: [facility] [address] Performing Lab: [facility] [address] [facility] Vital Signs Combined list of inpatient and outpatient Vital Signs from Department of [facility] and [facility], ranging from 12 months to all on record, depending upon the facility. Vital Sign Value Date Comments Source SYSTOLIC BLOOD PRESSURE 131 05/13/2024 09:18:44 [facility] DIASTOLIC BLOOD PRESSURE 78 05/13/2024 09:18:44 [facility] PULSE OXIMETRY 98 05/13/2024 09:18:44 [facility] WEIGHT 166.9 05/13/2024 09:18:44 [facility] BMI 26 kg/m2 05/13/2024 09:18:44 [facility] PAIN 0 05/13/2024 09:18:44 [facility] HEIGHT 67 05/13/2024 09:18:44 [facility] TEMPERATURE 98 05/13/2024 09:18:44 [facility] PULSE 54 05/13/2024 09:18:44 [facility] RESPIRATION 18 05/13/2024 09:18:44 [facility] Encounters Combined list of: 1) Encounters from Department of Veterans [facility] facilities going backup to the last 18 months, not all VA inpatient encounters are included; 2) Encounters from the Department of [facility] facilities going backup to 280 months. Location Location Details Encounter Type Encounter Number Reason For Visit Attending Provider ADM Date DC Date Status Disposition Source [facility] Outpatient Encounter [id number] MARTINEZ,Aaron KAY 06/21 [facility] N [facility] OFF/OP CONSLTJ NEW/[place] 55 [id number] Diagnos is: ICD-10- CM F02.A0 Dem in other dis classd elswhr, mild, w/o beh/psy ch/mood /anx MARISA RAHMAN 06/23 [facility] Outpatient Encounter [id number] 06/26 [facility] Outpatient Encounter [id number] Taylor HULL A 06/26 [facility] Outpatient Encounter [id number] 08/02 [facility] Outpatient Encounter [id number] 08/02 [facility] Outpatient Encounter [id number] Taylor VILLELA 08/07 [facility] Outpatient Encounter [id number] 08/07 [facility] Outpatient Encounter [id number] Diagnos is: ICD-10- CM R53.83 Other fatigue Taylor PATTERSON 08/07 [facility] PSYTX W PT 30 MINUTES [id number] Diagnos is: ICD-10- CM R41.9 Unsp symptom s and signs w cogniti ve functio ns and awarene ss JONATHAN TIM NT 08/16 [facility] NUBHVL [place] [id number] Diagnos is: ICD-10- CM 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 JONATHAN TIM NT 08/30 [facility] OFFICE O/P EST HI 40-54 MIN [id number] Diagnos is: ICD-10- CM F02.A0 Dem in other dis classd elswhr, mild, w/o beh/psy ch/mood /anx MARISA RAHMAN M 09/04 [facility] Outpatient Encounter [id number] Diagnos is: ICD-10- CM G47.30 Sleep apnea, unspeci fiGERALDO Turk M 09/04 [facility] HC PRO PHONE CALL 5-10 MIN [id number] Diagnos is: ICD-10- CM G30.9 Alzheim er's disease , unspeci QUYNH Marques M 09/27 [facility] Outpatient Encounter [id number] 10/13 [facility] HC PRO PHONE CALL 21-30 MIN [id number] Diagnos is: ICD-10- CM G30.9 Alzheim er's disease , unspeci fied QUYNH MCNEAL M 10/13 [facility] HC PRO PHONE CALL 5-10 MIN [id number] Diagnos is: ICD-10- CM G30.9 Alzheim er's disease , unspeci fied QUYNH MCNEAL M 10/24 [facility] Outpatient Encounter [id number] 11/02 [facility] Outpatient Encounter [id number] 11/29 [facility] Outpatient Encounter [id number] 01/10 [facility] HC PRO PHONE CALL 11-20 MIN [id number] Diagnos is: ICD-10- CM G30.9 Alzheim er's disease , unspeci fied QUYNH MCNEAL M 01/10 [facility] Outpatient Encounter [id number] 01/11 [facility] HC PRO PHONE CALL 21-30 MIN [id number] Diagnos is: ICD-10- CM G30.9 Alzheim er's disease , unspeci fied QUYNH MCNEAL M 01/23 [facility] HC PRO PHONE CALL 5-10 MIN [id number] Diagnos is: ICD-10- CM 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 Outpatient Encounter [id number] FRANCO SHOOK 11/08 [facility] Outpatient Encounter [id number] 11/27 [facility] Social History Combined list of available smoking, tobacco, and other social history from Department of Defense and Veterans Affairs facilities. Social History Type Response Date Comment [facility] e Tobacco smoking status NHIS VA-TOBACCO FORMER USER 05/07/2024 [facility] History of tobacco use NJ-TOBACCO QUIT 1 5 YRS OR MORE 05/07/2024 [facility] History of tobacco use NJ-TOBACCO FORMER USER 11/25/2022 [facility] History of tobacco use VA-TOBACCO FORMER USER 10/14/2020 [facility] History of tobacco use NJ-TOBACCO QUIT 1 5 YRS OR MORE 04/29/2019 [facility] History of tobacco use QUIT TOBACCO >7 Y EARS AGO 05/01/2018 [facility] History of tobacco use QUIT TOBACCO >7 Y EARS AGO 08/07/2017 [facility] History of tobacco use QUIT TOBACCO >7 Y EARS AGO 01/10/2017 [facility] History of tobacco use QUIT TOBACCO >7 Y EARS AGO 09/07/2015 [facility] History of tobacco use QUIT TOBACCO >7 Y EARS AGO 07/28/2014 [facility] History of tobacco use QUIT TOBACCO >7 Y EARS AGO 07/16/2013 [facility] History of tobacco use QUIT TOBACCO >7 Y EARS AGO 07/27/2009 [facility] History of tobacco use QUIT TOBACCO >12 MO and <7 YRS AGO 10/18/2006 [facility] History of tobacco use CURRENT NON-TOBAC CO USER-HX OF USE 07/12/2006 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 Additional future care activities may be listed in the Assessment and Plan section. Date/Time Care Activity Care Activity Detail Facili ty 12/12/2024 AMBULATORY - MEDICINE AMBULATORY - MEDICI NE [facility] 11/06/2024 Consult Order [facility] Cons Slitting And Shipping Supervisor's Choice [facility] 11/13/2024 Laboratory - Collarette Separator ry Order COMPREHENSIVE METABOLIC PANEL GREEN LI/HEP BLD/PLAS PLASMA [facility] 11/13/2024 Laboratory - Collarette Separator ry Order CBC BLOOD [facility] 11/13/2024 Laboratory - Collarette Separator ry Order TSH (MA-PB) GOLD/RED SST SERUM [facility] 11/13/2024 Laboratory - Collarette Separator ry Order B12 GOLD/RED SST SERUM SP [facility] 11/13/2024 Laboratory - Collarette Separator ry Order FOLATE (STL-MA) GOLD/RED SST SERUM [facility] 11/13/2024 Laboratory - Collarette Separator ry Order VITAMIN D, 25-HYDROXY GOLD/RED SST SERUM [facility] Advance Directives List of completed, amended, or rescinded Advance Directives on record at [facility] facilities. An actual copy of the Directive is not included. Date Advance Directive Provider Source 11/25/2022 ADVANCE DIRECT[address] [facility]
[2024-12-07 07:59] LABS: Basophils Percent Auto 0.4 % (0.2-1.2); Eosinophils Absolute Auto 0.2 K/mm3 (0-0.3); Eosinophils Percent Auto 3.8 % (0-4.4); Hematocrit 42.8 % (42.0-52.0); Hemoglobin 14.3 g/dL (14.0-18.0); Immature Granulocyte Absolute 0.01 K/mm3 (0.00-0.031); Immature Granulocyte Percent A 0.2 % (0-0.5); Lymphocytes Absolute Auto 1.86 K/mm3 (0.9-3.2); Lymphocytes Percent Auto 33.8 % (18.3-44.2); Mean Corpuscular HGB Conc 33.4 g/dl (32-36); Mean Corpuscular Hemoglobin 32.3 pg (26-34); Mean Corpuscular Volume 96.6 fl (80-100); Mean Platelet Volume 10.1 fl (7.4-10.4); Monocytes Absolute Auto 0.5 K/mm3 (0.1-0.6); Monocytes Percent Auto 9.6 % (2.6-8.5); Neutrophils Absolute Auto 2.9 K/mm3 (1.3-6.7); Neutrophils Percent Auto 52.2 % (45.5-73.1); Platelet Count Result 156 k/mm3 (150-375); Red Blood Count 4.43 M/mm3 (4.6-6.20); Red Cell Distribution Width 13.1 % (11.5-14.5); White Blood Count 5.5 K/mm3 (4.5-10.0)
--- NOTE | 2024-12-07 08:04 | ED.GENADULT ---
HPI - General Adult General Chief complaint: Syncope Stated complaint: Fall with Syncopal Episode Time Seen by Provider: 12/07/24 07:24 History of Present Illness HPI narrative: 84-year-old male presents emergency department for evaluation for multiple syncopal episodes this morning. Patient was walking back from the bathroom this morning and had episode where he reported he slipped went down to the ground and states that the patient was conscious immediately after the incident. As they were walking back to the bed patient had another near syncopal episode where he actually fell into the bed but was supporting himself on his hands but was once again minimally responsive for approximately 1 minute. was able to get the patient into the bed and did call EMS and when EMS was attempting to get the patient to the gurney the patient had a another episode of weakness and near syncope. Upon arrival emergency department patient denies any pain or complaints, patient denies any lightheaded or dizziness. Patient does have sinus bradycardia with heart rate in the 50s the monitor. Patient does have history of Alzheimer's dementia, hypertension and high cholesterol. Patient does take lisinopril and due to the low blood pressures his lisinopril dose was recently decreased from 30 to 20. Related Data Allergies Allergy/AdvReac Type Severity Reaction Status Date / Time No Known Allergies Allergy Verified 10/23/24 10:28 Review of Systems Review of Systems: All systems reviewed & are unremarkable except as noted in HPI and below PMFSH Past Medical History Medical History Dementia Mixed hyperlipidemia Essential hypertension Family History Family History Mother Family history of heart disease in male family member before age 55 Patient's mother is Father Patient's father is Social History Social History Smoking status: Former smoker Alcohol intake: former Substance use: never Substance use type: does not use Do You Feel Safe in your Home?: Yes Lack of Transportation: No Lack of Food: Never True Current Housing: I Have Housing Concerned About Future Housing: No Difficulty Paying Gas/Electric Bills: No Difficulty Paying for Meds: No Currently Unemployed: No Education: Don't Know Difficulty w/ Childcare or Family Care: No Living arrangements: with family Gender identity (if verbalized by the patient): Male Sexual Orientation (if Verbalized by the Patient): Straight or Heterosexual Spiritual care concerns: No Agree to blood products: Yes Exam Narrative: APPEARANCE: Well appearing, no pain, no distress, well-nourished. HEAD: normocephalic, atraumatic. EYES: PERRLA/EOMI, conjunctivae clear. NOSE: Normal no drainage EARS:TMS clear with good light reflex. THROAT: Pharynx clear, no exudate. NECK: Supple. No adenopathy, no masses. RESPIRATORY: Airway patent, respirations nonlabored. Clear to auscultation bilaterally, no rales, rhonchi, wheezing. CARDIOVASCULAR: Regular rate and rhythm without murmurs rubs or gallops. ABDOMINAL: Soft, nontender, nondistended, normal bowel sounds MUSCULOSKELETAL: Moves all extremities. Strength/ROM intact, No edema, No calf tenderness. NEURO: Alert. Cranial nerves II through XII intact. Grossly intact SKIN: Warm, dry. Normal Color Course Vital Signs Vital signs: Vital Signs Temperature 97.8 F 12/07/24 07:36 Pulse Rate 50 L 12/07/24 07:36 Respiratory Rate 18 12/07/24 07:36 Blood Pressure 117/80 12/07/24 07:36 Pulse Oximetry 99 12/07/24 07:36 Oxygen Delivery Room Air 12/07/24 07:36 Temperature 97.8 F 12/07/24 07:36 Pulse Rate 58 L 12/07/24 16:00 Respiratory Rate 18 12/07/24 14:00 Blood Pressure 128/77 12/07/24 14:00 Pulse Oximetry 97 12/07/24 14:00 Oxygen Delivery Room Air 12/07/24 07:36 Medical Decision Making [facility] Narrative Medical decision making narrative: 84-year-old male presents emergency department for evaluation for multiple syncopal episodes this morning. Patient is currently afebrile with no leukocytosis hemoglobin of 14.3. Patient has an INR of 1.2. No significant abnormalities on the patient's CMP but he does have an elevated lactic acid of 3.4 and patient was treated with 1 L of IV fluids. Patient was not orthostatic positive. Patient was negative for influenza RSV and for COVID. Chest x-ray does show some scarring with no acute abnormality and head CT showed normal aging brain. Case was discussed with hospitalist patient was accepted for admission for further syncope workup. Patient will be placed on [employer]. Patient family updated on the results of the workup they were comfortable with the plan for admission. All questions concerns were addressed. Differential Diagnosis Differential Diagnosis: Syncope, cardiac arrhythmia, orthostatic hypotension, COVID, RSV, influenza, pneumonia, UTI Vital Signs Vital Signs: Vital Signs Temperature 97.8 F 12/07/24 07:36 Pulse Rate 50 L 12/07/24 07:36 Respiratory Rate 18 12/07/24 07:36 Blood Pressure 117/80 12/07/24 07:36 Pulse Oximetry 99 12/07/24 07:36 Oxygen Delivery Room Air 12/07/24 07:36 Temperature 97.8 F 12/07/24 07:36 Pulse Rate 58 L 12/07/24 16:00 Respiratory Rate 18 12/07/24 14:00 Blood Pressure 128/77 12/07/24 14:00 Pulse Oximetry 97 12/07/24 14:00 Oxygen Delivery Room Air 12/07/24 07:36 Lab Data Lab results reviewed: Yes I reviewed the patient's lab results. 12/07/24 07:38 12/07/24 07:38 Labs: Lab Results 12/07/24 Range/Units 07:38 WBC 5.5 (4.5-10.0) K/mm3 RBC 4.43 L (4.6-6.20) M/mm3 Hgb 14.3 (14.0-18.0) g/dL Hct 42.8 (42.0-52.0) % MCV 96.6 (80-100) fl MCH 32.3 (26-34) pg MCHC 33.4 (32-36) g/dl RDW 13.1 (11.5-14.5) % Plt Count 156 (150-375) k/mm3 MPV 10.1 (7.4-10.4) fl Immature Gran % (Auto) 0.2 (0-0.5) % Neut % (Auto) 52.2 (45.5-73.1) % Lymph % (Auto) 33.8 (18.3-44.2) % Imperial % (Auto) 9.6 H (2.6-8.5) % Eos % (Auto) 3.8 (0-4.4) % Baso % (Auto) 0.4 (0.2-1.2) % Lymph # (Auto) 1.86 (0.9-3.2) K/mm3 Imperial # (Auto) 0.5 (0.1-0.6) K/mm3 Eos # (Auto) 0.2 (0-0.3) K/mm3 Baso # (Auto) 0.0 (0.0-0.1) K/mm3 Abs Immat Gran (auto) 0.01 (0.00-0.031) K/mm3 Absolute Neuts (auto) 2.9 (1.3-6.7) K/mm3 Absolute Nucleated RBC 0.000 (0.0-0.012) K/mm3 Nucleated RBC % 0.0 (0.0-0.2) % PT 15.8 H (11.1-14.7) Seconds INR 1.2 APTT 28.8 (22.3-36.8) Seconds Sodium 140 (137-145) mmol/L Potassium 4.0 (3.4-5.0) mmol/L Chloride 106 (98-107) mmol/L Carbon Dioxide 25 (22-30) mmol/L Anion Gap 9 (4-12) mmol/L BUN 13 (9-20) mg/dL Creatinine 1.17 (0.7-1.3) mg/dL Estim Creat Clear Calc 39 ml/min Estimated GFR 59 (59 - ) Glucose 132 H (65-110) mg/dL Lactic Acid 3.4 H (0.7-2.0) mmol/L Calcium 8.8 (8.4-10.2) mg/dL Magnesium 2.2 (1.6-2.3) mg/dL Total Bilirubin 0.9 (0.2-1.3) mg/dL AST 37 (17-59) U/L ALT 34 (6-50) U/L Alkaline Phosphatase 67 (38-126) U/L Total Protein 7.0 (6.3-8.2) g/dL Albumin 3.8 (3.5-5.1) g/dL TSH (Reflex) 6.550 H (0.465-4.68) uIU/mL Free T4 1.00 (0.78-2.19) ng/dL Total T3 1.09 (0.97-1.69) NG/ML Influenza A (RT-PCR) Negative (Negative) Influenza B (RT-PCR) Negative (Negative) RSV (RT-PCR) Negative (Negative) SARS-CoV-2 RNA (RT-PCR) Negative (Negative) Imaging Data Radiologist's impression: Impressions Chest X-Ray 12/07/24 07:38 IMPRESSION: 1. Mild atelectasis versus scarring in left midlung zone. Head CT 12/07/24 08:20 IMPRESSION: 1. Normal aging brain. Discharge Plan Discharge Clinical Impression: Syncopal episodes Patient Disposition: Still a Patient Condition: Stable
[2024-12-07 08:08] LABS: Lactic Acid Reflex 3.4 mmol/L (0.7-2.0)
[2024-12-07 08:10] LABS: Magnesium 2.2 mg/dL (1.6-2.3)
[2024-12-07 08:11] LABS: Alanine Aminotransferase 34 U/L (6-50); Albumin Level 3.8 g/dL (3.5-5.1); Alkaline Phosphatase 67 U/L (38-126); Anion Gap 9 mmol/L (4-12); Aspartate Amino Transferase 37 U/L (17-59); Bilirubin,Total 0.9 mg/dL (0.2-1.3); Blood Urea Nitrogen 13 mg/dL (9-20); Calcium 8.8 mg/dL (8.4-10.2); Carbon Dioxide 25 mmol/L (22-30); Chloride 106 mmol/L (98-107); Estimated CRCL calculation 39 ml/min; Estimated Glomerular Filt Rate 59; Glucose 132 mg/dL (65-110); Sodium 140 mmol/L (137-145)
[2024-12-07] MEDS: LACTATED RINGERS 1,000 ML 999 ML IV CONT (08:25)
[2024-12-07 08:28] LABS: INR 1.2; Partial Thromboplastin Time 28.8 Seconds (22.3-36.8); Prothrombin Time 15.8 Seconds (11.1-14.7)
[2024-12-07 09:08] LABS: Influenza A QL RT-PCR Negative (Negative); Influenza B QL RT-PCR Negative (Negative); RSV RNA, RT-PCR Negative (Negative); SARS-CoV-2 RNA PCR Negative (Negative)
[2024-12-07 10:57] LABS: Reflex Lactic Acid Yes or No Add Lactic
[2024-12-07 11:37] LABS: Total Triiodothyronine (T3) 1.09 NG/ML (0.97-1.69)
[2024-12-07 11:40] LABS: Lactic Acid 2.3 mmol/L (0.7-2.0)
--- NOTE | 2024-12-07 12:57 | ADMGEN ---
This patient, Morgan Thurston, was admitted to [facility] Surg Room 325-01. Patient/family oriented to hospital policies and general routines including ID bracelet, bed and alarms, visiting hours, pain management, procedures, bathroom and other care routines, personal items, smoking policy, room service/diet, and visiting hours. Information on how to activate the Rapid Response Team has been discussed. Patient/Family are encouraged to report perceived risks to care and to ask questions if they do not understand what they are told or what they should do.
--- NOTE | 2024-12-07 18:28 | PM.IMHP ---
H&P: HPI History of Present Illness Date/Time: 12/07/24 18:28 Chief Complaint: Syncope Narrative: ER-HPI narrative: 84-year-old male presents emergency department for evaluation for multiple syncopal episodes this morning. Patient was walking back from the bathroom this morning and had episode where he reported he slipped went down to the ground and states that the patient was conscious immediately after the incident. As they were walking back to the bed patient had another near syncopal episode where he actually fell into the bed but was supporting himself on his hands but was once again minimally responsive for approximately 1 minute. was able to get the patient into the bed and did call EMS and when EMS was attempting to get the patient to the gurney the patient had a another episode of weakness and near syncope. Upon arrival emergency department patient denies any pain or complaints, patient denies any lightheaded or dizziness. Patient does have sinus bradycardia with heart rate in the 50s the monitor. Patient does have history of Alzheimer's dementia, hypertension and high cholesterol. Patient does take lisinopril and due to the low blood pressures his lisinopril dose was recently decreased from 30 to 20. patient currently denies any CP, SOB, dizziness, patient had CT scan of the head which is normal, to further evaluate will do cardiac ECHO, will have PT/OT evaluate the patient, will continue to monitor. [facility] Past Medical History Medical History Dementia Mixed hyperlipidemia Essential hypertension Family History Family History Mother Family history of heart disease in male family member before age 55 Patient's mother is Father Patient's father is Social History Social History Smoking status: Former smoker Alcohol intake: former Substance use: never Substance use type: does not use Do You Feel Safe in your Home?: Yes Lack of Transportation: No Lack of Food: Never True Current Housing: I Have Housing Concerned About Future Housing: No Difficulty Paying Gas/Electric Bills: No Difficulty Paying for Meds: No Currently Unemployed: No Education: Don't Know Difficulty w/ Childcare or Family Care: No Living arrangements: with family Gender identity (if verbalized by the patient): Male Sexual Orientation (if Verbalized by the Patient): Straight or Heterosexual Spiritual care concerns: No Agree to blood products: Yes Meds Home Medications and Allergies Home Medications ?Medication ?Instructions ?Recorded ?Confirmed ?Type donepezil 10 mg tablet 10 mg PO QHS #100 tabs 11/27/24 12/07/24 Rx lisinopril 20 mg tablet 20 mg PO DAILY #90 tabs 11/27/24 12/07/24 Rx memantine 10 mg tablet (Namenda) 10 mg PO BID #100 tabs 11/27/24 12/07/24 Rx simvastatin 20 mg tablet 20 mg PO DAILY #100 tabs 11/27/24 12/07/24 Rx Allergies Allergy/AdvReac Type Severity Reaction Status Date / Time No Known Allergies Allergy Verified 10/23/24 10:28 Vital Signs Vital Signs - 24 hr 12/07/24 07:36 12/07/24 07:39 12/07/24 08:26 Temperature 36.6 C Pulse Rate 50 L 50 L 47 L Respiratory Rate 18 Blood Pressure 117/80 130/67 Pulse Oximetry 99 Oxygen Delivery Room Air 12/07/24 08:27 12/07/24 08:29 12/07/24 09:36 Temperature Pulse Rate 49 L 59 L 47 L Respiratory Rate 18 Blood Pressure 142/82 H 150/70 H 141/63 H Pulse Oximetry 99 Oxygen Delivery 12/07/24 11:37 12/07/24 14:00 12/07/24 16:00 Temperature Pulse Rate 55 L 61 58 L Respiratory Rate 18 18 Blood Pressure 141/76 H 128/77 Pulse Oximetry 99 97 Oxygen Delivery Exam Narrative: Patient is comfortable, NAD HEENT: eyes are clear and none icteric LUNGS:CTA HEART: RR S1S2 ABD: BS+, Soft and nontender Lower extremities: no edema SKIN: nonjaundiced Neuro: grossly intact. H&P: Results Labs Labs: Short CBC 12/07/24 Range/Units 07:38 WBC 5.5 (4.5-10.0) K/mm3 Hgb 14.3 (14.0-18.0) g/dL Hct 42.8 (42.0-52.0) % Plt Count 156 (150-375) k/mm3 BMP 12/07/24 07:38 Sodium 140 Potassium 4.0 Chloride 106 Carbon Dioxide 25 BUN 13 Creatinine 1.17 Glucose 132 H Calcium 8.8 Liver Function 12/07/24 Range/Units 07:38 Total Bilirubin 0.9 (0.2-1.3) mg/dL AST 37 (17-59) U/L ALT 34 (6-50) U/L Alkaline Phosphatase 67 (38-126) U/L Albumin 3.8 (3.5-5.1) g/dL Assessment and Plan Assessment and plan (1) Syncopal episodes: Code(s): R55 - Syncope and collapse Status: Acute (2) Essential hypertension: Code(s): I10 - Essential (primary) hypertension Status: Acute (3) Mixed hyperlipidemia: Code(s): E78.2 - Mixed hyperlipidemia Status: Acute (4) Dementia: Code(s): F03.90 - Unspecified dementia, unspecified severity, without behavioral disturbance, psychotic disturbance, mood disturbance, and anxiety Status: Acute Plan ER-HPI narrative: 84-year-old male presents emergency department for evaluation for multiple syncopal episodes this morning. Patient was walking back from the bathroom this morning and had episode where he reported he slipped went down to the ground and states that the patient was conscious immediately after the incident. As they were walking back to the bed patient had another near syncopal episode where he actually fell into the bed but was supporting himself on his hands but was once again minimally responsive for approximately 1 minute. was able to get the patient into the bed and did call EMS and when EMS was attempting to get the patient to the rney the patient had a another episode of weakness and near syncope. Upon arrival emergency department patient denies any pain or complaints, patient denies any lightheaded or dizziness. Patient does have sinus bradycardia with heart rate in the 50s the monitor. Patient does have history of Alzheimer's dementia, hypertension and high cholesterol. Patient does take lisinopril and due to the low blood pressures his lisinopril dose was recently decreased from 30 to 20. patient currently denies any CP, SOB, dizziness, patient had CT scan of the head which is normal, to further evaluate will do cardiac ECHO, will have PT/OT evaluate the patient, will continue to monitor. patient and son are present in the room. Quality VTE Prophylaxis VTE prophylaxis: mechanical ordered Hospitalist [facility] Advance Care Plan I have confirmed that the patient's Advanced Care Plan is present, code status is documented, or surrogate decision maker is listed in patient medical record.: Yes Medication Reconciliation I have utilized all available resources to obtain, update and review the patients current medications (includes all prescriptions, OTC, herbals, cannabis, and nutritional supplements).: Yes
[2024-12-07] MEDS: MEMANTINE 10 MG TABLET PO (21:14)
[2024-12-07] MEDS: DONEPEZIL HCL 10 MG TABLET PO (21:14)
[2024-12-08] VITALS (9 sets, daily range): BP systolic 131–135; BP diastolic 58–67; PULSE 52–72; RESP 12–18; TEMP 36.2–36.3; O2SAT 97
--- NOTE | 2024-12-08 03:09 | PC.NURSE ---
Daylight Savings Time For Daylight Savings Time Ending in the Fall - Clocks are moved back. For Daylight Savings Time Beginning in the Spring - Clocks are moved ahead. For [facility], the time of change occurs at 0200 hrs. Time is taken from the fast food server. This entry on the patient's chart recognizes the change in time reflected during documentation. Example: 2 entries for vital signs may be charted for 0200 hrs.
[2024-12-08 06:36] LABS: Hematocrit 41.9 % (42.0-52.0); Hemoglobin 14.3 g/dL (14.0-18.0); Immature Platelet Fraction Pct 3.2 % (0.9-11.2); Mean Corpuscular HGB Conc 34.1 g/dl (32-36); Mean Corpuscular Hemoglobin 32.6 pg (26-34); Mean Corpuscular Volume 95.4 fl (80-100); Mean Platelet Volume 10.4 fl (7.4-10.4); Platelet Count Result 127 k/mm3 (150-375); Red Blood Count 4.39 M/mm3 (4.6-6.20); Red Cell Distribution Width 12.9 % (11.5-14.5); White Blood Count 8.1 K/mm3 (4.5-10.0)
[2024-12-08 06:45] LABS: Anion Gap 6 mmol/L (4-12); Blood Urea Nitrogen 13 mg/dL (9-20); Calcium 8.5 mg/dL (8.4-10.2); Carbon Dioxide 26 mmol/L (22-30); Chloride 107 mmol/L (98-107); Estimated CRCL calculation 43 ml/min; Estimated Glomerular Filt Rate > 60; Glucose 113 mg/dL (65-110); Sodium 139 mmol/L (137-145)
[2024-12-08] MEDS: SIMVASTATIN 20 MG TABLET PO (08:58)
[2024-12-08] MEDS: MEMANTINE 10 MG TABLET PO ×2 (08:58→20:33)
[2024-12-08] MEDS: lisinopriL 20 MG TABLET PO (08:58)
--- NOTE | 2024-12-08 14:26 | P.PNIM_ITS ---
Progress Note: A&P Assessment and Plan (1) Syncopal episodes: Code(s): R55 - Syncope and collapse Status: Acute (2) Essential hypertension: Code(s): I10 - Essential (primary) hypertension Status: Acute (3) Mixed hyperlipidemia: Code(s): E78.2 - Mixed hyperlipidemia Status: Acute (4) Dementia: Code(s): F03.90 - Unspecified dementia, unspecified severity, without behavioral disturbance, psychotic disturbance, mood disturbance, and anxiety Status: Acute Plan ER-HPI narrative: 84-year-old male presents emergency department for evaluation for multiple synco pal episodes this morning. Patient was walking back from the bathroom this morning and had episode where he reported he slipped went down to the ground and states that the patient was conscious immediately after the incident. As they were walking back to the bed patient had another near syncopal episode where he actually fell into the bed but was supporting himself on his hands but was once again minimally responsive for approximately 1 minute. was able to get the patient into the bed and did call EMS and when EMS was attempting to get the patient to the [facility] the patient had a another episode of weakness and near syncope. Upon arrival emergency department patient denies any pain or complaints, patient denies any lightheaded or dizziness. Patient does have sinus bradycardia with heart rate in the 50s the monitor. Patient does have history of Alzheimer's dementia, hypertension and high cholesterol. Patient does take lisinopril and due to the low blood pressures his lisinopril dose was recently decreased from 30 to 20. patient currently denies any CP, SOB, dizziness, patient had CT scan of the head which is normal, to further evaluate will do cardiac ECHO, which is pending, patient blood pressure in close to normal while in the hospital, will have PT/OT evaluate the patient, will continue to monitor. patient is present in the room. patient will benefit going to acute rehab. Subjective Date/time seen: 12/08/24 14:26 Interval history: patient currently denies any CP, SOB, dizziness, patient had CT scan of the head which is normal, to further evaluate will do cardiac ECHO, which is pending, patient blood pressure in close to normal while in the hospital, will have PT/OT evaluate the patient, will continue to monitor. patient is present in the room. patient will benefit going to acute rehab. Exam Narrative: Patient is comfortable, NAD HEENT: eyes are clear and none icteric LUNGS:CTA HEART: RR S1S2 ABD: BS+, Soft and nontender Lower extremities: no edema SKIN: nonjaundiced Neuro: grossly intact. Objective Data Vital Signs Vital Signs: Vital Signs - 24 hr 12/07/24 14:00 12/07/24 16:00 12/07/24 20:00 Temperature Pulse Rate 61 58 L 64 Respiratory Rate 18 16 Blood Pressure 128/77 Pulse Oximetry 97 96 Oxygen Delivery Room Air 12/07/24 20:00 12/07/24 21:15 12/08/24 00:00 Temperature 36.7 C Pulse Rate 74 64 72 Respiratory Rate 16 Blood Pressure 136/65 Pulse Oximetry 96 Oxygen Delivery 12/08/24 04:00 12/08/24 05:49 Temperature 36.2 C L Pulse Rate 68 53 L Respiratory Rate 12 Blood Pressure 134/58 L Pulse Oximetry 97 Oxygen Delivery Intake/Output Intake/Output: Intake & Output 12/05/24 12/06/24 12/07/24 12/09/24 23:59 23:59 23:59 00:59 Intake Total 1240 340 Balance 1240 340 Meds/Results Medications: Active Medications Generic Name Dose Route Start Last Admin Trade Name Freq PRN Reason Stop Dose Admin Donepezil HCl 10 mg 12/07/24 21:00 12/07/24 21:14 Donepezil Hcl 10 Mg Tablet PO 10 mg QHS DERIK Administration Lisinopril 20 mg 12/08/24 09:00 12/08/24 08:58 Lisinopril 20 Mg Tablet PO 20 mg DAILY DERIK Administration Memantine 10 mg 12/07/24 21:00 12/08/24 08:58 Memantine 10 Mg Tablet PO 10 mg Q12HR DERIK Administration Perflutren Lipid Microsphere 0 ml 12/07/24 17:47 Perflutren Lipid Microspheres 1.5 Ml Vial Diluted To 10 Ml Total Volume IV PUSH 12/10/24 17:47 ONCE PRN adequate visualization Protocol Simvastatin 20 mg 12/08/24 09:00 12/08/24 08:58 Simvastatin 20 Mg Tablet PO 20 mg DAILY DERIK Administration Radiology Results: ITS Impressions Chest X-Ray 12/07/24 07:38 IMPRESSION: 1. Mild atelectasis versus scarring in left midlung zone. Head CT 12/07/24 08:20 IMPRESSION: 1. Normal aging brain. Knee X-Ray 12/07/24 17:33 IMPRESSION: No acute osseous abnormality left knee. Labs Labs: Laboratory Results - last 24 hr 12/08/24 06:03 WBC 8.1 RBC 4.39 L Hgb 14.3 Hct 41.9 L MCV 95.4 MCH 32.6 MCHC 34.1 RDW 12.9 Plt Count 127 L MPV 10.4 % Immature Plt Fraction 3.2 Sodium 139 Potassium 4.0 Chloride 107 Carbon Dioxide 26 Anion Gap 6 BUN 13 Creatinine 1.07 Estim Creat Clear Calc 43 Estimated GFR > 60 Glucose 113 H Calcium 8.5 Magnesium 2.0 Quality VTE Prophylaxis VTE prophylaxis: mechanical ordered
[2024-12-08] MEDS: DONEPEZIL HCL 10 MG TABLET PO (20:33)
[2024-12-09] VITALS (7 sets, daily range): BP systolic 127–160; BP diastolic 63–77; PULSE 51–77; RESP 12–18; TEMP 36.1–36.8; O2SAT 97–98
--- NOTE | 2024-12-09 | ECHO_ITS ---
Patient Info Name: Morgan Thurston Age: 84 years : 1940 Gender: Male Ht: 67 in Wt: 168 lbs BSA: 1.91 m2 HR: 53 bpm BP: 160 / 77 mmHg Heart Rhythm: Sinus Rhythm Technical Quality: Fair Exam Date: 12/09/2024 12:56 PM Exam Location: Echo Lab Patient Status: Inpatient Admit Date: 12/08/2024 Staff Ordering Physician: Jamilah Sow MD Mud Analysis Supervisor: Krystle Barnard RDCS Attending Provider: Jamilah Sow MD Exam Type: CA echo doppler color flow Study Info Indications R55 - Syncope and collapse Complete two-dimensional, color flow and Doppler transthoracic echocardiogram is performed. Summary 1. Complete two-dimensional, color flow and Doppler transthoracic echocardiogram is performed. 2. Left ventricular chamber dimension is normal. 3. Left ventricular systolic function is normal, estimated at 65-70%. 4. The left ventricular diastolic function is grade I diastolic dysfunction. 5. E/e' 9 is minimally elevated. 6. Left atrial chamber dimension is mildly enlarged. 7. There is moderate aortic valve sclerosis. 8. There is mild aortic valve stenosis with a peak velocity of 202 cm/s, mean gradient of 7 mmHg, and aortic valve area of 1.9 cm2. 9. No pulmonary hypertension, estimated pulmonary arterial systolic pressure is 27 mmHg. Left Ventricle E/e' 9 is minimally elevated. Left ventricular chamber dimension is normal. Left ventricular systolic function is normal, estimated at 65-70%. The left ventricular diastolic function is grade I diastolic dysfunction. Right Ventricle Right ventricular systolic function is normal and with normal TAPSE 2.0 cm. Right ventricular chamber dimension is normal. Left Atria Left atrial chamber dimension is mildly enlarged. Right Atria Right atrial chamber dimension is normal. Aortic Valve The aortic valve is trileaflet. There is moderate aortic valve sclerosis. There is mild aortic valve stenosis with a peak velocity of 202 cm/s, mean gradient of 7 mmHg, and aortic valve area of 1.9 cm2. There is no aortic valve regurgitation. Pulmonic Valve There is no pulmonic regurgitation. Mitral Valve There is no mitral valve stenosis. There is no mitral valve regurgitation. Tricuspid Valve There is no tricuspid valve regurgitation. No pulmonary hypertension, estimated pulmonary arterial systolic pressure is 27 mmHg. Pericardium/Pleural There is no pericardial effusion. Inferior Vena Cava Normal inferior vena cava with >50% collapse upon inspiration consistent with normal right atrial pressure, 5 mmHg. Aorta The aortic root size at the sinus of Valsalva is normal. Left Ventricular Outflow Tract Name Value Normal LVOT 2D LVOT Diameter 2.0 cm LVOT Doppler LVOT Peak Gradient 5 mmHg LVOT Mean Gradient 2 mmHg LVOT VTI 23 cm LVOT VTI/AV VTI Ratio 0.6 LVOT Stroke Volume 70 ml LVOT CO 3.8 l/min LVOT CI 2.0 l/min/m2 Pulmonic Valve Name Value Normal RVOT Doppler RVOT Peak Gradient 4 mmHg PV Doppler PV Peak Gradient 6 mmHg Mitral Valve Name Value Normal MV Doppler MV Decel [place] 314 cm/s2 MV PHT 56 ms MV Area (PHT) 3.9 cm2 4.0-5.0 MV Diastolic Function MV E Peak Velocity 61 cm/s MV A Peak Velocity 69 cm/s MV E/A 0.9 MV Decel Time 194 ms MV Annular TDI MV E/e' (Septal) 11.2 <=8.0 MV E/e' (Lateral) 8.1 <=8.0 MV E/e' (Average) 9.6 Tricuspid Valve Name Value Normal TV Regurgitation Doppler TR Peak Velocity 236 cm/s TR Peak Gradient 22 mmHg Estimated PAP/RSVP RA Pressure 5 mmHg <=5 PA Systolic Pressure 27 mmHg <36 RV Systolic Pressure 27 mmHg <36 Aorta Name Value Normal Ascending Aorta Ao Root Diameter (MM) 3.2 cm Ao Root Diam Index (MM) 1.7 cm/m2 Aortic Valve Name Value Normal AV Doppler AV Peak Velocity 202 cm/s AV Peak Gradient 16 mmHg AV Mean Gradient 7 mmHg AV VTI 36 cm AV Area (Cont Eq VTI) 1.9 cm2 >=3.0 AV Area (Cont Eq Merrill) 1.7 cm2 AV Regurgitation 2D LVOT Area 3.1 cm2 Ventricles Name Value Normal LV Dimensions 2D/MM IVS Diastolic Thickness (2D) 0.9 cm 0.6-1.0 LVID Diastole (2D) 4.6 cm 4.2-5.8 LVIW Diastolic Thickness (2D) 1.0 cm 0.6-1.0 LVID Systole (2D) 3.0 cm 2.5-4.0 LVOT Diameter 2.0 cm LV Mass (2D Cubed) 153.98 g 88.00-224.00 LV Mass Index (2D Cubed) 81 g/m2 49-115 Relative Wall Thickness (2D) 0.44 LV Fractional Shortening/Ejection Fraction 2D/MM LV Fractional Shortening (2D) 36 % 25-43 LV EF (2D Teicholz) 65 % 52-72 LV Diastolic Volume (4C MOD) 55 ml LV EF (4C MOD) 67 % LV Diastolic Volume (2C MOD) 46 ml LV EF (2C MOD) 66 % LV Diastolic Volume (BP MOD) 51 ml 62-150 LV Diastolic Volume Index (BP MOD) 26 ml/m2 34-74 LV Systolic Volume (BP MOD) 17 ml 21-61 LV Systolic Volume Index (BP MOD) 9 ml/m2 11-31 LV EF (BP MOD) 67 % 52-72 LV Diastolic Length (4C) 7.3 cm LV Systolic Length (4C) 6.2 cm LV Stroke Volume (4C MOD) 37 ml Atria Name Value Normal LA Dimensions LA Dimension (MM) 4.8 cm 3.0-4.1 LA Volume (4C A-L) 58 ml LA Volume (BP A-L) 59 ml RA Dimensions RA Area (4C) 17.2 cm2 <=18.0 Report Signatures
[2024-12-09 06:15] LABS: Hematocrit 42.8 % (42.0-52.0); Hemoglobin 14.6 g/dL (14.0-18.0); Mean Corpuscular HGB Conc 34.1 g/dl (32-36); Mean Corpuscular Hemoglobin 32.4 pg (26-34); Mean Corpuscular Volume 94.9 fl (80-100); Mean Platelet Volume 9.7 fl (7.4-10.4); Platelet Count Result 142 k/mm3 (150-375); Red Blood Count 4.51 M/mm3 (4.6-6.20); Red Cell Distribution Width 13.1 % (11.5-14.5); White Blood Count 7.8 K/mm3 (4.5-10.0)
[2024-12-09 06:26] LABS: Anion Gap 8 mmol/L (4-12); Blood Urea Nitrogen 14 mg/dL (9-20); Calcium 8.5 mg/dL (8.4-10.2); Carbon Dioxide 24 mmol/L (22-30); Chloride 107 mmol/L (98-107); Estimated CRCL calculation 40 ml/min; Estimated Glomerular Filt Rate > 60; Glucose 107 mg/dL (65-110); Sodium 139 mmol/L (137-145)
[2024-12-09] MEDS: MEMANTINE 10 MG TABLET PO (08:34)
[2024-12-09] MEDS: lisinopriL 20 MG TABLET PO (08:34)
[2024-12-09] MEDS: SIMVASTATIN 20 MG TABLET PO (08:34)
--- NOTE | 2024-12-09 17:34 | PM.DS ---
DS: Summary Time Spent with Patient Time attestation: Total time spent providing and/or coordinating discharge services: DS: Data Data Completed and Pending Labs on day of discharge: Labs from last 24 hours 12/09/24 05:59 WBC 7.8 RBC 4.51 L Hgb 14.6 Hct 42.8 MCV 94.9 MCH 32.4 MCHC 34.1 RDW 13.1 Plt Count 142 L MPV 9.7 Sodium 139 Potassium 4.0 Chloride 107 Carbon Dioxide 24 Anion Gap 8 BUN 14 Creatinine 1.13 Estim Creat Clear Calc 40 Estimated GFR > 60 Glucose 107 Calcium 8.5 Magnesium 2.0 Discharge Plan Discharge Attending physician on discharge: Jamilah Sow Discharging Clinician: Jamilah Sow Patient Disposition: Home, Self-Care Activity: as tolerated Diet: heart healthy Discharge Instructions: patient is instructed to hydrate himself, patient to follow up with his primary care provider as soon as possible, patient is instructed is any symptoms redevelop to go to nearest ER. Patient Instructions: Antibiotic Form Patient Language: Syriac Stand Alone Forms: General Discharge Information Follow-up/Referrals: Lexie Echevarria MD [Primary Care Provider] - Discharge Medications: Continued simvastatin 20 mg tablet 20 mg PO DAILY Qty: 100 3RF lisinopril 20 mg tablet 20 mg PO DAILY Qty: 90 3RF donepezil 10 mg tablet 10 mg PO QHS Qty: 100 3RF memantine [Namenda] 10 mg tablet 10 mg PO BID Qty: 100 3RF Date of admission: 12/08/24 16:29 Primary Care Provider: Lexie Echevarria Admitting Provider: Jamilah Sow Attending physician on admission: Jamilah Sow Condition: Stable
== END 2024-12-09 18:53 | disposition home or self-care (01) | DRG 312 ==
LOC: ANHED 10:53 → ANH3MEDSUR 11:28
PROVIDERS: Admitting Provider Family Medicine; Emergency Provider Emergency Medicine; PCP Family Medicine; Visit Provider Family Medicine
DX: R55 Syncope and collapse (principal); R00.1 Bradycardia, unspecified; I10 Essential (primary) hypertension; E78.00 Pure hypercholesterolemia, unspecified; G30.9 Alzheimer's disease, unspecified; F02.80 Dementia in other diseases classified elsewhere, unspecified severity, without behavioral disturbance, psychotic disturbance, mood disturbance, and anxiety; Z20.822 Contact with and (suspected) exposure to COVID-19
CPT/HCPCS: 36415; 70450; 71045; 73560; 80048; 80053; 83605; 83735; 84439; 84443; 84480; 85025; 85027; 85055; 85610; 85730; 87637; 93005; 93306; 96361; 97161; 97165; 99285; A9270; G0378; J7120

== ENCOUNTER 2024-12-17 12:44 | Outpatient (CLI) | payer OTHER, SELFPAY ==
--- OUTSIDE RECORDS SUMMARY | 2024-12-17 14:03 | XMS_ITS | Referral Summary ---
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
--- OUTSIDE RECORDS SUMMARY | 2024-12-17 14:03 | XMS_ITS | Clinical Summary ---
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 Member Subscriber Plan / Payer ( fective 2011-Present) Name:Morgan Philippe Relation to Subscriber:Self Name:Morgan Philippe Payer ID:[id number] (NAIC) Type:MEDICARE RISK OTHER Address: [place] [id number] [facility] Care Teams Fire Safety Inspector Relationship Specialty Start Date End Date Cali Levine MD PCP - General Family Medicine 08/24/22
--- NOTE | 2024-12-30 16:20 | WPDHOLTEREM ---
Holter/Event Monitor Holter/Event Monitor Date of procedure: 12/17/24 Holter/Event Procedure: 3-7 Day Holter Monitor Indications: Syncope Conclusion: 1. 3 days holter monitor on 12/17/24. 2. Predominant rhythm is sinus rhythm. HR range 32-169 bpm; average HR 59 bpm. HR at 32 bpm was on 12/18/24 at 9:06 am. 3. There are rare premature supraventricular complexes, rare supraventricular couplets, and rare supraventricular triplets. There are 20 episodes of supraventricular tachycardia, fastest at 169 bpm and longest lasting 17 beats. 4. There are rare premature ventricular complexes, rare ventricular couplets, and longest ventricular bigeminy was 37 seconds. No ventricular tachycardia. 5. No significant pauses greater than 3 seconds. 6. No symptoms available for correlation.
== END 2024-12-17 12:45 | disposition home or self-care (01) ==
PROVIDERS: PCP Family Medicine; Visit Provider Family Medicine
DX: R55 Syncope and collapse (principal)
CPT/HCPCS: 93242